=== PATIENT | female | born 1950 | race Caucasian/White ===

== ENCOUNTER → 2018-05-18 11:30 | Outpatient (CLI) | payer MEDICARE, SELFPAY ==
[2018-05-18 15:51] LABS: Absolute Lymphocyte Count 1.76 X10^3/ul (0.83-4.51); Absolute Neutrophil Count 2.5 X10^3/uL (2.0-7.7); Basophil# 0.07 X10^3/uL; Basophil% 1.4 % (0-1); Eosinophil# 0.17 X10^3/uL; Eosinophils% 3.4 % (0-5); Hematocrit 38.3 % (37-47); Hemoglobin 12.6 g/dl (12.0-15.0); Lymphocyte # 1.76 X10^3/ul (4.0); Lymphocyte % 35.1 % (19-41); Mean Corp Hgb Conc 32.9 g/gl (32-36); Mean Corpuscular Hgb 29.9 pg (27.0-32.0); Mean Corpuscular Volume 90.8 fL (81-99); Monocyte# 0.48 X10^3/uL; Monocyte% 9.6 % (0-10); Neutrophil # 2.54 X10^3/uL (2.7-7.7); Neutrophil % 50.5 % (47-70); Platelet Count 252 K/mm3 (150-450); RBC Distribution Width CV 13.6 % (11.6-14.6); RBC Distribution Width SD 44.4 fl (35.1-43.9); Red Blood Count 4.22 M/mm3 (4.2-5.4)
[2018-05-18 15:53] LABS: POSITIVE COUNT NO; POSITIVE DIFFERENTIAL NO; POSITIVE MORPHOLOGY NO
[2018-05-18 16:09] LABS: ALB/GLOB Ratio 1.2 RATIO (0.9-2.4); AST(SGOT) 19 U/L (15-37); Alanine Aminotransfer ALT/SGPT 26 U/L (13-56); Albumin, Serum 4.3 g/dL (3.2-5.0); Alkaline Phosphatase 62 U/L (45-117); Anion Gap 13 (5-15); BUN 16 mg/dL (7-18); Calcium,Total 9.5 mg/dL (8.5-10.1); Chloride 105 mmol/L (98-107); EST Glomerular Filtration Rate 59 mL/min (>60); Est Glom Filt Rate - Afr Amer 71 mL/min (>60); Globulin 3.7 g/dL (2.2-4.2); Glucose 85 mg/dL (74-106); Potassium 3.6 mmol/L (3.5-5.1); Sodium Level 142 mmol/L (136-145); Thyroid Stim Hormone (TSH) 1.19 uIU/mL (0.358-3.74)
[2018-05-18 20:46] LABS: Cholesterol 248 mg/dL (200); High Density Lipoprotein 63 mg/dL; Triglycerides 123 mg/dL; Very Low Density Lipoprotein 25 mg/dL (5-40)
== END ==
PROVIDERS: Family Provider Family Medicine; PCP Family Medicine; Visit Provider Family Medicine
DX: E03.9 Hypothyroidism, unspecified (principal); I10 Essential (primary) hypertension
CPT/HCPCS: 36415; 80053; 80061; 84443; 85025

== ENCOUNTER → 2018-05-20 10:36 | Outpatient (CLI) | payer MEDICARE, SELFPAY | PROVIDERS: Family Provider Family Medicine; PCP Family Medicine; Visit Provider Family Medicine | DX: R07.81 Pleurodynia (principal) | CPT/HCPCS: 71046; 71100 ==

== ENCOUNTER → 2018-06-07 08:22 | Outpatient (CLI) | payer MEDICARE, SELFPAY ==
--- NOTE | 2018-06-07 08:24 | BI_ITS ---
MAMMOGRAPHY - BILATERAL SCREENING REASON FOR EXAM: Female, 67 years old. Routine annual screening examination. PERTINENT HISTORY: Non-contributory. TECHNIQUE: Digital bilateral breast elvi (3D mammographic acquisition) in the CC and MLO projections. 2-D mediolateral oblique (MLO) and craniocaudad (CC) views of both breasts were obtained. CAD: Full Field Digital Mammography with Computer Added Detection was performed. COMPARISON: Comparison is made with prior study dated December 10, 2011. FINDINGS: Breast Composition: There are scattered areas of fibroglandular density. There are no dominant masses or suspicious calcifications. Stable small bilateral axillary lymph nodes. No other significant abnormalities are identified. There has been no significant change since the prior study. BI/SCREENING MAMM (CAD), BILAT IMPRESSION: Stable bilateral screening mammogram. Yearly follow-up mammogram recommended. (A) ASSESSMENT CATEGORY: BIRADS Category 2: Benign. A letter regarding these results will be sent to the patient by the facility within 30 days. Approximately 10% of breast cancers are not detected by mammography. A normal mammogram should not delay biopsy of a clinically suspicious abnormality. [id number] Electronically Signed: Alberto oSares MD at 13:17 EDT Tel [phone], Service support ,
== END ==
PROVIDERS: Family Provider Family Medicine; PCP Family Medicine; Visit Provider Family Medicine
DX: Z12.31 Encounter for screening mammogram for malignant neoplasm of breast (principal)
CPT/HCPCS: 77063; 77067

== ENCOUNTER → 2019-05-24 08:14 | Outpatient (CLI) | payer MEDICARE, SELFPAY ==
[2019-05-24 12:04] LABS: Absolute Lymphocyte Count 2.07 X10^3/uL (0.83-4.51); Eosinophil# 0.32 X10^3/uL; Eosinophils% 6.5 % (0-5); Hematocrit 38.8 % (37-47); Hemoglobin 12.6 g/dL (12.0-15.0); Lymphocyte # 2.07 X10^3/ul (4.0); Lymphocyte % 41.7 % (19-41); Mean Corp Hgb Conc 32.5 g/dL (32-36); Mean Corpuscular Hgb 30.6 pg (27.0-32.0); Mean Corpuscular Volume 94.2 fL (81-99); Mean Platelet Vol. 12.4 fl (6.2-12.0); Monocyte# 0.44 X10^3/uL; Monocyte% 8.9 % (0-10); NRBC Flagged by Analyzer 0 % (0-5); Neutrophil # 2.03 X10^3/uL (2.7-7.7); Neutrophil % 40.9 % (47-70); Platelet Count 248 K/mm3 (150-450); RBC Distribution Width CV 13.3 % (11.6-14.6); RBC Distribution Width SD 45.9 fl (35.1-43.9); Red Blood Count 4.12 M/mm3 (4.2-5.4)
[2019-05-24 12:30] LABS: AST(SGOT) 16 U/L (15-37); Alanine Aminotransfer ALT/SGPT 28 U/L (13-56); Albumin, Serum 3.8 g/dL (3.2-5.0); Alkaline Phosphatase 63 U/L (45-117); Anion Gap 8 (5-15); BUN 25 mg/dL (7-18); BUN/Creat Ratio 25.5 RATIO (10-20); Calcium,Total 9.5 mg/dL (8.5-10.1); Chloride 108 mmol/L (98-107); Cholesterol 209 mg/dL (200); Creatinine, Serum 0.98 mg/dL (0.55-1.02); EST Glomerular Filtration Rate 60 mL/min (>60); Est Glom Filt Rate - Afr Amer 73 mL/min (>60); Globulin 3.7 g/dL (2.2-4.2); Glucose 82 mg/dL (74-106); High Density Lipoprotein 58 mg/dL; Potassium 3.9 mmol/L (3.5-5.1); Protein, Total 7.5 g/dL (6.4-8.2); Sodium Level 142 mmol/L (136-145); Thyroid Stim Hormone (TSH) 1.91 uIU/mL (0.358-3.74); Triglycerides 110 mg/dL; Very Low Density Lipoprotein 22 mg/dL (5-40)
== END ==
PROVIDERS: Family Provider Family Medicine; PCP Family Medicine; Visit Provider Family Medicine
DX: I10 Essential (primary) hypertension (principal); E78.00 Pure hypercholesterolemia, unspecified; E03.9 Hypothyroidism, unspecified
CPT/HCPCS: 36415; 80053; 80061; 84443; 85025

== ENCOUNTER → 2019-10-27 16:09 | Outpatient (CLI) | payer MEDICARE, SELFPAY | PROVIDERS: PCP Family Medicine; Referring Provider Family Medicine; Visit Provider Family Medicine | DX: S69.92XA Unspecified injury of left wrist, hand and finger(s), initial encounter (principal); X58.XXXA Exposure to other specified factors, initial encounter; Y93.9 Activity, unspecified; Y92.9 Unspecified place or not applicable; Y99.9 Unspecified external cause status ==

== ENCOUNTER → 2019-10-28 08:53 | Outpatient (CLI) | payer MEDICARE, SELFPAY ==
--- NOTE | 2019-10-28 09:00 | RAD_ITS ---
STUDY: X-RAY - LEFT WRIST REASON FOR EXAM: Female, 69 years old. PAIN S/P FALL ON 10/17/19 TECHNIQUE: 3 view(s) of the wrist were obtained. COMPARISON: None. FINDINGS: Normal visualized distal radius and ulna. Normal radiocarpal articulation. Normal distal radioulnar articulation. Normal carpal bones. Normal carpal articulations. There are mild subchondral cystic changes of the base of the first metacarpal. Normal second through fifth carpometacarpal articulations. Normal visualized metacarpal bones. The soft tissue structures are unremarkable. RAD/Wrist min 3 Views IMPRESSION: No demonstrated acute osseous injury. Electronically Signed: Napoleon Manzo MD at 9:58 EST Tel , Service support ,
== END ==
PROVIDERS: PCP Family Medicine; Referring Provider Family Medicine; Visit Provider Family Medicine
DX: S69.92XA Unspecified injury of left wrist, hand and finger(s), initial encounter (principal); X58.XXXA Exposure to other specified factors, initial encounter; Y93.9 Activity, unspecified; Y92.9 Unspecified place or not applicable; Y99.9 Unspecified external cause status
CPT/HCPCS: 73110

== ENCOUNTER → 2020-06-15 09:50 | Outpatient (CLI) | payer MEDICARE, SELFPAY ==
[2020-06-15 12:20] LABS: Absolute Lymphocyte Count 1.72 X10^3/uL (0.83-4.51); Absolute Neutrophil Count 2.7 X10^3/uL (2.0-7.7); Basophil# 0.11 X10^3/uL; Basophil% 2.1 % (0-1); Eosinophils% 3.8 % (0-5); Hemoglobin 11.8 g/dL (12.0-15.0); Lymphocyte # 1.72 X10^3/ul (4.0); Lymphocyte % 33.1 % (19-41); Mean Corp Hgb Conc 32.8 g/dL (32-36); Mean Corpuscular Hgb 30.1 pg (27.0-32.0); Mean Corpuscular Volume 91.8 fL (81-99); Mean Platelet Vol. 11.6 fl (6.2-12.0); Monocyte# 0.44 X10^3/uL; Monocyte% 8.5 % (0-10); NRBC Flagged by Analyzer 0 % (0-5); Neutrophil # 2.72 X10^3/uL (2.7-7.7); Neutrophil % 52.3 % (47-70); Platelet Count 290 K/mm3 (150-450); RBC Distribution Width CV 13.2 % (11.6-14.6); Red Blood Count 3.92 M/mm3 (4.2-5.4); White Blood Count 5.2 K/mm3 (4.4-11.0)
[2020-06-15 12:23] LABS: Vitamin D,25 Hydroxy 69.1 ng/mL
[2020-06-15 12:32] LABS: ALB/GLOB Ratio 1.2 RATIO (0.9-2.4); AST(SGOT) 20 U/L (15-37); Alanine Aminotransfer ALT/SGPT 27 U/L (13-56); Albumin, Serum 4.3 g/dL (3.2-5.0); Alkaline Phosphatase 66 U/L (45-117); Anion Gap 8 (5-15); BUN 14 mg/dL (7-18); BUN/Creat Ratio 13.7 RATIO (10-20); Calcium,Total 9.7 mg/dL (8.5-10.1); Chloride 101 mmol/L (98-107); Cholesterol 230 mg/dL (200); Creatinine, Serum 1.02 mg/dL (0.55-1.02); EST Glomerular Filtration Rate 57 mL/min (>60); Est Glom Filt Rate - Afr Amer 69 mL/min (>60); Globulin 3.7 g/dL (2.2-4.2); Glucose 85 mg/dL (74-106); High Density Lipoprotein 63 mg/dL; Potassium 3.5 mmol/L (3.5-5.1); Sodium Level 138 mmol/L (136-145); Thyroid Stim Hormone (TSH) 1.27 uIU/mL (0.358-3.74); Triglycerides 146 mg/dL; Very Low Density Lipoprotein 29 mg/dL (5-40)
== END ==
PROVIDERS: PCP Family Medicine; Visit Provider Family Medicine
DX: E03.9 Hypothyroidism, unspecified (principal); I10 Essential (primary) hypertension; M85.80 Other specified disorders of bone density and structure, unspecified site; E78.00 Pure hypercholesterolemia, unspecified; E55.9 Vitamin D deficiency, unspecified
CPT/HCPCS: 36415; 80053; 80061; 82306; 84443; 85025

== ENCOUNTER → 2021-03-29 13:22 | Outpatient (CLI) | payer MEDICARE, OTHER, SELFPAY ==
--- NOTE | 2021-03-29 13:22 | MRI_ITS ---
STUDY: MRI THORACIC SPINE WITHOUT CONTRAST REASON FOR EXAM: Female, 70 years old. Mid- upper back pain since 2003, fall TECHNIQUE: Standardized fat and water weighted pulse sequences were obtained in the sagittal and axial planes. COMPARISON: Thoracic spine radiographs 02/18/2021. FINDINGS: Normal kyphosis of the thoracic spine. There is no substantial scoliosis. T1-2, T2-3, T3-4, T4-5, T5-6, T6-7, T7-8, T8-9, T9-10, T10-11, T11-12: Normal endplates. Normal disc hydration, heights and morphology of the corresponding intervertebral discs. Normal central canal and intervertebral neural foramina at the corresponding levels. Small midline syrinx of the spinal cord along the T8 vertebral body level. Normal conus medullaris that terminates at the mid T12 vertebral body level. The soft tissue structures are unremarkable. MRI/Spine Thoracic (Routine) IMPRESSION: 1. Small midline syrinx of the spinal cord along the T8 vertebral body level. Contrast MRI of the thoracic spine will help confirm benign nonneoplastic syrinx. 2. No MRI evidence of recent or remote compression fractures of the thoracic spine. 3. No MRI evidence of thoracic extruded disc fragment or spinal stenosis. Electronically Signed: Will Rudd MD at 16:14 EDT , Service support ,
== END ==
PROVIDERS: PCP Family Medicine; Referring Provider Orthopaedic Surgery; Visit Provider Orthopaedic Surgery
DX: M54.14 Radiculopathy, thoracic region (principal); M54.5 Low back pain
CPT/HCPCS: 72146

== ENCOUNTER 2021-10-15 14:23 | Outpatient (CLI) | payer MEDICARE, OTHER, SELFPAY | END 2021-10-15 23:59 | disposition home or self-care (01) | LOC: LABSPEC 12-24 14:23 | PROVIDERS: PCP Family Medicine; Visit Provider Family Medicine | DX: U07.1 COVID-19 (principal) | CPT/HCPCS: 87635; U0003; U0005 ==

== ENCOUNTER → 2022-06-24 | Outpatient (CLI) | payer MEDICARE, OTHER, SELFPAY ==
[2022-06-24 10:12] LABS: Absolute Lymphocyte Count 2.26 X10^3/uL (0.83-4.51); Absolute Neutrophil Count 2.6 X10^3/uL (2.0-7.7); Basophil# 0.12 X10^3/uL; Basophil% 2.1 % (0-1); Eosinophils% 5.2 % (0-5); Hematocrit 37.4 % (37-47); Hemoglobin 12.1 g/dL (12.0-15.0); Lymphocyte # 2.26 X10^3/ul (0.83-4.51); Lymphocyte % 39.2 % (19-41); Mean Corp Hgb Conc 32.4 g/dL (32-36); Mean Corpuscular Hgb 30.2 pg (27.0-32.0); Mean Corpuscular Volume 93.3 fL (81-99); Mean Platelet Vol. 11.4 fl (6.2-12.0); Monocyte# 0.45 X10^3/uL; Monocyte% 7.8 % (0-10); NRBC Flagged by Analyzer 0 % (0-5); Neutrophil # 2.64 X10^3/uL (2.7-7.7); Neutrophil % 45.7 % (47-70); Platelet Count 295 K/mm3 (150-450); RBC Distribution Width CV 13.3 % (11.6-14.6); RBC Distribution Width SD 45.5 fl (35.1-43.9); Red Blood Count 4.01 M/mm3 (4.2-5.4); White Blood Count 5.8 K/mm3 (4.4-11.0)
[2022-06-24 10:28] LABS: Vitamin D,25 Hydroxy 57.3 ng/mL
[2022-06-24 10:34] LABS: AST(SGOT) 18 U/L (15-37); Alanine Aminotransfer ALT/SGPT 27 U/L (13-56); Albumin, Serum 3.9 g/dL (3.2-5.0); Alkaline Phosphatase 62 U/L (45-117); Anion Gap 9 (5-15); BUN 20 mg/dL (7-18); BUN/Creat Ratio 19.2 RATIO (10-20); Calcium,Total 9.7 mg/dL (8.5-10.1); Chloride 105 mmol/L (98-107); Cholesterol 241 mg/dL (200); Creatinine, Serum 1.04 mg/dL (0.55-1.02); EST Glomerular Filtration Rate 56 mL/min (>60); Est Glom Filt Rate - Afr Amer 67 mL/min (>60); Glucose 90 mg/dL (74-106); High Density Lipoprotein 62 mg/dL; Potassium 3.6 mmol/L (3.5-5.1); Protein, Total 7.9 g/dL (6.4-8.2); Sodium Level 141 mmol/L (136-145); Triglycerides 138 mg/dL; Very Low Density Lipoprotein 28 mg/dL (5-40)
== END | disposition home or self-care (01) ==
LOC: MTLAB 07:05
PROVIDERS: PCP Family Medicine; Referring Provider Family Medicine; Visit Provider Family Medicine
DX: I10 Essential (primary) hypertension (principal); E03.9 Hypothyroidism, unspecified; M85.80 Other specified disorders of bone density and structure, unspecified site; E78.00 Pure hypercholesterolemia, unspecified; E55.9 Vitamin D deficiency, unspecified
CPT/HCPCS: 36415; 80053; 80061; 82306; 84443; 85025

== ENCOUNTER → 2022-11-04 | Outpatient (CLI) | payer MEDICARE, OTHER, SELFPAY ==
[2022-11-04 13:32] LABS: Anion Gap 9 (5-15); BUN 26 mg/dL (7-18); BUN/Creat Ratio 24.8 RATIO (10-20); Calcium,Total 10.3 mg/dL (8.5-10.1); Chloride 104 mmol/L (98-107); Creatinine, Serum 1.05 mg/dL (0.55-1.02); EST Glomerular Filtration Rate 55 mL/min (>60); Est Glom Filt Rate - Afr Amer 66 mL/min (>60); Glucose 95 mg/dL (74-106); Magnesium 2.3 mg/dL (1.6-2.6); Potassium 3.4 mmol/L (3.5-5.1); Sodium Level 140 mmol/L (136-145); Thyroid Stim Hormone (TSH) 1.21 uIU/mL (0.358-3.74)
== END | disposition home or self-care (01) ==
LOC: BFHLAB 11:14
PROVIDERS: PCP Family Medicine; Visit Provider Family Medicine
DX: I10 Essential (primary) hypertension (principal); E78.5 Hyperlipidemia, unspecified; E03.9 Hypothyroidism, unspecified
CPT/HCPCS: 36415; 80048; 83735; 84443

== ENCOUNTER → 2025-02-23 | Outpatient (CLI) | payer MEDICARE, OTHER, SELFPAY ==
--- NOTE | 2025-02-23 12:28 | EKG12_ITS ---
Test Reason : PREOP Blood Pressure : */* mmHG Vent. Rate : 61 BPM Atrial Rate : 61 BPM P-R Int : 150 ms QRS Dur : 92 ms QT Int : 408 ms P-R-T Axes : 60 62 -5 degrees QTcB Int : 410 ms Normal sinus rhythm ST & T wave abnormality, consider inferior ischemia ST & T wave abnormality, consider anterolateral ischemia Abnormal ECG Confirmed by Robert Hagen ([id number]), electronic news gathering editor DOROTA CLARK ([id number]) on 02/27/2025 11:31:10 AM Referred By: Adam Mendoza Confirmed By: Robert Hagen
--- NOTE | 2025-02-23 12:42 | CT_ITS ---
PROCEDURE: EXTREMITY LOWER WITHOUT CONTRA 02/23/2025 REASON FOR EXAM: PAIN IN RIGHT KNEE [facility] protocol for right knee replacement. TECHNIQUE: Axial CT images of the right hip joint, right knee joint and right ankle joint obtained with intravenous contrast. Coronal and Sagittal reconstruction series were provided. CONTRAST: None One or more dose reduction techniques were used (e.g., Automated exposure control, adjustment of the mA and/or kV according to patient size, use of iterative reconstruction technique). RADIATION DOSE SUMMARY: CTDlvol: 19 mGy DLP: 1304.19 mGycm COMPARISON: None FINDINGS: Bones: No evidence of fracture. Joints: Imaging of the right hip joint was performed. The joint space is relatively well-maintained. Imaging of the right knee joint was performed. Marked degree of joint space narrowing involving the medial compartment of the knee joint as well as moderate degree of joint space narrowing of the patellofemoral joint with subchondral sclerosis. Imaging of the ankle joint was performed. There is good alignment. No significant abnormality is seen. Soft Tissues: Small knee joint effusion. CT/Extremity Lower without Contra IMPRESSION: Marked degree of joint space narrowing and osteoarthritis of the medial compart ment of the knee joint as well as the patellofemoral compartment. Small knee joint effusion. Reading Location: [facility]
[2025-02-23 14:26] LABS: Absolute Lymphocyte Count 2.18 X10^3/uL (0.83-4.51); Basophil# 0.12 X10^3/uL; Basophil% 1.7 % (0-1); Eosinophils% 2.8 % (0-5); Hematocrit 35.2 % (37-47); Lymphocyte # 2.18 X10^3/ul (0.83-4.51); Lymphocyte % 30.9 % (19-41); Mean Corp Hgb Conc 34.1 g/dL (32-36); Mean Corpuscular Hgb 30.8 pg (27.0-32.0); Mean Corpuscular Volume 90.5 fL (81-99); Mean Platelet Vol. 11.1 fl (6.2-12.0); Monocyte# 0.54 X10^3/uL; Monocyte% 7.6 % (0-10); NRBC Flagged by Analyzer 0 % (0-5); Neutrophil % 56.7 % (47-70); Platelet Count 346 K/mm3 (150-450); RBC Distribution Width CV 13.3 % (11.6-14.6); RBC Distribution Width SD 44.1 fl (35.1-43.9); Red Blood Count 3.89 M/mm3 (4.2-5.4); White Blood Count 7.1 K/mm3 (4.4-11.0)
[2025-02-23 14:41] LABS: Albumin, Serum 4.9 g/dL (3.4-4.8); Anion Gap 14 (5-15); BUN 37 mg/dL (4-19); BUN/Creat Ratio 29.2 RATIO (10-20); Calcium,Total 10.3 mg/dL (7.6-11.0); Carbon Dioxide 24.3 mmol/L (21.0-32.0); Chloride 100 mmol/L (98-108); Creatinine, Serum 1.26 mg/dL (0.70-1.20); EST Glomerular Filtration Rate 45 (>60); Glucose 100 mg/dL (70-99); Potassium 3.8 mmol/L (3.3-5.1); Sodium Level 138 mmol/L (133-145)
== END | disposition home or self-care (01) ==
LOC: CT 12:22
PROVIDERS: PCP Nurse Practitioner Family; Referring Provider Specialist; Visit Provider Specialist
DX: Z01.818 Encounter for other preprocedural examination (principal); M17.11 Unilateral primary osteoarthritis, right knee; M21.161 Varus deformity, not elsewhere classified, right knee; G89.29 Other chronic pain
CPT/HCPCS: 36415; 73700; 80048; 82040; 85025; 87081; 93005

== ENCOUNTER 2025-03-10 14:15 | Emergency (ER) | payer MEDICARE, OTHER, SELFPAY ==
[2025-03-10 14:16] VITALS: BP 160/73; PULSE 80; RESP 16; TEMP 36.8; O2SAT 100; BMI 30.2
--- NOTE | 2025-03-10 14:40 | EX.ED.DYSGE1 ---
HPI <KWESI Simon - Last Filed: 03/10/25 19:27> History of Present Illness Chief Complaint: Abn Labs Narrative Narrative: Patient presenting today due to an out patient troponin lab that was slightly elevated. She reports that she recently had a preop EKG at the end of January that showed possible ischemic changes, her PCP then ordered an outpatient troponin on Thursday which came back at 18. She had this repeated today and it was 21, prompting her to be sent in for evaluation. She denies any chest pain, shortness of breath, cardiac history, abdominal pain, nausea, and vomiting. She reports occasional chest pressure that she has had intermittently for months. She attributes this to her anxiety. She currently does not have any chest pain or pressure. She has a PMH of HTN, hypothyroidism, and anxiety. PFSH <KWESI Simon - Last Filed: 03/10/25 19:27> PFSH Medical History no medical history Home Medications ?Medication ?Instructions ?Recorded ?Last Taken ?Type diazepam 5 mg tablet (Valium) 5 mg PO QHS PRN anxiety #1 TAB 03/20/21 Unknown Rx Allergy/AdvReac Type Severity Reaction Status Date / Time sulfamethoxazole (From AdvReac Mild Upset Verified 03/10/25 14:19 Bactrim) Stomach trimethoprim (From Bactrim) AdvReac Mild Upset Verified 03/10/25 14:19 Stomach amoxicillin (From Augmentin) AdvReac Diarrhea Verified 03/10/25 14:19 clavulanic acid (From AdvReac Diarrhea Verified 03/10/25 14:19 Augmentin) Family History no significant family his Surgical History no surgical history Social History Smoking Status: Never smoker ROS <KWESI Simon - Last Filed: 03/10/25 19:27> ROS ED Constitutional Constitutional ED: Denies chills or fever(s) Cardiovascular Cardiovascular: Denies chest pain or palpitations Respiratory/Chest Respiratory/Chest: Denies dyspnea Gastrointestinal Gastrointestinal: Denies abdominal pain, nausea or vomiting Neurologic Neurologic: Denies weakness EXAM <KWESI Simon Last Filed: 03/10/25 19:27> Physical Exam Const Vital Signs: 03/10/25 14:16 03/10/25 14:48 03/10/25 15:16 Temperature 98.3 F Temperature Source Oral Pulse Rate 80 61 Respiratory Rate 16 Respiratory Effort Normal Non-Labored Blood Pressure 160/73 H 139/66 H Blood Pressure Mean 102 90 Pulse Ox 100 100 Oxygen Delivery Method Room Air Room Air 03/10/25 16:00 03/10/25 17:00 03/10/25 18:23 Temperature 98.3 F Temperature Source Pulse Rate 61 60 73 Respiratory Rate 16 18 Respiratory Effort Blood Pressure 130/63 H 140/66 H 132/78 H Blood Pressure Mean 85 90 96 Pulse Ox 99 99 100 Oxygen Delivery Method Room Air Room Air Positive well nourished, well developed and no apparent distress General Appearance ED: well developed HEENT Reports normocephalic and head/scalp atraumatic Mouth ED: Yes moist mucous membranes normal Eyes PERRL and EOMs intact bilaterally Neck full ROM and supple Chest Wall inspection of chest normal Resp normal respiratory effort and clear to auscultation bilaterally Cardio regular rate and regular rhythm GI soft to palpation, non-tender, non-distended and no masses Back/Spine normal ROM and normal to inspection Extremity normal to inspection and full ROM Neuro oriented x3, CN's II-XII intact bilaterally, moves all extremities, no focal motor deficits and no sensory deficits noted Sensorium / Orientation: awake and alert Psych mental status grossly normal and thought process normal Skin no rashes or lesions noted and no wounds <Dr. Luis M Geller DO - Last Filed: 03/10/25 23:09> Physical Exam Const Vital Signs: 03/10/25 14:16 03/10/25 14:48 03/10/25 15:16 Temperature 98.3 F Temperature Source Oral Pulse Rate 80 61 Respiratory Rate 16 Respiratory Effort Normal Non-Labored Blood Pressure 160/73 H 139/66 H Blood Pressure Mean 102 90 Pulse Ox 100 100 Oxygen Delivery Method Room Air Room Air 03/10/25 16:00 03/10/25 17:00 03/10/25 18:23 Temperature 98.3 F Temperature Source Pulse Rate 61 60 73 Respiratory Rate 16 18 Respiratory Effort Blood Pressure 130/63 H 140/66 H 132/78 H Blood Pressure Mean 85 90 96 Pulse Ox 99 99 100 Oxygen Delivery Method Room Air Room Air MDM <Gertrude Carver PA - Last Filed: 03/10/25 19:27> MDM MDM Narrative Medical decision making narrative: Patient presenting today due to abnormal troponins that were drawn as an outpatient by her PCP. She had an EKG done preoperatively that showed some ST wave changes and her PCP had her obtain an outpatient troponin that was 18 on Thursday, it was repeated today and was 21, prompting her to be sent in for evaluation. She reports that she has chronic intermittent chest pressure with inspiration that she attributes to her anxiety. She does not currently have any chest pain or pressure. EKG here shows mild ST depressions in leads V4 through V6. Cardiac workup obtained, her CBC is largely unremarkable, her BUN is 28, normal creatinine. Normal D-dimer. Troponin slightly elevated here, nonsignificant delta. Chest x-ray negative for cardiopulmonary abnormality. I did speak with Dr. He, he recommended that given she is currently asymptomatic that she have close outpatient follow-up including a stress test and echocardiogram. She does have this scheduled in March. I recommended that she follow-up with cardiology to try to have this obtained sooner. Strict return instructions were discussed with her. She is understanding of reasons to return. She will be discharged home in stable condition. Lab Data Attestation: I reviewed the patient's lab results. Labs: Laboratory Results - last 24 hr 03/10/25 03/10/25 14:40 16:40 WBC 8.1 RBC 3.68 L Hgb 11.3 L Hct 33.2 L MCV 90.2 MCH 30.7 MCHC 34.0 RDW Std Deviation 42.2 RDW Coeff of Piper 12.8 Plt Count 322 MPV 11.5 Immature Gran % (Auto) 0.200 Neut % (Auto) 52.0 Lymph % (Auto) 32.2 Miner % (Auto) 8.8 Eos % (Auto) 5.2 H Baso % (Auto) 1.6 H Absolute Neuts (auto) 4.2 Absolute Lymphs (auto) 2.61 Nucleated RBC % 0 PT 12.7 INR 0.9 D-Dimer Quant (PE/DVT) 0.48 Sodium 136 Potassium 3.7 Chloride 98 Carbon Dioxide 24.0 Anion Gap 14 BUN 28 H Creatinine 1.13 Estim Creat Clear Calc 47.02 L Est GFR (MDRD) Non-Af 51 L BUN/Creatinine Ratio 24.9 H Glucose 99 Calcium 10.2 Troponin T High Sens 20 H Troponin T Hi Sens 2 Hr 25 H Radiography X-Ray: Read by ED Physician Diagnostic Testing: Clinical Impression(s) from Imaging Studies Chest X-Ray 03/10/25 17:49 IMPRESSION: NEGATIVE CHEST Reading Location: [facility] EKG Initial EKG: Comments: 57 bpm, sinus bradycardia, no ST elevation, slight ST depressions in leads V4 through V6. EKG shows similar findings from 02/23/2025. Interpreted by attending ED physician. <Dr. Luis M Geller, DO - Last Filed: 03/10/25 23:09> [facility] Lab Data Labs: Laboratory Results - last 24 hr 03/10/25 03/10/25 14:40 16:40 WBC 8.1 RBC 3.68 L Hgb 11.3 L Hct 33.2 L MCV 90.2 MCH 30.7 MCHC 34.0 RDW Std Deviation 42.2 RDW Coeff of Piper 12.8 Plt Count 322 MPV 11.5 Immature Gran % (Auto) 0.200 Neut % (Auto) 52.0 Lymph % (Auto) 32.2 Miner % (Auto) 8.8 Eos % (Auto) 5.2 H Baso % (Auto) 1.6 H Absolute Neuts (auto) 4.2 Absolute Lymphs (auto) 2.61 Nucleated RBC % 0 PT 12.7 INR 0.9 D-Dimer Quant (PE/DVT) 0.48 Sodium 136 Potassium 3.7 Chloride 98 Carbon Dioxide 24.0 Anion Gap 14 BUN 28 H Creatinine 1.13 Estim Creat Clear Calc 47.02 L Est GFR (MDRD) Non-Af 51 L BUN/Creatinine Ratio 24.9 H Glucose 99 Calcium 10.2 Troponin T High Sens 20 H Troponin T Hi Sens 2 Hr 25 H Radiography Diagnostic Testing: Clinical Impression(s) from Imaging Studies Chest X-Ray 03/10/25 17:49 IMPRESSION: NEGATIVE CHEST Reading Location: [facility] Treatment and Re-Evaluation :: Attending note: I have personally performed a face to face assessment of the patient and have reviewed the CAPRICE note. I personally made/approved the management plan and take responsibility for the patient management. I performed a substantive portion of the visit including all aspects of the following. My mccauley findings include: Sent in from primary care doctor as elevated troponin of 21. She had recent EKG for clearance of her knee surgery noted abnormalities ST depressions. Follow-up with her primary care team. Outpatient echo and stress test ordered for April 12. She has intermittent pressure in her chest for last 4 months her to take deep breath in however it would improve shortly afterwards. She has been less mobile with her knee pains. No recent travel or surgeries no history of PE or DVT. Exam no leg swelling no cramping heart lungs were normal. EKG ST depressions inferior lateral leads no elevations this was similar to her preop EKGs. She had a troponin 3 days ago 14 today 21. Repeated troponins 20, then 25, D-dimer obtained which was also negative. 1 view chest x-ray interpreted myself shows no acute process. Patient has EKG changes with vague symptoms. We discussed with on-call cardiology discussed patient's history. Discussed patient's choice for admission for further testing versus close outpatient follow-up with cardiology. Patient did not want to be hospitalized. She will follow-up with cardiology for potential earlier testing with strict return precautions. Discharge Plan Triage Chief Complaint: Abn Labs ED Midlevel Provider: Gertrude Carver ED Provider: Luis M Geller Dx/Rx/DC Orders Clinical Impression: Elevated troponin, Abnormal ECG Instructions: ED Chest Pain, Uncertain Cause Prescriptions: No Action diazepam [Valium] 5 mg tablet 5 mg PO QHS PRN (Reason: anxiety) Qty: 1 0RF Primary Care Provider: Maggy Tucker Referrals: Cole He MD [Med Staff - Active Staff] - 5-7 Days Maggy Tucker NP-C [Primary Care Provider] - Activity Restrictions/Additional Instructions: Please follow-up with cardiology, return for any concerning or worsening symptoms. Please return for any chest pain, shortness of breath, or any other concerning symptoms. Print Language: Amharic Disposition Disposition: Home, Self Care Discharge Date/Time: 03/10/25 18:24
[2025-03-10 15:16] VITALS: BP 139/66; PULSE 61; O2SAT 100
[2025-03-10 15:29] LABS: Troponin T High Sensitivity 20 ng/L (<=14)
[2025-03-10 16:00] VITALS: BP 130/63; PULSE 61; O2SAT 99
[2025-03-10 16:23] LABS: Absolute Lymphocyte Count 2.61 X10^3/uL (0.83-4.51); Absolute Neutrophil Count 4.2 X10^3/uL (2.0-7.7); Basophil# 0.13 X10^3/uL; Basophil% 1.6 % (0-1); Eosinophil# 0.42 X10^3/uL; Eosinophils% 5.2 % (0-5); Hematocrit 33.2 % (37-47); Hemoglobin 11.3 g/dL (12.0-15.0); Lymphocyte # 2.61 X10^3/ul (0.83-4.51); Lymphocyte % 32.2 % (19-41); Mean Corpuscular Hgb 30.7 pg (27.0-32.0); Mean Corpuscular Volume 90.2 fL (81-99); Mean Platelet Vol. 11.5 fl (6.2-12.0); Monocyte# 0.71 X10^3/uL; Monocyte% 8.8 % (0-10); NRBC Flagged by Analyzer 0 % (0-5); Neutrophil # 4.22 X10^3/uL (2.7-7.7); Platelet Count 322 K/mm3 (150-450); RBC Distribution Width CV 12.8 % (11.6-14.6); RBC Distribution Width SD 42.2 fl (35.1-43.9); Red Blood Count 3.68 M/mm3 (4.2-5.4); White Blood Count 8.1 K/mm3 (4.4-11.0)
[2025-03-10 16:28] LABS: Anion Gap 14 (5-15); BUN 28 mg/dL (4-19); BUN/Creat Ratio 24.9 RATIO (10-20); Calcium,Total 10.2 mg/dL (7.6-11.0); Chloride 98 mmol/L (98-108); Creatinine, Serum 1.13 mg/dL (0.70-1.20); EST Glomerular Filtration Rate 51 (>60); Estimated Creatinine Clearance 47.02 ml/min (50-250); Glucose 99 mg/dL (70-99); Potassium 3.7 mmol/L (3.3-5.1); Sodium Level 136 mmol/L (133-145)
[2025-03-10 17:00] VITALS: BP 140/66; PULSE 60; RESP 16; O2SAT 99
[2025-03-10 17:07] LABS: Troponin T High Sens 2 HR 25 ng/L (<=14)
[2025-03-10 17:11] LABS: D-Dimer Quantitative (DVT/PE) 0.48 FEU/ug/m (0.27-0.49)
[2025-03-10 17:41] LABS: International Normalized Ratio 0.9; Prothrombin Time (Protime)PT. 12.7 SECONDS (11.7-14.9)
--- NOTE | 2025-03-10 17:49 | RAD_ITS ---
PROCEDURE: CHEST PA AND LATERAL 03/10/2025 REASON FOR EXAM: CHEST PAIN TECHNIQUE: CHEST PA AND LATERAL COMPARISON: Chest radiograph 03/09/2023. FINDINGS: Hardware: None. Heart: The heart size is normal. Mediastinum: The mediastinal contour is stable. Lungs: No focal consolidation, pleural effusion or pneumothorax. Bones: Degenerative changes are identified within the thoracic spine. RAD/Chest PA and Lateral IMPRESSION: NEGATIVE CHEST Reading Location: [id number]
[2025-03-10 18:23] VITALS: BP 132/78; PULSE 73; RESP 18; TEMP 36.8; O2SAT 100
== END 2025-03-10 18:24 | disposition home or self-care (01) ==
PROVIDERS: Physician Assistant; Emergency Provider Emergency Medicine; PCP Nurse Practitioner Family; Visit Provider Emergency Medicine
DX: R79.89 Other specified abnormal findings of blood chemistry (principal); F41.9 Anxiety disorder, unspecified; R94.31 Abnormal electrocardiogram [ECG] [EKG]; I10 Essential (primary) hypertension; E03.9 Hypothyroidism, unspecified; R07.9 Chest pain, unspecified
CPT/HCPCS: 71046; 80048; 84484; 85025; 85379; 85610; 93005; 99283; A4216

== ENCOUNTER → 2025-03-10 | Outpatient (CLI) | payer MEDICARE, OTHER, SELFPAY ==
[2025-03-10 12:31] LABS: Troponin T High Sensitivity 21 ng/L (<=14)
== END | disposition home or self-care (01) ==
LOC: LABSPEC 12:04
PROVIDERS: PCP Nurse Practitioner Family; Referring Provider Internal Medicine; Visit Provider Internal Medicine
DX: R79.89 Other specified abnormal findings of blood chemistry (principal)
CPT/HCPCS: 84484

== ENCOUNTER → 2025-04-12 | Outpatient (CLI) | payer MEDICARE, OTHER, SELFPAY ==
--- NOTE | 2025-04-12 12:29 | STEWCON_ITS ---
Reason For Study Reason For Study: Abn. EKG, Pre-op Stress Results Protocol: Jesus Protocol WITH DEFINITY Maximum Predicted HR: 147 bpm Target HR: 125 bpm % Maximum Predicted HR: 95 % DurationHeart Rate Stage (mm:ss) (bpm) BP Comment Baseline 53 168/72 Stage 1- Jessu Protocol 3:00 139 178/74 Recovery 68 142/783cc Definity Stress Duration: 3:00 mm:ss Maximum Stress HR: 139 bpm Baseline Echocardiogram Findings Normal systolic function. Mild (1+) mitral valve insufficiency. Moderate (2+) tricuspid valve insufficiency. Right ventricular systolic pressure estimated to be 84 mmHg. Mild (1+) aortic valve insufficiency. Trisinus/trileaflet aortic valve. Stress Echo Wall motion Data Resting WM Intermediate WM Stress WM Resting Wall Motion Wall Motion Stress Estimated LVEF 55%. Posterior Posterior wall remained hypokinetic. hypokinesis. Inferior wall hypokinesis poststress suggestive of ischemia. Time Measurements MV dec time: 0.14 sec Doppler Measurements & Calculations MV E max comfort: 80.4 cm/sec MV dec slope: 574.5 cm/sec2 PA V2 max: 117.1 cm/sec MV A max comfort: 73.3 cm/sec PA V2 mean: 85.2 cm/sec MV E/A: 1.1 TR max comfort: 443.9 cm/sec TR max P.8 mmHg ECHO/Stress Test Echo W/Contrast Interpretation Summary Technically adequate stress test. 97% of maximum predicted heart rate achieved. No chest pain reported. Baseline ECG with inferolateral ST depressions. Exaggerated at peak exercise an d in recovery. Suggestive of ischemia however baseline abnormality reduced specificity. 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 Moderate (2+) tricuspid valve insufficiency. Severe pulmonary hypertension. Right ventricular systolic pressure estimated to be 84 mmHg. Mild (1+) aortic valve insufficiency. Mild mitral valve regurgitation. Ordering Physician: Maggy Tucker Referring Physician: Maggy Tucker Performed By: Rashard Bernabe RCS
--- OUTSIDE RECORDS SUMMARY | 2025-04-12 22:39 | XMS RPT_ITS | CCD ---
Author Organization [facility] Care Team Providers Care Court Liaison Name Role Phone Garrett HOSPITALITY COORDINATOR, Brandon Unavailable Garrett HOSPITALITY COORDINATOR, Brandon Unavailable [phone] Marissa Moreno Unavailable Unavailable KATHLEEN HOSPITALITY COORDINATOR, AMBER Unavailable Junior Marketing Associate, System Unavailable Unavailable Marine Johnson LPN Unavailable Unavailable Unavailable Unavailable Holger Infante Unavailable Brandon Randall CNP Attending Unavailable Garrett HOSPITALITY COORDINATOR, Brandon Consulting Unavailable [facility]HOSPITAL[facility] COORDINATOR, BRANDON Primary Care Physician Amanda BURTON, Vanita Unavailable Unavailable NARESH GRIMM, DR HOLGER Gonzalez Attending Unavailab le [facility]HOSPITALITY COORDINATOR, [facility] Primary Care Unavail able NARESH GRIMM, DR HOLGER Gonzalez Attending Unavailab le [facility]-HOSPITALITY COORDINATOR, [facility] Primary Care Unavail able NARESH GRIMM, DR HOLGER Gonzalez Attending Unavailab le [facility]-HOSPITALITY COORDINATOR, [facility] Primary Care Unavail able Dr. Holger Infante MD Attending Provider [phone] Dr. Holger Infante MD Referring Provider Garrett RENE-C, Brandon Primary Care Provider Dr. Robert Hgaen MD Attending Provider Dr. Ana Hernández MD Attending Provider Dr. Ana Hernández MD Referring Provider Dr. Luis M Geller DO Emergency Provider Dr. Luis M Geller DO Attending Provider [phone] Robert Hagen Attending Unavailable Holger Infante Referring Unavailable Brandon Randall Primary Care Unavailable Holger Infante Attending Unavailable Holger Infante Referring Unavailable Brandon Randall Primary Care Unavailable Ana Hernández Attending Unavailable Ana Hernández Referring Unavailable Brandon Randall Primary Care Unavailable Barndon Randall Primary Care Unavailable Luis M Geller Attending Unavailable Brandon Randall Attending Unavailable Brandon Randall Referring Unavailable Brandon Randall Primary Care Unavailable Ana Hernández Attending Unavailable Brandon Randall Primary Care Unavailable Allergies Allergy Classification Reported Allergen(s) Allergy Type Date of Onset Reaction(s) Facility (5 sources) Sulfamethoxazole Drug Allergy 04-08-20 21 Upset Stomach [facility] (5 sources) Trimethoprim Drug Allergy 04-08-20 21 Upset Stomach [facility] (14 sources) Poison [place] Allergy to substance (finding) [facility] Work Phone: (11 sources) Amoxicillin / Clavulanate Drug Allergy [facility] Work Phone: Comment on above: Diarrhea (11 sources) Sulfamethoxazole / Trimethoprim Drug Allergy [facility]; [facility] Work Phone: Comment on above: Diarrhea (3 sources) Amoxicillin / Clavulanate; Translations: [amoxicillin-clavul anate] Drug Allergy Diarrhea [facility] (3 sources) Sulfamethoxazole / Trimethoprim; Translations: [sulfamethoxazole-t rimethoprim] Drug Allergy [facility] (2 sources) Amoxicillin Drug Allergy 03-10-20 25 [facility] (2 sources) Clavulanate Drug Allergy 03-10-20 25 Diarrhea [facility] (1 source) Amoxicillin Drug Allergy 03-10-20 25 [facility] (1 source) Clavulanate Drug Allergy 03-10-20 25 [facility] (1 source) Sulfamethoxazole Drug Allergy 03-10-20 25 [facility] (1 source) Trimethoprim Drug Allergy 03-10-20 [facility] Medications Current Medications Medication Drug Class(es) Dates Sig (Normalized) Sig (Original) diazePAM 5 mg oral tablet (5 sources) Benzodiazepine Start: 03-20-2021 take 1 tablet by mouth at bedtime as needed for anxiety Diazepam (Valium) 5 mg tablet Active 5 mg PO AT BEDTIME as needed for anxiety March 20, 2021 12:00am Vitamin D3 (3 sources) Start: 03-02-2023 Vitamin D3 Dose : 100 mcg = 1 tab(s), Oral, Daily, # 90 tab(s), 0 Refill(s) Start Date: 03/02/23 Status: Ordered Completed/Discontinued Medications Medication Drug Class(es) Dates Sig (Normalized) Sig (Original) amoxicillin 875 mg / clavulanate 125 mg oral tablet (14 sources) Penicillin-class Antibacterial Start: 11-02-2006 End: 04-06-2009 take 1 tablet by mouth twice daily AUGMENTIN, 875-125MG (Oral Tablet) 1 Tablet BID for 10 days Quantity: 20 {Tablet} Refills: 0 Ordered: 02-Nov-2006 AMBER WANG CNP Start : 02-Nov-2006 End : 06-Apr-2009 Inactive hydroCHLOROthiazide 25 mg / lisinopril 20 mg oral tablet (15 sources) Thiazide Diuretic, Angiotensin Converting Enzyme Inhibitor Start: 06-10-2023 take 1 tablet by mouth once daily lisinopriL-hydr ochlorothiazide 20-25 mg oral tablet 1 (one) tablet daily for 0 days Quantity: 30 {Tablet} Refills: 1 Ordered: 10-Jun-2023 Brandon Randall CNP Start : 10-Jun-2023 Active Start: 04-08-2023 take 1 tablet by sonya th once daily lisinopriL-hydrochlorothiazide 20-25 mg oral tablet 1 (one) tablet daily for 0 days Quantity: 30 {Tablet} Refills: 1 Ordered: 08-Apr-2023 Brandon Randall CNP Start : 08-Apr-2023 Active Start: 01-12-2023 take 1 tablet by sonya th once daily lisinopriL-hydrochlorothiazide 20-25 mg oral tablet 1 (one) tablet daily for 0 days Quantity: 30 {Tablet} Refills: 1 Ordered: 12-Jan-2023 Brandon Randall CNP Start : 12-Jan-2023 Active Start: 12-23-2022 take 1 tablet by sonya th once daily lisinopriL-hydrochlorothiazide 20-25 mg oral tablet 1 (one) tablet daily for 0 days Quantity: 30 {Tablet} Refills: 1 Ordered: 23-Dec-2022 Brandon Randall CNP Start : 23-Dec-2022 Active Start: 12-12-2022 take 1 tablet by snoya th twice daily lisinopriL-hydrochlorothiazide 20-12.5 m g oral tablet 1 (one) tablet two times daily for 0 days Quantity: 180 {Tablet} Refills: 0 Ordered: 12-Dec-2022 Brandon Randall CNP Start : 12-Dec-2022 Active Start: 12-12-2022 take 1 tablet by sonya th twice daily lisinopriL-hydrochlorothiazide 20-25 mg oral tablet 1 (one) tablet two times daily for 0 days Quantity: 60 {Tablet} Refills: 1 Ordered: 12-Dec-2022 Brandon Randall CNP Start : 12-Dec-2022 Active Start: 07-09-2020 take 1 tablet by sonya th once daily hydrochlorothiazide-lisinopril 12.5 mg-2 0 mg oral tablet Dose = 1 tab(s), Oral, Daily, # 90 tab(s), 0 Refill(s) Start Date: 07/09/20 Status: Ordered levothyroxine sodium 0.05 mg oral tablet (20 sources) l-Thyroxine Start: 12-12-2022 End: 12-12-2022 take 1 tablet by mouth once daily Synthroid 50 mcg oral tablet 1 (one) tablet daily for 90 days Quantity: 90 {Tablet} Refills: 3 Ordered: 12-Dec-2022 Marine Johnson LPN Start : 12-Dec-2022 Active Start: 07-09-2020 Synthroid 50 m cg (0.05 mg) oral tablet Dose : 50 mcg = 1 tab(s), Oral, qDay, # 90 tab(s), 0 Refill(s) Start Date: 07/09/20 Status: Ordered olmesartan medoxomil 40 mg oral tablet (14 sources) Angiotensin 2 Receptor Malgorzata End: 12-12-2022 take 1 tablet by mouth once daily Benicar 40 mg oral tablet 1 qd for 0 days Refills: 0 Ordered: 12-Dec-2022 Marine Johnson LPN End : 12-Dec-2022 Inactive triamcinolone acetonide 0.055 mg/actuat metered dose nasal spray (14 sources) Corticosteroid Start: 11-02-2006 End: 12-12-2022 Nasacort AQ 55 mcg/ACT intranasal Inhaler 2 (two) Aerosol Soln Daily for 0 days Quantity: 1 {Aerosol_Soln} Refills: 0 Ordered: 12-Dec-2022 Marine Johnson LPN Start : 02-Nov-2006 End : 12-Dec-2022 Discontinued Problems Active Problems Problem Classification Problem Date Documented Date Episodic/Chronic Anxiety disorders (20 sources) Anxiety disorder; Translations: [Anxiety disorder, unspecified] 12-12-2022 Chronic Comment on above: stable Cardiac dysrhythmias (10 sources) Sinus bradycardia; Translations: [Sinus bradycardia] 03-09-2023 Episodic Comment on above: EKG 11/2022, hr 51. a symptomatic Cataract (20 sources) Bilateral cataracts; Translations: [Cataracts, bilateral] 12-12-2022 Chronic Disorders of lipid metabolism (20 sources) Hypercholesterolemia; Translations: [Hypercholesteremia] 12-12-2022 Chronic Comment on above: check levels stable, no medicatio ns. last checked 12/2022. Essential hypertension (20 sources) Essential hypertension; Translations: [Essential (primary) hypertension] 07-03-2015 Chronic Comment on above: ekgincrease medsbloo d workmay need secondary workupuncontrolled hypertension, has had elevated reading over 1 month. increased hctz/lisin opril, effective. significant improvementuncontrolled hypertension, has had elevated reading over 1 month.-EKG ok -EKG reviewed (November 2022), Sinus bradycardia HR 51, asymptomatic.-increased hctz/lisinopril 11/2022, effective/significant improvement stable, continue cur rent meds. No reported SE-EKG reviewed (November 2022), Sinus bradycardia HR 51, asymptomatic.-increased hctz/lisinopril 11/2022, effective/significant improvement Osteoarthritis (20 sources) Osteoarthritis; Translations: [Unspecified osteoarthritis, unspecified site] 12-12-2022 Chronic Comment on above: wants injections. de clines therapy Osteoporosis (5 sources) Osteoporosis; Translations: [Age-related osteoporosis without current pathological fracture] 10-18-2013 Chronic Other acquired deformities (20 sources) Scoliosis deformity of spine; Translations: [Scoliosis] 12-12-2022 Chronic Comment on above: stable stable, seen on MRI thoracic spine 03/2021 Other bone disease and musculoskeletal deformities (20 sources) Osteopenia; Translations: [Osteopenia] 12-12-2022 Episodic Other gastrointestinal disorders (20 sources) Irritable bowel syndrome; Translations: [IBS (irritable bowel syndrome)] Resolve d: 023 12-12-2022 Chronic Comment on above: resolved for the mos t part, took probiotic for a year and went away Other nervous system disorders (20 sources) Syringomyelia; 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 She will have general anesthesia (would avoid epidural). She is not having any symptoms of progression of the syrinx at this time. This should not impede her upcoming surgery.-continue with weight loss and core strengtheningfrom trauma 2003, seen on MRI thoracic spine 03/2021. Saw Dr. Sudeep Arellano who ordered the MRI, then sent to Dr. Aponte (neurosurgery) who recommended repeat MRI with contrast in one year, however severe claustrophobia so has not pursued this. Other non-traumatic joint disorders (20 sources) Pain in left knee; Translations: [Left knee pain] 12-12-2022 Episodic Comment on above: send to [facility] 11/[facility], Degenerative arthrosis. Other nutritional; endocrine; and metabolic disorders (20 sources) Body mass index 30+ - obesity; Translations: [BMI 33.0-33.9,adult] Resolve d: 023 12-12-2022 Chronic Other nutritional; endocrine; and metabolic disorders (12 sources) Obese class I; Translations: [Obesity (BMI 30.0-34.9)] 03-09-2023 Chronic Other nutritional; endocrine; and metabolic disorders (5 sources) Hypercalcemia; Translations: [Hypercalcemia] 07-15-2023 Chronic Other screening for suspected conditions (not mental disorders or infectious disease) (7 sources) Raised cardiac enzyme or marker; Translations: [Other specified abnormal findings of blood chemistry] Onset: 025 03-10-2025 Episodic Otitis media and related conditions (20 sources) Dysfunction of eustachian tube; Translations: [Eustachian tube dysfunction] Resolve d: 009 07-03-2015 Episodic Residual codes; unclassified (20 sources) Non-smoker; Translations: [Nonsmoker] 12-12-2022 Episodic Spondylosis; intervertebral disc disorders; other back problems (20 sources) Thoracic nerve root pain; Translations: [Radiculopathy, thoracic region] 12-12-2022 Episodic Comment on above: routine exerciseprn tylenol and NSAIDs if no contraindicationschronic pain, mild to moderate. Thyroid disorders (20 sources) Hypothyroidism; Translations: [Hypothyroidism, unspecified] 12-12-2022 Chronic Comment on above: stable 12/30/22, sheri nue synthroid 50mcg Unclassified (20 sources) Past or Other Problems Problem Classification Problem Date Documented Da te Episodic/Chronic Unclassified (14 sources) Abortions/Miscarriages; Translations: [Abortions/Miscarriages] 09-04-2006 Comment on above: Spontaneous , 1 Unclassified (14 sources) Deliveries (Parity); Translations: [Deliveries (Parity)] 09-04-2006 Comment on above: 3 Unclassified (14 sources) Pregnancies (); Translations: [Pregnancies ()] 09-04-2006 Comment on above: 4 Results Test Name Value Interpretation Reference Range Facility Absolute lymphocyte countOrd ered By: Gertrude Carver on 03-10-2025 Lymphocytes Auto (Unsp spec) [#/Vol] 2.61 10*3/uL 0.83-4.51 [facility] Absolute neutrophil countOrd ered By: Gertrude Carver on 03-10-2025 Neutrophils (Bld) [#/Vol] 4.2 10*3/uL 2.0-7.7 [facility] Anion gap in Serum or Plasma Ordered By: Gertrude Carver on 03-10-2025 Anion gap [Moles/Vol] 14 mmol/L 5-15 [facility] Automated lymphocyte count a s percentage of total leukocytesOrdered By: Gertrude Carver on 03-10-2025 Lymphocytes/100 WBC Auto (Unsp spec) 32.2 % -41 [facility] BUN/creatinine ratioOrdered By: Gertrude Carver on 03-10-2025 Urea nitrogen/Creatinine [Mass ratio] 24.9 mg/mg High 10-20 [facility] Basic Metabolic Profile (BMP )on 03-10-2025 BUN/CRE 24.9 RATIO High 10-20 [facility] Comment on above: Performed By: #### L 100.0100, M100.651, L501.1800, L500.2500 #### [facility] [address] [place], [address] Calcium [Mass/Vol] 10.2 mg/dL Normal 7.6-11.0 [facility] Comment on above: Performed By: #### L 100.0100, M100.651, L501.1800, L500.2500 #### [facility] [address] [place], [address] Chloride [Moles/Vol] 98 mmol/L Normal 98-108 [facility] Comment on above: Performed By: #### L 100.0100, M100.651, L501.1800, L500.2500 #### [facility] [address] [place], [address] CO2 [Moles/Vol] 24.0 mmol/L Normal 21.0-32.0 [facility] Comment on above: Performed By: #### L 100.0100, M100.651, L501.1800, L500.2500 #### [facility] [address] [place], [address] Creatinine [Mass/Vol] 1.13 mg/dL Normal 0.70-1.20 [facility] Comment on above: Performed By: #### L 100.0100, M100.651, L501.1800, L500.2500 #### [facility] [address] [place], [address] ECRCL 47.02 ml/min Low 50-250 [facility] Comment on above: Performed By: #### L 100.0100, M100.651, L501.1800, L500.2500 #### [facility] [address] [place], [address] GAP 14 Normal 5-15 [facility] Comment on above: Performed By: #### L 100.0100, M100.651, L501.1800, L500.2500 #### [facility] [address] [place], [address] GFR/1.73 sq M.predicted among non-blacks MDRD (S/P/Bld) [Vol rate/Area] 51 mL/min/{1.73_m2} Low >60 [facility] Comment on above: Result Comment: mL/m in/1.73m2 CKD-EPI Creatinine Equation (2020) Performed By: #### L 100.0100, M100.651, L501.1800, L500.2500 #### [facility] [address] [place], [address] Glucose [Mass/Vol] 99 mg/dL Normal 70-99 [facility] Comment on above: Performed By: #### L 100.0100, M100.651, L501.1800, L500.2500 #### [facility] [address] [place], [address] Potassium [Moles/Vol] 3.7 mmol/L Normal 3.3-5.1 [facility] Comment on above: Performed By: #### L 100.0100, M100.651, L501.1800, L500.2500 #### [facility] [address] [place], [address] Sodium [Moles/Vol] 136 mmol/L Normal 133-145 [facility] Comment on above: Performed By: #### L 100.0100, M100.651, L501.1800, L500.2500 #### [facility] [address] [place], [address] Urea nitrogen [Mass/Vol] 28 mg/dL High 4-19 [facility] Comment on above: Performed By: #### L 100.0100, M100.651, L501.1800, L500.2500 #### [facility] [address] [place], [address] Basophil percentageOrdered B y: Gertrude Carver on 03-10-2025 Basophils/100 WBC (Bld) 1.6 % High 0-1 [facility] CBC W/Diff, Automatedon 02-26 Absolute Lymph 2.61 X10 3/uL Normal 0.83-4.51 [facility] Comment on above: Performed By: #### L 100.0100, M100.651, L501.1800, L500.2500 #### [facility] [address] [place], [address] Absolute Neut 4.2 X10 3/uL Normal 2.0-7.7 [facility] Comment on above: Performed By: #### L 100.0100, M100.651, L501.1800, L500.2500 #### [facility] [address] [place], [address] Basophils/100 WBC (Bld) 1.6 % High 0-1 [facility] Comment on above: Performed By: #### L 100.0100, M100.651, L501.1800, L500.2500 #### [facility] [address] [place], [address] Eosinophils/100 WBC (Bld) 5.2 % High 0-5 [facility] Comment on above: Performed By: #### L 100.0100, M100.651, L501.1800, L500.2500 #### [facility] [address] [place], [address] Erythrocyte distribution width (RBC) [Ratio] 12.8 % Normal 11.6-14.6 [facility] Comment on above: Performed By: #### L 100.0100, M100.651, L501.1800, L500.2500 #### [facility] [address] [place], [address] Hematocrit (Bld) [Volume fraction] 33.2 % Low 37-47 [facility] Comment on above: Performed By: #### L 100.0100, M100.651, L501.1800, L500.2500 #### [facility] [address] [place], [address] Hemoglobin (Bld) [Mass/Vol] 11.3 g/dL Low 12.0-15.0 [facility] Comment on above: Performed By: #### L 100.0100, M100.651, L501.1800, L500.2500 #### [facility] [address] [facility] [place], [address] IG% 0.200 Normal 0.0-0.9 [facility] Comment on above: Result Comment: IG% - Immature Granulocytes (promyelocytes, myelocytes and metamyelocytes) > 1% indicates that a LEFT SHIFT is Present. Performed By: #### L 100.0100, M100.651, L501.1800, L500.2500 #### [facility] [address] [facility] [place], [address] Lymphocytes/100 WBC (Bld) 32.2 % Normal 19-41 [facility] Comment on above: Performed By: #### L 100.0100, M100.651, L501.1800, L500.2500 #### [facility] [address] [place], [address] MCH (RBC) [Entitic mass] 30.7 pg Normal 27.0-32.0 [facility] Comment on above: Performed By: #### L 100.0100, M100.651, L501.1800, L500.2500 #### [facility] [address] [place], [address] MCHC (RBC) [Mass/Vol] 34.0 g/dL Normal 32-36 [facility] Comment on above: Performed By: #### L 100.0100, M100.651, L501.1800, L500.2500 #### [facility] [address] [place], [address] MCV (RBC) [Entitic vol] 90.2 fL Normal 81-99 [facility] Comment on above: Performed By: #### L 100.0100, M100.651, L501.1800, L500.2500 #### [facility] [address] [place], [address] Monocytes/100 WBC (Bld) 8.8 % Normal 0-10 [facility] Comment on above: Performed By: #### L 100.0100, M100.651, L501.1800, L500.2500 #### [facility] [address] [place], [address] Neutrophils/100 WBC (Bld) 52.0 % Normal 47-70 [facility] Comment on above: Performed By: #### L 100.0100, M100.651, L501.1800, L500.2500 #### [facility] [address] [place], [address] Nucleated RBC (Bld) [#/Vol] 0 10*3/uL Normal 0-5 [facility] Comment on above: Performed By: #### L 100.0100, M100.651, L501.1800, L500.2500 #### [facility] [address] [place], [address] Platelet mean volume (Bld) [Entitic vol] 11.5 fL Normal 6.2-12.0 [facility] Comment on above: Performed By: #### L 100.0100, M100.651, L501.1800, L500.2500 #### [facility] [address] [place], [address] Platelets (Bld) [#/Vol] 322 10*3/uL Normal 150-450 [facility] Comment on above: Performed By: #### L 100.0100, M100.651, L501.1800, L500.2500 #### [facility] [address] [place], [address] RBC (Bld) [#/Vol] 3.68 10*6/uL Low 4.2-5.4 [facility] Comment on above: Performed By: #### L 100.0100, M100.651, L501.1800, L500.2500 #### [facility] [address] [place], [address] RDW SD 42.2 fl Normal 35.1-43.9 [facility] Comment on above: Performed By: #### L 100.0100, M100.651, L501.1800, L500.2500 #### [facility] [address] [place], [address] WBC (Bld) [#/Vol] 8.1 10*3/uL Normal 4.4-11.0 [facility] Comment on above: Performed By: #### L 100.0100, M100.651, L501.1800, L500.2500 #### [facility] [address] [place], [address] Carbon dioxide, total [Moles /volume] in Central venous bloodOrdered By: Gertrude Carver on 03-10-2025 CO2 [Moles/Vol] 24.0 mmol/L 21.0-32.0 [facility] Chest PA and Lateralon 03-10 Chest PA and Lateral [facility] Services [address] [place] [address] Chest PA and Lateral MR#: [id number] Acct: [id number] Name: VAISHALI KEE ALISSON Rep #: [id number] : 1950 F 74 From: Jeniffer Olsen nd, MD PCP: MIRIAN Lundberg Status: REG ER Study: Chest PA and Lateral Date of Exam: 03/10/25 Exam# [id number] Ordering Dr: Gertrude Carver PROCEDURE: CHEST PA AND LATERAL 03/10/2025 REASON FOR EXAM: CHEST PAIN TECHNIQUE: CHEST PA AND LATERAL COMPARISON: Chest radiograph 03/09/2023. FINDINGS: Hardware: None. Heart: The heart size is normal. Mediastinum: The mediastinal contour is stable. Lungs: No focal consolidation, pleural effusion or pneumothorax. Bones: Degenerative changes are identified within the thoracic spine. RAD/Chest PA and Lateral IMPRESSION: NEGATIVE CHEST Reading Location: [id number] CC: MIRIAN Randall; KWESI Simon Inventory Management Specialist: Signed Normal [facility] Chloride assayOrdered By: Johanne Carver on 03-10-2025 Chloride [Moles/Vol] 98 mmol/L 98-108 [facility] D-Dimer Quantitative (DVT/PE )on 03-10-2025 D-DIMER QUANT 0.48 FEU/ug/m Normal 0.27-0.49 [facility] Comment on above: Result Comment: NORM AL D-Dimer level (<0.50) indicates no DVT or PE. Performed By: #### L 300.3900, L300.8000 #### [facility] [address] [facility] [place], [address] Emergency Department Summary on 03-10-2025 Emergency Department Summary [facility] Medical Records Department [address] [place] [address] Emergency Department Summary 03/10/25 MR#: [id number] Acct: [id number] Name: VAISHALI KEE Rep #: [id number] : [id number] From: Gertrude OROSCO PCP: MIRIAN Lundberg Status:DEP ER Location: ED HPI History of Present Illness Chief Complaint: Abn Labs Narrative Narrative: Patient presenting today due to an out patient troponin lab that was slightly elevated. She reports that she recently had a preop EKG at the end of January that showed possible ischemic changes, her PCP then ordered an outpatient troponin on Thursday which came back at 18. She had this repeated today and it was 21, prompting her to be sent in for evaluation. She denies any chest pain, shortness of breath, cardiac history, abdominal pain, nausea, and vomiting. She reports occasional chest pressure that she has had intermittently for months. She attributes this to her anxiety. She currently does not have any chest pain or pressure. She has a PMH of HTN, hypothyroidism, and anxiety. PFSH PFSH Medical History no medical history Home Medications ???Medication ???Instructions ???Recorded ???Last Taken ???Type diazepam 5 mg tablet (Valium) 5 mg PO QHS PRN anxiety #1 TAB Unknown Rx Allergy/AdvReac Type Severity Reaction Status Date / Time sulfamethoxazole (From AdvReac Mild Upset Verified 03/10/25 14:19 Bactrim) Stomach trimethoprim (From Bactrim) AdvReac Mild Upset Verified 03/10/25 14:19 Stomach amoxicillin (From Augmentin) AdvReac Diarrhea Verified 03/10/25 14:19 clavulanic acid (From AdvReac Diarrhea Verified 03/10/25 14:19 Augmentin) Family History no significant family his Surgical History no surgical history Social History Smoking Status: Never smoker ROS ROS ED Constitutional Constitutional ED: Denies chills or fever(s) Cardiovascular Cardiovascular: Denies chest pain or palpitations Respiratory/Chest Respiratory/Chest: Denies dyspnea Gastrointestinal Gastrointestinal: Denies abdominal pain, nausea or vomiting Neurologic Neurologic: Denies weakness EXAM Physical Exam Const Vital Signs: 03/10/25 14:16 03/10/25 14:48 03/10/25 15:16 Temperature 98.3 F Temperature Source Oral Pulse Rate 80 61 Respiratory Rate 16 Respiratory Effort Normal Non-Labored Blood Pressure 160/73 H 139/66 H Blood Pressure Mean 102 90 Pulse Ox 100 100 Oxygen Delivery Method Room Air Room Air 03/10/25 16:00 03/10/25 17:00 03/10/25 18:23 Temperature 98.3 F Temperature Source Pulse Rate 61 60 73 Respiratory Rate 16 18 Respiratory Effort Blood Pressure 130/63 H 140/66 H 132/78 H Blood Pressure Mean 85 90 96 Pulse Ox 99 99 100 Oxygen Delivery Method Room Air Room Air Positive well nourished, well developed and no apparent distress General Appearance ED: well developed HEENT Reports normocephalic and head/scalp atraumatic Mouth ED: Yes moist mucous membranes normal Eyes PERRL and EOMs intact bilaterally Neck full ROM and supple Chest Wall inspection of chest normal Resp normal respiratory effort and clear to auscultation bilaterally Cardio regular rate and regular rhythm GI soft to palpation, non-tender, non-distended and no masses Back/Spine normal ROM and normal to inspection Extremity normal to inspection and full ROM Neuro oriented x3, CN's II-XII intact bilaterally, moves all extremities, no focal motor deficits and no sensory deficits noted Sensorium / Orientation: awake and alert Psych mental status grossly normal and thought process normal Skin no rashes or lesions noted and no wounds Physical Exam Const Vital Signs: 03/10/25 14:16 03/10/25 14:48 03/10/25 15:16 Temperature 98.3 F Temperature Source Oral Pulse Rate 80 61 Respiratory Rate 16 Respiratory Effort Normal Non-Labored Blood Pressure 160/73 H 139/66 H Blood Pressure Mean 102 90 Pulse Ox 100 100 Oxygen Delivery Method Room Air Room Air 03/10/25 16:00 03/10/25 17:00 03/10/25 18:23 Temperature 98.3 F Temperature Source Pulse Rate 61 60 73 Respiratory Rate 16 18 Respiratory Effort Blood Pressure 130/63 H 140/66 H 132/78 H Blood Pressure Mean 85 90 96 Pulse Ox 99 99 100 Oxygen Delivery Method Room Air Room Air MDM MDM MDM Narrative Medical decision making narrative: Patient presenting today due to abnormal troponins that were drawn as an outpatient by her PCP. She had an EKG done preoperatively that showed some ST wave changes and her PCP had her obtain an outpatient troponin that was 18 on Thursday, it was repeated toda (more content not included)... Normal [facility] Eosinophil percentageOrdered By: Gertrude Carver on 03-10-2025 Eosinophils/100 WBC (Bld) 5.2 % High 0-5 [facility] Erythrocyte distribution wid th ratioOrdered By: Gertrude Carver on 03-10-2025 Erythrocyte distribution width (RBC) [Ratio] 12.8 % 11.6-14.6 [facility] Erythrocyte distribution wid th standard deviationOrdered By: Gertrude Carver on 03-10-2025 Erythrocyte distribution width (RBC) [Ratio] 42.2 fl 35.1-43.9 [facility] Glomerular filtration rate ( GFR) estimation/1.73 sq m using serum, plasma, or whole bOrdered By: Gertrude Carver on 03-10-2025 GFR/1.73 sq M.predicted among non-blacks MDRD (S/P/Bld) [Vol rate/Area] 51 mL/min/{1.73_m2} Low >60 [facility] Comment on above: mL/min/1.73m2 CKD-EP I Creatinine Equation (2020) Hematocrit Auto (Bld) [Volum e fraction]Ordered By: Gertrude Carver on 03-10-2025 Hematocrit (Bld) [Volume fraction] 33.2 % Low 37-47 [facility] Hemoglobin measurementOrdere d By: Gertrude Carver on 03-10-2025 Hemoglobin (Bld) [Mass/Vol] 11.3 g/dL Low 12.0-15.0 [facility] Immature granulocytes/100 WB C Auto (Bld)Ordered By: Gertrude Carver on 03-10-2025 Immature granulocytes/100 WBC (Bld) 0.200 % 0.0-0.9 [facility] Comment on above: IG% - Immature Granu locytes (promyelocytes, myelocytes and metamyelocytes) > 1% indicates that a LEFT SHIFT is Present. International normalized rat io (INR) calculationOrdered By: Gertrude Carver on 03-10-2025 INR Coag (Bld) [Relative time] 0.9 {INR} [facility] L499.0042on 03-10-2025 Trop T High Sen 25 ng/L High <=14 [facility] Comment on above: Performed By: #### L 100.0100, M100.651, L501.1800, L500.2500 #### [facility] [address] [place], [address] L501.4021on 03-10-2025 Trop T High Sen 20 ng/L High <=14 [facility] Comment on above: Performed By: #### L 100.0100, M100.651, L501.1800, L500.2500 #### [facility] [address] [place], [address] Trop T High Sen 21 ng/L High <=14 [facility] Comment on above: Performed By: #### L 100.0100, M100.651, L501.1800, L500.2500 #### [facility] [address] [place], [address] MCV (mean corpuscular volume ) determinationOrdered By: Gertrude Carver on 03-10-2025 MCV (RBC) [Entitic vol] 90.2 fL 81-99 [facility] Mean corpuscular hemoglobin (MCH) determinationOrdered By: Gertrude Carver on 03-10-2025 MCH (RBC) [Entitic mass] 30.7 pg 27.0-32.0 [facility] Mean corpuscular hemoglobin concentration (MCHC) determinationOrdered By: Gertrude Carver on 03-10-2025 MCHC (RBC) [Mass/Vol] 34.0 g/dL 32-36 [facility] Mean platelet volume determi nationOrdered By: Gertrude Carver on 03-10-2025 Platelet mean volume (Bld) [Entitic vol] 11.5 fL 6.2-12.0 [facility] Monocyte percentageOrdered B y: Gertrude Carver on 03-10-2025 Monocytes/100 WBC (Bld) 8.8 % 0-10 [facility] Neutrophil percentageOrdered By: Gertrude Carver on 03-10-2025 Neutrophils/100 WBC (Bld) 52.0 % 47-70 [facility] Nucleated red blood cell per centageOrdered By: Gertrude Carver on 03-10-2025 Nucleated RBC/100 WBC (Bld) [Ratio] 0 % 0-5 [facility] Platelet countOrdered By: Johanne Carver on 03-10-2025 Platelets (Bld) [#/Vol] 322 10*3/uL 150-450 [facility] Potassium measurement (mass/ volume)Ordered By: Gertrude Carver on 03-10-2025 Potassium (Unsp spec) [Mass/Vol] 3.7 mmol/L 3.3-5.1 [facility] Prothrombin Time w/INRon INR Coag (PPP) [Relative time] 0.9 {INR} Normal [facility] Comment on above: Performed By: #### L 300.3900, L300.8000 #### [facility] [address] [place], [address] PT Coag (PPP) [Time] 12.7 s Normal 11.7-14.9 [facility] Comment on above: Performed By: #### L 300.3900, L300.8000 #### [facility] [address] [place], [address] Prothrombin timeOrdered By: Gertrude Carver on 03-10-2025 PT Coag (PPP) [Time] 12.7 s 11.7-14.9 [facility] RBC Auto (Bld) [#/Vol]Ordere d By: Gertrude Carver on 03-10-2025 RBC (Bld) [#/Vol] 3.68 10*6/uL Low 4.2-5.4 [facility] Serum creatinine measurement (mass/volume)Ordered By: Gertrude Carver on 03-10-2025 Creatinine [Mass/Vol] 1.13 mg/dL 0.70-1.20 [facility] Serum glucose measurement (m ass/volume)Ordered By: Gertrude Carver on 03-10-2025 Glucose [Mass/Vol] 99 mg/dL 70-99 [facility] Serum or plasma calcium elie urement (mass/volume)Ordered By: Gertrude Carver on 03-10-2025 Calcium [Mass/Vol] 10.2 mg/dL 7.6-11.0 [facility] Serum or plasma urea nitroge n measurement (mass/volume)Ordered By: Gertrude Carver on 03-10-2025 Urea nitrogen [Mass/Vol] 28 mg/dL High 4-19 [facility] Sodium levelOrdered By: Delbert Carver on 03-10-2025 Sodium [Moles/Vol] 136 mmol/L 133-145 [facility] Troponin T.cardiac [Mass/vol ume] in Serum or Plasma by High sensitivity methodOrdered By: Gertrude Carver on 03-10-2025 Troponin T.cardiac High sensitivity method [Mass/Vol] 25 ng/L High <14 [facility] Troponin T.cardiac High sensitivity method [Mass/Vol] 20 ng/L High <14 [facility] Troponin T.cardiac [Mass/vol ume] in Serum or Plasma by High sensitivity methodOrdered By: Ana Hernández on 03-10-2025 Troponin T.cardiac High sensitivity method [Mass/Vol] 21 ng/L High <14 [facility] White blood cell (WBC) count Ordered By: Gertrude Carver on 03-10-2025 WBC (Bld) [#/Vol] 8.1 10*3/uL 4.4-11.0 [facility] Electrocardiogram reportOrde red By: Robert Hagen on 02-27-2025 EKG study [facility] Services [address] [place] [address] 12 Lead EKG 02/23/25 1232 MR#: [id number] Acct: [id number] Name: VAISHALI KEE Rep #:[id number] : 1950 74 From: Robert farley MD Attending Dr: Dr. Holger Infante MD Status: REG CLI Ordering Dr: Holger Infante MD Date: 02/23/25 Location: CT Sex: F C Admitted: Test Reason : PREOP Blood Pressure : */* mmHG Vent. Rate : 61 BPM Atrial Rate : 61 BPM P-R Int : 150 ms QRS Dur : 92 ms QT Int : 408 ms P-R-T Axes : 60 62 -5 degrees QTcB Int : 410 ms Normal sinus rhythm ST & T wave abnormality, consider inferior ischemia ST & T wave abnormality, consider anterolateral ischemia Abnormal ECG Confirmed by Robert Hagen ([id number]), assignment editor DOROTA CLARK ([id number]) on 02/27/2025 11:31:10 AM Referred By: Holger Infante Confirmed By: Robert Hagen 06/02/25 1131 Date _ Robert Hagen MD CC: MIRIAN Randall; Dr. Holger Infante MD ~ Signed [facility] Other MRSA/SAID NASAL SCREENon MRSA+SAID SCRN Negative Normal [facility] Comment on above: Performed By: #### L 100.0100, M100.651, L501.1800, L500.2500 #### [facility] [address] [facility] [place], [address] 12 Lead EKGon 02-23-2025 12 Lead EKG [facility] Cardi[facility] Services [address] [place] [address] 12 Lead EKG 02/23/25 1232 MR#: [id number] Acct: [id number] Name: VAISHALI KEE Rep #: [id number] : 1950 74 From: Robert Hagen MD Attending Dr: Dr. Holger Infante MD Status: REG CLI Ordering Dr: Holger Infante MD Date: 02/23/25 Location: NM Sex: F C Admitted: Test Reason : PREOP Blood Pressure : */* mmHG Vent. Rate : 61 BPM Atrial Rate : 61 BPM P-R Int : 150 ms QRS Dur : 92 ms QT Int : 408 ms P-R-T Axes : 60 62 -5 degrees QTcB Int : 410 ms Normal sinus rhythm ST T wave abnormality, consider inferior ischemia ST T wave abnormality, consider anterolateral ischemia Abnormal ECG Confirmed by Robert Hagen ([id number]), assignment editor DOROTA CLARK ([id number]) on 02/27/2025 11:31:10 AM Referred By: Holger Infante Confirmed By: Robert Hagen 02/27/251130 Date Robert Hagen MD CC: MIRIAN Randall; Dr. Holger Infante MD Signed Normal [facility] Absolute lymphocyte countOrd ered By: Holger Infante on 02-23-2025 Lymphocytes Auto (Unsp spec) [#/Vol] 2.18 10*3/uL 0.83-4.51 [facility] Absolute neutrophil countOrd ered By: Holger Infante on 02-23-2025 Neutrophils (Bld) [#/Vol] 4.0 10*3/uL 2.0-7.7 [facility] Albumin, Serumon 02-23-2025 Albumin [Mass/Vol] 4.9 g/dL High 3.4-4.8 [facility] Comment on above: Performed By: #### L 100.0100, M100.651, L501.1800, L500.2500 #### [facility] [address] [place], [address] Anion gap in Serum or Plasma Ordered By: Holger Infante on 02-23-2025 Anion gap [Moles/Vol] 14 mmol/L 5-15 [facility] Automated lymphocyte count a s percentage of total leukocytesOrdered By: Holger Infante on 02-23-2025 Lymphocytes/100 WBC Auto (Unsp spec) 30.9 % - [facility] BUN/creatinine ratioOrdered By: Holger Infante on 02-23-2025 Urea nitrogen/Creatinine [Mass ratio] 29.2 mg/mg High 10- [facility] Basic Metabolic Profile (BMP )on 02-23-2025 BUN/CRE 29.2 RATIO High 10- [facility] Comment on above: Performed By: #### L 100.0100, M100.651, L501.1800, L500.2500 #### [facility] [address] [place], [address] Calcium [Mass/Vol] 10.3 mg/dL Normal 7.6-11.0 [facility] Comment on above: Performed By: #### L 100.0100, M100.651, L501.1800, L500.2500 #### [facility] [address] [place], [address] Chloride [Moles/Vol] 100 mmol/L Normal 98-108 [facility] Comment on above: Performed By: #### L 100.0100, M100.651, L501.1800, L500.2500 #### [facility] [address] [place], [address] CO2 [Moles/Vol] 24.3 mmol/L Normal 21.0-32.0 [facility] Comment on above: Performed By: #### L 100.0100, M100.651, L501.1800, L500.2500 #### [facility] [address] [place], [address] Creatinine [Mass/Vol] 1.26 mg/dL High 0.70-1.20 [facility] Comment on above: Performed By: #### L 100.0100, M100.651, L501.1800, L500.2500 #### [facility] [address] [place], [address] GAP 14 Normal 5-15 [facility] Comment on above: Performed By: #### L 100.0100, M100.651, L501.1800, L500.2500 #### [facility] [address] [place], [address] GFR/1.73 sq M.predicted among non-blacks MDRD (S/P/Bld) [Vol rate/Area] 45 mL/min/{1.73_m2} Low >60 [facility] Comment on above: Result Comment: mL/m in/1.73m2 CKD-EPI Creatinine Equation (2020) Performed By: #### L 100.0100, M100.651, L501.1800, L500.2500 #### [facility] [address] [place], [address] Glucose [Mass/Vol] 100 mg/dL High 70-99 [facility] Comment on above: Performed By: #### L 100.0100, M100.651, L501.1800, L500.2500 #### [facility] [address] [place], [address] Potassium [Moles/Vol] 3.8 mmol/L Normal 3.3-5.1 [facility] Comment on above: Performed By: #### L 100.0100, M100.651, L501.1800, L500.2500 #### [facility] [address] [place], [address] Sodium [Moles/Vol] 138 mmol/L Normal 133-145 [facility] Comment on above: Performed By: #### L 100.0100, M100.651, L501.1800, L500.2500 #### [facility] [address] [place], [address] Urea nitrogen [Mass/Vol] 37 mg/dL High 4-19 [facility] Comment on above: Performed By: #### L 100.0100, M100.651, L501.1800, L500.2500 #### [facility] [address] [place], [address] Basophil percentageOrdered B y: Holger Infante on 02-23-2025 Basophils/100 WBC (Bld) 1.7 % High 0-1 [facility] CBC W/Diff, Automatedon 01-27 Absolute Lymph 2.18 X10 3/uL Normal 0.83-4.51 [facility] Comment on above: Performed By: #### L 100.0100, M100.651, L501.1800, L500.2500 #### [facility] [address] [place], [address] Absolute Neut 4.0 X10 3/uL Normal 2.0-7.7 [facility] Comment on above: Performed By: #### L 100.0100, M100.651, L501.1800, L500.2500 #### [facility] [address] [place], [address] Basophils/100 WBC (Bld) 1.7 % High 0-1 [facility] Comment on above: Performed By: #### L 100.0100, M100.651, L501.1800, L500.2500 #### [facility] [address] [place], [address] Eosinophils/100 WBC (Bld) 2.8 % Normal 0-5 [facility] Comment on above: Performed By: #### L 100.0100, M100.651, L501.1800, L500.2500 #### [facility] [address] [place], [address] Erythrocyte distribution width (RBC) [Ratio] 13.3 % Normal 11.6-14.6 [facility] Comment on above: Performed By: #### L 100.0100, M100.651, L501.1800, L500.2500 #### [facility] [address] [place], [address] Hematocrit (Bld) [Volume fraction] 35.2 % Low 37-47 [facility] Comment on above: Performed By: #### L 100.0100, M100.651, L501.1800, L500.2500 #### [facility] [address] [place], [address] Hemoglobin (Bld) [Mass/Vol] 12.0 g/dL Normal 12.0-15.0 [facility] Comment on above: Performed By: #### L 100.0100, M100.651, L501.1800, L500.2500 #### [facility] [address] [place], [address] IG% 0.300 Normal 0.0-0.9 [facility] Comment on above: Result Comment: IG% - Immature Granulocytes (promyelocytes, myelocytes and metamyelocytes) > 1% indicates that a LEFT SHIFT is Present. Performed By: #### L 100.0100, M100.651, L501.1800, L500.2500 #### [facility] [address] [place], [address] Lymphocytes/100 WBC (Bld) 30.9 % Normal 19-41 [facility] Comment on above: Performed By: #### L 100.0100, M100.651, L501.1800, L500.2500 #### [facility] [address] [place], [address] MCH (RBC) [Entitic mass] 30.8 pg Normal 27.0-32.0 [facility] Comment on above: Performed By: #### L 100.0100, M100.651, L501.1800, L500.2500 #### [facility] [address] [place], [address] MCHC (RBC) [Mass/Vol] 34.1 g/dL Normal 32-36 [facility] Comment on above: Performed By: #### L 100.0100, M100.651, L501.1800, L500.2500 #### [facility] [address] [place], [address] MCV (RBC) [Entitic vol] 90.5 fL Normal 81-99 [facility] Comment on above: Performed By: #### L 100.0100, M100.651, L501.1800, L500.2500 #### [facility] [address] [place], [address] Monocytes/100 WBC (Bld) 7.6 % Normal 0-10 [facility] Comment on above: Performed By: #### L 100.0100, M100.651, L501.1800, L500.2500 #### [facility] [address] [place], [address] Neutrophils/100 WBC (Bld) 56.7 % Normal 47-70 [facility] Comment on above: Performed By: #### L 100.0100, M100.651, L501.1800, L500.2500 #### [facility] [address] [place], [address] Nucleated RBC (Bld) [#/Vol] 0 10*3/uL Normal 0-5 [facility] Comment on above: Performed By: #### L 100.0100, M100.651, L501.1800, L500.2500 #### [facility] [address] [place], [address] Platelet mean volume (Bld) [Entitic vol] 11.1 fL Normal 6.2-12.0 [facility] Comment on above: Performed By: #### L 100.0100, M100.651, L501.1800, L500.2500 #### [facility] [address] [place], [address] Platelets (Bld) [#/Vol] 346 10*3/uL Normal 150-450 [facility] Comment on above: Performed By: #### L 100.0100, M100.651, L501.1800, L500.2500 #### [facility] [address] [place], [address] RBC (Bld) [#/Vol] 3.89 10*6/uL Low 4.2-5.4 [facility] Comment on above: Performed By: #### L 100.0100, M100.651, L501.1800, L500.2500 #### [facility] [address] [place], [address] RDW SD 44.1 fl High 35.1-43.9 [facility] Comment on above: Performed By: #### L 100.0100, M100.651, L501.1800, L500.2500 #### [facility] [address] [place], [address] WBC (Bld) [#/Vol] 7.1 10*3/uL Normal 4.4-11.0 [facility] Comment on above: Performed By: #### L 100.0100, M100.651, L501.1800, L500.2500 #### [facility] [address] [place], [address] Carbon dioxide, total [Moles /volume] in Central venous bloodOrdered By: Holger Infante on 02-23-2025 CO2 [Moles/Vol] 24.3 mmol/L 21.0-32.0 [facility] Chloride assayOrdered By: St bernard Infante on 02-23-2025 Chloride [Moles/Vol] 100 mmol/L 98-108 [facility] Eosinophil percentageOrdered By: Holger Infante on 02-23-2025 Eosinophils/100 WBC (Bld) 2.8 % 0-5 [facility] Erythrocyte distribution wid th ratioOrdered By: Holger Infante on 02-23-2025 Erythrocyte distribution width (RBC) [Ratio] 13.3 % 11.6-14.6 [facility] Erythrocyte distribution wid th standard deviationOrdered By: Holger Infante on 02-23-2025 Erythrocyte distribution width (RBC) [Ratio] 44.1 fl High 35.1-43.9 [facility] Extremity Lower without Cont raon 02-23-2025 Extremity Lower without Contra [facility] Imaging Services [address] [facility] [address] [place], [place] [address] Extremity Lower without Contra MR#: [id number] Acct: [id number] Name: VAISHALI KEE ALISSON Rep #: [id number] : 1950 F 74 From: Alberto womack MD PCP: Brandon Randall NP-C Status: REG CLI Study: Extremity Lower without Contra Date of Exam: 0 02/23/25 Exam# [id number] Ordering Dr: Holger Infante MD PROCEDURE: EXTREMITY LOWER WITHOUT CONTRA 02/23/2025 REASON FOR EXAM: PAIN IN RIGHT KNEE Hans protocol for right knee replacement. TECHNIQUE: Axial CT images of the right hip joint, right knee joint and right ankle joint obtained with intravenous contrast. Coronal and Sagittal reconstruction series were provided. CONTRAST: None One or more dose reduction techniques were used (e.g., Automated exposure control, adjustment of the mA and/or kV according to patient size, use of iterative reconstruction technique). RADIATION DOSE SUMMARY: CTDlvol: 19 mGy DLP: 1304.19 mGycm COMPARISON: None FINDINGS: Bones: No evidence of fracture. Joints: Imaging of the right hip joint was performed. The joint space is relatively well- maintained. Imaging of the right knee joint was performed. Marked degree of joint space narrowing involving the medial compartment of the knee joint as well as moderate degree of joint space narrowing of the patellofemoral joint with subchondral sclerosis. Imaging of the ankle joint was performed. There is good alignment. No significant abnormality is seen. Soft Tissues: Small knee joint effusion. CT/Extremity Lower without Contra IMPRESSION: Marked degree of joint space narrowing and osteoarthritis of the medial compartment of the knee joint as well as the patellofemoral compartment. Small knee joint effusion. Reading Location: [place] [address] CC: MIRIAN Randall; Dr. Holger Infante MD Inventory Management Specialist: Signed Normal [facility] Glomerular filtration rate ( GFR) estimation/1.73 sq m using serum, plasma, or whole bOrdered By: Holger Infante on 02-23-2025 GFR/1.73 sq M.predicted among non-blacks MDRD (S/P/Bld) [Vol rate/Area] 45 mL/min/{1.73_m2} Low >60 [facility] Comment on above: mL/min/1.73m2 CKD-EP I Creatinine Equation (2020) Hematocrit Auto (Bld) [Volum e fraction]Ordered By: Holger Infante on 02-23-2025 Hematocrit (Bld) [Volume fraction] 35.2 % Low 37-47 [facility] Hemoglobin measurementOrdere d By: Holger Infante on 02-23-2025 Hemoglobin (Bld) [Mass/Vol] 12.0 g/dL 12.0-15.0 [facility] Immature granulocytes/100 WB C Auto (Bld)Ordered By: Holger Infante on 02-23-2025 Immature granulocytes/100 WBC (Bld) 0.300 % 0.0-0.9 [facility] Comment on above: IG% - Immature Granu locytes (promyelocytes, myelocytes and metamyelocytes) > 1% indicates that a LEFT SHIFT is Present. MCV (mean corpuscular volume ) determinationOrdered By: Holger Infante on 02-23-2025 MCV (RBC) [Entitic vol] 90.5 fL 81-99 [facility] MRSA screenOrdered By: Florencio Infante on 02-23-2025 MRSA DNA TOMI+probe Ql (Unsp spec) [facility] Mean corpuscular hemoglobin (MCH) determinationOrdered By: Holger Infante on 02-23-2025 MCH (RBC) [Entitic mass] 30.8 pg 27.0-32.0 [facility] Mean corpuscular hemoglobin concentration (MCHC) determinationOrdered By: Holger Infante on 02-23-2025 MCHC (RBC) [Mass/Vol] 34.1 g/dL 32-36 [facility] Mean platelet volume determi nationOrdered By: Holger Infante on 02-23-2025 Platelet mean volume (Bld) [Entitic vol] 11.1 fL 6.2-12.0 [facility] Monocyte percentageOrdered B y: Holger Infante on 02-23-2025 Monocytes/100 WBC (Bld) 7.6 % 0-10 [facility] Neutrophil percentageOrdered By: Holger Infante on 02-23-2025 Neutrophils/100 WBC (Bld) 56.7 % 47-70 [facility] Nucleated red blood cell per centageOrdered By: Holger Infante on 02-23-2025 Nucleated RBC/100 WBC (Bld) [Ratio] 0 % 0-5 [facility] Platelet countOrdered By: [facility] Infante on 02-23-2025 Platelets (Bld) [#/Vol] 346 10*3/uL 150-450 [facility] Potassium measurement (mass/ volume)Ordered By: Holger Infante on 02-23-2025 Potassium (Unsp spec) [Mass/Vol] 3.8 mmol/L 3.3-5.1 [facility] RBC Auto (Bld) [#/Vol]Ordere d By: Holger Infante on 02-23-2025 RBC (Bld) [#/Vol] 3.89 10*6/uL Low 4.2-5.4 [facility] Serum creatinine measurement (mass/volume)Ordered By: Holger Infante on 02-23-2025 Creatinine [Mass/Vol] 1.26 mg/dL High 0.70-1.20 [facility] Serum glucose measurement (m ass/volume)Ordered By: Holger Infante on 02-23-2025 Glucose [Mass/Vol] 100 mg/dL High 70-99 [facility] Serum or plasma albumin elie urement (mass/volume)Ordered By: Holger Infante on 02-23-2025 Albumin [Mass/Vol] 4.9 g/dL High 3.4-4.8 [facility] Serum or plasma calcium elie urement (mass/volume)Ordered By: Holger Infante on 02-23-2025 Calcium [Mass/Vol] 10.3 mg/dL 7.6-11.0 [facility] Serum or plasma urea nitroge n measurement (mass/volume)Ordered By: Holger Infante on 02-23-2025 Urea nitrogen [Mass/Vol] 37 mg/dL High 4-19 [facility] Sodium levelOrdered By: Melchor Infante on 02-23-2025 Sodium [Moles/Vol] 138 mmol/L 133-145 [facility] White blood cell (WBC) count Ordered By: Holger Infante on 02-23-2025 WBC (Bld) [#/Vol] 7.1 10*3/uL 4.4-11.0 [facility] CALCIUM, IONIZED ([id number])Orde red By: Fire Investigation Manager on 07-15-2023 Calcium.ionized ISE [Mass/Vol] 5.2 mg/dL Normal 4.5-5.6 [facility]; [facility] Work Phone: Comment on above: PATIENT WAS FASTINGP ERFORMED BY: [facility]6[address] [facility] [id number] CBC, PLATELETS & AUT DIFF (2 1325)Ordered By: Fire Investigation Manager on 07-15-2023 Basophils (Bld) [#/Vol] 0.1 10*3/uL Normal 0.0-0.2 [facility]; [facility] Work Phone: Comment on above: PATIENT WAS FASTINGP ERFORMED BY: [facility] Lzqras[address] [facility] [id number] Basophils/100 WBC (Bld) 1 % Normal [facility]; [facility] Work Phone: Comment on above: PATIENT WAS FASTINGP ERFORMED BY: [facility] Njegyb0715 [address] [facility] [id number] Eosinophils (Bld) [#/Vol] 0.3 10*3/uL Normal 0.0-0.4 [facility]; [facility] Work Phone: Comment on above: PATIENT WAS FASTINGP ERFORMED BY: [facility] Pxdvlt5359 [address] [facility] [id number] Eosinophils/100 WBC (Bld) 4 % Normal [facility]; [facility] Work Phone: Comment on above: PATIENT WAS FASTINGP ERFORMED BY: [facility] Vnunmx2811 [facility] [id number] Erythrocyte distribution width (RBC) [Ratio] 12.7 % Normal 11.7-15.4 [facility]; [facility] Work Phone: Comment on above: PATIENT WAS FASTINGP ERFORMED BY: [facility] Cruwpg1729 [facility] [id number] Hematocrit (Bld) [Volume fraction] 38.4 % Normal 34.0-46.6 [facility]; [facility] Work Phone: Comment on above: PATIENT WAS FASTINGP ERFORMED BY: [facility] Zwpfpy4181 [facility] [id number] Hemoglobin (Bld) [Mass/Vol] 12.7 g/dL Normal 11.1-15.9 [facility]; [facility] Work Phone: Comment on above: PATIENT WAS FASTINGP ERFORMED BY: [facility] Yluvde5738 [address]Dublin [place] [id number] Immature granulocytes (Bld) [#/Vol] 0.0 10*3/uL Normal 0.0-0.1 [facility]; [facility] Work Phone: Comment on above: PATIENT WAS FASTINGP ERFORMED BY: [facility] Hhmfij7955 [address] Roadblin [place] [id number] Immature granulocytes/100 WBC (Bld) 0 % Normal [facility]; [facility] Work Phone: Comment on above: PATIENT WAS FASTINGP ERFORMED BY: [facility] Mwethu[address] [facility] [place] [id number] Lymphocytes (Bld) [#/Vol] 2.0 10*3/uL Normal 0.7-3.1 [facility]; [facility] Work Phone: Comment on above: PATIENT WAS FASTINGP ERFORMED BY: [facility] [facility]in [place] [id number] Lymphocytes/100 WBC (Bld) 31 % Normal [facility]; [facility] Work Phone: Comment on above: PATIENT WAS FASTINGP ERFORMED BY: [facility] Ddvubj6969 [address] [facility]in [place] [id number] MCH (RBC) [Entitic mass] 30.0 pg Normal 26.6-33.0 [facility]; [facility] Work Phone: Comment on above: PATIENT WAS FASTINGP ERFORMED BY: [facility]6[address]ublin [place] [id number] MCHC (RBC) [Mass/Vol] 33.1 g/dL Normal 31.5-35.7 [facility] prehensive Internal Medicine; [facility] Work Phone: Comment on above: PATIENT WAS FASTINGP ERFORMED BY: [facility] Swxmbp7[address] [facility] HospitalDublin [place] [id number] MCV (RBC) [Entitic vol] 91 fL Normal 79-97 [facility]; [facility] Work Phone: Comment on above: PATIENT WAS FASTINGP ERFORMED BY: CB [facility] Gjequz6250 [address]Dublin [place] [id number] Monocytes (Bld) [#/Vol] 0.5 10*3/uL Normal 0.1-0.9 [facility]; [facility] Work Phone: Comment on above: PATIENT WAS FASTINGP ERFORMED BY: CB [facility] Qactbx0010 [address]Dublin [place] [id number] Monocytes/100 WBC (Bld) 7 % Normal [facility]; [facility] Work Phone: Comment on above: PATIENT WAS FASTINGP ERFORMED BY: CB [facility] Ilehsw9312 [address]Dublin [place] [id number] Neutrophils (Bld) [#/Vol] 3.6 10*3/uL Normal 1.4-7.0 [facility]; [facility] Work Phone: Comment on above: PATIENT WAS FASTINGP ERFORMED BY: CB [facility] Dlfwja6993 [address]Dublin [place] [id number] Neutrophils/100 WBC (Bld) 57 % Normal [facility]; [facility] Work Phone: Comment on above: PATIENT WAS FASTINGP ERFORMED BY: CB [facility] Fjybuc2695 [address]Dublin [place] [id number] Platelets (Bld) [#/Vol] 328 10*3/uL Normal 150-450 [facility]; [facility] Work Phone: Comment on above: PATIENT WAS FASTINGP ERFORMED BY: CB [facility] Aktodj2561 [address]Dublin [place] [id number] RBC (Bld) [#/Vol] 4.23 10*6/uL Normal 3.77-5.28 [facility]; [facility] Work Phone: Comment on above: PATIENT WAS FASTINGP ERFORMED BY: CB [facility] Zapfso3811 [address]Dublin [place] [id number] WBC (Bld) [#/Vol] 6.5 10*3/uL Normal 3.4-10.8 [facility]; [facility] Work Phone: Comment on above: PATIENT WAS FASTINGP ERFORMED BY: KENNEDY [facility] Giwhru5191 [address]Dublin [place] [id number] LIPID PANEL ([id number])Ordered B y: Fire Investigation Manager on 07-15-2023 Cholesterol [Mass/Vol] 278 mg/dL Abnormal 100-199 [facility]; [facility] Work Phone: Comment on above: PATIENT WAS FASTINGP ERFORMED BY: KENNEDY [facility] Agqwne7225 [address] RoadDublin [place] [id number] Cholesterol in HDL [Mass/Vol] 63 mg/dL Normal [facility]; [facility] Work Phone: Comment on above: PATIENT WAS FASTINGP ERFORMED BY: KENNEDY [facility] Bsuknk7453 [address]Dublin [place] [id number] Triglyceride [Mass/Vol] 166 mg/dL Abnormal 0-149 [facility]; [facility] Work Phone: Comment on above: PATIENT WAS FASTINGP ERFORMED BY: KENNEDY [facility] Frpfrx0852 [address]Dublin [place] [id number] LIPID PANEL (60657) 30 mg/dL Normal 5-40 [facility]; [facility] Work Phone: Comment on above: PATIENT WAS FASTINGP ERFORMED BY: CB [facility] Ffvxfw6522 [address] RoadDublin [place] [id number] LIPID PANEL (93650) 185 mg/dL Abnormal 0-99 [facility]; [facility] Work Phone: Comment on above: PATIENT WAS FASTINGP ERFORMED BY: CB [facility] Zlkhuf3424 [address]Dublin [place] [id number] LIPID PANEL (16666) 2.9 {ratio} Normal 0.0-3.2 [facility]; [facility] Work Phone: Comment on above: LDL/HDL Ratio Men Wo men 1/2 Avg.Risk 1.0 1.5 Avg.Risk 3.6 3.2 2X Avg.Risk 6.2 5.0 3X Avg.Risk 8.0 6.1 PATIENT WAS FASTINGP ERFORMED BY: KENNEDY [facility] Zojrlq4907 [address]Dublin [place] [id number] METABOLIC PANEL, COMPREHENSI VE ([id number])Ordered By: Fire Investigation Manager on 07-15-2023 Albumin [Mass/Vol] 4.9 g/dL Abnormal 3.8-4.8 [facility]; [facility] Work Phone: Comment on above: PATIENT WAS FASTINGP ERFORMED BY: KENNEDY [facility] Kctrhu7548 [address]Dublin [place] [id number] Albumin/Globulin [Mass ratio] 1.7 {ratio} Normal 1.2-2.2 [facility]; [facility] Work Phone: Comment on above: PATIENT WAS FASTINGP ERFORMED BY: KENNEDY Labvijaya Jobubb2498 [address]Dublin [place] [id number] ALP [Catalytic activity/Vol] 93 U/L Normal 44-121 [facility]; [facility] Work Phone: Comment on above: PATIENT WAS FASTINGP ERFORMED BY: KENNEDY [facility] Hkalji2292 [address] RoadDublin [place] [id number] ALT [Catalytic activity/Vol] 17 U/L Normal 0-32 [facility]; [facility] Work Phone: Comment on above: PATIENT WAS FASTINGP ERFORMED BY: KENNEDY [facility] Dmcqyn8691 [address]Dublin [place] [id number] AST [Catalytic activity/Vol] 20 U/L Normal 0-40 [facility]; [facility] Work Phone: Comment on above: PATIENT WAS FASTINGP ERFORMED BY: KENNEDY [facility] Lctzgm6266 [address]Dublin [place] [id number] Bilirubin [Mass/Vol] 0.7 mg/dL Normal 0.0-1.2 [facility] Internal [facility]; [facility] Work Phone: Comment on above: PATIENT WAS FASTINGP ERFORMED BY: KENNEDY [facility] Zyrgnq3047 [address] RoadDublin [place] [id number] Calcium [Mass/Vol] 10.6 mg/dL Abnormal 8.7-10.3 [facility]; [facility] Work Phone: Comment on above: PATIENT WAS FASTINGP ERFORMED BY: KENNEDY [facility] Usurza1643 [address]Dublin [place] [id number] Chloride [Moles/Vol] 97 mmol/L Normal 96-106 [facility]eren[facility]; [facility] Work Phone: Comment on above: PATIENT WAS FASTINGP ERFORMED BY: KENNEDY [facility] Flxjru8465 [address] RoadDublin [place] [id number] CO2 [Moles/Vol] 25 mmol/L Normal 20-29 [facility]; [facility] Work Phone: Comment on above: PATIENT WAS FASTINGP ERFORMED BY: KENNEDY [facility] Puefni0639 [address] RoadCommunity Health [id number] Creatinine [Mass/Vol] 0.99 mg/dL Normal 0.57-1.00 [facility]eren[facility]; [facility] Work Phone: Comment on above: PATIENT WAS FASTINGP ERFORMED BY: KENNEDY [facility] Mfcivs0534 [address] [facility]in [place] [id number] GFR/1.73 sq M.predicted among non-blacks MDRD (S/P/Bld) [Vol rate/Area] 61 mL/min/{1.73_m2} Normal Comprehens e [facility]; [facility] Work Phone: Comment on above: PATIENT WAS FASTINGP ERFORMED BY: [facility] Vtuiah1565 [address]Dublin [place] [id number] Globulin (S) [Mass/Vol] 2.9 g/dL Normal 1.5-4.5 [facility]; [facility] Work Phone: Comment on above: PATIENT WAS FASTINGP ERFORMED BY: KENNEDY [facility] Petzas8298 [address]Dublin [place] [id number] Glucose [Mass/Vol] 92 mg/dL Normal 70-99 [facility]; [facility] Work Phone: Comment on above: PATIENT WAS FASTINGP ERFORMED BY: CB [facility] Jgbngf2109 [address]Dublin [place] [id number] Potassium [Moles/Vol] 3.7 mmol/L Normal 3.5-5.2 [facility] prehensive Internal Medicine; [facility] Work Phone: Comment on above: PATIENT WAS FASTINGP ERFORMED BY: CB [facility] Sltmme9734 [address]Dublin [place] [id number] Protein [Mass/Vol] 7.8 g/dL Normal 6.0-8.5 [facility]; [facility] Work Phone: Comment on above: PATIENT WAS FASTINGP ERFORMED BY: CB [facility] Ntbymt4556 [address]Dublin [place] [id number] Sodium [Moles/Vol] 137 mmol/L Normal 134-144 [facility]; [facility] Work Phone: Comment on above: PATIENT WAS FASTINGP ERFORMED BY: CB [facility] Gxulvr9914 [address]Dublin [place] [id number] Urea nitrogen [Mass/Vol] 21 mg/dL Normal 8-27 [facility]; [facility] Work Phone: Comment on above: PATIENT WAS FASTINGP ERFORMED BY: CB [facility] Wnrphb6804 [address]Dublin [place] [id number] Urea nitrogen/Creatinine [Mass ratio] 21 mg/mg Normal 12-28 [facility]; [facility] Work Phone: Comment on above: PATIENT WAS FASTINGP ERFORMED BY: CB [facility] Fxpvjn0812 [address]Dublin [place] [id number] TSH (THYROID STIMULATING HOR TONIA) ([id number])Ordered By: Fire Investigation Manager on 07-15-2023 TSH Qn 1.740 {uIU/mL} Normal 0.450-4.500 [facility] Internal [facility]; [facility] Work Phone: Comment on above: PATIENT WAS FASTINGP ERFORMED BY: CB [facility] Slmkrc5968 [address]Dublin [place] [id number] URINALYSIS ([id number])Ordered By : Fire Investigation Manager on 07-15-2023 Appearance (U) Clear Normal Comprehens fco Internal Medicine; [facility] Work Phone: Comment on above: PATIENT WAS FASTINGP ERFORMED BY: KENNEDY [facility] Pronfv0359 [address]Dublin [place] [id number] Bilirubin Ql (U) Negative Normal Comprehe nsive Internal Medicine; [facility] Work Phone: Comment on above: PATIENT WAS FASTINGP ERFORMED BY: KENNEDY [facility] Serrud5995 [address]Dublin [place] [id number] Color (U) Yellow Normal [facility]; [facility] Work Phone: Comment on above: PATIENT WAS FASTINGP ERFORMED BY: KENNEDY Labcoserina MendezVkalpm3567 [address] RoadDublin [place] [id number] Glucose Ql (U) Negative Normal Comprehens fco [facility]; [facility] Work Phone: Comment on above: PATIENT WAS FASTINGP ERFORMED BY: KENNEDY Labcoserina MendezLpqyuh0689 [address]Dublin [place] [id number] Hemoglobin Ql (U) Negative Normal Compreh ensive Internal Medicine; [facility] Work Phone: Comment on above: PATIENT WAS FASTINGP ERFORMED BY: KENNEDY [facility] Ewkwwl1680 [address]Dublin [place] [id number] Ketones Ql (U) Negative Normal Comprehens fco [facility]; [facility] Work Phone: Comment on above: PATIENT WAS FASTINGP ERFORMED BY: KENNEDY [facility] Btunxa4646 [address]Dublin [place] [id number] Leukocyte esterase Test strip Ql (U) Negative Normal [facility]; [facility] Work Phone: Comment on above: PATIENT WAS FASTINGP ERFORMED BY: KENNEDY [facility] Tuqqwe4204 [address]Dublin [place] [id number] Microscopic observation LM Nom (Urine sed) MICNIP Normal [facility]; [facility] Work Phone: Comment on above: Microscopic not matthew cated and not performed. PATIENT WAS FASTINGP ERFORMED BY: [facility]6370 [facility] [id number] Nitrite Ql (U) Negative Normal Comprehens fco [facility] Medicine; [facility] Work Phone: Comment on above: PATIENT WAS FASTINGP ERFORMED BY: [facility]6370 [facility] [id number] pH (U) 7.0 [pH] Normal 5.0-7.5 [facility]; [facility] Work Phone: Comment on above: PATIENT WAS FASTINGP ERFORMED BY: [facility]6[address] [facility] [id number] Protein Ql (U) Negative Normal Comprehens fco [facility] Medicine; [facility] Work Phone: Comment on above: PATIENT WAS FASTINGP ERFORMED BY: [facility]6370 [facility] [id number] Specific gravity (U) [Rel density] 1.013 1 Normal 1.005-1.030 [facility]; [facility] Work Phone: Comment on above: PATIENT WAS FASTINGP ERFORMED BY: [facility]6370 [facility] [id number] Urobilinogen (U) [Mass/Vol] 0.2 mg/dL Normal 0.2-1.0 [facility]; [facility] Work Phone: Comment on above: PATIENT WAS FASTINGP ERFORMED BY: [facility]6[address] [facility] [id number] Gel ABOon 03-24-2023 ABO/Rh Interp AB NEG Invalid Interpretation Code [facility] ([place]) Comment on above: Performed By: #### A ETTA, GFR, ABOG, BMP, ADIFF, ANSG, CBC, ALB #### [address] [address] Gel ABSon 03-24-2023 Antibody Screen Gel Negative Normal [facility] ([place]) Comment on above: Performed By: #### A ETTA, GFR, ABOG, BMP, ADIFF, ANSG, CBC, ALB #### [place] [id number] [place] [id number] LABORATORYOrdered By: Ca Stein on 03-24-2023 ABO/Rh Interp AB NEG Invalid Interpretation Code AO BB SS Antibody Screen Gel Negative ABSC (03/24/23 6:50 AM) Invalid Interpretation Code AO BB SS XR KNEE 1 OR 2 VIEWS LEFTon 03-24-2023 XR KNEE 1 OR 2 VIEWS LEFT ORIGINAL EXAMINATION: TWO XRAY VIEWS OF THE LEFT KNEE 03/24/2023 9:17 am COMPARISON: None. HISTORY: ORDERING SYSTEM PROVIDED HISTORY: Reason for Exam: Status Post Arthroplasty FINDINGS: Skin staci are present from the previous surgery. A small amount of soft tissue and joint air is noted from the surgery. The prosthetic components appear well seated, and there is no adjacent fracture identified. IMPRESSION: Expected postoperative findings. Interpreted by: Robert Benito MD Preliminary Report By: Robert Benito MD Electronically signed By Robert Benito MD Dictated Date: 03/24/2023 9:20:41 AM Prelim Date: 03/24/2023 9:21:09 AM Sign Date: 03/24/2023 9:21:09 AM Ordering Provider: HOLGER INFANTE Normal [facility] ([place]) Urinalysis, Complete W/ Micr oscopic Examination with reflex to urine culture, routine ([id number])Ordered By: Fire Investigation Manager on 03-09-2023 Appearance (U) Clear Normal Comprehens fco [facility] Medicine; [facility] Work Phone: Comment on above: [facility]FORMED BY: [facility] [id number] Bilirubin Ql (U) Negative Normal Comprehe nsive Internal Medicine; [facility] Work Phone: Comment on above: PERFORMED BY: Sat[place] [id number] Color (U) Yellow Normal [facility]; [facility] Work Phone: Comment on above: PERFORMED BY: [place] [id number] Glucose Ql (U) Negative Normal Comprehens fco [facility]; [facility] Work Phone: Comment on above: PERFORMED BY: WeGush6370 [employer] [place] [id number] Ketones Ql (U) Trace Abnormal Comprehens fco [facility]; [facility] Work Phone: Comment on above: PERFORMED BY: Sat[place] [id number] pH (U) 7.5 [pH] Normal 5.0-7.5 [facility]; [facility] Work Phone: Comment on above: PERFORMED BY: [place] [id number] Protein Ql (U) Negative Normal Comprehens fco [facility] Medicine; [facility] Work Phone: Comment on above: PERFORMED BY: [place] [id number] Specific gravity (U) [Rel density] 1.014 1 Normal 1.005-1.030 [facility]; [facility] Work Phone: Comment on above: PERFORMED BY: [place] [id number] Urinalysis, Complete W/ Microscopic Examination with reflex to urine culture, routine (21843) Negative Normal [facility]; [facility] Work Phone: Comment on above: PERFORMED BY: Status4[facility]ly [facility] [id number] Urinalysis, Complete W/ Microscopic Examination with reflex to urine culture, routine (26476) 0.2 mg/dL Normal 0.2-1.0 [facility]; [facility] Work Phone: Comment on above: PERFORMED BY: Status4[facility] [id number] Urinalysis, Complete W/ Microscopic Examination with reflex to urine culture, routine (74249) MICRON Normal [facility]; [facility] Work Phone: Comment on above: Microscopic follows if indicated. PERFORMED BY: Blosonin [place] [id number] Urinalysis, Complete W/ Microscopic Examination with reflex to urine culture, routine (02763) See below: Normal [facility]; [facility] Work Phone: Comment on above: Microscopic was matthew cated and was performed. PERFORMED BY: adRise Lab vijaya Mqipag4331 [facility] [id number] Urinalysis, Complete W/ Microscopic Examination with reflex to urine culture, routine (34113) NOFLEX Normal [facility]; [facility] Work Phone: Comment on above: This specimen will n ot reflex to a Urine Culture. PERFORMED BY: adRise Lab vijaya Bblzzt[address] [id number] .Auto Diffon 03-02-2023 Basophil, Absolute 0.1 10 3/mcL Normal 0.0-0.2 [facility] ([place]) Comment on above: Performed By: #### A ETTA, GFR, ABOG, BMP, ADIFF, ANSG, CBC, ALB #### [address] [address] Basophils/100 WBC (Bld) 2.0 % Normal 0.0-2.5 [facility] ([place]) Comment on above: Performed By: #### A ETTA, GFR, ABOG, BMP, ADIFF, ANSG, CBC, ALB #### [address] [address] Eosinophil, Absolute 0.3 10 3/mcL Normal 0.0-0.4 [facility] ([place]) Comment on above: Performed By: #### A ETTA, GFR, ABOG, BMP, ADIFF, ANSG, CBC, ALB #### [address] [address] Eosinophils/100 WBC (Bld) 3.8 % Normal 0.0-7.0 [facility] ([place]) Comment on above: Performed By: #### A ETTA, GFR, ABOG, BMP, ADIFF, ANSG, CBC, ALB #### [address] [address] Lymphocyte, Absolute 1.9 10 3/mcL Normal 0.8-3.9 [facility] ([place]) Comment on above: Performed By: #### A ETTA, GFR, ABOG, BMP, ADIFF, ANSG, CBC, ALB #### [address] [address] Lymphocytes/100 WBC (Bld) 27.5 % Normal 10.0-50.0 [facility] ([place]) Comment on above: Performed By: #### A ETTA, GFR, ABOG, BMP, ADIFF, ANSG, CBC, ALB #### [address] [address] Monocyte, Absolute 0.5 10 3/mcL Normal 0.2-1.0 [facility] ([place]) Comment on above: Performed By: #### A ETTA, GFR, ABOG, BMP, ADIFF, ANSG, CBC, ALB #### [address] [address] Monocytes/100 WBC (Bld) 6.9 % Normal 1.7-13.0 [facility] ([place]) Comment on above: Performed By: #### A ETTA, GFR, ABOG, BMP, ADIFF, ANSG, CBC, ALB #### [address] [address] Neutrophils/100 WBC (Bld) 59.8 % Normal 37.0-80.0 [facility] ([place]) Comment on above: Performed By: #### A ETTA, GFR, ABOG, BMP, ADIFF, ANSG, CBC, ALB #### [address] [address] .GFRon 03-02-2023 GFR 70 ml/min/1.73sqm Normal [facility] ([place]) Comment on above: Result Comment: GFR Population mean for , Non- Americans Ages 20-29 = 116 mL/min/1.73 sq.m. Ages 30-39 = 107 mL/min/1.73 sq.m. Ages 40-49 = 99 mL/min/1.73 sq.m. Ages 50-59 = 93 mL/min/1.73 sq.m. Ages 60-69 = 85 mL/min/1.73 sq.m. Ages 70+ = 75 mL/min/1.73 sq.m. Chronic Kidney Disease: Less than 60 mL/min/1.73 square meters End Stage Renal Disease: Less than 15 mL/min/1.73 square meters Performed By: #### A ETTA, GFR, ABOG, BMP, ADIFF, ANSG, CBC, ALB #### [address] [address] GFR Non- 58 ml/min/1.73sqm Normal [facility] ([place]) Comment on above: Result Comment: GFR Population mean for , Non- Americans Ages 20-29 = 116 mL/min/1.73 sq.m. Ages 30-39 = 107 mL/min/1.73 sq.m. Ages 40-49 = 99 mL/min/1.73 sq.m. Ages 50-59 = 93 mL/min/1.73 sq.m. Ages 60-69 = 85 mL/min/1.73 sq.m. Ages 70+ = 75 mL/min/1.73 sq.m. Chronic Kidney Disease: Less than 60 mL/min/1.73 square meters End Stage Renal Disease: Less than 15 mL/min/1.73 square meters Performed By: #### A ETTA, GFR, ABOG, BMP, ADIFF, ANSG, CBC, ALB #### [address] [address] .NEUABSon 03-02-2023 Neutrophil, Absolute 4.2 10 3/mcL Normal 2.9-6.2 [facility] ([place]) Comment on above: Performed By: #### A ETTA, GFR, ABOG, BMP, ADIFF, ANSG, CBC, ALB #### [address] [address] ALBon 03-02-2023 Albumin Level 4.9 G/dL High 3.4-4.8 [facility] ([place]) Comment on above: Performed By: #### A ETTA, GFR, ABOG, BMP, ADIFF, ANSG, CBC, ALB #### [address] [address] BMPon 03-02-2023 BUN/Creatinine Ratio 28 ratio High 7-27 [facility] ([place]) Comment on above: Performed By: #### A ETTA, GFR, ABOG, BMP, ADIFF, ANSG, CBC, ALB #### [address] [address] Calcium [Mass/Vol] 10.4 mg/dL High 8.4-10.2 [facility] ([place]) Comment on above: Performed By: #### A ETTA, GFR, ABOG, BMP, ADIFF, ANSG, CBC, ALB #### [address] [address] Chloride [Moles/Vol] 97 mmol/L Low 98-107 [facility] ([place]) Comment on above: Performed By: #### A ETTA, GFR, ABOG, BMP, ADIFF, ANSG, CBC, ALB #### [address] [address] CO2 [Moles/Vol] 28 mmol/L Normal 23-31 [facility] ([place]) Comment on above: Performed By: #### A ETTA, GFR, ABOG, BMP, ADIFF, ANSG, CBC, ALB #### [address] [address] Creatinine [Mass/Vol] 0.95 mg/dL Normal 0.55-1.02 [facility] ([place]) Comment on above: Performed By: #### A ETTA, GFR, ABOG, BMP, ADIFF, ANSG, CBC, ALB #### [address] [address] Electrolyte Balance 11.0 mEq/L Normal 4.0-15.0 [facility] ([place]) Comment on above: Performed By: #### A ETTA, GFR, ABOG, BMP, ADIFF, ANSG, CBC, ALB #### [address] [address] Glucose [Mass/Vol] 97 mg/dL Normal 83-110 [facility] ([place]) Comment on above: Performed By: #### A ETTA, GFR, ABOG, BMP, ADIFF, ANSG, CBC, ALB #### [address] [address] Potassium [Moles/Vol] 3.5 mmol/L Normal 3.5-5.1 [facility]) Comment on above: Performed By: #### A ETTA, GFR, ABOG, BMP, ADIFF, ANSG, CBC, ALB #### [address] [address] Sodium [Moles/Vol] 136 mmol/L Normal 136-145 [facility]) Comment on above: Performed By: #### A ETTA, GFR, ABOG, BMP, ADIFF, ANSG, CBC, ALB #### [address] [address] Urea nitrogen [Mass/Vol] 27 mg/dL High 7-18 [facility]) Comment on above: Performed By: #### A ETTA, GFR, ABOG, BMP, ADIFF, ANSG, CBC, ALB #### [address] [address] CBCon 03-02-2023 Erythrocyte distribution width (RBC) [Ratio] 12.8 % Normal 11.5-14.5 [facility]) Comment on above: Order Comment: Pre-A dmission Testing Performed By: #### A ETTA, GFR, ABOG, BMP, ADIFF, ANSG, CBC, ALB #### [address] [address] Hematocrit (Bld) [Volume fraction] 38.3 % Normal 37.0-47.0 [facility]) Comment on above: Order Comment: Pre-A dmission Testing Performed By: #### A ETTA, GFR, ABOG, BMP, ADIFF, ANSG, CBC, ALB #### [address] [address] Hgb 12.9 G/dL Normal 12.0-16.0 [facility]) Comment on above: Order Comment: Pre-A dmission Testing Performed By: #### A ETTA, GFR, ABOG, BMP, ADIFF, ANSG, CBC, ALB #### [address] [address] MCH (RBC) [Entitic mass] 30.4 pg Normal 27.0-31.2 [facility] ([place]) Comment on above: Order Comment: Pre-A dmission Testing Performed By: #### A ETTA, GFR, ABOG, BMP, ADIFF, ANSG, CBC, ALB #### [address] [address] MCHC 33.7 G/dL Normal 33.0-37.0 [facility] ([place]) Comment on above: Order Comment: Pre-A dmission Testing Performed By: #### A ETTA, GFR, ABOG, BMP, ADIFF, ANSG, CBC, ALB #### [address] [address] MCV (RBC) [Entitic vol] 90.3 fL Normal 80.0-94.0 [facility] ([place]) Comment on above: Order Comment: Pre-A dmission Testing Performed By: #### A ETTA, GFR, ABOG, BMP, ADIFF, ANSG, CBC, ALB #### [address] [address] Platelet 323 10 3/mcL Normal 130-400 [facility] ([place]) Comment on above: Order Comment: Pre-A dmission Testing Performed By: #### A ETTA, GFR, ABOG, BMP, ADIFF, ANSG, CBC, ALB #### [address] [address] Platelet mean volume (Bld) [Entitic vol] 9.6 fL Normal 7.4-10.4 [facility] ([place]) Comment on above: Order Comment: Pre-A dmission Testing Performed By: #### A ETTA, GFR, ABOG, BMP, ADIFF, ANSG, CBC, ALB #### [address] [address] RBC 4.24 10 6/mcL Normal 4.20-5.40 [facility] ([place]) Comment on above: Order Comment: Pre-A dmission Testing Performed By: #### A ETTA, GFR, ABOG, BMP, ADIFF, ANSG, CBC, ALB #### [address] [place], [place] [address] WBC 7.0 10 3/mcL Normal 4.6-10.8 [facility] ([place]) Comment on above: Order Comment: Pre-A dmission Testing Performed By: #### A ETTA, GFR, ABOG, BMP, ADIFF, ANSG, CBC, ALB #### [address] [place], [place] [address] CT KNEE W/O CONTRAST LEFTon 03-02-2023 CT KNEE W/O CONTRAST LEFT ORIGINAL EXAMINATION: CT OF THE LEFT KNEE WITHOUT CONTRAST 03/02/2023 3:38 pm TECHNIQUE: CT of the left knee was performed without the administration of intravenous contrast. Multiplanar reformatted images are provided for review. Automated exposure control, iterative reconstruction, and/or weight based adjustment of the mA/kV was utilized to reduce the radiation dose to as low as reasonably achievable. COMPARISON: None. HISTORY ORDERING SYSTEM PROVIDED HISTORY: Reason for Exam: Varus deformity, not elsewhere classified, left knee. FINDINGS: No acute fracture or dislocation. Osseous demineralization. No visible aggressive osseous lesions. Scattered small bone islands suspected. Bone island suspected of the proximal tibial diaphysis and metaphysis also. There is severe medial femorotibial compartment joint space narrowing with subchondral sclerosis, tiny subchondral cysts, and marginal osteophyte formation. Medial meniscal body extrusion. There is moderate lateral femorotibial compartment joint space narrowing with marginal osteophyte formation. There is mild to moderate patellofemoral compartment joint space narrowing with subchondral sclerosis, subchondral cysts, and small marginal osteophytes. There is a trace volume knee joint effusion. Small volume Rfey's cyst.. Tendons and ligaments are suboptimally evaluated on this examination. Scattered foci of muscle atrophy. Advanced gluteus medius and minimus atrophy. Provided images of the hip and hemipelvis exhibit no acute osseous abnormalities or aggressive osseous lesions. Suspected bone island of the lesser trochanter. Moderate pubic symphysis arthrosis. Colonic diverticulosis without evidence of acute diverticulitis. Phleboliths. The included intrapelvic contents exhibit no acute abnormalities. Provided images of the ankle exhibit no acute osseous abnormalities or aggressive osseous lesions. Incidental note of os naviculare. Dorsal osteophytosis of the talonavicular joint. Subchondral cysts of the talus and fibula. IMPRESSION: 1. No acute osseous abnormalities or aggressive osseous lesions. 2. 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 Trace volume effusion. Small volume Frey's cyst. RECOMMENDATIONS: Unavailable Interpreted by: Camilo Siddiqui DO Preliminary Report By: Camilo Siddiqui DO Electronically signed By Camilo Siddiqui DO Dictated Date: 03/02/2023 4:10:40 PM Prelim Date: 03/02/2023 4:15:17 PM Sign Date: 03/02/2023 4:15:17 PM Ordering Provider: HOLGER Roblero [facility]) Gel ABOon 03-02-2023 ABO/Rh Interp AB NEG Invalid Interpretation Code [facility]) Comment on above: Order Comment: SURG JUAN ANTONIO 03/24 -AC Performed By: #### A ETTA, GFR, ABOG, BMP, ADIFF, ANSG, CBC, ALB #### [address] [address] Gel ABSon 03-02-2023 Antibody Screen [facility]) Comment on above: Order Comment: SURG JUAN ANTONIO 03/24 -AC Performed By: #### A ETTA, GFR, ABOG, BMP, ADIFF, ANSG, CBC, ALB #### [address] [address] LABORATORYOrdered By: Frida Robbins on 03-02-2023 ABO/Rh Interp AB NEG Invalid Interpretation Code AO BB SS Antibody Screen Gel Negative ABSC (03/02/23 2:10 PM) Invalid Interpretation Code AO BB SS LABORATORYOrdered By: SYSTEM SYSTEM on 03-02-2023 Albumin BCP dye [Mass/Vol] 4.9 G/dL Invalid Interpretation Code 3.4 - 4.8 G/dL AO ADM SS Calcium [Mass/Vol] 10.4 mg/dL Invalid Interpretation Code 8.4 - 10.2 mg/dL AO ADM SS Chloride [Moles/Vol] 97 mmol/L Invalid Interpretation Code 98 - 107 mmol/L AO ADM SS CO2 [Moles/Vol] 28 mmol/L Invalid Interpretation Code 23 - 31 mmol/L AO ADM SS Creatinine [Mass/Vol] 0.95 mg/dL Invalid Interpretation Code 0.55 - 1.02 mg/dL AO ADM SS Electrolyte Balance 11.0 mEq/L Invalid Interpretation Code 4.0 - 15.0 mEq/L AO ADM SS GFR/1.73 sq M.predicted among blacks MDRD (S/P/Bld) [Vol rate/Area] 70 ml/min/1.73sqm Invalid Interpretation Code AO Chemistry S GFR/1.73 sq M.predicted among non-blacks MDRD (S/P/Bld) [Vol rate/Area] 58 ml/min/1.73sqm Invalid Interpretation Code AO Chemistry S Glucose [Mass/Vol] 97 mg/dL Invalid Interpretation Code 83 - 110 mg/dL AO ADM SS Potassium [Moles/Vol] 3.5 mmol/L Invalid Interpretation Code 3.5 - 5.1 mmol/L AO ADM SS Sodium [Moles/Vol] 136 mmol/L Invalid Interpretation Code 136 - 145 mmol/L AO ADM SS Urea nitrogen [Mass/Vol] 27 mg/dL Invalid Interpretation Code 7 - 18 mg/dL AO ADM SS Urea nitrogen/Creatinine [Mass ratio] 28 ratio Invalid Interpretation Code 7 - 27 ratio AO ADM SS LABORATORYOrdered By: Lucinda Rios on 03-02-2023 Basophil, Absolute 0.1 103/mcL Invalid Interpretation Code 0.0 - 0.2 10^3/mcL AO Workflow SS Basophils/100 WBC (Bld) 2.0 % Invalid Interpretation Code 0.0 - 2.5 % AO Workflow SS Eosinophil, Absolute 0.3 103/mcL Invalid Interpretation Code 0.0 - 0.4 10^3/mcL AO Workflow SS Eosinophils/100 WBC (Bld) 3.8 % Invalid Interpretation Code 0.0 - 7.0 % AO Workflow SS Erythrocyte distribution width (RBC) [Ratio] 12.8 % Invalid Interpretation Code 11.5 - 14.5 % AO Workflow SS Hematocrit (Bld) [Volume fraction] 38.3 % Invalid Interpretation Code 37.0 - 47.0 % AO Workflow SS Hemoglobin (Bld) [Mass/Vol] 12.9 G/dL Invalid Interpretation Code 12.0 - 16.0 G/dL AO Workflow SS Lymphocyte, Absolute 1.9 103/mcL Invalid Interpretation Code 0.8 - 3.9 10^3/mcL AO Workflow SS Lymphocytes/100 WBC (Bld) 27.5 % Invalid Interpretation Code 10.0 - 50.0 % AO Workflow SS MCH (RBC) [Entitic mass] 30.4 pg Invalid Interpretation Code 27.0 - 31.2 pg AO Workflow SS MCHC 33.7 G/dL Invalid Interpretation Code 33.0 - 37.0 G/dL AO Workflow SS MCV (RBC) [Entitic vol] 90.3 fL Invalid Interpretation Code 80.0 - 94.0 fL AO Workflow SS Monocyte, Absolute 0.5 103/mcL Invalid Interpretation Code 0.2 - 1.0 10^3/mcL AO Workflow SS Monocytes/100 WBC (Bld) 6.9 % Invalid Interpretation Code 1.7 - 13.0 % AO Workflow SS Neutrophil, Absolute 4.2 103/mcL Invalid Interpretation Code 2.9 - 6.2 10^3/mcL AO Workflow SS Neutrophils/100 WBC (Bld) 59.8 % Invalid Interpretation Code 37.0 - 80.0 % AO Workflow SS Platelet mean volume (Bld) [Entitic vol] 9.6 fL Invalid Interpretation Code 7.4 - 10.4 fL AO Workflow SS Platelets (Bld) [#/Vol] 323 103/mcL Invalid Interpretation Code 130 - 400 10^3/mcL AO Workflow SS RBC (Bld) [#/Vol] 4.24 106/mcL Invalid Interpretation Code 4.20 - 5.40 10^6/mcL AO Workflow SS WBC (Bld) [#/Vol] 7.0 103/mcL Invalid Interpretation Code 4.6 - 10.8 10^3/mcL AO Workflow SS LABORATORYOrdered By: Nat Toledo on 03-02-2023 MRSA DNA TOMI+probe Ql (Unsp spec) Not Detected 1 (03/02/23 2:10 PM) Invalid Interpretation Code Not Detected [employer]Sero Comment on above: Result Comment: Note s MRSA PCR Int MRSA DNA not detecte d by Real-Time Polymerase Chain Reaction (PCR). A negative result may be due to intermittent colonization. Colonization may vary depending on patient treatment, patient status, or exposure to high-risk environments.As with all PCR based in vitro diagnostic tests, extremely low levels of target below the limit of detection of the assay may be detected, but results may not be reproducible. Invalid Interpretation Code AH Auto Viro/Sero SS MRSAPCRon 03-02-2023 MRSA (PCR) Not detected Normal Not Detected [facility] ([place]) Comment on above: Result Comment: Note s Performed By: #### M RSAPCR #### [facility] [address] [place] [address] MRSA PCR Int Normal [facility] ([place]) Comment on above: Result Comment: MRSA DNA not detected by Real-Time Polymerase Chain Reaction (PCR). A negative result may be due to intermittent colonization. Colonization may vary depending on patient treatment, patient status, or exposure to high-risk environments. As with all PCR based in vitro diagnostic tests, extremely low levels of target below the limit of detection of the assay may be detected, but results may not be reproducible. See Below Performed By: #### M RSAPCR #### [facility] [address] [place] [address] CBC, PLATELETS & AUT DIFF (3 1245)Ordered By: Fire Investigation Manager on 12-30-2022 Basophils (Bld) [#/Vol] 0.1 10*3/uL Normal 0.0-0.2 [facility]; [facility] Work Phone: Comment on above: PATIENT WAS FASTINGP ERFORMED BY: [id number] [facility] [id number] Basophils/100 WBC (Bld) 2 % Normal [facility]; [facility] Work Phone: Comment on above: PATIENT WAS FASTINGP ERFORMED BY: adRise LabMiproto [id number] [facility] [id number] Eosinophils (Bld) [#/Vol] 0.3 10*3/uL Normal 0.0-0.4 [facility]; [facility] Work Phone: Comment on above: PATIENT WAS FASTINGP ERFORMED BY: [employer] [id number] [facility] [id number] Eosinophils/100 WBC (Bld) 5 % Normal [facility]; [facility] Work Phone: Comment on above: PATIENT WAS FASTINGP ERFORMED BY: KENNEDY [facility] [id number] [address]Dublin [place] [id number] Erythrocyte distribution width (RBC) [Ratio] 12.4 % Normal 11.7-15.4 [facility]; [facility] Work Phone: Comment on above: PATIENT WAS FASTINGP ERFORMED BY: CB [facility] [id number] [address]Dublin [place] [id number] Hematocrit (Bld) [Volume fraction] 37.0 % Normal 34.0-46.6 [facility]; [facility] Work Phone: Comment on above: PATIENT WAS FASTINGP ERFORMED BY: CB [facility] [id number] [address]Dublin [place] [id number] Hemoglobin (Bld) [Mass/Vol] 12.6 g/dL Normal 11.1-15.9 [facility]; [facility] Work Phone: Comment on above: PATIENT WAS FASTINGP ERFORMED BY: CB [facility] [id number] [address] [place] [id number] Immature granulocytes (Bld) [#/Vol] 0.0 10*3/uL Normal 0.0-0.1 [facility]; [facility] Work Phone: Comment on above: PATIENT WAS FASTINGP ERFORMED BY: KENNEDY [facility] [id number] [address]Dublin [place] [id number] Immature granulocytes/100 WBC (Bld) 0 % Normal [facility]; [facility] Work Phone: Comment on above: PATIENT WAS FASTINGP ERFORMED BY: CB [facility] [id number] [address]Dublin [place] [id number] Lymphocytes (Bld) [#/Vol] 2.2 10*3/uL Normal 0.7-3.1 [facility]; [facility] Work Phone: Comment on above: PATIENT WAS FASTINGP ERFORMED BY: CB [facility] [id number] [address]Dublin [place] [id number] Lymphocytes/100 WBC (Bld) 35 % Normal [facility]; [facility] Work Phone: Comment on above: PATIENT WAS FASTINGP ERFORMED BY: KENNEDY [facility] [id number] [address]Dublin [place] [id number] MCH (RBC) [Entitic mass] 30.3 pg Normal 26.6-33.0 [facility]; [facility] Work Phone: Comment on above: PATIENT WAS FASTINGP ERFORMED BY: CB [facility] Vssatt8200 [address] [place] [id number] MCHC (RBC) [Mass/Vol] 34.1 g/dL Normal 31.5-35.7 [facility] prehensive Internal Medicine; [facility] Work Phone: Comment on above: PATIENT WAS FASTINGP ERFORMED BY: CB [facility] [id number] [address]Dublin [place] [id number] MCV (RBC) [Entitic vol] 89 fL Normal 79-97 [facility]; [facility] Work Phone: Comment on above: PATIENT WAS FASTINGP ERFORMED BY: CB [facility] [id number] [address]Dublin [place] [id number] Monocytes (Bld) [#/Vol] 0.5 10*3/uL Normal 0.1-0.9 [facility]; [facility] Work Phone: Comment on above: PATIENT WAS FASTINGP ERFORMED BY: [facility] [id number] [address]Dublin [place] [id number] Monocytes/100 WBC (Bld) 8 % Normal [facility]; [facility] Work Phone: Comment on above: PATIENT WAS FASTINGP ERFORMED BY: CB [facility] Vnurir8173 [address] [place] [id number] Neutrophils (Bld) [#/Vol] 3.1 10*3/uL Normal 1.4-7.0 [facility]; [facility] Work Phone: Comment on above: PATIENT WAS FASTINGP ERFORMED BY: CB [facility] Grssed4963 [address]Dublin [place] [id number] Neutrophils/100 WBC (Bld) 50 % Normal [facility]; [facility] Work Phone: Comment on above: PATIENT WAS FASTINGP ERFORMED BY: KENNEDY Labcoserina ShaverBbgrdh6092 [address] [place] [id number] Platelets (Bld) [#/Vol] 284 10*3/uL Normal 150-450 [facility]; [facility] Work Phone: Comment on above: PATIENT WAS FASTINGP ERFORMED BY: CB [facility] Ylrbxe1883 [address]Dublin [place] [id number] RBC (Bld) [#/Vol] 4.16 10*6/uL Normal 3.77-5.28 [facility]; [facility] Work Phone: Comment on above: PATIENT WAS FASTINGP ERFORMED BY: KENNEDY Labcoserina Gyorcm9570 [address] [place] [id number] WBC (Bld) [#/Vol] 6.3 10*3/uL Normal 3.4-10.8 [facility]; [facility] Work Phone: Comment on above: PATIENT WAS FASTINGP ERFORMED BY: KENNEDY [facility] [id number] [address]Dublin [place] [id number] LIPID PANEL ([id number])Ordered B y: Fire Investigation Manager on 12-30-2022 Cholesterol [Mass/Vol] 243 mg/dL Abnormal 100-199 [facility]; [facility] Work Phone: Comment on above: PATIENT WAS FASTINGP ERFORMED BY: KENNEDY [facility] Ctpsmd5356 [address]Dublin [place] [id number] Cholesterol in HDL [Mass/Vol] 60 mg/dL Normal [facility]; [facility] Work Phone: Comment on above: PATIENT WAS FASTINGP ERFORMED BY: KENNEDY [facility] [id number] [address]Dublin [place] [id number] Triglyceride [Mass/Vol] 143 mg/dL Normal 0-149 [facility]; [facility] Work Phone: Comment on above: PATIENT WAS FASTINGP ERFORMED BY: KENNEDY [facility] Ozdiua6150 [address] [place] [id number] LIPID PANEL ([id number]) 26 mg/dL Normal 5-40 [facility]; [facility] Work Phone: Comment on above: PATIENT WAS FASTINGP ERFORMED BY: KENNEDY Labvijaya Wlstcj4566 [facility] [id number] LIPID PANEL (82122) 157 mg/dL Abnormal 0-99 [facility]; [facility] Work Phone: Comment on above: PATIENT WAS FASTINGP ERFORMED BY: KENNEDY Labvijaya MendezYotrtz7448 [facility] [id number] LIPID PANEL (17926) 2.6 {ratio} Normal 0.0-3.2 [facility]; [facility] Work Phone: Comment on above: LDL/HDL Ratio Men Wo men 1/2 Avg.Risk 1.0 1.5 Avg.Risk 3.6 3.2 2X Avg.Risk 6.2 5.0 3X Avg.Risk 8.0 6.1 PATIENT WAS FASTINGP ERFORMED BY: KENNEDY Labcoserina [id number] [facility] [id number] METABOLIC PANEL, COMPREHENSI VE ([id number])Ordered By: Fire Investigation Manager on 12-30-2022 Albumin [Mass/Vol] 4.8 g/dL Abnormal 3.7-4.7 [facility]; [facility] Work Phone: Comment on above: PATIENT WAS FASTINGP ERFORMED BY: KENNEDY Labcoserina Rzerri0781 [facility] [id number] Albumin/Globulin [Mass ratio] 2.0 {ratio} Normal 1.2-2.2 [facility]; [facility] Work Phone: Comment on above: PATIENT WAS FASTINGP ERFORMED BY: KENNEDY [facility] [id number] [facility] [id number] ALP [Catalytic activity/Vol] 64 U/L Normal 44-121 [facility]; [facility] Work Phone: Comment on above: PATIENT WAS FASTINGP ERFORMED BY: KENNEDY [facility] Axnhut0256 [address]Dublin [place] [id number] ALT [Catalytic activity/Vol] 22 U/L Normal 0-32 [facility]; [facility] Work Phone: Comment on above: PATIENT WAS FASTINGP ERFORMED BY: Labbrenna Tbossn8969 [address]Dublin [place] [id number] AST [Catalytic activity/Vol] 22 U/L Normal 0-40 [facility]; [facility] Work Phone: Comment on above: PATIENT WAS FASTINGP ERFORMED BY: [facility] [id number] [address]Dublin [place] [id number] Bilirubin [Mass/Vol] 0.7 mg/dL Normal 0.0-1.2 [facility] rehensive [facility]; [facility] Work Phone: Comment on above: PATIENT WAS FASTINGP ERFORMED BY: KENNEDY [facility] Somklg0784 [address]Dublin [place] [id number] Calcium [Mass/Vol] 10.5 mg/dL Abnormal 8.7-10.3 [facility]; [facility] Work Phone: Comment on above: PATIENT WAS FASTINGP ERFORMED BY: KENNEDY Labco [id number] [address]blin [place] [id number] Chloride [Moles/Vol] 98 mmol/L Normal 96-106 [facility] rehens[facility]; [facility] Work Phone: Comment on above: PATIENT WAS FASTINGP ERFORMED BY: [facility] [id number] [address]blin [place] [id number] CO2 [Moles/Vol] 26 mmol/L Normal 20-29 [facility]; [facility] Work Phone: Comment on above: PATIENT WAS FASTINGP ERFORMED BY: [facility] [id number] [address]Dublin [place] [id number] Creatinine [Mass/Vol] 0.96 mg/dL Normal 0.57-1.00 [facility]eren[facility]; [facility] Work Phone: Comment on above: PATIENT WAS FASTINGP ERFORMED BY: KENNEDY [facility] [id number] [address] [facility] [place] [id number] GFR/1.73 sq M.predicted among non-blacks MDRD (S/P/Bld) [Vol rate/Area] 63 mL/min/{1.73_m2} Normal Comprehensiv e Internal Medicine; [facility] Work Phone: Comment on above: PATIENT WAS FASTINGP ERFORMED BY: [facility] [id number] [place] [id number] Globulin (S) [Mass/Vol] 2.4 g/dL Normal 1.5-4.5 [facility]; [facility] Work Phone: Comment on above: PATIENT WAS FASTINGP ERFORMED BY: [facility] [id number] [address] [facility] [place] [id number] Glucose [Mass/Vol] 93 mg/dL Normal 70-99 [facility]; [facility] Work Phone: Comment on above: PATIENT WAS FASTINGP ERFORMED BY: LabNort[facility] [id number] [address] [facility] [place] [id number] Potassium [Moles/Vol] 4.1 mmol/L Normal 3.5-5.2 [facility] prehensive Internal Medicine; [facility] Work Phone: Comment on above: PATIENT WAS FASTINGP ERFORMED BY: [facility] [id number] [address] [facility] [place] [id number] Protein [Mass/Vol] 7.2 g/dL Normal 6.0-8.5 [facility] Internal Medicine; [facility] Work Phone: Comment on above: PATIENT WAS FASTINGP ERFORMED BY: [facility] [id number] [address] [facility] [place] [id number] Sodium [Moles/Vol] 137 mmol/L Normal 134-144 [facility] Internal Medicine; [facility] Work Phone: Comment on above: PATIENT WAS FASTINGP ERFORMED BY: [facility] [id number] [address] [place] [id number] Urea nitrogen [Mass/Vol] 17 mg/dL Normal 8-27 [facility]; [facility] Work Phone: Comment on above: PATIENT WAS FASTINGP ERFORMED BY: Simmery [id number] [facility] [id number] Urea nitrogen/Creatinine [Mass ratio] 18 mg/mg Normal 12- [facility]; [facility] Work Phone: Comment on above: PATIENT WAS FASTINGP ERFORMED BY: LabMiproto [id number] [facility] [id number] TSH (THYROID STIMULATING HOR TONIA) ([id number])Ordered By: Fire Investigation Manager on 12-30-2022 TSH Qn 1.700 {uIU/mL} Normal 0.450-4.500 [facility] Internal Medicine; [facility] Work Phone: Comment on above: PATIENT WAS FASTINGP ERFORMED BY: Simmery [id number] [facility] [id number] Absolute lymphocyte counton 06-24-2022 Lymphocytes Auto (Unsp spec) [#/Vol] 2.26 10*3/uL 0.83-4.51 [facility] Work Phone: Basophil percentageon 2021 Basophils/100 WBC (Bld) 2.1 % 0-1 [facility] Work Phone: Bilirubin [Mass/Vol] 0.70 mg/dL 0.20-1.00 [facility] Work Phone: Comment on above: For patients on eltr ombopag therapy, use of Dimension [place] TBIL is not recommended. Chloride [Moles/Vol] 105 mmol/L 98-107 [facility] Work Phone: Cholesterol [Mass/Vol] 241 mg/dL <200 [facility] Work Phone: Comment on above: <200 mg/dL Desirable 200-240 mg/dL Borderline >240 mg/dL High Risk Eosinophils/100 WBC (Bld) 5.2 % 0-5 [facility] Work Phone: Glucose [Mass/Vol] 90 mg/dL 74-106 [facility] Work Phone: Neutrophils (Bld) [#/Vol] 2.6 10*3/uL 2.0-7.7 [facility] Work Phone: Neutrophils/100 WBC (Bld) 45.7 % 47-70 [facility] Work Phone: Potassium [Moles/Vol] 3.6 mmol/L 3.5-5.1 [facility] Work Phone: Protein [Mass/Vol] 7.9 g/dL 6.4-8.2 [facility] Work Phone: Sodium [Moles/Vol] 141 mmol/L 136-145 [facility] Work Phone: Triglyceride [Mass/Vol] 138 mg/dL <199 [facility] Work Phone: Comment on above: The drugs N-Acetylcy steine and Metamizole may falsely depress this assay.Serum Triglycerides Reference Interval Normal <150 mg/dL Borderline high 150 - 199 mg/dL High 200 - 499 mg/dL Very High > or = 500 mg/dL WBC (Bld) [#/Vol] 5.8 10*3/uL 4.4-11.0 [facility] Work Phone: Blood erythrocytes count (nu mber/volume)on 06-24-2022 RBC (Bld) [#/Vol] 4.01 10*6/uL 4.2-5.4 [facility] Work Phone: Blood hemoglobin measurement (mass/volume)on 06-24-2022 Hemoglobin (Bld) [Mass/Vol] 12.1 g/dL 12.0-15.0 [facility] Work Phone: Blood lymphocytes/100 leukoc yteson 06-24-2022 Lymphocytes/100 WBC (Bld) 39.2 % 19-41 [facility] Work Phone: Blood monocytes/100 leukocyt eson 06-24-2022 Monocytes/100 WBC (Bld) 7.8 % 0-10 [facility] Work Phone: Blood platelet mean volumeon 06-24-2022 Platelet mean volume (Bld) [Entitic vol] 11.4 fL 6.2-12.0 [facility] Work Phone: Determination of erythrocyte mean corpuscular volume (MCV)on 06-24-2022 MCV (RBC) [Entitic vol] 93.3 fL 81-99 [facility] Work Phone: Hematocrit Auto (Bld) [Volum e fraction]on 06-24-2022 Hematocrit (Bld) [Volume fraction] 37.4 % 37-47 [facility] Work Phone: Laboratory - Chemistry and C hemistry - challengeon 06-24-2022 ALP [Catalytic activity/Vol] 62 U/L 45-117 [facility] Work Phone: ALT [Catalytic activity/Vol] 27 U/L 13-56 [facility] Work Phone: CO2 [Moles/Vol] 27.0 mmol/L 21.0-32.0 [facility] Work Phone: Globulin (S) [Mass/Vol] 4.0 g/dL 2.2-4.2 [facility] Work Phone: Urea nitrogen/Creatinine [Mass ratio] 19.2 mg/mg 10-20 [facility] Work Phone: Laboratory - Hematology and Cell countson 06-24-2022 Erythrocyte distribution width (RBC) [Entitic vol] 45.5 fL 35.1-43.9 [facility] Work Phone: Erythrocyte distribution width (RBC) [Ratio] 13.3 % 11.6-14.6 [facility] Work Phone: Immature granulocytes/100 WBC (Bld) 0.000 % 0.0-0.9 [facility] Work Phone: Comment on above: IG% - Immature Granu locytes (promyelocytes, myelocytes and metamyelocytes) > 1% indicates that a LEFT SHIFT is Present. MCH (RBC) [Entitic mass] 30.2 pg 27.0-32.0 [facility] Work Phone: Nucleated RBC/100 WBC (Bld) [Ratio] 0 % 0-5 [facility] Work Phone: MCHC Auto (RBC) [Mass/Vol]on 06-24-2022 MCHC (RBC) [Mass/Vol] 32.4 g/dL 32-36 [facility] Work Phone: No Panel Informationon 06-24 Estimated GFR (MDRD) Amer 67 mL/min >60 [facility] Work Phone: Comment on above: GFR Calc Estimated GFR (MDRD) Non-Af Amer 56 mL/min >60 [facility] Work Phone: Comment on above: Non- GFR Calc Thyroid Stimulating Hormone (TSH) 2.10 uIU/mL 0.358-3.74 [facility] Work Phone: Vitamin D 25-Hydroxy 57.3 ng/mL [facility] Work Phone: Comment on above: Vitamin D 25(OH) Sta tus Range Deficiency <20 ng/mL (50nmol/L) Insufficiency 20 - 30 ng/mL (50 - 75 nmol/L) Sufficiency 30 - 100 ng/mL (75 - 250 nmol/L) Toxicity >100 ng/mL (>250 nmol/L) Platelets bldon 06-24-2022 Platelets (Bld) [#/Vol] 295 10*3/uL 150-450 [facility] Work Phone: Serum or plasma albumin elie urement (mass/volume)on 06-24-2022 Albumin [Mass/Vol] 3.9 g/dL 3.2-5.0 [facility] Work Phone: Serum or plasma albumin/glob ulin mass ratioon 06-24-2022 Albumin/Globulin [Mass ratio] 1.0 {ratio} 0.9-2.4 [facility] Work Phone: Serum or plasma calcium elie urement (mass/volume)on 06-24-2022 Calcium [Mass/Vol] 9.7 mg/dL 8.5-10.1 [facility] Work Phone: Serum or plasma cholesterol in HDL measurement (mass/volume)on 06-24-2022 Cholesterol in HDL [Mass/Vol] 62 mg/dL >40 [facility] Work Phone: Comment on above: The drugs N-Acetylcy steine and Metamizole may falsely depress this assay. Reference Range HDL <40 mg/dL Low HDL Cholesterol HDL >or= 60 mg/dL High HDL Cholesterol Serum or plasma cholesterol in VLDL measurement (mass/volume)on 06-24-2022 Cholesterol in VLDL [Mass/Vol] 28 mg/dL 5-40 [facility] Work Phone: Serum or plasma creatinine m easurement (mass/volume)on 06-24-2022 Creatinine [Mass/Vol] 1.04 mg/dL 0.55-1.02 [facility] Work Phone: Comment on above: The validity of the calculated GFR & GFRAA in patients over 70 years has not been determined. Clinical correlation is essential. Serum or plasma low density lipoprotein (LDL) cholesterol measurement (mass/volume)on 06-24-2022 Cholesterol in LDL [Mass/Vol] 151 mg/dL 0-130 [facility] Work Phone: Serum or plasma urea nitroge n measurement (mass/volume)on 06-24-2022 Urea nitrogen [Mass/Vol] 20 mg/dL 7-18 [facility] Work Phone: Thin prep Papanicolaou smear with manual screeningon 06-24-2022 Thin prep Papanicolaou smear with manual screening 18 U/L 15-37 [facility] Work Phone: Thin prep Papanicolaou smear with manual screening 9 5-15 [facility] Work Phone: Laboratory - Microbiology an d Antimicrobial susceptibilityon 10-15-2021 SARS-CoV-2 (COVID-19) RNA TOMI+probe Ql (Unsp spec) Detected Not Detect [facility] Work Phone: Comment on above: Normal Reference Ran ge: Not DetectedMethod:(RT-PCR) real-time reverse transcriptase PCRLuminex HEYDI Instrument*The Food and Drug Administration (FDA) has issued an Emergency Use Authorization (EAU) for the HEYDI SARS-CoV-2 Assay for the rapid detection of the virus that causes COVID-19. This test has been validated, but the FDAs independent review of this validation is pending.*Negative results do not preclude infection and should not be used as the sole basis for treatment or patient management. Optimum specimen types and timing for peak viral levels during infections caused by SARS-CoV-2 have not been determined. Collection of multiple specimens from the same patient may be necessary to detect the virus. The possibility of a false negative result should be considered if the patient has clinical presentation or has had recent exposure. CNOVon 05-07-2021 CNOV Office Visit (ELEN ) VAISHALI KEE ([id number]) 1950 F Date Time Provider Department 05/07/21 9:45 AM EUGENIE APONTE During your visit today, we recorded the following information about you: Temperature Pulse Respiration Blood pressure 97.9 degrees 58/minute 16/minute 171/79 Weight Height 86.2 kg 1.676 m Eugenie Aponte MD 05/07/2021 10:19 AM Addendum NEUROSURGERY CONSULT NOTE Eugenie Aponte MD Date of visit: May 07, 2021 Patient Name: Ms.Karen Elio Kee Date of : 1950 Current Age: [age] year old Sex: female MRN/E# [id number] Chief Complaint: No chief complaint on file. HISTORY OF PRESENT ILLNESS : The patient is a 70 year old, right handed female with a past medical history of hypothyroidism, hypercholesteremia, and hypertension who is referred by Dr. Arellano for neurosurgical evaluation. Ms. Kee presents to the office as a new patient with imaging for evaluation of syrinx. She describes a 17 year history of pain in the right side of her chest/ribs after a hard fall in 2003. She states she was inially told she likely had a rib fracture, however was not worked up for this. She continued to experience this pain for several years and has worsened in the last 1.5 years. She notes persistent pain in the right side of her chest without radiation into the extremities. Additionally, she describes gradual bilateral lower extremity generalized weakness and intermittent numbness in the bottom of bilateral feet. She describes some gait instability but states she was diagnosed with scoliosis in the past and attributed her imbalance to her spine abnormality. She presents today for evaluation and plan of care. Symptoms: right chest pain, thoracic discomfort PREVIOUS CONSERVATIVE TREATMENTS: NSAID's Activity modification PREVIOUS SURGERY: None PAIN EVALUATION No data found in the last 1 encounters. PAST MEDICAL HISTORY Diagnosis Date - Diarrhea - Essential hypertension, benign - Hypercholesteremia - IBS (irritable bowel syndrome) - Internal hemorrhoids without mention of complication - Unspecified hypothyroidism PAST SURGICAL HISTORY Procedure Laterality Date - APPENDECTOMY 1971 - COLONOSCOP W/ OR W/O [facility] SPEC 11/15/07 - LIGATE FALLOPIAN TUBE 1979 Tubal ligation - PAST SURGICAL HISTORY OF THUMB SURGERY AFTER INJURY - REMOVAL OF TONSILS,<12 Y/O 1978 Tonsillectomy History reviewed. No pertinent family history. ALLERGIES Allergen Reactions - Augmentin [Amoxicil* Diarrhea - Bactrim [Sulfametho* Rash Facial rash ( bernardino oral dermatitis ) dx by Dr Pittman and confirmed in the Aug Current Outpatient Medications Medication Sig Dispense Refill - lisinopril-hydroCHLOR Othiazide (PRINZIDE, ZESTORETIC) 20-25 mg per tablet Take 1 tablet by mouth once daily. - cholecalciferol, vitamin D3, (VITAMIN D3 ORAL) Take by mouth. - ascorbic acid (MIKE-C ORAL) Take by mouth. - vitamin B complex (B COMPLEX 1 ORAL) Take by mouth. - SYNTHROID 50 mcg tablet Take 1 tablet by mouth once daily. As directed. 90 tablet 3 - calcium carbonate-vitamin D3 1,000 mg(2,500 mg)-800 unit Tab Take 2 tablets by mouth once daily. 0 - citalopram (CELEXA) 20 mg tablet Take 1 tablet by mouth once daily. (Patient not taking: Take 1 tablet by mouth once daily.) 90 tablet 3 - lisinopril (ZESTRIL, PRINIVIL) 20 mg tablet Take 1 tablet by mouth once daily. (Patient not taking: Take 1 tablet by mouth once daily.) 90 tablet 3 - ALPRAZolam (XANAX) 0.25 mg tablet Take 0.5-1 tablets by mouth at bedtime as needed for up to 90 days. 20 tablet 0 - albuterol sulfate (PROAIR RESPICLICK) 90 mcg/actuation aepb Inhale 2 Inhalation as instructed four times daily as needed. (Patient not taking: Reported on 05/07/2021 ) 1 Inhaler 0 - COMPOUNDED PRESCRIPTION Melatonin 1 pill at bedtime (Patient not taking: Reported on 05/07/2021 ) - Loperamide HCl (IMODIUM A-D) 2 mg Tab Take 1 tablet by mouth daily at bedtime. May take during day if needed (Patient not taking: Reported on 05/07/2021 ) No current facility-administered medications for this visit. REVIEW OF SYSTEMS Review of Systems Constitutional: Negative for chills, diaphoresis and fever. HENT: Negative for congestion, ear pain and sinus pressure. Eyes: Negative for discharge and redness. Respiratory: Negative for cough, shortness of breath and wheezing. Cardiovascular: Negative for chest pain, palpitations and leg swelling. Gastrointestinal: Negative for constipation, diarrhea and nausea. Endocrine: Negative for cold intolerance and heat intolerance. Genitourinary: Negative for difficulty urinating, frequency and urgency. Musculoskeletal: Positive for back pain. Negative for gait problem and neck pain. Skin: Negative for rash and wound. Allergic/Immunologic: Positive for environmental allergies and (more content not included)... Normal [facility] MR-Spine Thoracic (Routine) IMPORTon 03-29-2021 MR-Spine Thoracic (Routine) IMPORT Images were obtained outside of [facility] [id number] N Normal [facility] OT-Spine Thoracic (Routine) IMPORTon 03-29-2021 OT-Spine Thoracic (Routine) IMPORT Images were obtained outside of [facility] [id number] N Normal [facility] Vital Signs Date Time Vital Sign Value Performing Clinician Facility 03-10-2025 18:23-0400 Body temperature 98.3 [degF] Dr. Holger Infante MD Work Phone: [facility] 03-10-2025 18:23-0400 Diastolic blood pressure 78 mm[Hg] Dr. Holger Infante MD Work Phone: [facility] 03-10-2025 18:23-0400 Heart rate 73 /min Dr. Holger Infante MD Work Phone: [facility] 03-10-2025 18:23-0400 Respiratory rate 18 /min Dr. Holger Infante MD Work Phone: [facility] 03-10-2025 18:23-0400 SaO2% (BldA) [Mass fraction] 100 % Dr. Holger Infante MD Work Phone: [facility] 03-10-2025 18:23-0400 Systolic blood pressure 132 mm[Hg] Dr. Holger Infante MD Work Phone: [facility] 03-10-2025 14:16-0400 Body height 165.[address] Holger Infante MD Work Phone: [facility] 03-10-2025 14:16-0400 Body mass index (BMI) [Ratio] 30.2 kg/m2 Dr. Holger Infante MD Work Phone: [facility] 03-10-2025 14:16-0400 Body weight 82.[address] Holger Infante MD Work Phone: [facility] 07-15-2023 10:33-0400 Body height 162.56 cm Marine Johnson LPN [facility]; [facility] Work Phone: 07-15-2023 10:33-0400 Body mass index (BMI) [Ratio] 30.55 kg/m2 Marine Johnson LPN [facility]; [facility] Work Phone: 07-15-2023 10:33-0400 Body surface area Derived from formula 1.86 m2 Marine Johnson LPN [facility]; [facility] Work Phone: 07-15-2023 10:33-0400 Body temperature 97.3 [degF] Marine Slarb BOOK PUBLISHER [facility]; [facility] Work Phone: Comment on above: Method: Temporal 07-15-2023 10:33-0400 Body weight 80.74 kg Marine Angierb BOOK PUBLISHER [facility]; [facility] Work Phone: 07-15-2023 10:33-0400 Diastolic blood pressure 72 mm[Hg] Marine Slarb BOOK PUBLISHER [facility]; [facility] Work Phone: Comment on above: Patient Position: Sitting; Cuff Location : Left Arm; Cuff Size: Standard 07-15-2023 10:33-0400 Heart rate 51 /min Marine Slarb BOOK PUBLISHER [facility]; [facility] Work Phone: Comment on above: Pattern: Regular 07-15-2023 10:33-0400 Respiratory rate 16 /min Marine Slarb BOOK PUBLISHER [facility]; [facility] Work Phone: Comment on above: Pattern: Unlabored 07-15-2023 10:33-0400 SaO2% (BldA) [Mass fraction] 99 % Marine Slarb BOOK PUBLISHER [facility]; [facility] Work Phone: Comment on above: Room air 07-15-2023 10:33-0400 Systolic blood pressure 124 mm[Hg] Marine Slarb BOOK PUBLISHER [facility]; [facility] Work Phone: Comment on above: Patient Position: Sitting; Cuff Location : Left Arm; Cuff Size: Standard 03-24-2023 11:56-0400 Diastolic Blood Pressure Non-Invasive [address] HOLGER INFANTE MD [facility] 03-24-2023 11:56-0400 Heart rate 50 /min DR HOLGER INFANTE MD [facility] 03-24-2023 11:56-0400 Respiratory rate 18 /min DR HOLGER INFANTE MD [facility] 03-24-2023 11:56-0400 Systolic Blood Pressure Non-Invasive [address] HOLGER INFANTE MD [facility] 03-24-2023 09:46-0400 Diastolic Blood Pressure Non-Invasive [address] HOLGER INFANTE MD [facility] 03-24-2023 09:46-0400 Heart rate 48 /min DR HOLGER INFANTE MD [facility] 03-24-2023 09:46-0400 Respiratory rate 17 /min DR HOLGER INFANTE MD [facility] 03-24-2023 09:46-0400 Systolic Blood Pressure Non-Invasive [address] HOLGER INFANTE MD [facility] 03-24-2023 09:35-0400 Heart rate 49 /min DR HOLGER INFANTE MD [facility] 03-24-2023 09:35-0400 Respiratory rate 17 /min DR HOLGER INFANTE MD [facility] 03-24-2023 09:30-0400 Diastolic Blood Pressure Non-Invasive [address] HOLGER INFANTE MD [facility] 03-24-2023 09:30-0400 Systolic Blood Pressure Non-Invasive [address] HOLGER INFANTE MD [facility] 03-24-2023 08:40-0400 Body temperature 96.98 [degF] DR HOLGER INFANTE MD [facility] 03-24-2023 08:35-0400 Respiratory Rate - Anes 24 br/min DR HOLGER INFANTE MD [facility] 03-24-2023 08:30-0400 Respiratory Rate - Anes 24 br/min DR HOLGER INFANTE MD [facility] 03-24-2023 08:25-0400 Body temperature 96.01 [degF] DR HOLGER INFANTE MD [facility] 03-24-2023 08:25-0400 Respiratory Rate - Anes 28 br/min DR HOLGER INFANTE MD [facility] 03-24-2023 08:20-0400 Body temperature 96.04 [degF] DR HOLGER INFANTE MD [facility] 03-24-2023 08:15-0400 Body temperature 96.08 [degF] DR HOLGER INFANTE MD [facility] 03-24-2023 06:08-0400 Body height 165.[address] HOLGER INFANTE MD [facility] 03-24-2023 06:08-0400 Body weight [address] HOLGER INFANTE MD [facility] 03-24-2023 06:08-0400 Heart rate 56 /min DR HOLGER INFANTE MD [facility] 03-09-2023 10:31-0400 Body height 162.56 cm Vanita Patel CMA [facility]; [facility] Work Phone: 03-09-2023 10:31-0400 Body mass index (BMI) [Ratio] 31.97 kg/m2 Vanita Patel CMA [facility]; [facility] Work Phone: 03-09-2023 10:31-0400 Body surface area Derived from formula 1.9 m2 Vanita Patel CMA [facility]; [facility] Work Phone: 03-09-2023 10:31-0400 Body temperature 98.2 [degF] Vanita Patel [facility]; [facility] Work Phone: Comment on above: Method: Thermal Scan 03-09-2023 10:31-0400 Body weight 84.48 kg Vanita Patel [facility] Work Phone: 03-09-2023 10:31-0400 Diastolic blood pressure 72 mm[Hg] Vanita Patel [facility] Work Phone: Comment on above: Patient Position: Sitting; Cuff Location : Left Arm; Cuff Size: Standard 03-09-2023 10:31-0400 Heart rate 56 /min Vanita Patel [facility] Work Phone: Comment on above: Pattern: Regular 03-09-2023 10:31-0400 Respiratory rate 16 /min Vanita Patel [facility] Work Phone: Comment on above: Pattern: Unlabored 03-09-2023 10:31-0400 SaO2% (BldA) [Mass fraction] 98 % Vanita Patel [facility]; [facility] Work Phone: Comment on above: Room air 03-09-2023 10:31-0400 Systolic blood pressure 116 mm[Hg] Vanita Patel [facility] Work Phone: Comment on above: Patient Position: Sitting; Cuff Location : Left Arm; Cuff Size: Standard 03-02-2023 13:35-[address] HOLGER INFANTE MD [facility] 03-02-2023 13:35-[address] HOLGER INFANTE MD [facility] 03-02-2023 13:35-0400 Body height 165.[address] HOLGER INFANTE MD [facility] 03-02-2023 13:35-04[address] Body weight [address] HOLGER INFANTE MD [facility] 03-02-2023 13:35-0400 Body weight 30.82 kg/m2 DR HOLGER INFANTE MD [facility] 03-02-2023 13:35-0400 Diastolic Blood Pressure Non-Invasive [address] HOLGER INFANTE MD [facility] 03-02-2023 13:35-0400 Heart rate 68 /min DR HOLGER INFANTE MD [facility] 03-02-2023 13:35-0400 Respiratory rate 18 /min DR HOLGER INFANTE MD [facility] 03-02-2023 13:35-0400 Systolic Blood Pressure Non-Invasive [address] HOLGER INFANTE MD [facility] 01-12-2023 10:31-0400 Body height 162.56 cm Marine Johnson LPN [facility]; [facility] Work Phone: 01-12-2023 10:31-0400 Body mass index (BMI) [Ratio] 32.83 kg/m2 Marine Alex HUFFMAN [facility] Work Phone: 01-12-2023 10:31-0400 Body surface area Derived from formula 1.92 m2 Marine Alex HUFFMAN [facility] Work Phone: 01-12-2023 10:31-0400 Body temperature 96.4 [degF] Marine Angierb BOOK PUBLISHER [facility] Work Phone: Comment on above: Method: Temporal 01-12-2023 10:31-0400 Body weight 86.75 kg Marine Alex HUFFMAN [facility] Work Phone: 01-12-2023 10:31-0400 Diastolic blood pressure 90 mm[Hg] Marine Slarb BOOK PUBLISHER [facility] Work Phone: Comment on above: Patient Position: Sitting; Cuff Location : Left Arm; Cuff Size: Standard 01-12-2023 10:31-0400 Heart rate 57 /min Marine Slarb BOOK PUBLISHER [facility] Work Phone: Comment on above: Pattern: Regular 01-12-2023 10:31-0400 Respiratory rate 15 /min Marine Slarb BOOK PUBLISHER [facility] Work Phone: Comment on above: Pattern: Unlabored 01-12-2023 10:31-0400 SaO2% (BldA) [Mass fraction] 98 % Marine Slarb BOOK PUBLISHER [facility] Work Phone: Comment on above: Room air 01-12-2023 10:31-0400 Systolic blood pressure 132 mm[Hg] Marine Slarb BOOK PUBLISHER [facility] Work Phone: Comment on above: Patient Position: Sitting; Cuff Location : Left Arm; Cuff Size: Standard 12-12-2022 11:08-0400 Body height 162.56 cm Marine Slarb BOOK PUBLISHER [facility] Work Phone: 12-12-2022 11:08-0400 Body mass index (BMI) [Ratio] 33.13 kg/m2 Marine Slarb BOOK PUBLISHER [facility] Work Phone: 12-12-2022 11:08-0400 Body surface area Derived from formula 1.93 m2 Marine Slarb BOOK PUBLISHER [facility] Work Phone: 12-12-2022 11:08-0400 Body temperature 98 [degF] Marine Slarb BOOK PUBLISHER [facility] Work Phone: Comment on above: Method: Temporal 12-12-2022 11:08-0400 Body weight 87.54 kg Marine Slarb BOOK PUBLISHER [facility] Work Phone: 12-12-2022 11:08-0400 Diastolic blood pressure 90 mm[Hg] Marine Slarb BOOK PUBLISHER [facility] Work Phone: Comment on above: Patient Position: Sitting; Cuff Location : Left Arm; Cuff Size: Standard 12-12-2022 11:08-0400 Heart rate 52 /min Marine Slarb BOOK PUBLISHER [facility] Work Phone: Comment on above: Pattern: Regular 12-12-2022 11:08-0400 Respiratory rate 15 /min Marine Slarb BOOK PUBLISHER [facility] Work Phone: Comment on above: Pattern: Unlabored 12-12-2022 11:08-0400 SaO2% (BldA) [Mass fraction] 99 % Marine Slarb BOOK PUBLISHER [facility] Work Phone: Comment on above: Room air 12-12-2022 11:08-0400 Systolic blood pressure 170 mm[Hg] Marine Slarb BOOK PUBLISHER [facility]; [facility] Work Phone: Comment on above: Patient Position: Sitting; Cuff Location : Left Arm; Cuff Size: Standard 11-02-2006 13:01-0500 Body height 167.64 cm Brandon Randall CNP Work Phone: [facility] Work Phone: 11-02-2006 13:01-0500 Body mass index (BMI) [Ratio] 30.84 kg/m2 Brandon Randall CNP Work Phone: [facility] Work Phone: 11-02-2006 13:01-0500 Body surface area Derived from formula 1.96 m2 Brandon Randall CNP Work Phone: [facility] Work Phone: 11-02-2006 13:01-0500 Body temperature 98.2 [degF] Brandon Randall CNP Work Phone: [facility] Work Phone: Comment on above: Method: Oral 11-02-2006 13:01-0500 Body weight 86.67 kg Brandon Randall CNP Work Phone: [facility] Work Phone: 11-02-2006 13:01-0500 Diastolic blood pressure 78 mm[Hg] Brandon Randall CNP Work Phone: [facility]; [facility] Work Phone: Comment on above: Patient Position: Sitting; Cuff Location : Left Arm; Cuff Size: Standard 11-02-2006 13:01-0500 Head Occipital-frontal circumference 0 cm Brandon Randall CNP Work Phone: [facility] Work Phone: 11-02-2006 13:01-0500 Heart rate 54 /min Brandon Randall CNP Work Phone: [facility] Work Phone: Comment on above: Pattern: Regular 11-02-2006 13:01-0500 Respiratory rate 15 /min Brandon Randall CNP Work Phone: [facility] Work Phone: Comment on above: Pattern: Unlabored 11-02-2006 13:01-0500 Systolic blood pressure 124 mm[Hg] Brandon Randall CNP Work Phone: [facility]; [facility] Work Phone: Comment on above: Patient Position: Sitting; Cuff Location : Left Arm; Cuff Size: Standard Encounters Encounter Date Encounter Type Care Provider Facility Start: 04-12-2025 ambulatory Brandon Randall Facility :[facility] Start: 03-10-2025 End: 03-10-2025 Emergency department patient visit Dr. Holger Infante MD Work Phone: -Emergency Department Work Phone: Start: 03-10-2025 End: 03-10-[address] Holger Infante MD Work Phone: [facility] Work Phone: Start: 03-10-2025 End: 03-10-[address] Ana Hernández MD -Laboratory Specimen Work Phone: Start: 03-10-2025 End: 03-10-2025 ambulatory Ana Hernández Facility:[facility] Start: 02-28-2025 Encounter for other preprocedural examination Holger Infante [facility] Start: 02-23-2025 End: 02-23-2025 Non-patient / Non-visit Dr. Robert Hagen MD -[facility] Work Phone: Start: 02-23-2025 End: 02-23-[address] Holger Infante MD Work Phone: [facility] Work Phone: Start: 02-23-2025 End: 02-23-[address] Holger Infante MD -Cat Scan [facility] Work Phone: Start: 02-23-2025 End: 02-23-2025 ambulatory Holger Infante Facility:[facility] Start: 07-22-2023 End: 07-22-2023 Historical Summary Brandon Randall CNP Work Phone: [facility] Start: 07-15-2023 End: 07-15-2023 Office outpatient visit 15 minutes Brandon Randall CNP Work Phone: [facility] Start: 07-15-2023 Review Brandon Randall CNP Work Phone: [facility] Start: 03-24-2023 End: 03-24-[address] HOLGER INFANTE MD Facility:[facility] Start: 03-24-2023 End: 03-24-[address] HOLGER INFANTE MD [facility] Start: 03-09-2023 End: 03-10-2023 Office consultation new/estab patient 40 min Brandon Randall CNP Work Phone: [facility] Start: 03-09-2023 End: 03-10-2023 Preprocedural examination done Vanitajaime Patel JOSEPHINE [facility] Work Phone: Start: 03-02-2023 End: 03-03-[address] HOLGER INFANTE MD Facility:[facility] Start: 03-02-2023 End: 03-03-[address] HOLGER INFANTE MD Facility:[facility] Start: 03-02-2023 End: 03-02-[address] HOLGER INFANTE MD [facility] Start: 03-02-2023 End: 03-02-[address] HOLGER INFANTE MD [facility] Start: 02-06-2023 ambulatory Brandon Randall CNP [facility] Start: 01-12-2023 End: 01-12-2023 Office outpatient visit 15 minutes Brandon Randall CNP Work Phone: [facility] Start: 12-12-2022 End: 12-19-2022 Office outpatient new 45 minutes Brandon Randall CNP Work Phone: [facility] Start: 12-12-2022 Review Brandon Randall CNP Work Phone: [facility] Start: 06-24-2022 End: 06-24-2022 ambulatory [facility] Work Phone: Start: 06-24-2022 End: 06-24-2022 Patient encounter procedure [facility] [place] Start: 10-15-2021 End: 10-15-2021 Patient encounter procedure [facility], [facility] Start: 11-02-2006 End: 11-02-2006 Office outpatient visit 15 minutes Brandon Randall CNP Work Phone: [facility] Start: 09-04-2006 End: 09-04-2006 Phone Encounter Brandon Randall CNP Work Phone: [facility] Preprocedural examination done Marine Johnson NATHANAEL [facility] Work Phone: Procedures Date Procedure Procedure Detail Performing Clinician Start: 03-10-2025 X-ray of chest, PA a nd lateral views Dr. Holger Infante MD Work Phone: Start: 03-10-2025 D-dimer assay, quantitative Dr. Holger Infante MD Work Phone: Comment on above: NORMAL D-Dimer level (<0.50) indicates no DVT or PE. Start: 03-10-[address] Holger Infante MD Work Phone: Start: 02-23-2025 Methicillin resistan t Staphylococcus aureus screening test Dr. Holger Infante MD Work Phone: Start: 02-23-2025 MRI of lower extremity Dr. Holger Infante MD Work Phone: Start: 03-09-2023 End: 03-10-2023 Chest PA and Lateral Procedure Note: See Note; NOTES: [facility] Radiology [address] [place] [address] Chest PA and Lateral MR#: [id number] Acct: [id number] Name: VAISHALI KEE Rep #: [id number] : 1950 F 72 From: Idris Oreilly MD PCP: Dr. Stephanie Norton MD Status: DEP AMB Study: Chest PA and Lateral Date of Exam: 03/09/23 Exam# [id number] Ordering Dr: Brandon Randall GENERAL MANAGER LAND DEPARTMENT-C EXAM: XR CHEST, 2 VIEWS CLINICAL INDICATION: PREOP TECHNIQUE: Frontal and lateral views of the chest. COMPARISON: 05/20/2018 FINDINGS: LUNGS AND PLEURAL SPACES: Unremarkable. No consolidation or edema. No pneumothorax. No effusion. HEART: Unremarkable. Cardiac silhouette not enlarged. MEDIASTINUM: Central airways and mediastinal contour are unremarkable. BONES/JOINTS: Degenerative changes of the spine. SOFT TISSUES: Unremarkable. RAD/Chest PA and Lateral IMPRESSION: No acute findings in the chest. Electronically Signed: Idris Oreilly MD at 1:01 EDT , CC: MIRIAN Randall; Dr. Stephanie Norton MD Inventory Management Specialist: Signed Brandon Randall CNP Work Phone: Start: 12-12-2022 End: 12-12-2022 Knee 4 or More Views Procedure Note: See Note; NOTES: [facility] Radiology [address] [place] [address] Knee 4 or More Views MR#: [id number] Acct: [id number] Name: VAISHALI KEE Rep #: [id number] : 1950 F 72 From: Mauricio Cabrales MD PCP: Dr. Stephanie Norton MD Status: DEP AMB Study: Knee 4 or More Views Date of Exam: 12/12/22 Exam# [id number] Ordering Dr: Brandon Randall STUDY: X-RAY - LEFT KNEE REASON FOR EXAM: Female, 72 years old. PAIN TECHNIQUE: 4 view(s) of the knee. COMPARISON: None. FINDINGS: Normal visualized distal femur. Normal visualized proximal tibia and fibula. Normal proximal tibiofibular articulation. There is mild degenerative arthrosis of the medial femorotibial compartment. Normal lateral femorotibial compartment. There is moderate degenerative arthrosis of the patellofemoral articulation. The soft tissue structures are unremarkable. RAD/Knee 4 or More Views IMPRESSION: Degenerative arthrosis. Electronically Signed: Delgado Cabrales MD at 12:52 EDT , CC: MIRIAN Randall; Dr. Stephanie Norton MD Inventory Management Specialist: Signed Brandon Randall CNP Work Phone: Colonoscopy [employer] N Comment on above: 2019 [facility] Colonoscopy [facility] N Comment on above: 2019 [facility] Colonoscopy Vanita Manchak [employer] Comment on above: 2019 [facility] Colonoscopy [facility] Sl[facility] N Comment on above: 2019 [facility] Excision of cyst of ovary DR HOLGER INFANTE MD Foot repair DR HOLGER Rosas MD Comment on above: RIGHT H/O: surgery Tonsillectomy AMBER KATHLEEN HOSPITALITY COORDINATOR Work Phone: H/O: surgery Tonsillectomy Marine Slarb L PN H/O: surgery Tonsillectomy Marine Slarb L PN H/O: surgery Tonsillectomy Vanita Magdaleno k [employer] H/O: surgery Tonsillectomy Marine Slarb L PN Hand repair DR HOLGER Rosas MD Comment on above: RIGHT History of appendectomy Appendectomy SUSA NNE KATHLEEN HOSPITALITY COORDINATOR Work Phone: History of appendectomy Appendectomy Rosemary la Slarb BOOK PUBLISHER History of appendectomy Appendectomy Rosemary la Slarb BOOK PUBLISHER History of appendectomy Appendectomy Kimberly sea Manchak [employer] History of appendectomy Appendectomy Rosemary la Slarb BOOK PUBLISHER Ligation of fallopia n tube DR HOLGER INFANTE MD Ovarian Cyst removed Marine Slarb BOOK PUBLISHER Ovarian Cyst removed Marine Slarb BOOK PUBLISHER Ovarian Cyst removed Vanita Manchak [employer] Ovarian Cyst removed Marine Slarb BOOK PUBLISHER Replacement of total knee joint Marine Slarb BOOK PUBLISHER Comment on above: 03/20 Dr. Infante Tonsillectomy Marine Slarb L PN Tonsillectomy Marine Slarb L PN Tonsillectomy DR HOLGER CALLAHAN MD Tonsillectomy Vanita Magdaleno k [employer] Tonsillectomy Marine Slarb L PN Plan of Treatment Date Care Activity Detail Author Start: 03-10-2025 [facility] Start: 03-10-2025 [facility] Start: 07-22-2023 Assay of nephelometry each analyte jere Serum Free Light Chains (53644) [facility] Work Phone: Start: 07-22-2023 Protein total xcpt refractometry urine UPEP (64737) [facility]; [facility] Work Phone: Start: 07-22-2023 Protein electrophoretic fractj&quantj serum SPEP (03264) [facility]; [facility] Work Phone: Start: 07-22-2023 Calcium ionized CALCIUM, IONIZED (21435) [facility]; [facility] Work Phone: Start: 07-22-2023 Chemiluminescent assay Parathyroid Hormone-related Peptide (PTH-rP) (23900) [facility]; [facility] Work Phone: Start: 07-22-2023 1 25 dihydroxy includes fractions if performed VITAMIN D, 1, 25-DIHYDROXY (39864) [facility]; [facility] Work Phone: Start: 07-22-2023 Comprehensive metabolic panel METABOLIC PANEL, COMPREHENSIVE (63960) [facility]; [facility] Work Phone: Start: 07-15-2023 Procedure Education Eprescribed prescriptions (G8553) [facility]; [facility] Work Phone: Start: 07-15-2023 Provider Instructions for Treatment Follow up in 6 months [facility]; [facility] Work Phone: Start: 07-15-2023 Calcium ionized CALCIUM, IONIZED (56484) [facility]; [facility] Work Phone: Start: 07-15-2023 Lipid panel LIPID PANEL (60868) [facility]; [facility] Work Phone: Start: 07-15-2023 Assay of thyroid stimulating hormone tsh TSH (THYROID STIMULATING HORMONE) (16696) [facility]; [facility] Work Phone: Start: 07-15-2023 Blood count complete auto&auto difrntl wbc CBC, PLATELETS & AUT DIFF (42406) [facility]; [facility] Work Phone: Start: 07-15-2023 Comprehensive metabolic panel METABOLIC PANEL, COMPREHENSIVE (56969) [facility]; [facility] Work Phone: Start: 07-15-2023 Urinalysis qual/semiquant except immunoassays URINALYSIS (36193) [facility]; [facility] Work Phone: Start: 03-09-2023 Procedure Education Eprescribed prescriptions (G8553) [facility]; [facility] Work Phone: Start: 03-09-2023 Provider Instructions for Treatment [facility]; [facility] Work Phone: Start: 01-12-2023 Procedure Education Eprescribed prescriptions (G8553) [facility]; [facility] Work Phone: Start: 01-12-2023 Provider Instructions for Treatment [facility]; [facility] Work Phone: Start: 12-19-2022 Provider Instructions for Treatment [facility]; [facility] Work Phone: Start: 12-12-2022 Assay of thyroid stimulating hormone tsh TSH (THYROID STIMULATING HORMONE) (55602) [facility]; [facility] Work Phone: Start: 12-12-2022 Blood count complete auto&auto difrntl wbc CBC, PLATELETS & AUT DIFF (74306) [facility]; [facility] Work Phone: Start: 12-12-2022 Lipid panel LIPID PANEL (97560) [facility]; [facility] Work Phone: Start: 12-12-2022 Patient Education Hypertension [facility]; [facility] Work Phone: Start: 12-12-2022 Procedure Education Eprescribed prescriptions (G8553) [facility]; [facility] Work Phone: Start: 12-12-2022 Provider Instructions for Treatment Follow up in 1 month for hypertension [facility]; [facility] Work Phone: Start: 12-12-2022 Comprehensive metabolic panel METABOLIC PANEL, COMPREHENSIVE (37146) [facility]; [facility] Work Phone: Start: 11-02-2006 Provider Instructions for Treatment Antibiotic Usage Education - Female [facility]; [facility] Work Phone: Patient Education ED Chest Pain, Uncertain Cause [facility] Work Phone: Patient referral [facility] Work Phone: [facility] Work Phone: [facility] Work Phone: [facility] Work Phone: Immunizations Immunization Date Immunization Notes Care Provider Fa melchor 05-18-2018 pneumococcal polysaccharide vaccine, 23 valent Brandon Randall CNP Work Phone: [facility]; [facility] Work Phone: 06-28-2014 tetanus toxoid, redu jaydon diphtheria toxoid, and acellular pertussis vaccine, adsorbed Brandon Randall HOSPITALITY COORDINATOR Work Phone: [facility]; [facility] Work Phone: Payers Date Payer Category Payer Self-pay [id number] 2024 Unknown [id number] 2022 Medicare [id number] 2022 Private Health Insurance [id number] 2004 Unknown [id number] 1950 Unknown [id number] 2.16.84 [id number] 1950 Unknown [id number] 2.16.8 [id number] 1950 Unknown [id number] 2.16.8 [id number] 1950 Unknown [id number] 2.16.8 [id number] Unknown [id number] Unknown [id number] Unknown [id number] 2.16.8 [id number] Unknown [id number] 2.16.8 [id number] Unknown [id number] 2.16.8 [id number] Unknown [id number] 2.16.8 [id number] Unknown [id number] 2.16.8 [id number] Unknown [id number] 2.16.8 [id number] Social History Date Type Detail Facility Start: 04-08-2021 Tobacco smoking status MNIS Unknown if ever smoked [facility] Work Phone: Start: 1950 Sex Assigned At Female A [facility] Caffeine Use Caffeine Use [facility] Work Phone: Comment on above: 3 cups per day 2 cups per day Tobacco Use: Tobacco Use: [facility] Work Phone: Start: 07-09-2020 End: 03-10-2025 Tobacco smoking status Never smoked tobacco (finding) [facility] Functional Status Date Assessment Result Facility 03-24-2023 Functional Status Ambulating in room, [facility] 03-24-2023 Functional Status Supervised [facility] 03-24-2023 Functional Status ice on [facility] 03-24-2023 Functional Status Maintained [facility] Mental Status Date Assessment Result Facility 03-10-2025 Cognitive function Level Of Cons ciousness Awake;Alert;Appropriate;Follow s Commands [facility] Work Phone: 03-24-2023 Mental Status Orientation Oriented x 4 [facility] 03-24-2023 Mental Status [facility] 03-24-2023 Mental Status [facility] Clinical Notes 05-07-2021 to 03-10-2025 Note Date & Type Note Facility 03-10-2025 Radiology Diagnostic study note [facility] Imaging Services [address] [place], [place] [id number] Chest PA and Lateral MR#: [id number] Acct: [id number] Name: VAISHALI KEE Rep #: [id number] : 1950 F 74 From: Karma Bardales MD PCP: SOHAIL LundbergC Status: REG E R Study:Chest PA and Lateral Date of Exam: 03/10/25 Exam# [id number] Ordering Dr: Gertrude Martin PROCEDURE: CHEST PA AND LATERAL 03/10/2025 REASON FOR EXAM: CHEST PAIN TECHNIQUE: CHEST PA AND LATERAL COMPARISON: Chest radiograph 03/09/2023. FINDINGS: Hardware: None. Heart: The heart size is normal. Mediastinum: The mediastinal contour is stable. Lungs: No focal consolidation, pleural effusion or pneumothorax. Bones: Degenerative changes are identified within the thoracic spine. RAD/Chest PA and Lateral IMPRESSION: NEGATIVE CHEST Reading Location: [id number] CC: GENERAL MANAGER LAND DEPARTMENT-C Brandon Randall; KWESI Simon ~ Inventory Management Specialist: Signed [facility] 02-24-2025 Radiology Diagnostic study note [facility] Imaging [facility] [address] [place], [place] [id number] Extremity Lower without Contra MR#: [id number] Acct: [id number] Name: VAISHALI KEE Rep #: [id number] : 1950 F 74 From: Cade Soares MD PCP: SOHAIL LundbergC Status: REG C LI Study:Extremity Lower without Contra Date of Exam: 02/23/25 Exam# [id number] Ordering Dr: Ramy Infante MD PROCEDURE: EXTREMITY LOWER WITHOUT CONTRA 02/23/2025 REASON FOR EXAM: PAIN IN RIGHT KNEE [facility] protocol for right knee replacement. TECHNIQUE: Axial CT images of the right hip joint, right knee joint and right ankle joint obtained with intravenous contrast. Coronal and Sagittal reconstruction series were provided. CONTRAST: None One or more dose reduction techniques were used (e.g., Automated exposure control, adjustment of the mA and/or kV according to patient size, use of iterative reconstruction technique). RADIATION DOSE SUMMARY: CTDlvol: 19 mGy DLP: 1304.19 mGycm COMPARISON: None FINDINGS: Bones: No evidence of fracture. Joints: Imaging of the right hip joint was performed. The joint space is relatively well-maintained. Imaging of the right knee joint was performed. Marked degree of joint space narrowing involving the medial compartment of the knee joint as well as moderate degree of joint space narrowing of the patellofemoral joint with subchondral sclerosis. Imaging of the ankle joint was performed. There is good alignment. No significant abnormality is seen. Soft Tissues: Small knee joint effusion. CT/Extremity Lower without Contra IMPRESSION: Marked degree of joint space narrowing and osteoarthritis of the medial compartment of the knee joint as well as the patellofemoral compartment. Small knee joint effusion. Reading Location: [place] [address] CC: MIRIAN Randall; Dr. Holger Infante MD ~ Inventory Management Specialist: Signed [facility]20[facility] Patient Education 03/24/2023 09:29:36 Total Knee Replacement, Care After, [id number] Total Knee Replacement, Care After This sheet gives you information about how to care for yourself after your procedure. Your doctor may also give you more specific instructions. If you have problems or questions, contact your doctor. What can I expect after the procedure? After the procedure, it is common to have: Pain. Swelling. A small amount of blood coming from your cut from surgery (incision). Clear fluid coming from your cut from surgery. Limited movement of your knee. Follow these instructions at home: Medicines Take cpee-zrq-cgnotsw and prescription medicines only as told by your doctor. If you were prescribed a blood thinner (anticoagulant), take it as told by your doctor. Ask your doctor if the medicine prescribed to you: ?Requires you to avoid driving or using heavy machinery. ?Can cause trouble pooping (constipation). You may need to take steps to prevent or treat trouble pooping: ?Drink enough fluid to keep your pee (urine) pale yellow. ?Take cyiu-vvz-nwjcfbn or prescription medicines. ?Eat foods that are high in fiber. These include beans, whole grains, and fresh fruits and vegetables. ?Limit foods that are high in fat and sugar. These include fried or sweet foods. Bathing Do not take baths, swim, or use a hot tub until your doctor approves. Ask your doctor if you may take showers. You may only be allowed to take sponge baths. Keep your bandage (dressing) dry until your doctor says it can be taken off. Incision care and drain care Follow instructions from your doctor about how to take care of your cut from surgery. Make sure you: ?Wash your hands with soap and water before and after you change your bandage. If you cannot use soap and water, use hand rn charge. ?Change your bandage as told by your doctor. ?Leave stitches (sutures), skin glue, or skin tape (adhesive) strips in place. They may need to stay in place for 2 weeks or longer. If tape strips get loose and curl up, you may trim the loose edges. Do not remove tape strips completely unless your doctor says it is okay. Check your cut from surgery and your drain site every day for signs of infection. Check for: ?More redness, swelling, or pain. ?More fluid or blood. ?Warmth. ?Pus or a bad smell. If you have a drain, follow instructions from your doctor about caring for it. Managing pain, stiffness, and swelling If told, put ice on your knee. ?Put ice in a plastic bag or use the icing device (cold flow pad or cryocuff) that you were given. Follow your doctor's directions about how to use the icing device. ?Place a towel between your skin and the bag or between your skin and the icing device. ?Leave the ice on for 20 minutes, 2 3 times per day. If told, put heat on your knee before you exercise. Use the heat source that your doctor recommends, such as a moist heat pack or a heating pad. ?Place a towel between your skin and the heat source. ?Leave the heat on for 20 30 minutes. ?Remove the heat if your skin turns bright red. This is very important if you are unable to feel pain, heat, or cold. You may have a greater risk of getting burned. Move your toes often. Raise (elevate) your knee above the level of your heart while you are sitting or lying down. ?Use several pillows to keep your leg straight. ?Do not put a pillow just under the knee. If the knee is bent for a long time, this may make the knee stiff. Wear elastic knee support as told by your doctor. Activity Rest as told by your doctor. Do not sit for a long time without moving. Get up to take short walks every 1 2 hours. This is important. Ask for help if you feel weak or unsteady. Ask your doctor what activities are safe for you. Avoid activities that put stress on your knees. These include running, jumping rope, and jumping jacks. Do not play contact sports until your doctor says it is okay. Do exercises as told by your physical therapist. If you have been sent home with a knee joint motion machine (continuous passive motion machine), use it as told by your doctor. Safety Do not use your leg to support your body weight until your doctor says that you can. Use crutches or a walker as told by your doctor. Do not drive until your doctor says it is okay. Ask your doctor when it is safe to drive. General instructions Do not use any products that contain nicotine or tobacco, such as cigarettes, e-cigarettes, and chewing tobacco. These can delay healing. If you need help quitting, ask your doctor. Wear special socks (compression stockings) as told by your doctor. Tell your doctor if you plan to have dental work. Also: ?Tell your dentist about your joint replacement. ?Ask your doctor if there are instructions you need to follow before dental care and routine cleanings. Keep all follow-up visits as told by your doctor. This is important. Contact a doctor if: You have more redness, swelling, or pain around your cut from surgery or your drain. You have more fluid or blood coming from your cut from surgery or your drain. You have pus or a bad smell coming from your cut from surgery or your drain. Your cut from surgery or your drain area feels warm to the touch. You have a fever. Your cut breaks open. You have knee pain that does not go away. The movement of your knee is getting worse. Your new joint feels loose. Get help right away if you have: Pain in your calf or thigh. Swelling in your calf or thigh. Shortness of breath. Trouble breathing. Chest pain. Summary After the procedure, it is common to have pain and swelling, blood or fluid coming from your cut from surgery, and trouble moving your knee. Follow instructions from your doctor about how to take care of your cut from surgery. Use crutches or a walker as told by your doctor. If you were prescribed a blood thinner, take it as told by your doctor. Keep all follow-up visits as told by your doctor. This is important. This information is not intended to replace advice given to you by your health care provider. Make sure you discuss any questions you have with your health care provider. Document Released: 12/06/2012 Document Revised: 01/23/2020 Document Reviewed: 04/28/2019 [employer] Patient Education 2020 [employer] 03/24/2023 09:28:35 Nausea and Vomiting, Adult, Tunj-uv-Rokq Nausea and Vomiting, Adult Nausea is feeling sick to your stomach or feeling that you are about to throw up (vomit). Vomiting is when food in your stomach is thrown up and out of the mouth. Throwing up can make you feel weak. It can also make you lose too much water in your body (get dehydrated). If you lose too much water in your body, you may: Feel tired. Feel thirsty. Have a dry mouth. Have cracked lips. Go pee (urinate) less often. Older adults and people with other diseases or a weak body defense system (immune system) are at higher risk for losing too much water in the body. If you feel sick to your stomach and you throw up, it is important to follow instructions from your doctor about how to take care of yourself. Follow these instructions at home: Watch your symptoms for any changes. Tell your doctor about them. Follow these instructions to care for yourself at home. Eating and drinking Take an ORS (oral rehydration solution). This is a drink that is sold at pharmacies and stores. Drink clear fluids in small amounts as you are able, such as: ?Water. ?Ice chips. ?Fruit juice that has water added (diluted fruit juice). ?Low-calorie sports drinks. Eat bland, njnm-ed-rtrhqb foods in small amounts as you are able, such as: ?Bananas. ?Applesauce. ?Rice. ?Low-fat (lean) meats. ?[place]. ?Crackers. Avoid drinking fluids that have a lot of sugar or caffeine in them. This includes energy drinks, sports drinks, and soda. Avoid alcohol. Avoid spicy or fatty foods. General instructions Take mykr-blp-ngnwyxg and prescription medicines only as told by your doctor. Drink enough fluid to keep your pee (urine) pale yellow. Wash your hands often with soap and water. If you cannot use soap and water, use hand rn charge. Make sure that all people in your home wash their hands well and often. Rest at home while you get better. Watch your condition for any changes. Take slow and deep breaths when you feel sick to your stomach. Keep all follow-up visits as told by your doctor. This is important. Contact a doctor if: Your symptoms get worse. You have new symptoms. You have a fever. You cannot drink fluids without throwing up. You feel sick to your stomach for more than 2 days. You feel light-headed or dizzy. You have a headache. You have muscle cramps. You have a rash. You have pain while peeing. Get help right away if: You have pain in your chest, neck, arm, or jaw. You feel very weak or you pass out (faint). You throw up again and again. You have throw up that is bright red or looks like black coffee grounds. You have bloody or black poop (stools) or poop that looks like tar. You have a very bad headache, a stiff neck, or both. You have very bad pain, cramping, or bloating in your belly (abdomen). You have trouble breathing. You are breathing very quickly. Your heart is beating very quickly. Your skin feels cold and clammy. You feel confused. You have signs of losing too much water in your body, such as: ?Dark pee, very little pee, or no pee. ?Cracked lips. ?Dry mouth. ?Sunken eyes. ?Sleepiness. ?Weakness. These symptoms may be an emergency. Do not wait to see if the symptoms will go away. Get medical help right away. Call your local emergency services (911 in the [place] Do not drive yourself to the hospital. Summary Nausea is feeling sick to your stomach or feeling that you are about to throw up (vomit). Vomiting is when food in your stomach is thrown up and out of the mouth. Follow instructions from your doctor about eating and drinking to keep from losing too much water in your body. Take xdna-agp-anhpulk and prescription medicines only as told by your doctor. Contact your doctor if your symptoms get worse or you have new symptoms. Keep all follow-up visits as told by your doctor. This is important. This information is not intended to replace advice given to you by your health care provider. Make sure you discuss any questions you have with your health care provider. Document Released: 03/02/2009 Document Revised: 01/06/2020 Document Reviewed: 02/22/2019 [employer] Patient Education 2020 [employer]. 03/24/2023 09:28:33 General Anesthesia, Adult, Care After General Anesthesia, Adult, Care After This sheet gives you information about how to care for yourself after your procedure. Your health care provider may also give you more specific instructions. If you have problems or questions, contact your health care provider. What can I expect after the procedure? After the procedure, the following side effects are common: Pain or discomfort at the IV site. Nausea. Vomiting. Sore throat. Trouble concentrating. Feeling cold or chills. Weak or tired. Sleepiness and fatigue. Soreness and body aches. These side effects can affect parts of the body that were not involved in surgery. Follow these instructions at home: For at least 24 hours after the procedure: Have a responsible adult stay with you. It is important to have someone help care for you until you are awake and alert. Rest as needed. Do not: ?Participate in activities in which you could fall or become injured. ?Drive. ?Use heavy machinery. ?Drink alcohol. ?Take sleeping pills or medicines that cause drowsiness. ?Make important decisions or sign legal documents. ?Take care of children on your own. Eating and drinking Follow any instructions from your health care provider about eating or drinking restrictions. When you feel hungry, start by eating small amounts of foods that are soft and easy to digest (bland), such as toast. Gradually return to your regular diet. Drink enough fluid to keep your urine pale yellow. If you vomit, rehydrate by drinking water, juice, or clear broth. General instructions If you have sleep apnea, surgery and certain medicines can increase your risk for breathing problems. Follow instructions from your health care provider about wearing your sleep device: ?Anytime you are sleeping, including during daytime naps. ?While taking prescription pain medicines, sleeping medicines, or medicines that make you drowsy. Return to your normal activities as told by your health care provider. Ask your health care provider what activities are safe for you. Take dxda-fmq-qrwbywi and prescription medicines only as told by your health care provider. If you smoke, do not smoke without supervision. Keep all follow-up visits as told by your health care provider. This is important. Contact a health care provider if: You have nausea or vomiting that does not get better with medicine. You cannot eat or drink without vomiting. You have pain that does not get better with medicine. You are unable to pass urine. You develop a skin rash. You have a fever. You have redness around your IV site that gets worse. Get help right away if: You have difficulty breathing. You have chest pain. You have blood in your urine or stool, or you vomit blood. Summary After the procedure, it is common to have a sore throat or nausea. It is also common to feel tired. Have a responsible adult stay with you for the first 24 hours after general anesthesia. It is important to have someone help care for you until you are awake and alert. When you feel hungry, start by eating small amounts of foods that are soft and easy to digest (bland), such as toast. Gradually return to your regular diet. Drink enough fluid to keep your urine pale yellow. Return to your normal activities as told by your health care provider. Ask your health care provider what activities are safe for you. This information is not intended to replace advice given to you by your health care provider. Make sure you discuss any questions you have with your health care provider. Document Released: 12/21/2001 Document Revised: 09/17/2018 Document Reviewed: 04/30/2018 [employer] Patient Education 2020 [employer]. Follow Up Care 02/09/2023 12:39:42 With:HOLGER INFANTE Address: [address] [facility] [facility] [address] [place] [address]- [phone] Business (1) When: Unknown [facility] 03-24-2023 Note Discharge Instructions Thank you for allowing [facility] to assist you with your healthcare needs. The following is important discharge information regarding your hospital visit. Your Care Team BRANDON RANDALL APRN-ANDRES infante Your Diagnosis LEFT KNEE ARTHROPLASTY What to do next Follow Up Appointments Follow Up with HOLGER INFANTE When Where: [facility] [address] [place] [address]- [phone] Business (1) Allergies Augmentin (Diarrhea) Bactrim Medications Please ask your primary doctor or pharmacist before taking any other medication not listed, including over the counter drugs, herbal medications, vitamins and or supplements as they may interact with your home medications. What How Much When Instructions Last Dose Unchanged cholecalciferol (Vitamin D3) 100 Microgram by mouth Every day Unchanged hydrochlorothiazide-lisinopril (hydrochlorothiazide-lisinopril 12.5 mg-20 mg oral tablet) 1 tab(s) by mouth Every day Unchanged levothyroxine (Synthroid 50 mcg (0.05 mg) oral tablet) 1 tab(s) by mouth Once a day Please take this list to your next doctor s visit. Bring all medications you take, including over the counter medications, herbals and other supplements with you to your doctor s visit. Patients and families are reminded to discard old lists and to update any records with all medication providers or retail pharmacies. Education Materials Total Knee Replacement, Care After This sheet gives you information about how to care for yourself after your procedure. Your doctor may also give you more specific instructions. If you have problems or questions, contact your doctor. What can I expect after the procedure? After the procedure, it is common to have: Pain. Swelling. A small amount of blood coming from your cut from surgery (incision). Clear fluid coming from your cut from surgery. Limited movement of your knee. Follow these instructions at home: Medicines Take pxlw-ccr-efnzqea and prescription medicines only as told by your doctor. If you were prescribed a blood thinner (anticoagulant), take it as told by your doctor. Ask your doctor if the medicine prescribed to you: ? Requires you to avoid driving or using heavy machinery. ? Can cause trouble pooping (constipation). You may need to take steps to prevent or treat trouble pooping: ? Drink enough fluid to keep your pee (urine) pale yellow. ? Take eaoe-wpz-oiqprie or prescription medicines. ? Eat foods that are high in fiber. These include beans, whole grains, and fresh fruits and vegetables. ? Limit foods that are high in fat and sugar. These include fried or sweet foods. Bathing Do not take baths, swim, or use a hot tub until your doctor approves. Ask your doctor if you may take showers. You may only be allowed to take sponge baths. Keep your bandage (dressing) dry until your doctor says it can be taken off. Incision care and drain care Follow instructions from your doctor about how to take care of your cut from surgery. Make sure you: ? Wash your hands with soap and water before and after you change your bandage. If you cannot use soap and water, use hand rn charge. ? Change your bandage as told by your doctor. ? Leave stitches (sutures), skin glue, or skin tape (adhesive) strips in place. They may need to stay in place for 2 weeks or longer. If tape strips get loose and curl up, you may trim the loose edges. Do not remove tape strips completely unless your doctor says it is okay. Check your cut from surgery and your drain site every day for signs of infection. Check for: ? More redness, swelling, or pain. ? More fluid or blood. ? Warmth. ? Pus or a bad smell. If you have a drain, follow instructions from your doctor about caring for it. Managing pain, stiffness, and swelling If told, put ice on your knee. ? Put ice in a plastic bag or use the icing device (cold flow pad or cryocuff) that you were given. Follow your doctor's directions about how to use the icing device. ? Place a towel between your skin and the bag or between your skin and the icing device. ? Leave the ice on for 20 minutes, 2 3 times per day. If told, put heat on your knee before you exercise. Use the heat source that your doctor recommends, such as a moist heat pack or a heating pad. ? Place a towel between your skin and the heat source. ? Leave the heat on for 20 30 minutes. ? Remove the heat if your skin turns bright red. This is very important if you are unable to feel pain, heat, or cold. You may have a greater risk of getting burned. Move your toes often. Raise (elevate) your knee above the level of your heart while you are sitting or lying down. ? Use several pillows to keep your leg straight. ? Do not put a pillow just under the knee. If the knee is bent for a long time, this may make the knee stiff. Wear elastic knee support as told by your doctor. Activity Rest as told by your doctor. Do not sit for a long time without moving. Get up to take short walks every 1 2 hours. This is important. Ask for help if you feel weak or unsteady. Ask your doctor what activities are safe for you. Avoid activities that put stress on your knees. These include running, jumping rope, and jumping jacks. Do not play contact sports until your doctor says it is okay. Do exercises as told by your physical therapist. If you have been sent home with a knee joint motion machine (continuous passive motion machine), use it as told by your doctor. Safety Do not use your leg to support your body weight until your doctor says that you can. Use crutches or a walker as told by your doctor. Do not drive until your doctor says it is okay. Ask your doctor when it is safe to drive. General instructions Do not use any products that contain nicotine or tobacco, such as cigarettes, e-cigarettes, and chewing tobacco. These can delay healing. If you need help quitting, ask your doctor. Wear special socks (compression stockings) as told by your doctor. Tell your doctor if you plan to have dental work. Also: ? Tell your dentist about your joint replacement. ? Ask your doctor if there are instructions you need to follow before dental care and routine cleanings. Keep all follow-up visits as told by your doctor. This is important. Contact a doctor if: You have more redness, swelling, or pain around your cut from surgery or your drain. You have more fluid or blood coming from your cut from surgery or your drain. You have pus or a bad smell coming from your cut from surgery or your drain. Your cut from surgery or your drain area feels warm to the touch. You have a fever. Your cut breaks open. You have knee pain that does not go away. The movement of your knee is getting worse. Your new joint feels loose. Get help right away if you have: Pain in your calf or thigh. Swelling in your calf or thigh. Shortness of breath. Trouble breathing. Chest pain. Summary After the procedure, it is common to have pain and swelling, blood or fluid coming from your cut from surgery, and trouble moving your knee. Follow instructions from your doctor about how to take care of your cut from surgery. Use crutches or a walker as told by your doctor. If you were prescribed a blood thinner, take it as told by your doctor. Keep all follow-up visits as told by your doctor. This is important. This information is not intended to replace advice given to you by your health care provider. Make sure you discuss any questions you have with your health care provider. Document Released: 12/06/2012 Document Revised: 01/23/2020 Document Reviewed: 04/28/2019 [employer] Patient Education 2020 [employer]. Nausea and Vomiting, Adult Nausea is feeling sick to your stomach or feeling that you are about to throw up (vomit). Vomiting is when food in your stomach is thrown up and out of the mouth. Throwing up can make you feel weak. It can also make you lose too much water in your body (get dehydrated). If you lose too much water in your body, you may: Feel tired. Feel thirsty. Have a dry mouth. Have cracked lips. Go pee (urinate) less often. Older adults and people with other diseases or a weak body defense system (immune system) are at higher risk for losing too much water in the body. If you feel sick to your stomach and you throw up, it is important to follow instructions from your doctor about how to take care of yourself. Follow these instructions at home: Watch your symptoms for any changes. Tell your doctor about them. Follow these instructions to care for yourself at home. Eating and drinking Take an ORS (oral rehydration solution). This is a drink that is sold at pharmacies and stores. Drink clear fluids in small amounts as you are able, such as: ? Water. ? Ice chips. ? Fruit juice that has water added (diluted fruit juice). ? Low-calorie sports drinks. Eat bland, mnsx-ty-bwmgmg foods in small amounts as you are able, such as: ? Bananas. ? Applesauce. ? Rice. ? Low-fat (lean) meats. ? [place]. ? Crackers. Avoid drinking fluids that have a lot of sugar or caffeine in them. This includes energy drinks, sports drinks, and soda. Avoid alcohol. Avoid spicy or fatty foods. General instructions Take arot-rgk-cmygdhv and prescription medicines only as told by your doctor. Drink enough fluid to keep your pee (urine) pale yellow. Wash your hands often with soap and water. If you cannot use soap and water, use hand rn charge. Make sure that all people in your home wash their hands well and often. Rest at home while you get better. Watch your condition for any changes. Take slow and deep breaths when you feel sick to your stomach. Keep all follow-up visits as told by your doctor. This is important. Contact a doctor if: Your symptoms get worse. You have new symptoms. You have a fever. You cannot drink fluids without throwing up. You feel sick to your stomach for more than 2 days. You feel light-headed or dizzy. You have a headache. You have muscle cramps. You have a rash. You have pain while peeing. Get help right away if: You have pain in your chest, neck, arm, or jaw. You feel very weak or you pass out (faint). You throw up again and again. You have throw up that is bright red or looks like black coffee grounds. You have bloody or black poop (stools) or poop that looks like tar. You have a very bad headache, a stiff neck, or both. You have very bad pain, cramping, or bloating in your belly (abdomen). You have trouble breathing. You are breathing very quickly. Your heart is beating very quickly. Your skin feels cold and clammy. You feel confused. You have signs of losing too much water in your body, such as: ? Dark pee, very little pee, or no pee. ? Cracked lips. ? Dry mouth. ? Sunken eyes. ? Sleepiness. ? Weakness. These symptoms may be an emergency. Do not wait to see if the symptoms will go away. Get medical help right away. Call your local emergency services (911 in the [place] Do not drive yourself to the hospital. Summary Nausea is feeling sick to your stomach or feeling that you are about to throw up (vomit). Vomiting is when food in your stomach is thrown up and out of the mouth. Follow instructions from your doctor about eating and drinking to keep from losing too much water in your body. Take txup-uam-gisyejh and prescription medicines only as told by your doctor. Contact your doctor if your symptoms get worse or you have new symptoms. Keep all follow-up visits as told by your doctor. This is important. This information is not intended to replace advice given to you by your health care provider. Make sure you discuss any questions you have with your health care provider. Document Released: 03/02/2009 Document Revised: 01/06/2020 Document Reviewed: 02/22/2019 [employer] Patient Education 2020 [employer]. General Anesthesia, Adult, Care After This sheet gives you information about how to care for yourself after your procedure. Your health care provider may also give you more specific instructions. If you have problems or questions, contact your health care provider. What can I expect after the procedure? After the procedure, the following side effects are common: Pain or discomfort at the IV site. Nausea. Vomiting. Sore throat. Trouble concentrating. Feeling cold or chills. Weak or tired. Sleepiness and fatigue. Soreness and body aches. These side effects can affect parts of the body that were not involved in surgery. Follow these instructions at home: For at least 24 hours after the procedure: Have a responsible adult stay with you. It is important to have someone help care for you until you are awake and alert. Rest as needed. Do not: ? Participate in activities in which you could fall or become injured. ? Drive. ? Use heavy machinery. ? Drink alcohol. ? Take sleeping pills or medicines that cause drowsiness. ? Make important decisions or sign legal documents. ? Take care of children on your own. Eating and drinking Follow any instructions from your health care provider about eating or drinking restrictions. When you feel hungry, start by eating small amounts of foods that are soft and easy to digest (bland), such as toast. Gradually return to your regular diet. Drink enough fluid to keep your urine pale yellow. If you vomit, rehydrate by drinking water, juice, or clear broth. General instructions If you have sleep apnea, surgery and certain medicines can increase your risk for breathing problems. Follow instructions from your health care provider about wearing your sleep device: ? Anytime you are sleeping, including during daytime naps. ? While taking prescription pain medicines, sleeping medicines, or medicines that make you drowsy. Return to your normal activities as told by your health care provider. Ask your health care provider what activities are safe for you. Take ofbp-nst-ffeipqo and prescription medicines only as told by your health care provider. If you smoke, do not smoke without supervision. Keep all follow-up visits as told by your health care provider. This is important. Contact a health care provider if: You have nausea or vomiting that does not get better with medicine. You cannot eat or drink without vomiting. You have pain that does not get better with medicine. You are unable to pass urine. You develop a skin rash. You have a fever. You have redness around your IV site that gets worse. Get help right away if: You have difficulty breathing. You have chest pain. You have blood in your urine or stool, or you vomit blood. Summary After the procedure, it is common to have a sore throat or nausea. It is also common to feel tired. Have a responsible adult stay with you for the first 24 hours after general anesthesia. It is important to have someone help care for you until you are awake and alert. When you feel hungry, start by eating small amounts of foods that are soft and easy to digest (bland), such as toast. Gradually return to your regular diet. Drink enough fluid to keep your urine pale yellow. Return to your normal activities as told by your health care provider. Ask your health care provider what activities are safe for you. This information is not intended to replace advice given to you by your health care provider. Make sure you discuss any questions you have with your health care provider. Document Released: 12/21/2001 Document Revised: 09/17/2018 Document Reviewed: 04/30/2018 Elsevier Patient Education 2020 [employer] Additional Information VACCINATE! IT SAVES LIVES! Members of the community who have not yet received the COVID-19 vaccine and would like to receive it can visit one of [facility] vaccine clinics. There are many vaccine clinic locations within the [facility]. For locations and available times, please visit https://gettheshot.coronavirus.[place].gov/. It is important to note that some COVID mobile vaccine clinics are held outdoors and may be canceled in rainy or stormy conditions. To learn more about pediatric vaccinations (ages 5-11), we invite you to visit the [employer] webpage. [email or web address]://www.[employer].[email or web address]/pa [email or web address]-Eduua-Fpbimnbscnh-[email or web address] ohiy-Dnopa-Phxcdvpta.html To learn more about the COVID-19 vaccine, we invite you to visit the CDC website for a list of frequently asked questions.https://www.cdc.gov/cor onavirus/2019-ncov/vaccines/faq.h tml [employer] Patient Portal Access Instructions: Stay connected with your healthcare team and access your personal medical information anytime with the [employer] Patient Portal. Please follow the directions below to create your [employer] account: 1.Access the email account you provided upon registration to the hospital/physician office.2.Look for an invitation email from [facility].3.Open the email and access the invitation link: Accept Invitation to [employer].4.Fill in the required hamilton to create your account. To access your account, visit [email or web address]. Click the blue button labeled Access Patient Portal and then log in with the username and password that you created in the steps above. You will be able to view your test results, lab results, a summary of your visits, upcoming appointments and more. There is also a convenient messaging option where you can send secure messages to your provider. In addition, you will have the ability to download any documents or summaries to your computer and/or send the information securely to a physician. Remember that your healthcare information is confidential, so carefully consider who you will allow to register on the [employer] Patient Portal for access to your information. You can also access the [facility] Patient Portal on the [facility] bisi. Simply click on Patient Portal and then log into your account. If you would like to receive a full copy of your medical records, please contact the [facility] Medical Records Department by calling [phone], Thursday through Thursday between 8 a.m. and 4:30 p.m. HOW TO SAFELY DISPOSE OF PRESCRIPTION MEDICATIONS Please use one of the following methods to safely dispose of your unused medications. 1.Use a drug disposal kit: the drug disposal pouch allows you to safely discard your old and unused drugs. Ask your nurse to give you one when you are discharged.2.Visit a local take-back location: Many local pharmacies and police departments have programs that collect old and unwanted prescription drugs. Call your local pharmacy or go to http://[place]/5C5Px5w to find one close to you.3.Make use of household items: Use cat litter or old coffee grounds to dispose medications if other options are not available. Mix your drugs with these household products, seal them in an airtight container and throw it into the garbage. Call [facility]: [phone] to be sure your drugs can be disposed of in this way. Some medicines may require a different approach.4.Never flush your medications down the toilet. IF YOU HAVE BEEN PRESCRIBED AN OPIOID FOR PAIN If you have been prescribed an opioid (such as hydrocodone, oxycodone or morphine), it is critical to understand the possible side effects and risks of opioid pain medications. Even when taken as directed, opioids can have several side effects including: Tolerance, meaning you might need to take more of a medication for the same pain relief. Nausea, vomiting and/or constipation. Sleepiness, dizziness, dry mouth, confusion, depression or itching. Physical dependence, meaning you have withdrawal symptoms when a medication is stopped, can develop within a few days. KNOW YOUR RESPONSIBILITIES It is important to know exactly how much and how often to take the opioid pain medications you are prescribed. Never take opioids in higher amounts or more often than prescribed. Do not combine opioids with alcohol or other drugs that cause drowsiness, such as benzodiazepines, also known as benzos, including diazepam and alprazolam, muscle relaxants or sleep aids. Never sell or share prescription opioids. This is illegal. Store opioids in a secure place and out of reach of others (including children, family, friends and visitors). The last page of this document has been signed and retained as a CHART COPY. Signatures Patient Education Materials Total Knee Replacement, Care After, Dtrs-vd-Awek Nausea and Vomiting, Adult, Fanf-ol-Qorm General Anesthesia, Adult, Care After Medication Leaflets My discharge plan and instructions have been reviewed and explained to me and I,VAISHALI KEE understand my current condition and have read and understand these discharge instructions. I have received a written copy of the plan/instructions. If I have questions, I am aware that I should contact my doctor. Patient/Bereavement Counselor Signature: Date/Time: Relationship to Patient: ____ Witness Name/Signature: Date/Time: [facility] 03-24-2023 Note ORIGINAL EXAMINATION: TWO XRAY VIEWS OF THE LEFT KNEE 03/24/2023 9:17 am COMPARISON: None. HISTORY: ORDERING SYSTEM PROVIDED HISTORY: Reason for Exam: Status Post Arthroplasty FINDINGS: Skin staci are present from the previous surgery. A small amount of soft tissue and joint air is noted from the surgery. The prosthetic components appear well seated, and there is no adjacent fracture identified. IMPRESSION: Expected postoperative findings. Interpreted by: Robert Benito MD Preliminary Report By: Robert Benito MD Electronically signed By Robert Benito MD Dictated Date: 03/24/2023 9:20:41 AM Prelim Date: 03/24/2023 9:21:09 AM Sign Date: 03/24/2023 9:21:09 AM Ordering Provider: HOLGER INFANTE [facility] 03-24-2023 Note ORIGINAL EXAMINATION: TWO XRAY VIEWS OF THE LEFT KNEE 03/24/2023 9:17 am COMPARISON: None. HISTORY: ORDERING SYSTEM PROVIDED HISTORY: Reason for Exam: Status Post Arthroplasty FINDINGS: Skin staci are present from the previous surgery. A small amount of soft tissue and joint air is noted from the surgery. The prosthetic components appear well seated, and there is no adjacent fracture identified. IMPRESSION: Expected postoperative findings. Interpreted by: Robert Benito MD Preliminary Report By: Robert Benito MD Electronically signed By Robert Benito MD Dictated Date: 03/24/2023 9:20:41 AM Prelim Date: 03/24/2023 9:21:09 AM Sign Date: 03/24/2023 9:21:09 AM Ordering Provider: [facility] 03-24-2023 Anesthesiology Consult note Patient: VAISHALI KEE Age: 72 years Sex: Female : 1950 Associated Diagnoses: None Author: BELL MARION APRN-PRISONER CLASSIFICATION INTERVIEWER Preoperative Information Time of last food or liquid consumption: 03/23/2023 23:59:00 Anesthesia history Patient's history: negative. Family's history: negative. Review of Systems Ear/Nose/Mouth/Throat: Negative except as documented in history of present illness. Respiratory: Negative except as documented in history of present illness. Cardiovascular: Negative except as documented in history of present illness. Gastrointestinal: Negative except as documented in history of present illness. Genitourinary: Negative except as documented in history of present illness. Endocrine: Negative except as documented in history of present illness. Musculoskeletal: Negative except as documented in history of present illness. Integumentary: Negative except as documented in history of present illness. Neurologic: Negative except as documented in history of present illness. Health Status Allergies: Nonallergic Reactions (Selected) Severity Not Documented Augmentin- Diarrhea. Bactrim- No reactions were documented., Allergies (2) ActiveReaction AugmentinDiarrhea BactrimNone Documented Current medications: (Selected) Inpatient Medications Ordered Betadine 10% topical solution: 17.5 mL, mL/hr, Topical (INT), PREOP pharm Bolus LR 1000 mL: 1,000 mL, IV Bolus, PREOP pharm LR 1,000 mL: 125 mL/hr, Intravenous, Stop: 03/24/23 23:59:00 EDT Naropin 25 mg + Toradol 15 mg + EPINEPHrine 1 mg/mL injectable solution 0.3 mg + morphine 2.5 mg...: 25 mg, 5 mL, mL/hr, Other, PREOP pharm Naropin 25 mg + Toradol 15 mg + EPINEPHrine 1 mg/mL injectable solution 0.3 mg + morphine 2.5 mg...: 25 mg, 5 mL, mL/hr, Other, PREOP pharm tranexamic acid 1 g / 100 mL 0.7% NaCl PMX: 1 gram(s), 100 mL, 300 mL/hr, IV Piggyback, AsDirected tranexamic acid 1 g / 100 mL 0.7% NaCl PMX: 1 gram(s), 100 mL, 300 mL/hr, IV Piggyback, AsDirected Documented Medications Documented Synthroid 50 mcg (0.05 mg) oral tablet: 50 mcg, 1 tab(s), Oral, qDay, 90 tab(s), 0 Refill(s) Vitamin D3: 100 mcg, 1 tab(s), Oral, Daily, 90 tab(s), 0 Refill(s) hydrochlorothiazide-lisinopril 12.5 mg-20 mg oral tablet: 1 tab(s), Oral, Daily, 90 tab(s), 0 Refill(s), Medications (7) Active Scheduled: (6) Lactated Ringers Injection 1000 mL * Bolus * 1,000 mL, IV Bolus, PREOP pharm povidone iodine topical 17.5 mL, Topical (INT), PREOP pharm ropivacaine 25 mg + ketorolac 15 mg + epinephrine 0.3 mg + morphine 2.5 mg 25 mg 5 mL, Other, PREOP pharm ropivacaine 25 mg + ketorolac 15 mg + epinephrine 0.3 mg + morphine 2.5 mg 25 mg 5 mL, Other, PREOP pharm tranexamic acid PMX 1 gram(s) 100 mL, IV Piggyback, AsDirected tranexamic acid PMX 1 gram(s) 100 mL, IV Piggyback, AsDirected Continuous: (1) Lactated Ringers 1,000 mL 1,000 mL, Intravenous, 125 mL/hr PRN: (0) Problem list: No problem items selected or recorded., Active Problems (5) Anemia Hypertension Hypothyroidism Osteoarthritis Syringomyelia Histories Past Medical History: No active or resolved past medical history items have been selected or recorded. Family History: Cancer Mother Heart disease Father Heart attack Father Grandparent Mitral valve disorder Brother Procedure history: Tonsillectomy ([id number]). Hand repair ([id number]). Comments: 07/09/2020 7:47 Byron Green RN RIGHT Foot repair ([id number]). Comments: 07/09/2020 7:47 Byron Green RN RIGHT Tubal ligation ([id number]). Ovarian cystectomy ([id number]). Social History Social & Psychosocial Habits Alcohol 07/09/2020 Use: Never Substance Abuse 07/09/2020 Use: Never Tobacco 07/09/2020 Tobacco Use: Never (less than 100 in l Home/Environment 03/02/2023 Domestic Concerns None Living situation: Home/Independent Spouse Name ENOCH Marital Status of Patient if Patient Independent Adult: Nutrition/Health 07/09/2020 Type of diet: Regular Appetite Good Eating Difficulties None . Physical Examination Vital Signs 03/24/2023 7:30 EDT Temperature (Route Not Specified) 36.01 DegC DegC Heart Rate Monitored 55 bpm bpm Respiratory Rate - Anes 11 br/min br/min 03/24/2023 7:25 EDT Temperature (Route Not Specified) 36.3 DegC DegC Heart Rate Monitored 47 bpm bpm Respiratory Rate - Anes 11 br/min br/min Systolic Blood Pressure Non-Invasive 78 mmHg mmHg Diastolic Blood Pressure Non-Invasive 41 mmHg mmHg 03/24/2023 7:20 EDT Heart Rate Monitored 47 bpm bpm Respiratory Rate - Anes 12 br/min br/min Systolic Blood Pressure Non-Invasive 74 mmHg mmHg Diastolic Blood Pressure Non-Invasive 42 mmHg mmHg 03/24/2023 7:15 EDT Heart Rate Monitored 54 bpm bpm Respiratory Rate - Anes 8 br/min br/min Systolic Blood Pressure Non-Invasive 102 mmHg mmHg Diastolic Blood Pressure Non-Invasive 65 mmHg mmHg 03/24/2023 7:10 EDT Heart Rate Monitored 64 bpm bpm Respiratory Rate - Anes 0 br/min br/min Systolic Blood Pressure Non-Invasive 152 mmHg mmHg Diastolic Blood Pressure Non-Invasive 76 mmHg mmHg 03/24/2023 6:08 EDT Apical Heart Rate 56 bpm LOW Respiratory Rate 14 br/min Systolic Blood Pressure Non-Invasive 140 mmHg Diastolic Blood Pressure Non-Invasive 73 mmHg Vital Signs(last 24 hrs) Last Charted Heart Rate [id number] bpm (MAR 24 07:30) Resp Rate 14 br/min (MAR 24 06:08) SBP78 mmHg (MAR 24 07:25) DBP41 mmHg (MAR 24 07:25) Measurements from flowsheet : Measurements 03/24/2023 6:08 EDT Height 165.1 cm Admission Weight 84 kg Friend Body Weight 57.00 kg 03/24/2023 6:06 EDT Body Mass Index In Error kg/m2 (In Error) Pain assessment: Pain Assessment 03/24/2023 6:39 EDT Primary Pain Intensity 0 03/24/2023 6:08 EDT Primary Pain Intensity 0 Pain Scale Type 0-10 Pain scale . General: Alert and oriented. Airway: Normal neck range of motion. Mallampati classification: II (soft palate, fauces, uvula visible). Head: Normocephalic. Dentition Evaluation: Intact, Own teeth. Neck: Full range of motion. Respiratory: Lungs are clear to auscultation. Cardiovascular: Normal rate. Heart Sounds: Normal. Gastrointestinal: Soft. Musculoskeletal Normal range of motion. Integumentary: Intact, Warm, Dry. Neurologic: Alert, Oriented. Review / Management Results review: No qualifying data available , Lab results 03/24/2023 7:39 EDT SN - PA - Route of Administration Local SN - PA - Route of Administration Local 03/24/2023 7:36 EDT SN - Irl - Irrigant Normal Saline SN - Irl - Irrigant Sterile Water SN - Irl - Irrigant Normal Saline SN - IrI - Volume In 450 mL SN - IrI - Volume In 500 mL SN - Irl - Additive IRRIGATION CHG 0.05% IRRISEPT 12/CA [id number] SN - Irl - Additive BETADINE SN - IrI - Volume Out 450 mL SN - IrI - Volume Out 500 mL 03/24/2023 7:35 EDT SN - SP - Prep Agents Chloraprep SN - SP - HR - Method N/A 03/24/2023 7:35 EDT SN - PP - Body Position Supine Standard Intra-op 03/24/2023 7:34 EDT SN - PTCare - Anti-thromboembolism Lovely Sequential Compression Device (SCD) 03/24/2023 7:34 EDT SN - GCD - Post-operative Diagnosis UNILATERAL PRIMARY OSTEOARTHRITIS, LEFT KNEE. VARUS DEFORMITY, LEFT KNEE. 03/24/2023 7:34 EDT SN - Cul - Culture Type No Specimen per Surgeon 03/24/2023 7:33 EDT SN - Proc - Anesthesia Type General, Local, Regional SN - Proc - Actual Procedure ROBOTIC ASSISTED LEFT TOTAL KNEE ARTHROPLASTY 03/24/2023 7:30 EDT Temperature (Route Not Specified) 36.01 DegC DegC Heart Rate Monitored 55 bpm bpm Respiratory Rate - Anes 11 br/min br/min Oxygen Saturation 100 % % Set Rate Anes 11 br/min br/min 03/24/2023 7:29 EDT dexAMETHasone 10 mg mg 03/24/2023 7:28 EDT SN - CTm - Surgery Start 03/24/2023 7:28 03/24/2023 7:28 EDT SN - CTm - Surgery Start Surgery Start 03/24/2023 7:26 EDT SN - Preop - CTm Pt in SDS Room 03/24/2023 5:55 SN - Preop - CTm Pt Ready for OR/Proced 03/24/2023 7:03 03/24/2023 7:25 EDT Temperature (Route Not Specified) 36.3 DegC DegC Heart Rate Monitored 47 bpm bpm Respiratory Rate - Anes 11 br/min br/min Systolic Blood Pressure Non-Invasive 78 mmHg mmHg Diastolic Blood Pressure Non-Invasive 41 mmHg mmHg Oxygen Saturation 100 % % Set Rate Anes 11 br/min br/min 03/24/2023 7:20 EDT Heart Rate Monitored 47 bpm bpm Respiratory Rate - Anes 12 br/min br/min Systolic Blood Pressure Non-Invasive 74 mmHg mmHg Diastolic Blood Pressure Non-Invasive 42 mmHg mmHg Oxygen Saturation 100 % % ondansetron 4 mg mg Set Rate Anes 11 br/min br/min 03/24/2023 7:15 EDT Heart Rate Monitored 54 bpm bpm Respiratory Rate - Anes 8 br/min br/min Systolic Blood Pressure Non-Invasive 102 mmHg mmHg Diastolic Blood Pressure Non-Invasive 65 mmHg mmHg Oxygen Saturation 100 % % Set Rate Anes 8 br/min br/min 03/24/2023 7:14 EDT fentaNYL 100 mcg mcg lidocaine 5 mg mg propofol 150 mg mg rocuronium 50 mg mg 03/24/2023 7:10 EDT Heart Rate Monitored 64 bpm bpm Respiratory Rate - Anes 0 br/min br/min Systolic Blood Pressure Non-Invasive 152 mmHg mmHg Diastolic Blood Pressure Non-Invasive 76 mmHg mmHg Oxygen Saturation 96 % % 03/24/2023 7:07 EDT cefazolin 2 gram(s) gram(s) Sodium Chloride 0.9% 100 mL mL 03/24/2023 6:55 EDT midazolam 2 mg mg 03/24/2023 6:54 EDT Time Out Procedure Verified Time Out Procedure Site Verified Yes Time Out Procedure Site Marked Yes Time Out Correct Patient Position Yes Hand Right 03/24/2023 20 gauge Peripheral IV Activity: Insert new site Peripheral IV Dressing Condition: Clean, Dry, Intact Peripheral IV Dressing Activity: Applied, Transparent dressing Peripheral IV Line Status/Patency: Flushes easily, Continuous infusion Peripheral IV Line Care: Secured with tape Peripheral IV Site Condition: No complications Peripheral IV Equipment: Extension set, PRN Adaptor Peripheral IV Number of Attempts: 1 Provider #1 Bedside Time Out BELL MARION APRN-PRISONER CLASSIFICATION INTERVIEWER Provider #2 Bedside Time Out Anastasia Mg SN - CTm - Anesthesia Start Time Anesthesia Start Allergy Band on and Verified Yes Patient ID Band on and Verified Yes 03/24/2023 6:53 EDT citric acid-sodium citrate Not Done: Other (Not Done) 03/24/2023 6:51 EDT famotidine 20 mg mg 03/24/2023 6:48 EDT SN - GCD - Case Level Level 5 03/24/2023 6:46 EDT SN - Assess - LOC Alert, Awake SN - Assess - Orientation Oriented X 3 SN - Assess - Post-op Skin Integrity Intact/Dry 03/24/2023 6:45 EDT SN - CAt - Case Attendee SN - CAt - Case Attendee SN - CAt - Case Attendee SN - CAt - Case Attendee SN - CAt - Case Attendee SN - CAt - Case Attendee SN - CAt - Case Attendee SN - CAt - Case Attendee SN - CAt - Case Attendee SN - CAt - Case Attendee SN - CAt - Case Attendee SN - CAt - Case Attendee SN - CAt - Case Attendee SN - CAt - Case Attendee SN - CAt - Role Performed Primary Surgeon SN - CAt - Role Performed PRISONER CLASSIFICATION INTERVIEWER SN - CAt - Role Performed Registered Radiologic Technologist 1 SN - CAt - Role Performed Scrub 1 SN - CAt - Role Performed Print Developer 1 SN - CAt - Role Performed Physician Materials And Processes Manager SN - CAt - Role Performed Rope Silica Machine Operator 03/24/2023 6:39 EDT Primary Pain Intensity 0 celecoxib 400 mg mg oxyCODONE 10 mg mg 03/24/2023 6:08 EDT Height 165.1 cm Admission Weight 84 kg Friend Body Weight 57.00 kg Apical Heart Rate 56 bpm LOW Respiratory Rate 14 br/min Systolic Blood Pressure Non-Invasive 140 mmHg Diastolic Blood Pressure Non-Invasive 73 mmHg Primary Pain Intensity 0 Pain Scale Type 0-10 Pain scale Heart Rhythm Regular Respirations Unlabored Respiratory Pattern Regular Cough None Oxygen Therapy Room air Oxygen Saturation 98 % Abdomen Description Non-distended, Soft Abdomen Palpation Non-Tender Bowel Sounds All Quadrants Present Urinary Elimination Voiding, no difficulties Skin Temperature Warm Skin Description [place], Normal for ethnicity, Dry Skin Integrity Intact Skin Moisture General Dry IV Present Present Neurological Symptoms Patient denies Extremity Movement Equal Characteristics of Speech Clear Level of Consciousness Alert Strength All Extremities Strong Tone All Extremities Normal Left Upper Extremity Sensation Intact Right Upper Extremity Sensation Intact Left Lower Extremity Sensation Numbness Right Lower Extremity Sensation Numbness Affect/Behavior Appropriate, Calm, Cooperative Orientation Oriented x 4 Allergies Yes Consent Form Signed Yes Patient Dressed In Hospital gown, No undergarments Pre-op Preparation Glasses not removed, Undergarments removed CHG Preoperative Wash/Wipe Night before procedure, Day of procedure Preop Nasal Swab Povidone-Iodine History & Physical Update On Chart Yes History & Physical On Chart Yes Obstructive Sleep Apnea Assess Completed Yes Orientation Assessment Oriented x 4 Belongings At Bedside Glasses, Pants, Shirt, Shoes, Socks, Walker Activity Status ADL Awake, Resting SCD On/Re-applied right knee high Antiembolism Stocking On/Re-applied right thigh high NPO Status Maintained Standard Safety ID band on, Allergy Band on, Call device within reach, Bed in low position, Wheels locked, personal items within reach, Non-Slip footwear Allergy Band on and Verified Yes Patient ID Band on and Verified Yes Implants Verified Yes Pacemaker/AICD Verified Yes Site Verified by Patient/Family Yes Anesthesia Consent Signed Yes Blood Consent Signed Yes Last Fluid Intake 03/24/2023 4:00 Last Food Intake 03/23/2023 17:30 Last Void 03/24/2023 4:00 03/24/2023 6:06 EDT Privacy Restrictions Requested None Body Mass Index In Error kg/m2 (In Error) Sensory Deficits None Advance Directive Location Unable to obtain copy (Modified) Safety Brochure Information Reviewed Yes [facility] Video Viewed No Teaching Evaluation No further teaching needed Eat Poorly Due to Decreased Appetite No Total MST Score 0 Admission Note-Nursing Same Day Patient History (Modified) . ECG interpretation Documentation reviewed Assessment and Plan [place] [employer] (ASA) physical status classification: Class III. Anesthetic Preoperative Plan Premedication: intravenous. Anesthetic technique: General, Regional. Induction: intravenously. Maintenance airway: Oral endotracheal tube. Regional: Adductor Canal Block. Postoperative pain management: Per surgeon. Risks discussed: nausea, vomiting, headache, sore throat, dental injury, hypotension, allergic reaction, serious complications. Informed consent: signed by patient. Notes: HTN; syringomyelia; anemia; hypothyroid. Digitally Signed by BELL MARION on 03/24/2023 07:42 AM Digitally Signed by BELL MARION on 03/24/2023 07:42 AM [facility] 03-02-2023 Note ORIGINAL EXAMINATION: CT OF THE LEFT KNEE WITHOUT CONTRAST 03/02/2023 3:38 pm TECHNIQUE: CT of the left knee was performed without the administration of intravenous contrast. Multiplanar reformatted images are provided for review. Automated exposure control, iterative reconstruction, and/or weight based adjustment of the mA/kV was utilized to reduce the radiation dose to as low as reasonably achievable. COMPARISON: None. HISTORY ORDERING SYSTEM PROVIDED HISTORY: Reason for Exam: Varus deformity, not elsewhere classified, left knee. FINDINGS: No acute fracture or dislocation. Osseous demineralization. No visible aggressive osseous lesions. Scattered small bone islands suspected. Bone island suspected of the proximal tibial diaphysis and metaphysis also. There is severe medial femorotibial compartment joint space narrowing with subchondral sclerosis, tiny subchondral cysts, and marginal osteophyte formation. Medial meniscal body extrusion. There is moderate lateral femorotibial compartment joint space narrowing with marginal osteophyte formation. There is mild to moderate patellofemoral compartment joint space narrowing with subchondral sclerosis, subchondral cysts, and small marginal osteophytes. There is a trace volume knee joint effusion. Small volume Frey's cyst.. Tendons and ligaments are suboptimally evaluated on this examination. Scattered foci of muscle atrophy. Advanced gluteus medius and minimus atrophy. Provided images of the hip and hemipelvis exhibit no acute osseous abnormalities or aggressive osseous lesions. Suspected bone island of the lesser trochanter. Moderate pubic symphysis arthrosis. Colonic diverticulosis without evidence of acute diverticulitis. Phleboliths. The included intrapelvic contents exhibit no acute abnormalities. Provided images of the ankle exhibit no acute osseous abnormalities or aggressive osseous lesions. Incidental note of os naviculare. Dorsal osteophytosis of the talonavicular joint. Subchondral cysts of the talus and fibula. IMPRESSION: 1. No acute osseous abnormalities or aggressive osseous lesions. 2. 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 Trace volume effusion. Small volume Frey's cyst. RECOMMENDATIONS: Unavailable Interpreted by: Camilo Siddiqui DO Preliminary Report By: Camilo Siddiqui DO Electronically signed By Camilo Siddiqui DO Dictated Date: 03/02/2023 4:10:40 PM Prelim Date: 03/02/2023 4:15:17 PM Sign Date: 03/02/2023 4:15:17 PM Ordering Provider: HOLGER NARESH [facility] 03-02-2023 Note ORIGINAL EXAMINATION: CT OF THE LEFT KNEE WITHOUT CONTRAST 03/02/2023 3:38 pm TECHNIQUE: CT of the left knee was performed without the administration of intravenous contrast. Multiplanar reformatted images are provided for review. Automated exposure control, iterative reconstruction, and/or weight based adjustment of the mA/kV was utilized to reduce the radiation dose to as low as reasonably achievable. COMPARISON: None. HISTORY ORDERING SYSTEM PROVIDED HISTORY: Reason for Exam: Varus deformity, not elsewhere classified, left knee. FINDINGS: No acute fracture or dislocation. Osseous demineralization. No visible aggressive osseous lesions. Scattered small bone islands suspected. Bone island suspected of the proximal tibial diaphysis and metaphysis also. There is severe medial femorotibial compartment joint space narrowing with subchondral sclerosis, tiny subchondral cysts, and marginal osteophyte formation. Medial meniscal body extrusion. There is moderate lateral femorotibial compartment joint space narrowing with marginal osteophyte formation. There is mild to moderate patellofemoral compartment joint space narrowing with subchondral sclerosis, subchondral cysts, and small marginal osteophytes. There is a trace volume knee joint effusion. Small volume Frey's cyst.. Tendons and ligaments are suboptimally evaluated on this examination. Scattered foci of muscle atrophy. Advanced gluteus medius and minimus atrophy. Provided images of the hip and hemipelvis exhibit no acute osseous abnormalities or aggressive osseous lesions. Suspected bone island of the lesser trochanter. Moderate pubic symphysis arthrosis. Colonic diverticulosis without evidence of acute diverticulitis. Phleboliths. The included intrapelvic contents exhibit no acute abnormalities. Provided images of the ankle exhibit no acute osseous abnormalities or aggressive osseous lesions. Incidental note of os naviculare. Dorsal osteophytosis of the talonavicular joint. Subchondral cysts of the talus and fibula. IMPRESSION: 1. No acute osseous abnormalities or aggressive osseous lesions. 2. 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 Trace volume effusion. Small volume Frey's cyst. RECOMMENDATIONS: Unavailable Interpreted by: Camilo Siddiqui DO Preliminary Report By: Camilo Siddiqui DO Electronically signed By Camilo Siddiqui DO Dictated Date: 03/02/2023 4:10:40 PM Prelim Date: 03/02/2023 4:15:17 PM Sign Date: 03/02/2023 4:15:17 PM Ordering Provider: [facility] 05-07-2021 Note HNO ID: [id number] Author: Eugenie Aponte MD Service: ? Author Type: Physician Type: Progress Notes Filed: 05/17/2021 11:58 AM Note Text: NEUROSURGERY CONSULT NOTE Eugenie Aponte MD Date of visit: May 07, 2021 Patient Name: Ms.Karen Elio Kee Date of : 1950 Current Age: [age] year old Sex: female MRN/E# [id number] Chief Complaint: No chief complaint on file. HISTORY OF PRESENT ILLNESS : The patient is a 70 year old, right handed female with a past medical history of hypothyroidism, hypercholesteremia, and hypertension who is referred by Dr. Arellano for neurosurgical evaluation. Ms. Kee presents to the office as a new patient with imaging for evaluation of syrinx. She describes a 17 year history of pain in the right side of her chest/ribs after a hard fall in 2003. She states she was inially told she likely had a rib fracture, however was not worked up for this. She continued to experience this pain for several years and has worsened in the last 1.5 years. She notes persistent pain in the right side of her chest without radiation into the extremities. Additionally, she describes gradual bilateral lower extremity generalized weakness and intermittent numbness in the bottom of bilateral feet. She describes some gait instability but states she was diagnosed with scoliosis in the past and attributed her imbalance to her spine abnormality. She presents today for evaluation and plan of care. Symptoms: right chest pain, thoracic discomfort PREVIOUS CONSERVATIVE TREATMENTS: NSAID's Activity modification PREVIOUS SURGERY: None PAIN EVALUATION No data found in the last 1 encounters. PAST MEDICAL HISTORY Diagnosis Date - Diarrhea - Essential hypertension, benign - Hypercholesteremia - IBS (irritable bowel syndrome) - Internal hemorrhoids without mention of complication - Unspecified hypothyroidism PAST SURGICAL HISTORY Procedure Laterality Date - APPENDECTOMY 1971 - COLONOSCOP W/ OR W/O [facility] SPEC 11/15/07 - LIGATE FALLOPIAN TUBE 1979 Tubal ligation - PAST SURGICAL HISTORY OF THUMB SURGERY AFTER INJURY - REMOVAL OF TONSILS,<12 Y/O 1978 Tonsillectomy History reviewed. No pertinent family history. ALLERGIES Allergen Reactions - Augmentin [Amoxicil* Diarrhea - Bactrim [Sulfametho* Rash Facial rash ( bernardino oral dermatitis ) dx by Dr Pittman and confirmed in the Aug Current Outpatient Medications Medication Sig Dispense Refill - lisinopril-hydroCHLOROthiazide (PRINZIDE, ZESTORETIC) 20-25 mg per tablet Take 1 tablet by mouth once daily. - cholecalciferol, vitamin D3, (VITAMIN D3 ORAL) Take by mouth. - ascorbic acid (MIKE-C ORAL) Take by mouth. - vitamin B complex (B COMPLEX 1 ORAL) Take by mouth. - SYNTHROID 50 mcg tablet Take 1 tablet by mouth once daily. As directed. 90 tablet 3 - calcium carbonate-vitamin D3 1,000 mg(2,500 mg)-800 unit Tab Take 2 tablets by mouth once daily. 0 - citalopram (CELEXA) 20 mg tablet Take 1 tablet by mouth once daily. (Patient not taking: Take 1 tablet by mouth once daily.) 90 tablet 3 - lisinopril (ZESTRIL, PRINIVIL) 20 mg tablet Take 1 tablet by mouth once daily. (Patient not taking: Take 1 tablet by mouth once daily.) 90 tablet 3 - ALPRAZolam (XANAX) 0.25 mg tablet Take 0.5-1 tablets by mouth at bedtime as needed for up to 90 days. 20 tablet 0 - albuterol sulfate (PROAIR RESPICLICK) 90 mcg/actuation aepb Inhale 2 Inhalation as instructed four times daily as needed. (Patient not taking: Reported on 05/07/2021 ) 1 Inhaler 0 - COMPOUNDED PRESCRIPTION Melatonin 1 pill at bedtime (Patient not taking: Reported on 05/07/2021 ) - Loperamide HCl (IMODIUM A-D) 2 mg Tab Take 1 tablet by mouth daily at bedtime. May take during day if needed (Patient not taking: Reported on 05/07/2021 ) No current facility-administered medications for this visit. REVIEW OF SYSTEMS Review of Systems Constitutional: Negative for chills, diaphoresis and fever. HENT: Negative for congestion, ear pain and sinus pressure. Eyes: Negative for discharge and redness. Respiratory: Negative for cough, shortness of breath and wheezing. Cardiovascular: Negative for chest pain, palpitations and leg swelling. Gastrointestinal: Negative for constipation, diarrhea and nausea. Endocrine: Negative for cold intolerance and heat intolerance. Genitourinary: Negative for difficulty urinating, frequency and urgency. Musculoskeletal: Positive for back pain. Negative for gait problem and neck pain. Skin: Negative for rash and wound. Allergic/Immunologic: Positive for environmental allergies and food allergies. Sensitive to gluten, seasonal allergies Neurological: Positive for weakness and numbness. Negative for dizziness. Hematological: Bruises/bleeds easily. Psychiatric/Behavioral: Negative for agitation. The patient is nervous/anxious. OBJECTIVE: BP 171/79 Pulse 58 Temp 97.9 Resp 16 (more content not included)... [facility] Evaluation + Plan note Future Appointments [facility] Evaluation note No assessment inform ation available [facility] Work Phone: Hospital course Narrative No data available for this section [facility] Hospital Discharge instructions No data available for this section [facility] Hospital Discharge instructions Additional Instructions Please follow-up with cardiology, return for any concerning or worsening symptoms. Please return for any chest pain, shortness of breath, or any other concerning symptoms. [facility] Work Phone: Instructions Name Patient Instructions Indication:Nonsmoker Start: Instruction Type:Provider Instructions for Treatment How to Access Health Information Online using Patient Portal and [employer]rd [employer] Apps Indication:Nonsmoker Start: Instruction Type:Patient Education [facility] Work Phone: instructions* Name Dates Details Patient Instructions Indication:Nonsmoker Start:12-Dec-2022 Instruction Type:Provider Instructions for Treatment How to Access Health Informa tion Online using Patient Portal and [employer]rd [employer] Apps Indication:Nonsmoker Start:12-Dec-2022 Instruction Type:Patient Education [facility]; [facility] Work Phone: instructions* Name Dates Details Patient Instructions Indication:Hypertension Start:12-Jan-2023 Instruction Type:Provider Instructions for Treatment How to Access Health Informa tion Online using Patient Portal and [employer]rd [employer] Apps Indication:Hypertension Start:12-Jan-2023 Instruction Type:Patient Education Patient Instructions Indication:Nonsmoker Start:12-Dec-2022 Instruction Type:Provider Instructions for Treatment How to Access Health Informa tion Online using Patient Portal and [employer]rd [employer] Apps Indication:Nonsmoker Start:12-Dec-2022 Instruction Type:Patient Education [facility]; [facility] Work Phone: instructions* Name Dates Details Patient Instructions Indication:Preop examination (Renamed from Encounter for pre-operative examination) Start:09-Mar-2023 Instruction Type:Provider Instructions for Treatment How to Access Health Informa tion Online using Patient Portal and [employer] Apps Indication:Preop examination (Renamed from Encounter for pre-operative examination) Start:09-Mar-2023 Instruction Type:Patient Education Patient Instructions Indication:Hypertension Start:12-Jan-2023 Instruction Type:Provider Instructions for Treatment How to Access Health Informa tion Online using Patient Portal and [employer] Apps Indication:Hypertension Start:12-Jan-2023 Instruction Type:Patient Education Patient Instructions Indication:Nonsmoker Start:12-Dec-2022 Instruction Type:Provider Instructions for Treatment How to Access Health Informa tion Online using Patient Portal and [employer]rd [employer] Apps Indication:Nonsmoker Start:12-Dec-2022 Instruction Type:Patient Education [facility]; [facility] Work Phone: Instructions* Name Dates Details Patient Instructions Indication:Preop examination (Renamed from Encounter for pre-operative examination) Start:09-Mar-2023 Instruction Type:Provider Instructions for Treatment How to Access Health Informa tion Online using Patient Portal and [employer]rd [employer] Apps Indication:Preop examination (Renamed from Encounter for pre-operative examination) Start:09-Mar-2023 Instruction Type:Patient Education Patient Instructions Indication:Hypertension Start:12-Jan-2023 Instruction Type:Provider Instructions for Treatment How to Access Health Informa tion Online using Patient Portal and [employer]rd [employer] Apps Indication:Hypertension Start:12-Jan-2023 Instruction Type:Patient Education Patient Instructions Indication:Nonsmoker Start:12-Dec-2022 Instruction Type:Provider Instructions for Treatment How to Access Health Informa tion Online using Patient Portal and [employer]rd [employer] Apps Indication:Nonsmoker Start:12-Dec-2022 Instruction Type:Patient Education [facility]; [facility] Work Phone: instructions* Name Dates Details Patient Instructions Indication:Nonsmoker Start:15-Jul-2023 Instruction Type:Provider Instructions for Treatment How to Access Health Informa tion Online using Patient Portal and [employer]rd [employer] Apps Indication:Nonsmoker Start:15-Jul-2023 Instruction Type:Patient Education Patient Instructions Indication:Preop examination (Renamed from Encounter for pre-operative examination) Start:09-Mar-2023 Instruction Type:Provider Instructions for Treatment How to Access Health Informa tion Online using Patient Portal and [employer]rd [employer] Apps Indication:Preop examination (Renamed from Encounter for pre-operative examination) Start:09-Mar-2023 Instruction Type:Patient Education Patient Instructions Indication:Hypertension Start:12-Jan-2023 Instruction Type:Provider Instructions for Treatment How to Access Health Informa tion Online using Patient Portal and [employer]rd [employer] Apps Indication:Hypertension Start:12-Jan-2023 Instruction Type:Patient Education Patient Instructions Indication:Nonsmoker Start:12-Dec-2022 Instruction Type:Provider Instructions for Treatment How to Access Health Informa tion Online using Patient Portal and [employer]rd [employer] Apps Indication:Nonsmoker Start:12-Dec-2022 Instruction Type:Patient Education [facility]; [facility] Work Phone: Instructions* Name Dates Details Patient Instructions Indication:Nonsmoker Start:15-Jul-2023 Instruction Type:Provider Instructions for Treatment How to Access Health Informa tion Online using Patient Portal and [employer] Apps Indication:Nonsmoker Start:15-Jul-2023 Instruction Type:Patient Education Patient Instructions Indication:Preop examination (Renamed from Encounter for pre-operative examination) Start:09-Mar-2023 Instruction Type:Provider Instructions for Treatment How to Access Health Informa tion Online using Patient Portal and [employer] Apps Indication:Preop examination (Renamed from Encounter for pre-operative examination) Start:09-Mar-2023 Instruction Type:Patient Education Patient Instructions Indication:Hypertension Start:12-Jan-2023 Instruction Type:Provider Instructions for Treatment How to Access Health Informa tion Online using Patient Portal and [employer] Apps Indication:Hypertension Start:12-Jan-2023 Instruction Type:Patient Education Patient Instructions Indication:Nonsmoker Start:12-Dec-2022 Instruction Type:Provider Instructions for Treatment How to Access Health Informa tion Online using Patient Portal and [employer] Apps Indication:Nonsmoker Start:12-Dec-2022 Instruction Type:Patient Education [facility]; [facility] Work Phone: progress note No data available for this section [facility] Reason for referral (narrative)No reason for referral information availableS[facility] Work Phone: Summary Purpose Family History No Family History Records FoundUnknown Family Member Name Dates Details Father Comments:PA Status:Active Mother Comments:Arthritis, Ovarian cancer Status:Active Paternal Grandmother Comments:Thyroid issues Status:Active Unknown Family Member Name Dates Details Father Comments:PA Status:Active Mother Comments:Arthritis, Ovarian cancer, ETOH Status:Active Paternal Grandmother Comments:Thyroid issues Status:Active Unknown Family Member Name Dates Details Father Comments:PA Status:Active Mother Comments:Arthritis, Ovarian cancer, ETOH Status:Active Paternal Grandmother Comments:Thyroid issues Status:Active Unknown Family Member Name Dates Details CHF (congestive heart failur e)(I50.9, 428.0) Comments:Brother. Status:Active Father Comments:PA Status:Active Mother Comments:Arthritis, Ovarian cancer, ETOH Status:Active Paternal Grandmother Comments:Thyroid issues Status:Active Unknown Family Member Name Dates Details CHF (congestive heart failur e)(I50.9, 428.0) Comments:Brother. Status:Active Father Comments:PA Status:Active Mother Comments:Arthritis, Ovarian cancer, ETOH Status:Active Paternal Grandmother Comments:Thyroid issues Status:Active Unknown Family Member Name Dates Details Father Comments:PA at 71 Status:Active Heart Valve Insufficiency Comments:Brother. Status:Active Mother Comments:Arthritis, Ovarian cancer, ETOH Status:Active Paternal Grandmother Comments:Thyroid issues Status:Active Unknown Family Member Name Dates Details Father Comments:PA at 71 Status:Active Heart Valve Insufficiency Comments:Brother. Status:Active Mother Comments:Arthritis, Ovarian cancer, ETOH Status:Active Paternal Grandmother Comments:Thyroid issues Status:Active Unknown Family Member Name Dates Details Father Comments:PA at 71 Status:Active Heart Valve Insufficiency Comments:Brother. Status:Active Mother Comments:Arthritis, Ovarian cancer, ETOH Status:Active Paternal Grandmother Comments:Thyroid issues Status:Active Unknown Family Member Name Dates Details Father Comments:PA at 71 Status:Active Heart Valve Insufficiency Comments:Brother. Status:Active Mother Comments:Arthritis, Ovarian cancer, ETOH Status:Active Paternal Grandmother Comments:Thyroid issues Status:Active Advance Directives No Advanced Directives Records Found Advance Directive Response Recorded Date/ Time Do you have a Healthcare Power of Center Human Resources Manager? Yes March 10, 2025 2:37pm Name of Medical Power of Center Human Resources Manager Сергей March 10, 2025 2:37pm Chief Complaint and Reason for Visit Chief Complaint Admit Date PREOP February 23, 2025 12:18 pm Chief Complaint Admit Date PREOP February 23, 2025 12:18 pm PREOP February 23, 2025 12:32 pm abnormal labs March 10, 2025 2:15 pm Additional Source Comments INFORMATION SOURCE (unrecogn ized section and content) DATE CREATED AUTHOR 05/19/2021 [facility] DATE CREATED AUTHOR AUTHOR'S ORGANIZ ATION 10/20/2021 [facility] DATE CREATED AUTHOR AUTHOR'S ORGANIZ ATION 02/07/2023 [facility] DATE CREATED AUTHOR AUTHOR'S ORGANIZ ATION 03/26/2023 [facility] DATE CREATED AUTHOR AUTHOR'S ORGANIZ ATION 04/10/2025 [facility] Goals (unrecognized section and content) Goals may be documented in a n alternate sectionGoals may be documented in an alternate section No data available for this section No data available for this section No data available for this sectionGoals may be documented in an alternate sectionGoals may be documented in an alternate sectionGoals may be documented in an alternate section Patient Care team informatio n (unrecognized section and content) Team Status: Active Member Role Status Dates Brandon Randall NP-C Primary Care Provider Active Team Status: Inactive Member Role Status Dates Dr. Hogler Infante MD Attending Provider Active Start: February 23, 2025 End: February 23, 2025 Dr. Holger Infante MD Referring Provider Active Start: February 23, 2025 End: February 23, 2025 Brandon Randall NP-C Primary Care Provider Active Start: February 23, 2025 End: February 23, 2025 Team Status: Active Member Role Status Dates Brandon Randall NP-C Primary Care Provider Active Start: February 23, 2025 End: February 23, 2025 Dr. Robert aHgen MD Attending Provider Active Start: February 23, 2025 End: February 23, 2025 Dr. Holger Infante MD Referring Provider Active Start: February 23, 2025 End: February 23, 2025 Team Status: Active Member Role Status Dates Brandon Randall NP-C Primary Care Provider Active Start: March 10, 2025 Dr. Ana Hernández MD Attending Provider Active Start: March 10, 2025 Dr. Ana Hernández MD Referring Provider Active Start: March 10, 2025 Team Status: Inactive Member Role Status Dates Brandon Randall NP-C Primary Care Provider Active Start: March 10, 2025 End: March 10, 2025 Dr. Luis M Geller DO Emergency Provider Active Start : March 10, 2025 End: March 10, 2025 Team Status: Inactive Member Role Status Dates Brandon Randall NP-C Primary Care Provider Active Start: March 10, 2025 End: March 10, 2025 Dr. Ana Hernández MD Attending Provider Active Start: March 10, 2025 End: March 10, 2025 Dr. Ana Hernández MD Referring Provider Active Start: March 10, 2025 End: March 10, 2025 Team Status: Inactive Member Role Status Dates MIRIAN Lundberg Primary Care Provider Active Start: March 10, 2025 End: March 10, 2025 Dr. Luis M Geller DO Attending Provider Active Start : March 10, 2025 End: March 10, 2025 Dr. Luis M Geller DO Emergency Provider Active Start : March 10, 2025 End: March 10, 2025 FOR RECORDS PERTAINING TO PATIENTS WHO ARE OR HAVE BEEN ENROLLED IN A CHEMICAL DEPENDENCY/SUBSTANCEABUSE PROGRAM, SOME INFORMATION MAY BE OMITTED. This clinical summary was aggregated from multiple sources. Caution should be exercised in using it in the provision of clinical care. This summary normalizes information from multiple sources, and as a consequence, information in this document may materially change the coding, format and clinical context of patient data. In addition, data may be omitted in some cases. CLINICAL DECISIONS SHOULD BE BASED ON THE PRIMARY CLINICAL RECORDS. [facility] [place], [facility]. provides no warranty or guarantee of the accuracy or completeness of information in this document.
--- OUTSIDE RECORDS SUMMARY | 2025-04-12 22:39 | XMS RPT_ITS | CCD ---
Author Organization [facility] CliniSyaz Care Team Providers Care Rural Electrification Engineer Name Role Phone Garrett ELECTRONIC IMAGER, Brandon Unavailable Garrett ELECTRONIC IMAGER, Brandon Unavailable Marissa Moreno Unavailable Unavailable KATHLEEN ELECTRONIC IMAGER, AMBER Unavailable Field Investigator, System Unavailable Unavailable Marine Johnson LPN Unavailable Unavailable Unavailable Unavailable Holger Infante Unavailable Brandon Randall CNP Attending Unavailable Garrett ELECTRONIC IMAGER, Brandon Consulting Unavailable GARRETT BISQUE FINISHER-ELECTRONIC IMAGER, BRANDON Primary Care Physician Amanda BURTON, Vanita Unavailable Unavailable NARESH GRIMM, DR HOLGER Gonzalez Attending Unavailab le GARRETT BISQUE FINISHER-ELECTRONIC IMAGER, [facility] Primary Care Unavail able NARESH GRIMM, DR HOLGER Gonzalez Attending Unavailab le GARRETT BISQUE FINISHER-ELECTRONIC IMAGER, [facility] Primary Care Unavail able NARESH GRIMM, DR HOLGER Gonzalez Attending Unavailab le GARRETT BISQUE FINISHER-ELECTRONIC IMAGER, [facility] Primary Care Unavail able Dr. Holger Infante MD Attending Provider [phone] Dr. Holger Infante MD Referring Provider Garrett RENE-C, Brandon Primary Care Provider Dr. Robert Hagen MD Attending Provider Dr. Ana Hernández MD Attending Provider Dr. Ana Hernández MD Referring Provider Dr. Luis M Geller DO Emergency Provider Dr. Luis M Geller DO Attending Provider Robert Hagen Attending Unavailable Holger Infante Referring Unavailable Brandon Randall Primary Care Unavailable Holger Infante Attending Unavailable Holger Infante Referring Unavailable Brandon Randall Primary Care Unavailable Ana Hernández Attending Unavailable Ana Hernández Referring Unavailable Brandon Randall Primary Care Unavailable Brandon Randall Primary Care Unavailable Luis M Geller Attending Unavailable Brandon Randall Attending Unavailable Brandon Randall Referring Unavailable Brandon Randall Primary Care Unavailable Ana Hernández Attending Unavailable Brandon Randall Primary Care Unavailable Allergies Allergy Classification Reported Allergen(s) Allergy Type Date of Onset Reaction(s) Facility (5 sources) Sulfamethoxazole Drug Allergy 04-08-20 21 Upset Stomach [facility] (5 sources) Trimethoprim Drug Allergy 04-08-20 21 Upset Stomach [facility] (14 sources) Poison Patria Allergy to [...] Clavulanate; Translations: [amoxicillin-clavul anate] Drug Allergy Diarrhea [facility] (3 sources) Sulfamethoxazole / Trimethoprim; Translations: [sulfamethoxazole-t rimethoprim] Drug Allergy [facility] (2 sources) Amoxicillin Drug Allergy 03-10-20 25 [facility] (2 sources) Clavulanate Drug Allergy 03-10-20 25 Diarrhea [facility] (1 source) Amoxicillin Drug Allergy 03-10-20 25 [facility] (1 source) Clavulanate Drug Allergy 03-10-20 25 [facility] (1 source) Sulfamethoxazole Drug Allergy 03-10-20 25 [facility] (1 source) Trimethoprim Drug Allergy 03-10-20 [facility] Medications Current Medications Medication Drug [...] Quantity: 30 {Tablet} Refills: 1 Ordered: 08-Apr-2023 Brandno Randall CNP Start : 08-Apr-2023 Active Start: [...] tablet by sonya th twice daily lisinopriL-hydrochlorothiazide 20-12.5 m g [...] Auto (Unsp spec) [#/Vol] 2.61 10*3/uL 0.83-4.51 [facility] Absolute neutrophil countOrd ered By: Gertrude Carver on 03-10-2025 Neutrophils (Bld) [#/Vol] 4.2 10*3/uL 2.0-7.7 [facility] Anion gap in Serum or Plasma Ordered By: Gertrude Carver on 03-10-2025 Anion gap [Moles/Vol] 14 mmol/L 5-15 [facility] Automated lymphocyte count a s percentage of total leukocytesOrdered By: Gertrude Carver on 03-10-2025 Lymphocytes/100 WBC Auto (Unsp spec) 32.2 % -41 [facility] BUN/creatinine ratioOrdered By: Gertrude Carver on 03-10-2025 Urea nitrogen/Creatinine [Mass ratio] 24.9 mg/mg High 10-20 [facility] Basic Metabolic Profile (BMP )on 03-10-2025 BUN/CRE 24.9 RATIO High 10-20 [facility] Comment on above: Performed By: #### L 100.0100, M100.651, L501.1800, L500.2500 #### [facility] [address] [place], [address] Calcium [Mass/Vol] 10.2 mg/dL Normal 7.6-11.0 [facility] Comment on above: Performed By: #### L 100.0100, M100.651, L501.1800, L500.2500 #### [facility] [address] [place], [address] Chloride [Moles/Vol] 98 mmol/L Normal 98-108 [facility] Comment on above: Performed By: #### L 100.0100, M100.651, L501.1800, L500.2500 #### [facility] [address] [place], [address] CO2 [Moles/Vol] 24.0 mmol/L Normal 21.0-32.0 [facility] Comment on above: Performed By: #### L 100.0100, M100.651, L501.1800, L500.2500 #### [facility] [address] [place], [address] Creatinine [Mass/Vol] 1.13 mg/dL Normal 0.70-1.20 [facility] Comment on above: Performed By: #### L 100.0100, M100.651, L501.1800, L500.2500 #### [facility] [address] [place], [address] ECRCL 47.02 ml/min Low 50-250 [facility] Comment on above: Performed By: #### L 100.0100, M100.651, L501.1800, L500.2500 #### [facility] [address] [place], [address] GAP 14 Normal 5-15 [facility] Comment on above: Performed By: #### L 100.0100, M100.651, L501.1800, L500.2500 #### [facility] [address] [place], [address] GFR/1.73 sq M.predicted among non-blacks MDRD (S/P/Bld) [Vol rate/Area] 51 mL/min/{1.73_m2} Low >60 [facility] Comment on above: Result Comment: mL/m in/1.73m2 CKD-EPI Creatinine Equation (2020) Performed By: #### L 100.0100, M100.651, L501.1800, L500.2500 #### [facility] [address] [place], [address] Glucose [Mass/Vol] 99 mg/dL Normal 70-99 [facility] Comment on above: Performed By: #### L 100.0100, M100.651, L501.1800, L500.2500 #### [facility] [address] [place], [address] Potassium [Moles/Vol] 3.7 mmol/L Normal 3.3-5.1 [facility] Comment on above: Performed By: #### L 100.0100, M100.651, L501.1800, L500.2500 #### [facility] [address] [place], [address] Sodium [Moles/Vol] 136 mmol/L Normal 133-145 [facility] Comment on above: Performed By: #### L 100.0100, M100.651, L501.1800, L500.2500 #### [facility] [address] [place], [address] Urea nitrogen [Mass/Vol] 28 mg/dL High 4-19 [facility] Comment on above: Performed By: #### L 100.0100, M100.651, L501.1800, L500.2500 #### [facility] [address] [place], [address] Basophil percentageOrdered B y: Gertrude Carver on 03-10-2025 Basophils/100 WBC (Bld) 1.6 % High 0-1 [facility] CBC W/Diff, Automatedon 02-26 Absolute Lymph 2.61 X10 3/uL Normal 0.83-4.51 [facility] Comment on above: Performed By: #### L 100.0100, M100.651, L501.1800, L500.2500 #### [facility] [address] [place], [address] Absolute Neut 4.2 X10 3/uL Normal 2.0-7.7 [facility] Comment on above: Performed By: #### L 100.0100, M100.651, L501.1800, L500.2500 #### [facility] [address] [place], [address] Basophils/100 WBC (Bld) 1.6 % High 0-1 [facility] Comment on above: Performed By: #### L 100.0100, M100.651, L501.1800, L500.2500 #### [facility] [address] [place], [address] Eosinophils/100 WBC (Bld) 5.2 % High 0-5 [facility] Comment on above: Performed By: #### L 100.0100, M100.651, L501.1800, L500.2500 #### [facility] [address] [place], [address] Erythrocyte distribution width (RBC) [Ratio] 12.8 % Normal 11.6-14.6 [facility] Comment on above: Performed By: #### L 100.0100, M100.651, L501.1800, L500.2500 #### [facility] [address] [place], [address] Hematocrit (Bld) [Volume fraction] 33.2 % Low 37-47 [facility] Comment on above: Performed By: #### L 100.0100, M100.651, L501.1800, L500.2500 #### [facility] [address] [place], [address] Hemoglobin (Bld) [Mass/Vol] 11.3 g/dL Low 12.0-15.0 [facility] Comment on above: Performed By: #### L 100.0100, M100.651, L501.1800, L500.2500 #### [facility] [address] [facility] [place], [address] IG% 0.200 Normal 0.0-0.9 [facility] Comment on above: Result Comment: IG% - Immature Granulocytes (promyelocytes, myelocytes and metamyelocytes) > 1% indicates that a LEFT SHIFT is Present. Performed By: #### L 100.0100, M100.651, L501.1800, L500.2500 #### [facility] [address] [facility] [place], [address] Lymphocytes/100 WBC (Bld) 32.2 % Normal 19-41 [facility] Comment on above: Performed By: #### L 100.0100, M100.651, L501.1800, L500.2500 #### [facility] [address] [place], [address] MCH (RBC) [Entitic mass] 30.7 pg Normal 27.0-32.0 [facility] Comment on above: Performed By: #### L 100.0100, M100.651, L501.1800, L500.2500 #### [facility] [address] [place], [address] MCHC (RBC) [Mass/Vol] 34.0 g/dL Normal 32-36 [facility] Comment on above: Performed By: #### L 100.0100, M100.651, L501.1800, L500.2500 #### [facility] [address] [place], [address] MCV (RBC) [Entitic vol] 90.2 fL Normal 81-99 [facility] Comment on above: Performed By: #### L 100.0100, M100.651, L501.1800, L500.2500 #### [facility] [address] [place], [address] Monocytes/100 WBC (Bld) 8.8 % Normal 0-10 [facility] Comment on above: Performed By: #### L 100.0100, M100.651, L501.1800, L500.2500 #### [facility] [address] [place], [address] Neutrophils/100 WBC (Bld) 52.0 % Normal 47-70 [facility] Comment on above: Performed By: #### L 100.0100, M100.651, L501.1800, L500.2500 #### [facility] [address] [place], [address] Nucleated RBC (Bld) [#/Vol] 0 10*3/uL Normal 0-5 [facility] Comment on above: Performed By: #### L 100.0100, M100.651, L501.1800, L500.2500 #### [facility] [address] [place], [address] Platelet mean volume (Bld) [Entitic vol] 11.5 fL Normal 6.2-12.0 [facility] Comment on above: Performed By: #### L 100.0100, M100.651, L501.1800, L500.2500 #### [facility] [address] [place], [address] Platelets (Bld) [#/Vol] 322 10*3/uL Normal 150-450 [facility] Comment on above: Performed By: #### L 100.0100, M100.651, L501.1800, L500.2500 #### [facility] [address] [place], [address] RBC (Bld) [#/Vol] 3.68 10*6/uL Low 4.2-5.4 [facility] Comment on above: Performed By: #### L 100.0100, M100.651, L501.1800, L500.2500 #### [facility] [address] [place], [address] RDW SD 42.2 fl Normal 35.1-43.9 [facility] Comment on above: Performed By: #### L 100.0100, M100.651, L501.1800, L500.2500 #### [facility] [address] [place], [address] WBC (Bld) [#/Vol] 8.1 10*3/uL Normal 4.4-11.0 [facility] Comment on above: Performed By: #### L 100.0100, M100.651, L501.1800, L500.2500 #### [facility] [address] [place], [address] Carbon dioxide, total [Moles /volume] in Central venous bloodOrdered By: Gertrude Carver on 03-10-2025 CO2 [Moles/Vol] 24.0 mmol/L 21.0-32.0 [facility] Chest PA and Lateralon 03-10 Chest PA and Lateral [facility] [address] [place] [address] Chest PA and Lateral MR#: [id number] Acct: [id number] Name: VAISHALI KEE ALISSON Rep #: [id number] : 1950 F 74 From: Jeniffer Olsen nd, MD PCP: MIRIAN Lundberg Status: REG ER Study: Chest PA and Lateral Date of Exam: 03/10/25 Exam# [id number] Ordering Dr: Gertrude Carver PROCEDURE: CHEST PA [...] and Lateral IMPRESSION: NEGATIVE CHEST Reading Location: [id number] CC: MIRIAN Randall; KWESI Simon [place]: Signed Normal [facility] Chloride assayOrdered By: Johanne Carver on 03-10-2025 Chloride [Moles/Vol] 98 mmol/L 98-108 [facility] D-Dimer Quantitative (DVT/PE )on 03-10-2025 D-DIMER QUANT 0.48 FEU/ug/m Normal 0.27-0.49 [facility] Comment on above: Result Comment: NORM AL D-Dimer level (<0.50) indicates no DVT or PE. Performed By: #### L 300.3900, L300.8000 #### [facility] [address] [facility] [place], [address] Emergency Department Summary on 03-10-2025 Emergency Department Summary [facility] Medical Records Department [address] [place] [address] Emergency Department Summary 03/10/25 MR#: [id number] Acct: [id number] Name: VAISHALI KEE Rep #: [id number] : 1950 74 From: Gertrude OROSCO PCP: [...] repeated toda (more content not included)... Normal [facility] Eosinophil percentageOrdered By: Gertrude Carver on 03-10-2025 Eosinophils/100 WBC (Bld) 5.2 % High 0-5 [facility] Erythrocyte distribution wid th ratioOrdered By: Gertrude Carver on 03-10-2025 Erythrocyte distribution width (RBC) [Ratio] 12.8 % 11.6-14.6 [facility] Erythrocyte distribution wid th standard deviationOrdered By: Gertrude Carver on 03-10-2025 Erythrocyte distribution width (RBC) [Ratio] 42.2 fl 35.1-43.9 [facility] Glomerular filtration rate ( GFR) estimation/1.73 sq m using serum, plasma, or whole bOrdered By: Gertrude Carver on 03-10-2025 GFR/1.73 sq M.predicted among non-blacks MDRD (S/P/Bld) [Vol rate/Area] 51 mL/min/{1.73_m2} Low >60 [facility] Comment on above: mL/min/1.73m2 CKD-EP I Creatinine Equation (2020) Hematocrit Auto (Bld) [Volum e fraction]Ordered By: Gertrude Carver on 03-10-2025 Hematocrit (Bld) [Volume fraction] 33.2 % Low 37-47 [facility] Hemoglobin measurementOrdere d By: Gertrude Carver on 03-10-2025 Hemoglobin (Bld) [Mass/Vol] 11.3 g/dL Low 12.0-15.0 [facility] Immature granulocytes/100 WB C Auto (Bld)Ordered By: Gertrude Carver on 03-10-2025 Immature granulocytes/100 WBC (Bld) 0.200 % 0.0-0.9 [facility] Comment on above: IG% - Immature Granu locytes (promyelocytes, myelocytes and metamyelocytes) > 1% indicates that a LEFT SHIFT is Present. International normalized rat io (INR) calculationOrdered By: Gertrude Carver on 03-10-2025 INR Coag (Bld) [Relative time] 0.9 {INR} [facility] L499.0042on 03-10-2025 Trop T High Sen 25 ng/L High <=14 [facility] Comment on above: Performed By: #### L 100.0100, M100.651, L501.1800, L500.2500 #### [facility] [address] [place], [address] L501.4021on 03-10-2025 Trop T High Sen 20 ng/L High <=14 [facility] Comment on above: Performed By: #### L 100.0100, M100.651, L501.1800, L500.2500 #### [facility] [address] [place], [address] Trop T High Sen 21 ng/L High <=14 [facility] Comment on above: Performed By: #### L 100.0100, M100.651, L501.1800, L500.2500 #### [facility] [address] [place], [address] MCV (mean corpuscular volume ) determinationOrdered By: Gertrude Carver on 03-10-2025 MCV (RBC) [Entitic vol] 90.2 fL 81-99 [facility] Mean corpuscular hemoglobin (MCH) determinationOrdered By: Gertrude Carver on 03-10-2025 MCH (RBC) [Entitic mass] 30.7 pg 27.0-32.0 [facility] Mean corpuscular hemoglobin concentration (MCHC) determinationOrdered By: Gertrude Carver on 03-10-2025 MCHC (RBC) [Mass/Vol] 34.0 g/dL 32-36 [facility] Mean platelet volume determi nationOrdered By: Gertrude Carver on 03-10-2025 Platelet mean volume (Bld) [Entitic vol] 11.5 fL 6.2-12.0 [facility] Monocyte percentageOrdered B y: Gertrude Carver on 03-10-2025 Monocytes/100 WBC (Bld) 8.8 % 0-10 [facility] Neutrophil percentageOrdered By: Gertrude Carver on 03-10-2025 Neutrophils/100 WBC (Bld) 52.0 % 47-70 [facility] Nucleated red blood cell per centageOrdered By: Gertrude Carver on 03-10-2025 Nucleated RBC/100 WBC (Bld) [Ratio] 0 % 0-5 [facility] Platelet countOrdered By: Johanne Carver on 03-10-2025 Platelets (Bld) [#/Vol] 322 10*3/uL 150-450 [facility] Potassium measurement (mass/ volume)Ordered By: Gertrude Carver on 03-10-2025 Potassium (Unsp spec) [Mass/Vol] 3.7 mmol/L 3.3-5.1 [facility] Prothrombin Time w/INRon INR Coag (PPP) [Relative time] 0.9 {INR} Normal [facility] Comment on above: Performed By: #### L 300.3900, L300.8000 #### [facility] [address] [place], [address] PT Coag (PPP) [Time] 12.7 s Normal 11.7-14.9 [facility] Comment on above: Performed By: #### L 300.3900, L300.8000 #### [facility] [address] [place], [address] Prothrombin timeOrdered By: Gertrude Carver on 03-10-2025 PT Coag (PPP) [Time] 12.7 s 11.7-14.9 [facility] RBC Auto (Bld) [#/Vol]Ordere d By: Gertrude Carver on 03-10-2025 RBC (Bld) [#/Vol] 3.68 10*6/uL Low 4.2-5.4 [facility] Serum creatinine measurement (mass/volume)Ordered By: Gertrude Carver on 03-10-2025 Creatinine [Mass/Vol] 1.13 mg/dL 0.70-1.20 [facility] Serum glucose measurement (m ass/volume)Ordered By: Gertrude Carver on 03-10-2025 Glucose [Mass/Vol] 99 mg/dL 70-99 [facility] Serum or plasma calcium elie urement (mass/volume)Ordered By: Gerturde Carver on 03-10-2025 Calcium [Mass/Vol] 10.2 mg/dL 7.6-11.0 [facility] Serum or plasma urea nitroge n measurement (mass/volume)Ordered By: Gertrude Carver on 03-10-2025 Urea nitrogen [Mass/Vol] 28 mg/dL High 4-19 [facility] Sodium levelOrdered By: Delbert Carver on 03-10-2025 Sodium [Moles/Vol] 136 mmol/L 133-145 [facility] Troponin T.cardiac [Mass/vol ume] in Serum or Plasma by High sensitivity methodOrdered By: Gertrude Carver on 03-10-2025 Troponin T.cardiac High sensitivity method [Mass/Vol] 25 ng/L High <14 [facility] Troponin T.cardiac High sensitivity method [Mass/Vol] 20 ng/L High <14 [facility] Troponin T.cardiac [Mass/vol ume] in Serum or Plasma by High sensitivity methodOrdered By: Ana Hernández on 03-10-2025 Troponin T.cardiac High sensitivity method [Mass/Vol] 21 ng/L High <14 [facility] White blood cell (WBC) count Ordered By: Gertrude Carver on 03-10-2025 WBC (Bld) [#/Vol] 8.1 10*3/uL 4.4-11.0 [facility] Electrocardiogram reportOrde red By: Robert Hagen on 02-27-2025 EKG study [facility] [address] [place] [address] 12 Lead EKG 02/23/25 1232 MR#: [id number] Acct: [id number] Name: VAISHALI KEE Rep #:[id number] : 1950 74 From: Robert farley MD [...] Abnormal ECG Confirmed by Robert Hagen ([id number]), editor index DOROTA CLARK ([id number]) on 02/27/2025 11:31:10 AM Referred By: Holger Infante Confirmed By: Robert Hagen 06/02/25 1131 Date _ Robert Hagen MD CC: MIRIAN Randall; Dr. Holger Infante MD ~ Signed [facility] Other MRSA/SAID NASAL SCREENon MRSA+SAID SCRN Negative Normal [facility] Comment on above: Performed By: #### L 100.0100, M100.651, L501.1800, L500.2500 #### [facility] [address] [facility] [place], [address] 12 Lead EKGon 02-23-2025 12 Lead EKG [facility] [address] [place] [address] 12 Lead EKG 02/23/25 1232 MR#: [id number] Acct: [id number] Name: VAISHALI KEE Rep #: [id number] : 1950 74 From: Robert Hagen MD Attending Dr: Dr. Holger Infante MD Status: REG CLI Ordering Dr: Holger Infante MD Date: 02/23/25 Location: [place] Sex: F C Admitted: Test Reason : [...] Abnormal ECG Confirmed by Robert Hagen ([id number]), editor index DOROTA CLARK ([id number]) on 02/27/2025 11:31:10 AM Referred By: Holger Infante Confirmed By: Robert Hagen 02/27/251130 Date Robert Hagen MD CC: MIRIAN Randall; Dr. Holger Infante MD Signed Normal [facility] Absolute lymphocyte countOrd ered By: Holger Infante on 02-23-2025 Lymphocytes Auto (Unsp spec) [#/Vol] 2.18 10*3/uL 0.83-4.51 [facility] Absolute neutrophil countOrd ered By: Holger Infante on 02-23-2025 Neutrophils (Bld) [#/Vol] 4.0 10*3/uL 2.0-7.7 [facility] Albumin, Serumon 02-23-2025 Albumin [Mass/Vol] 4.9 g/dL High 3.4-4.8 [facility] Comment on above: Performed By: #### L 100.0100, M100.651, L501.1800, L500.2500 #### [facility] [address] [place], [address] Anion gap in Serum or Plasma Ordered By: Holger Infante on 02-23-2025 Anion gap [Moles/Vol] 14 mmol/L 5-15 [facility] Automated lymphocyte count a s percentage of total leukocytesOrdered By: Holger Infante on 02-23-2025 Lymphocytes/100 WBC Auto (Unsp spec) 30.9 % - [facility] BUN/creatinine ratioOrdered By: Holger Infante on 02-23-2025 Urea nitrogen/Creatinine [Mass ratio] 29.2 mg/mg High 10- [facility] Basic Metabolic Profile (BMP )on 02-23-2025 BUN/CRE 29.2 RATIO High 10- [facility] Comment on above: Performed By: #### L 100.0100, M100.651, L501.1800, L500.2500 #### [facility] [address] [place], [address] Calcium [Mass/Vol] 10.3 mg/dL Normal 7.6-11.0 [facility] Comment on above: Performed By: #### L 100.0100, M100.651, L501.1800, L500.2500 #### [facility] [address] [place], [address] Chloride [Moles/Vol] 100 mmol/L Normal 98-108 [facility] Comment on above: Performed By: #### L 100.0100, M100.651, L501.1800, L500.2500 #### [facility] [address] [place], [address] CO2 [Moles/Vol] 24.3 mmol/L Normal 21.0-32.0 [facility] Comment on above: Performed By: #### L 100.0100, M100.651, L501.1800, L500.2500 #### [facility] [address], [address] Creatinine [Mass/Vol] 1.26 mg/dL High 0.70-1.20 [facility] Comment on above: Performed By: #### L 100.0100, M100.651, L501.1800, L500.2500 #### [facility] [address] [place], [address] GAP 14 Normal 5-15 [facility] Comment on above: Performed By: #### L 100.0100, M100.651, L501.1800, L500.2500 #### [facility] [address] [place], [address] GFR/1.73 sq M.predicted among non-blacks MDRD (S/P/Bld) [Vol rate/Area] 45 mL/min/{1.73_m2} Low >60 [facility] Comment on above: Result Comment: mL/m in/1.73m2 CKD-EPI Creatinine Equation (2020) Performed By: #### L 100.0100, M100.651, L501.1800, L500.2500 #### [facility] [address] [place], [address] Glucose [Mass/Vol] 100 mg/dL High 70-99 [facility] Comment on above: Performed By: #### L 100.0100, M100.651, L501.1800, L500.2500 #### [facility] [address] [place], [address] Potassium [Moles/Vol] 3.8 mmol/L Normal 3.3-5.1 [facility] Comment on above: Performed By: #### L 100.0100, M100.651, L501.1800, L500.2500 #### [facility] [address] [place], [address] Sodium [Moles/Vol] 138 mmol/L Normal 133-145 [facility] Comment on above: Performed By: #### L 100.0100, M100.651, L501.1800, L500.2500 #### [facility] [address] [place], [address] Urea nitrogen [Mass/Vol] 37 mg/dL High 4-19 [facility] Comment on above: Performed By: #### L 100.0100, M100.651, L501.1800, L500.2500 #### [facility] [address] [place], [address] Basophil percentageOrdered B y: Holger Infante on 02-23-2025 Basophils/100 WBC (Bld) 1.7 % High 0-1 [facility] CBC W/Diff, Automatedon 01-27 Absolute Lymph 2.18 X10 3/uL Normal 0.83-4.51 [facility] Comment on above: Performed By: #### L 100.0100, M100.651, L501.1800, L500.2500 #### [facility] [address] [place], [address] Absolute Neut 4.0 X10 3/uL Normal 2.0-7.7 [facility] Comment on above: Performed By: #### L 100.0100, M100.651, L501.1800, L500.2500 #### [facility] [address] [place], [address] Basophils/100 WBC (Bld) 1.7 % High 0-1 [facility] Comment on above: Performed By: #### L 100.0100, M100.651, L501.1800, L500.2500 #### [facility] [address] [place], [address] Eosinophils/100 WBC (Bld) 2.8 % Normal 0-5 [facility] Comment on above: Performed By: #### L 100.0100, M100.651, L501.1800, L500.2500 #### [facility] [address] [place], [address] Erythrocyte distribution width (RBC) [Ratio] 13.3 % Normal 11.6-14.6 [facility] Comment on above: Performed By: #### L 100.0100, M100.651, L501.1800, L500.2500 #### [facility] [address] [place], [address] Hematocrit (Bld) [Volume fraction] 35.2 % Low 37-47 [facility] Comment on above: Performed By: #### L 100.0100, M100.651, L501.1800, L500.2500 #### [facility] [address] [place], [address] Hemoglobin (Bld) [Mass/Vol] 12.0 g/dL Normal 12.0-15.0 [facility] Comment on above: Performed By: #### L 100.0100, M100.651, L501.1800, L500.2500 #### [facility] [address] [place], [address] IG% 0.300 Normal 0.0-0.9 [facility] Comment on above: Result Comment: IG% - Immature Granulocytes (promyelocytes, myelocytes and metamyelocytes) > 1% indicates that a LEFT SHIFT is Present. Performed By: #### L 100.0100, M100.651, L501.1800, L500.2500 #### [facility] [address] [place], [address] Lymphocytes/100 WBC (Bld) 30.9 % Normal 19-41 [facility] Comment on above: Performed By: #### L 100.0100, M100.651, L501.1800, L500.2500 #### [facility] [address] [place], [address] MCH (RBC) [Entitic mass] 30.8 pg Normal 27.0-32.0 [facility] Comment on above: Performed By: #### L 100.0100, M100.651, L501.1800, L500.2500 #### [facility] [address] [place], [address] MCHC (RBC) [Mass/Vol] 34.1 g/dL Normal 32-36 [facility] Comment on above: Performed By: #### L 100.0100, M100.651, L501.1800, L500.2500 #### [facility] [address] [place], [address] MCV (RBC) [Entitic vol] 90.5 fL Normal 81-99 [facility] Comment on above: Performed By: #### L 100.0100, M100.651, L501.1800, L500.2500 #### [facility] [address] [place], [address] Monocytes/100 WBC (Bld) 7.6 % Normal 0-10 [facility] Comment on above: Performed By: #### L 100.0100, M100.651, L501.1800, L500.2500 #### [facility] [address] [place], [address] Neutrophils/100 WBC (Bld) 56.7 % Normal 47-70 [facility] Comment on above: Performed By: #### L 100.0100, M100.651, L501.1800, L500.2500 #### [facility] [address] [place], [address] Nucleated RBC (Bld) [#/Vol] 0 10*3/uL Normal 0-5 [facility] Comment on above: Performed By: #### L 100.0100, M100.651, L501.1800, L500.2500 #### [facility] [address] [place], [address] Platelet mean volume (Bld) [Entitic vol] 11.1 fL Normal 6.2-12.0 [facility] Comment on above: Performed By: #### L 100.0100, M100.651, L501.1800, L500.2500 #### [facility] [address] [place], [address] Platelets (Bld) [#/Vol] 346 10*3/uL Normal 150-450 [facility] Comment on above: Performed By: #### L 100.0100, M100.651, L501.1800, L500.2500 #### [facility] [address] [place], [address] RBC (Bld) [#/Vol] 3.89 10*6/uL Low 4.2-5.4 [facility] Comment on above: Performed By: #### L 100.0100, M100.651, L501.1800, L500.2500 #### [facility] [address] [place], [address] RDW SD 44.1 fl High 35.1-43.9 [facility] Comment on above: Performed By: #### L 100.0100, M100.651, L501.1800, L500.2500 #### [facility] [address] [place], [address] WBC (Bld) [#/Vol] 7.1 10*3/uL Normal 4.4-11.0 [facility] Comment on above: Performed By: #### L 100.0100, M100.651, L501.1800, L500.2500 #### [facility] [address] [place], [address] Carbon dioxide, total [Moles /volume] in Central venous bloodOrdered By: Holger Infante on 02-23-2025 CO2 [Moles/Vol] 24.3 mmol/L 21.0-32.0 [facility] Chloride assayOrdered By: St bernard Infante on 02-23-2025 Chloride [Moles/Vol] 100 mmol/L 98-108 [facility] Eosinophil percentageOrdered By: Holger Infante on 02-23-2025 Eosinophils/100 WBC (Bld) 2.8 % 0-5 [facility] Erythrocyte distribution wid th ratioOrdered By: Holger Infante on 02-23-2025 Erythrocyte distribution width (RBC) [Ratio] 13.3 % 11.6-14.6 [facility] Erythrocyte distribution wid th standard deviationOrdered By: Holger Infante on 02-23-2025 Erythrocyte distribution width (RBC) [Ratio] 44.1 fl High 35.1-43.9 [facility] Extremity Lower without Cont raon 02-23-2025 Extremity Lower without Contra [facility] [address] [facility] [place], [place] [address] Extremity Lower without Contra MR#: [id number] Acct: [id number] Name: VAISHALI KEE ALISSON Rep #: [id number] : 1950 F 74 From: Alberto womack MD PCP: Brandon Randall NP-C Status: REG CLI Study: Extremity Lower without Contra Date of Exam: 0 02/23/25 Exam# [id number] Ordering Dr: Holger Infante MD PROCEDURE: EXTREMITY [...] compartment. Small knee joint effusion. Reading Location: [place] [address] CC: MIRIAN Randall; Dr. Holger Infante MD [place]: Signed Normal [facility] Glomerular filtration rate ( GFR) estimation/1.73 sq m using serum, plasma, or whole bOrdered By: Holger Infante on 02-23-2025 GFR/1.73 sq M.predicted among non-blacks MDRD (S/P/Bld) [Vol rate/Area] 45 mL/min/{1.73_m2} Low >60 [facility] Comment on above: mL/min/1.73m2 CKD-EP I Creatinine Equation (2020) Hematocrit Auto (Bld) [Volum e fraction]Ordered By: Holger Infante on 02-23-2025 Hematocrit (Bld) [Volume fraction] 35.2 % Low 37-47 [facility] Hemoglobin measurementOrdere d By: Holger Infante on 02-23-2025 Hemoglobin (Bld) [Mass/Vol] 12.0 g/dL 12.0-15.0 [facility] Immature granulocytes/100 WB C Auto (Bld)Ordered By: Holger Infante on 02-23-2025 Immature granulocytes/100 WBC (Bld) 0.300 % 0.0-0.9 [facility] Comment on above: IG% - Immature Granu locytes (promyelocytes, myelocytes and metamyelocytes) > 1% indicates that a LEFT SHIFT is Present. MCV (mean corpuscular volume ) determinationOrdered By: Holger Infante on 02-23-2025 MCV (RBC) [Entitic vol] 90.5 fL 81-99 [facility] MRSA screenOrdered By: Florencio Infante on 02-23-2025 MRSA DNA TOMI+probe Ql (Unsp spec) [facility] Mean corpuscular hemoglobin (MCH) determinationOrdered By: Holger Infante on 02-23-2025 MCH (RBC) [Entitic mass] 30.8 pg 27.0-32.0 [facility] Mean corpuscular hemoglobin concentration (MCHC) determinationOrdered By: Holger Infante on 02-23-2025 MCHC (RBC) [Mass/Vol] 34.1 g/dL 32-36 [facility] Mean platelet volume determi nationOrdered By: Holger Infante on 02-23-2025 Platelet mean volume (Bld) [Entitic vol] 11.1 fL 6.2-12.0 [facility] Monocyte percentageOrdered B y: Holger Infante on 02-23-2025 Monocytes/100 WBC (Bld) 7.6 % 0-10 [facility] Neutrophil percentageOrdered By: Holger Infante on 02-23-2025 Neutrophils/100 WBC (Bld) 56.7 % 47-70 [facility] Nucleated red blood cell per centageOrdered By: Holger Infante on 02-23-2025 Nucleated RBC/100 WBC (Bld) [Ratio] 0 % 0-5 [facility] Platelet countOrdered By: St bernard Infante on 02-23-2025 Platelets (Bld) [#/Vol] 346 10*3/uL 150-450 [facility] Potassium measurement (mass/ volume)Ordered By: Holger Infante on 02-23-2025 Potassium (Unsp spec) [Mass/Vol] 3.8 mmol/L 3.3-5.1 [facility] RBC Auto (Bld) [#/Vol]Ordere d By: Holger Infante on 02-23-2025 RBC (Bld) [#/Vol] 3.89 10*6/uL Low 4.2-5.4 [facility] Serum creatinine measurement (mass/volume)Ordered By: Holger Infante on 02-23-2025 Creatinine [Mass/Vol] 1.26 mg/dL High 0.70-1.20 [facility] Serum glucose measurement (m ass/volume)Ordered By: Holger Infante on 02-23-2025 Glucose [Mass/Vol] 100 mg/dL High 70-99 [facility] Serum or plasma albumin elie urement (mass/volume)Ordered By: Holger Infante on 02-23-2025 Albumin [Mass/Vol] 4.9 g/dL High 3.4-4.8 [facility] Serum or plasma calcium elie urement (mass/volume)Ordered By: Holger Infante on 02-23-2025 Calcium [Mass/Vol] 10.3 mg/dL 7.6-11.0 [facility] Serum or plasma urea nitroge n measurement (mass/volume)Ordered By: Holger Infante on 02-23-2025 Urea nitrogen [Mass/Vol] 37 mg/dL High 4-19 [facility] Sodium levelOrdered By: Melchor Infante on 02-23-2025 Sodium [Moles/Vol] 138 mmol/L 133-145 [facility] White blood cell (WBC) count Ordered By: Holger Infante on 02-23-2025 WBC (Bld) [#/Vol] 7.1 10*3/uL 4.4-11.0 [facility] CALCIUM, IONIZED (02548)Orde red By: Director Human Services on 07-15-2023 Calcium.ionized ISE [Mass/Vol] 5.2 mg/dL Normal 4.5-5.6 [facility]; [facility] Work Phone: Comment on above: PATIENT WAS FASTINGP ERFORMED BY: [facility] [id number] CBC, PLATELETS & AUT DIFF (1 1854)Ordered By: Director Human Services on 07-15-2023 Basophils (Bld) [#/Vol] 0.1 10*3/uL Normal 0.0-0.2 [facility]; [facility] Work Phone: Comment on above: PATIENT WAS FASTINGP ERFORMED BY: [facility] [id number] [facility] [id number] Basophils/100 WBC (Bld) 1 % Normal [facility]; [facility] Work Phone: Comment on above: PATIENT WAS FASTINGP ERFORMED BY: [facility] [id number] [facility] [id number] Eosinophils (Bld) [#/Vol] 0.3 10*3/uL Normal 0.0-0.4 [facility]; [facility] Work Phone: Comment on above: PATIENT WAS FASTINGP ERFORMED BY: [facility] [id number] [facility] [id number] Eosinophils/100 WBC (Bld) 4 % Normal [facility]; [facility] Work Phone: Comment on above: PATIENT WAS FASTINGP ERFORMED BY: [facility] [id number] [facility] [id number] Erythrocyte distribution width (RBC) [Ratio] 12.7 % Normal 11.7-15.4 [facility]; [facility] Work Phone: Comment on above: PATIENT WAS FASTINGP ERFORMED BY: [facility] [id number] [facility] [id number] Hematocrit (Bld) [Volume fraction] 38.4 % Normal 34.0-46.6 [facility]; [facility] Work Phone: Comment on above: PATIENT WAS FASTINGP ERFORMED BY: [facility] [id number] [facility] [id number] Hemoglobin (Bld) [Mass/Vol] 12.7 g/dL Normal 11.1-15.9 [facility]; [facility] Work Phone: Comment on above: PATIENT WAS FASTINGP ERFORMED BY: [facility] [id number] [address] RoadDublin [place] [id number] Immature granulocytes (Bld) [#/Vol] 0.0 10*3/uL Normal 0.0-0.1 [facility]; [facility] Work Phone: Comment on above: PATIENT WAS FASTINGP ERFORMED BY: [facility] [id number] [address] [place] [id number] Immature granulocytes/100 WBC (Bld) 0 % Normal [facility]; [facility] Work Phone: Comment on above: PATIENT WAS FASTINGP ERFORMED BY: [facility] [id number] [facility] [place] [id number] Lymphocytes (Bld) [#/Vol] 2.0 10*3/uL Normal 0.7-3.1 [facility]; [facility] Work Phone: Comment on above: PATIENT WAS FASTINGP ERFORMED BY: [facility] [facility] [place] [id number] Lymphocytes/100 WBC (Bld) 31 % Normal [facility]; [facility] Work Phone: Comment on above: PATIENT WAS FASTINGP ERFORMED BY: [facility] [id number] [facility] [place] [id number] MCH (RBC) [Entitic mass] 30.0 pg Normal 26.6-33.0 [facility]; [facility] Work Phone: Comment on above: PATIENT WAS FASTINGP ERFORMED BY: [facility]6[address]Dublin [place] [id number] MCHC (RBC) [Mass/Vol] 33.1 g/dL Normal 31.5-35.7 [facility] prehensive Internal Medicine; [facility] Work Phone: Comment on above: PATIENT WAS FASTINGP ERFORMED BY: [facility] [id number] [facility] [place] [id number] MCV (RBC) [Entitic vol] 91 fL Normal 79-97 [facility]; [facility] Work Phone: Comment on above: PATIENT WAS FASTINGP ERFORMED BY: CB [facility] [id number] [address] RoadDublin [place] [id number] Monocytes (Bld) [#/Vol] 0.5 10*3/uL Normal 0.1-0.9 [facility]; [facility] Work Phone: Comment on above: PATIENT WAS FASTINGP ERFORMED BY: CB [facility] Kgsylq3042 [address]Dublin [place] [id number] Monocytes/100 WBC (Bld) 7 % Normal [facility]; [facility] Work Phone: Comment on above: PATIENT WAS FASTINGP ERFORMED BY: CB [facility] [id number] [address]Dublin [place] [id number] Neutrophils (Bld) [#/Vol] 3.6 10*3/uL Normal 1.4-7.0 [facility]; [facility] Work Phone: Comment on above: PATIENT WAS FASTINGP ERFORMED BY: CB [facility] [id number] [address]Dublin [place] [id number] Neutrophils/100 WBC (Bld) 57 % Normal [facility]; [facility] Work Phone: Comment on above: PATIENT WAS FASTINGP ERFORMED BY: CB [facility] [id number] [address]Dublin [place] [id number] Platelets (Bld) [#/Vol] 328 10*3/uL Normal 150-450 [facility]; [facility] Work Phone: Comment on above: PATIENT WAS FASTINGP ERFORMED BY: CB [facility] [id number] [address]Dublin [place] [id number] RBC (Bld) [#/Vol] 4.23 10*6/uL Normal 3.77-5.28 [facility]; [facility] Work Phone: Comment on above: PATIENT WAS FASTINGP ERFORMED BY: CB [facility] Vngjsu5440 [address]Dublin [place] [id number] WBC (Bld) [#/Vol] 6.5 10*3/uL Normal 3.4-10.8 [facility]; [facility] Work Phone: Comment on above: PATIENT WAS FASTINGP ERFORMED BY: KENNEDY [facility] Tyoemd7323 [address]Dublin [place] [id number] LIPID PANEL ([id number])Ordered B y: Director Human Services on 07-15-2023 Cholesterol [Mass/Vol] 278 mg/dL Abnormal 100-199 [facility]; [facility] Work Phone: Comment on above: PATIENT WAS FASTINGP ERFORMED BY: KENNEDY [facility] [id number] [address]Dublin [place] [id number] Cholesterol in HDL [Mass/Vol] 63 mg/dL Normal [facility]; [facility] Work Phone: Comment on above: PATIENT WAS FASTINGP ERFORMED BY: KENNEDY [facility] Htjsyr5062 [address]Dublin [place] [id number] Triglyceride [Mass/Vol] 166 mg/dL Abnormal 0-149 [facility]; [facility] Work Phone: Comment on above: PATIENT WAS FASTINGP ERFORMED BY: KENNEDY [facility] [id number] [address]Dublin [place] [id number] LIPID PANEL (27178) 30 mg/dL Normal 5-40 [facility]; [facility] Work Phone: Comment on above: PATIENT WAS FASTINGP ERFORMED BY: CB [facility] Fhoqku7092 [address]Dublin [place] [id number] LIPID PANEL (76847) 185 mg/dL Abnormal 0-99 [facility]; [facility] Work Phone: Comment on above: PATIENT WAS FASTINGP ERFORMED BY: CB [facility] Zqepdu6975 [address]Dublin [place] [id number] LIPID PANEL (13387) 2.9 {ratio} Normal 0.0-3.2 [facility]; [facility] Work Phone: Comment on above: LDL/HDL Ratio Men Wo men 1/2 Avg.Risk 1.0 1.5 Avg.Risk 3.6 3.2 2X Avg.Risk 6.2 5.0 3X Avg.Risk 8.0 6.1 PATIENT WAS FASTINGP ERFORMED BY: KENNEDY [facility] Ykyjsa2542 [address]Dublin [place] [id number] METABOLIC PANEL, COMPREHENSI VE ([id number])Ordered By: Director Human Services on 07-15-2023 Albumin [Mass/Vol] 4.9 g/dL Abnormal 3.8-4.8 [facility]; [facility] Work Phone: Comment on above: PATIENT WAS FASTINGP ERFORMED BY: KENNEDY [facility] Rvaluw2374 [address]Dublin [place] [id number] Albumin/Globulin [Mass ratio] 1.7 {ratio} Normal 1.2-2.2 [facility]; [facility] Work Phone: Comment on above: PATIENT WAS FASTINGP ERFORMED BY: KENNEDY [facility] Wjvkhh2400 [address]Dublin [place] [id number] ALP [Catalytic activity/Vol] 93 U/L Normal 44-121 [facility]; [facility] Work Phone: Comment on above: PATIENT WAS FASTINGP ERFORMED BY: KENNEDY [facility] [id number] [address]Dublin [place] [id number] ALT [Catalytic activity/Vol] 17 U/L Normal 0-32 [facility]; [facility] Work Phone: Comment on above: PATIENT WAS FASTINGP ERFORMED BY: KENNEDY [facility] [id number] [address]Dublin [place] [id number] AST [Catalytic activity/Vol] 20 U/L Normal 0-40 [facility]; [facility] Work Phone: Comment on above: PATIENT WAS FASTINGP ERFORMED BY: KENNEDY [facility] Azxsxg5993 [address]Dublin [place] [id number] Bilirubin [Mass/Vol] 0.7 mg/dL Normal 0.0-1.2 [facility]; [facility] Work Phone: Comment on above: PATIENT WAS FASTINGP ERFORMED BY: KENNEDY [facility] [id number] [address]Dublin [place] [id number] Calcium [Mass/Vol] 10.6 mg/dL Abnormal 8.7-10.3 [facility]; [facility] Work Phone: Comment on above: PATIENT WAS FASTINGP ERFORMED BY: KENNEDY [facility] Lcxbke5051 [address]Dublin [place] [id number] Chloride [Moles/Vol] 97 mmol/L Normal 96-106 [facility]; [facility] Work Phone: Comment on above: PATIENT WAS FASTINGP ERFORMED BY: KENNEDY [facility] Tpwziz1883 [address]Dublin [place] [id number] CO2 [Moles/Vol] 25 mmol/L Normal 20-29 [facility]; [facility] Work Phone: Comment on above: PATIENT WAS FASTINGP ERFORMED BY: KENNEDY [facility] [id number] [address] RoadFormerly [facility] [id number] Creatinine [Mass/Vol] 0.99 mg/dL Normal 0.57-1.00 [facility]; [facility] Work Phone: Comment on above: PATIENT WAS FASTINGP ERFORMED BY: KENNEDY [facility] [id number] [address] [facility]in [place] [id number] GFR/1.73 sq M.predicted among non-blacks MDRD (S/P/Bld) [Vol rate/Area] 61 mL/min/{1.73_m2} Normal [facility]; [facility] Work Phone: Comment on above: PATIENT WAS FASTINGP ERFORMED BY: [facility] [id number] [address]Dublin [place] [id number] Globulin (S) [Mass/Vol] 2.9 g/dL Normal 1.5-4.5 [facility]; [facility] Work Phone: Comment on above: PATIENT WAS FASTINGP ERFORMED BY: KENNEDY [facility] Walcwf2167 [address]Dublin [place] [id number] Glucose [Mass/Vol] 92 mg/dL Normal 70-99 [facility]; [facility] Work Phone: Comment on above: PATIENT WAS FASTINGP ERFORMED BY: CB [facility] Jyevqc2890 [address]Dublin [place] [id number] Potassium [Moles/Vol] 3.7 mmol/L Normal 3.5-5.2 [facility] prehensive Internal Medicine; [facility] Work Phone: Comment on above: PATIENT WAS FASTINGP ERFORMED BY: CB [facility] Elsskk3756 [address]Dublin [place] [id number] Protein [Mass/Vol] 7.8 g/dL Normal 6.0-8.5 [facility]; [facility] Work Phone: Comment on above: PATIENT WAS FASTINGP ERFORMED BY: CB [facility] Scthho7817 [address] RoadDublin [place] [id number] Sodium [Moles/Vol] 137 mmol/L Normal 134-144 [facility]; [facility] Work Phone: Comment on above: PATIENT WAS FASTINGP ERFORMED BY: CB [facility] Lrszrm0015 [address]Dublin [place] [id number] Urea nitrogen [Mass/Vol] 21 mg/dL Normal 8-27 [facility]; [facility] Work Phone: Comment on above: PATIENT WAS FASTINGP ERFORMED BY: CB [facility] Dsycky9211 [address]Dublin [place] [id number] Urea nitrogen/Creatinine [Mass ratio] 21 mg/mg Normal 12-28 [facility]; [facility] Work Phone: Comment on above: PATIENT WAS FASTINGP ERFORMED BY: CB [facility] Szzwfd5545 [address]Dublin [place] [id number] TSH (THYROID STIMULATING HOR TONIA) ([id number])Ordered By: Director Human Services on 07-15-2023 TSH Qn 1.740 {uIU/mL} Normal 0.450-4.500 [facility] Internal Medicine; [facility] Work Phone: Comment on above: PATIENT WAS FASTINGP ERFORMED BY: CB [facility] Dixdme43[address]Dublin [place] [id number] URINALYSIS ([id number])Ordered By : Director Human Services on 07-15-2023 Appearance (U) Clear Normal Comprehens fco Internal Medicine; [facility] Work Phone: Comment on above: PATIENT WAS FASTINGP ERFORMED BY: KENNEDY [facility] Awkhpk5726 [address] RoadDublin [place] [id number] Bilirubin Ql (U) Negative Normal Comprehe nsive Internal Medicine; [facility] Work Phone: Comment on above: PATIENT WAS FASTINGP ERFORMED BY: KENNEDY [facility] Hqvgij0875 [address] RoadDublin [place] [id number] Color (U) Yellow Normal [facility]; [facility] Work Phone: Comment on above: PATIENT WAS FASTINGP ERFORMED BY: KENNEDY Labcoserina MendezOonxvy8723 [address] RoadDublin [place] [id number] Glucose Ql (U) Negative Normal Comprehens fco Internal Medicine; [facility] Work Phone: Comment on above: PATIENT WAS FASTINGP ERFORMED BY: KENNEDY Labcoserina MendezAuuhzf1395 [address] RoadDublin [place] [id number] Hemoglobin Ql (U) Negative Normal Compreh ensive Internal Medicine; [facility] Work Phone: Comment on above: PATIENT WAS FASTINGP ERFORMED BY: KENNEDY [facility] Herpqy8846 [address]Dublin [place] [id number] Ketones Ql (U) Negative Normal Comprehens fco Internal Medicine; [facility] Work Phone: Comment on above: PATIENT WAS FASTINGP ERFORMED BY: KENNEDY [facility] Bvisfc1884 [address] RoadDublin [place] [id number] Leukocyte esterase Test strip Ql (U) Negative Normal [facility]; [facility] Work Phone: Comment on above: PATIENT WAS FASTINGP ERFORMED BY: KENNEDY [facility] Cimeqw2899 [address]Dublin [place] [id number] Microscopic observation LM Nom (Urine sed) MICNIP Normal [facility]; [facility] Work Phone: Comment on above: Microscopic not matthew cated and not performed. PATIENT WAS FASTINGP ERFORMED BY: [facility]6370 [facility] [id number] Nitrite Ql (U) Negative Normal Comprehens fco Internal Medicine; [facility] Work Phone: Comment on above: PATIENT WAS FASTINGP ERFORMED BY: [facility]6370 [facility] [id number] pH (U) 7.0 [pH] Normal 5.0-7.5 [facility]; [facility] Work Phone: Comment on above: PATIENT WAS FASTINGP ERFORMED BY: [facility]6370 [facility] [id number] Protein Ql (U) Negative Normal Comprehens fco Internal Medicine; [facility] Work Phone: Comment on above: PATIENT WAS FASTINGP ERFORMED BY: [facility]6370 [facility] [id number] Specific gravity (U) [Rel density] 1.013 1 Normal 1.005-1.030 [facility]; [facility] Work Phone: Comment on above: PATIENT WAS FASTINGP ERFORMED BY: [facility]6370 [facility] [id number] Urobilinogen (U) [Mass/Vol] 0.2 mg/dL Normal 0.2-1.0 [facility]; [facility] Work Phone: Comment on above: PATIENT WAS FASTINGP ERFORMED BY: [facility]6370 [facility] [id number] Gel ABOon 03-24-2023 ABO/Rh Interp AB NEG Invalid Interpretation Code [facility] ([place]) Comment on above: Performed By: #### A ETTA, GFR, ABOG, BMP, ADIFF, ANSG, CBC, ALB #### [address] [address] Gel ABSon 03-24-2023 Antibody Screen Gel Negative Normal [facility] ([place]) Comment on above: Performed By: #### A ETTA, GFR, ABOG, BMP, ADIFF, ANSG, CBC, ALB #### [place] [address] [place] [id number] LABORATORYOrdered By: Ca Stein on 03-24-2023 ABO/Rh [...] 9:21:09 AM Ordering Provider: HOLGER INFANTE Normal [facility] ([place]) Urinalysis, Complete W/ Micr oscopic Examination with reflex to urine culture, routine (07435)Ordered By: Director Human Services on 03-09-2023 Appearance (U) Clear Normal Comprehens fco Internal Medicine; [facility] Work Phone: Comment on above: PERFORMED BY: [facility] [id number] Bilirubin Ql (U) Negative Normal Comprehe nsive Internal Medicine; [facility] Work Phone: Comment on above: PERFORMED BY: [facility] [place] [id number] Color (U) Yellow Normal [facility]; [facility] Work Phone: Comment on above: PERFORMED BY: [facility] [place] [id number] Glucose Ql (U) Negative Normal Comprehens fco Internal Medicine; [facility] Work Phone: Comment on above: PERFORMED BY: [employer] [employer] [place] [id number] Ketones Ql (U) Trace Abnormal Comprehens fco Internal Medicine; [facility] Work Phone: Comment on above: PERFORMED BY: [facility] [place] [id number] pH (U) 7.5 [pH] Normal 5.0-7.5 [facility]; [facility] Work Phone: Comment on above: PERFORMED BY: [facility] [place] [id number] Protein Ql (U) Negative Normal Comprehens fco Internal Medicine; [facility] Work Phone: Comment on above: PERFORMED BY: [facility] [place] [id number] Specific gravity (U) [Rel density] 1.014 1 Normal 1.005-1.030 [facility]; [facility] Work Phone: Comment on above: PERFORMED BY: [facility] [place] [id number] Urinalysis, Complete W/ Microscopic Examination with reflex to urine culture, routine (38408) Negative Normal [facility]; [facility] Work Phone: Comment on above: PERFORMED BY: [facility] [id number] Urinalysis, Complete W/ Microscopic Examination with reflex to urine culture, routine (40829) 0.2 mg/dL Normal 0.2-1.0 [facility]; [facility] Work Phone: Comment on above: PERFORMED BY: [facility] [id number] Urinalysis, Complete W/ Microscopic Examination with reflex to urine culture, routine (72283) MICRON Normal [facility]; [facility] Work Phone: Comment on above: Microscopic follows if indicated. PERFORMED BY: [facility] Sciencesin [place] [id number] Urinalysis, Complete W/ Microscopic Examination with reflex to urine culture, routine (79814) See below: Normal [facility]; [facility] Work Phone: Comment on above: Microscopic was matthew cated and was performed. PERFORMED BY: [facility] Lab vijaya Uugddg8296 [facility] [id number] Urinalysis, Complete W/ Microscopic Examination with reflex to urine culture, routine (83340) NOFLEX Normal [facility]; [facility] Work Phone: Comment on above: This specimen will n ot reflex to a Urine Culture. PERFORMED BY: [facility] Lab vijaya Qqjyqi[address] [id number] .Auto Diffon 03-02-2023 Basophil, Absolute 0.1 10 3/mcL Normal 0.0-0.2 [facility] ([place]) Comment on above: Performed By: #### A ETTA, GFR, ABOG, BMP, ADIFF, ANSG, CBC, ALB #### [address] [address] Basophils/100 WBC (Bld) 2.0 % Normal 0.0-2.5 [facility] ([place]) Comment on above: Performed By: #### A ETTA, GFR, ABOG, BMP, ADIFF, ANSG, CBC, ALB #### [address] [address] Eosinophil, Absolute 0.3 10 3/mcL Normal 0.0-0.4 [facility] ([place]) Comment on above: Performed By: #### A ETTA, GFR, ABOG, BMP, ADIFF, ANSG, CBC, ALB #### [address] [address] Eosinophils/100 WBC (Bld) 3.8 % Normal 0.0-7.0 [facility] ([place]) Comment on above: Performed By: #### A ETTA, GFR, ABOG, BMP, ADIFF, ANSG, CBC, ALB #### [address] [address] Lymphocyte, Absolute 1.9 10 3/mcL Normal 0.8-3.9 [facility] ([place]) Comment on above: Performed By: #### A ETTA, GFR, ABOG, BMP, ADIFF, ANSG, CBC, ALB #### [address] [address] Lymphocytes/100 WBC (Bld) 27.5 % Normal 10.0-50.0 [facility] ([place]) Comment on above: Performed By: #### A ETTA, GFR, ABOG, BMP, ADIFF, ANSG, CBC, ALB #### [address] [address] Monocyte, Absolute 0.5 10 3/mcL Normal 0.2-1.0 [facility] ([place]) Comment on above: Performed By: #### A ETTA, GFR, ABOG, BMP, ADIFF, ANSG, CBC, ALB #### [address] [address] Monocytes/100 WBC (Bld) 6.9 % Normal 1.7-13.0 [facility] ([place]) Comment on above: Performed By: #### A ETTA, GFR, ABOG, BMP, ADIFF, ANSG, CBC, ALB #### [address] [address] Neutrophils/100 WBC (Bld) 59.8 % Normal 37.0-80.0 [facility] ([place]) Comment on above: Performed By: #### A ETTA, GFR, ABOG, BMP, ADIFF, ANSG, CBC, ALB #### [address] [address] .GFRon 03-02-2023 GFR 70 ml/min/1.73sqm Normal [facility] ([place]) Comment on above: Result Comment: GFR Population [...] ABOG, BMP, ADIFF, ANSG, CBC, ALB #### [address] [address] GFR Non- 58 ml/min/1.73sqm Normal [facility] ([place]) Comment on above: Result Comment: GFR Population [...] ABOG, BMP, ADIFF, ANSG, CBC, ALB #### [address] [address] .NEUABSon 03-02-2023 Neutrophil, Absolute 4.2 10 3/mcL Normal 2.9-6.2 [facility] ([place]) Comment on above: Performed By: #### A ETTA, GFR, ABOG, BMP, ADIFF, ANSG, CBC, ALB #### [address] [address] ALBon 03-02-2023 Albumin Level 4.9 G/dL High 3.4-4.8 [facility] ([place]) Comment on above: Performed By: #### A ETTA, GFR, ABOG, BMP, ADIFF, ANSG, CBC, ALB #### [address] [address] BMPon 03-02-2023 BUN/Creatinine Ratio 28 ratio High 7-27 [facility] ([place]) Comment on above: Performed By: #### A ETTA, GFR, ABOG, BMP, ADIFF, ANSG, CBC, ALB #### [address] [address] Calcium [Mass/Vol] 10.4 mg/dL High 8.4-10.2 [facility] ([place]) Comment on above: Performed By: #### A ETTA, GFR, ABOG, BMP, ADIFF, ANSG, CBC, ALB #### [address] [address] Chloride [Moles/Vol] 97 mmol/L Low 98-107 [facility] ([place]) Comment on above: Performed By: #### A ETTA, GFR, ABOG, BMP, ADIFF, ANSG, CBC, ALB #### [address] [address] CO2 [Moles/Vol] 28 mmol/L Normal 23-31 [facility] ([place]) Comment on above: Performed By: #### A ETTA, GFR, ABOG, BMP, ADIFF, ANSG, CBC, ALB #### [address] [address] Creatinine [Mass/Vol] 0.95 mg/dL Normal 0.55-1.02 [facility] ([place]) Comment on above: Performed By: #### A ETTA, GFR, ABOG, BMP, ADIFF, ANSG, CBC, ALB #### [address] [address] Electrolyte Balance 11.0 mEq/L Normal 4.0-15.0 [facility] ([place]) Comment on above: Performed By: #### A ETTA, GFR, ABOG, BMP, ADIFF, ANSG, CBC, ALB #### [address] [address] Glucose [Mass/Vol] 97 mg/dL Normal 83-110 [facility] ([place]) Comment on above: Performed By: #### A ETTA, GFR, ABOG, BMP, ADIFF, ANSG, CBC, ALB #### [address] [address] Potassium [Moles/Vol] 3.5 mmol/L Normal 3.5-5.1 [facility]) Comment on above: Performed By: #### A ETTA, GFR, ABOG, BMP, ADIFF, ANSG, CBC, ALB #### [address] [address] Sodium [Moles/Vol] 136 mmol/L Normal 136-145 [facility]) Comment on above: Performed By: #### A ETTA, GFR, ABOG, BMP, ADIFF, ANSG, CBC, ALB #### [address] [address] Urea nitrogen [Mass/Vol] 27 mg/dL High 7-18 [facility]) Comment on above: Performed By: #### A ETTA, GFR, ABOG, BMP, ADIFF, ANSG, CBC, ALB #### [address] [address] CBCon 03-02-2023 Erythrocyte distribution width (RBC) [Ratio] 12.8 % Normal 11.5-14.5 [facility]) Comment on above: Order Comment: Pre-A dmission Testing Performed By: #### A ETTA, GFR, ABOG, BMP, ADIFF, ANSG, CBC, ALB #### [address] [address] Hematocrit (Bld) [Volume fraction] 38.3 % Normal 37.0-47.0 [facility]) Comment on above: Order Comment: Pre-A dmission Testing Performed By: #### A ETTA, GFR, ABOG, BMP, ADIFF, ANSG, CBC, ALB #### [address] [address] Hgb 12.9 G/dL Normal 12.0-16.0 [facility]) Comment on above: Order Comment: Pre-A dmission Testing Performed By: #### A ETTA, GFR, ABOG, BMP, ADIFF, ANSG, CBC, ALB #### [address] [address] MCH (RBC) [Entitic mass] 30.4 pg Normal 27.0-31.2 [facility] ([place]) Comment on above: Order Comment: Pre-A dmission Testing Performed By: #### A ETTA, GFR, ABOG, BMP, ADIFF, ANSG, CBC, ALB #### [address] [address] MCHC 33.7 G/dL Normal 33.0-37.0 [facility] ([place]) Comment on above: Order Comment: Pre-A dmission Testing Performed By: #### A ETTA, GFR, ABOG, BMP, ADIFF, ANSG, CBC, ALB #### [address] [address] MCV (RBC) [Entitic vol] 90.3 fL Normal 80.0-94.0 [facility] ([place]) Comment on above: Order Comment: Pre-A dmission Testing Performed By: #### A ETTA, GFR, ABOG, BMP, ADIFF, ANSG, CBC, ALB #### [address] [address] Platelet 323 10 3/mcL Normal 130-400 [facility] ([place]) Comment on above: Order Comment: Pre-A dmission Testing Performed By: #### A ETTA, GFR, ABOG, BMP, ADIFF, ANSG, CBC, ALB #### [address] [address] Platelet mean volume (Bld) [Entitic vol] 9.6 fL Normal 7.4-10.4 [facility] ([place]) Comment on above: Order Comment: Pre-A dmission Testing Performed By: #### A ETTA, GFR, ABOG, BMP, ADIFF, ANSG, CBC, ALB #### [address] [address] RBC 4.24 10 6/mcL Normal 4.20-5.40 [facility] ([place]) Comment on above: Order Comment: Pre-A dmission Testing Performed By: #### A ETTA, GFR, ABOG, BMP, ADIFF, ANSG, CBC, ALB #### [place] [address] [place], [place] [address] WBC 7.0 10 3/mcL Normal 4.6-10.8 [facility] ([place]) Comment on above: Order Comment: Pre-A dmission Testing Performed By: #### A ETTA, GFR, ABOG, BMP, ADIFF, ANSG, CBC, ALB #### [place] [address] [place], [place] [address] CT KNEE W/O CONTRAST LEFTon 03-02-2023 CT [...] 03/02/2023 4:15:17 PM Ordering Provider: HOLGER Roblero [facility]) Gel ABOon 03-02-2023 ABO/Rh Interp AB NEG Invalid Interpretation Code [facility]) Comment on above: Order Comment: SURG JUAN ANTONIO 03/24 -AC Performed By: #### A ETTA, GFR, ABOG, BMP, ADIFF, ANSG, CBC, ALB #### [place] [address] Gel ABSon 03-02-2023 Antibody Screen Gel Negative Normal [facility]) Comment on above: Order Comment: SURG JUAN ANTONIO 03/24 -AC Performed By: #### A ETTA, GFR, ABOG, BMP, ADIFF, ANSG, CBC, ALB #### [place] [address] LABORATORYOrdered By: Frida Robbins on 03-02-2023 ABO/Rh [...] 10^3/mcL AO Workflow SS LABORATORYOrdered By: Nat Tloedo on 03-02-2023 MRSA DNA TOMI+probe Ql (Unsp [...] MRSA (PCR) Not detected Normal Not Detected [facility] ([place]) Comment on above: Result Comment: Note s Performed By: #### M RSAPCR #### [facility] [address] [place] [address] MRSA PCR Int Normal [facility] ([place]) Comment on above: Result Comment: MRSA DNA [...] Below Performed By: #### M RSAPCR #### [facility] [address] [place] [address] CBC, PLATELETS & AUT DIFF ([id number])Ordered By: Director Human Services on 12-30-2022 Basophils (Bld) [#/Vol] 0.1 10*3/uL Normal 0.0-0.2 [facility]; [facility] Work Phone: Comment on above: PATIENT WAS FASTINGP ERFORMED BY: [employer]6370 [facility] [id number] Basophils/100 WBC (Bld) 2 % Normal [facility]; [facility] Work Phone: Comment on above: PATIENT WAS FASTINGP ERFORMED BY: [employer] [facility] LabDalloulNW Eymhsh1552 [facility] [id number] Eosinophils (Bld) [#/Vol] 0.3 10*3/uL Normal 0.0-0.4 [facility]; [facility] Work Phone: Comment on above: PATIENT WAS FASTINGP ERFORMED BY: [employer] Gmeuvs1353 [facility] [id number] Eosinophils/100 WBC (Bld) 5 % Normal [facility]; [facility] Work Phone: Comment on above: PATIENT WAS FASTINGP ERFORMED BY: KENNEDY [facility] Nbnjpu3558 [address]Dublin [place] [id number] Erythrocyte distribution width (RBC) [Ratio] 12.4 % Normal 11.7-15.4 [facility]; [facility] Work Phone: Comment on above: PATIENT WAS FASTINGP ERFORMED BY: CB [facility] Iefjfu6273 [address]Dublin [place] [id number] Hematocrit (Bld) [Volume fraction] 37.0 % Normal 34.0-46.6 [facility]; [facility] Work Phone: Comment on above: PATIENT WAS FASTINGP ERFORMED BY: CB [facility] Uzvtgw7355 [address] RoadDublin [place] [id number] Hemoglobin (Bld) [Mass/Vol] 12.6 g/dL Normal 11.1-15.9 [facility]; [facility] Work Phone: Comment on above: PATIENT WAS FASTINGP ERFORMED BY: CB [facility] Qlzsau2605 [address] RoadDublin [place] [id number] Immature granulocytes (Bld) [#/Vol] 0.0 10*3/uL Normal 0.0-0.1 [facility]; [facility] Work Phone: Comment on above: PATIENT WAS FASTINGP ERFORMED BY: KENNEDY [facility] Euwfrd0229 [address] RoadDublin [place] [id number] Immature granulocytes/100 WBC (Bld) 0 % Normal [facility]; [facility] Work Phone: Comment on above: PATIENT WAS FASTINGP ERFORMED BY: CB [facility] Svqtgf1598 [address] RoadDublin [place] [id number] Lymphocytes (Bld) [#/Vol] 2.2 10*3/uL Normal 0.7-3.1 [facility]; [facility] Work Phone: Comment on above: PATIENT WAS FASTINGP ERFORMED BY: CB [facility] Taljhh0026 [address]Dublin [place] [id number] Lymphocytes/100 WBC (Bld) 35 % Normal [facility]; [facility] Work Phone: Comment on above: PATIENT WAS FASTINGP ERFORMED BY: KENNEDY [facility] Oyzsrb2221 [address] RoadDublin [place] [id number] MCH (RBC) [Entitic mass] 30.3 pg Normal 26.6-33.0 [facility]; [facility] Work Phone: Comment on above: PATIENT WAS FASTINGP ERFORMED BY: CB [facility] Ewumjr4063 [address]Dublin [place] [id number] MCHC (RBC) [Mass/Vol] 34.1 g/dL Normal 31.5-35.7 [facility] prehensive Internal Medicine; [facility] Work Phone: Comment on above: PATIENT WAS FASTINGP ERFORMED BY: CB [facility] Wicoex8441 [address]Dublin [place] [id number] MCV (RBC) [Entitic vol] 89 fL Normal 79-97 [facility]; [facility] Work Phone: Comment on above: PATIENT WAS FASTINGP ERFORMED BY: CB [facility] Cfisef8223 [address] RoadDublin [place] [id number] Monocytes (Bld) [#/Vol] 0.5 10*3/uL Normal 0.1-0.9 [facility]; [facility] Work Phone: Comment on above: PATIENT WAS FASTINGP ERFORMED BY: [facility] Taanmo9609 [address]Dublin [place] [id number] Monocytes/100 WBC (Bld) 8 % Normal [facility]; [facility] Work Phone: Comment on above: PATIENT WAS FASTINGP ERFORMED BY: CB [facility] Fjiszv1031 [address] RoadDublin [place] [id number] Neutrophils (Bld) [#/Vol] 3.1 10*3/uL Normal 1.4-7.0 [facility]; [facility] Work Phone: Comment on above: PATIENT WAS FASTINGP ERFORMED BY: CB [facility] Gtgbyt2157 [address] RoadDublin [place] [id number] Neutrophils/100 WBC (Bld) 50 % Normal [facility]; [facility] Work Phone: Comment on above: PATIENT WAS FASTINGP ERFORMED BY: KENNEDY Labcoserina ShaverXsaztg8589 [address] RoadDublin [place] [id number] Platelets (Bld) [#/Vol] 284 10*3/uL Normal 150-450 [facility]; [facility] Work Phone: Comment on above: PATIENT WAS FASTINGP ERFORMED BY: CB [facility] Rsvesv8525 [address]Dublin [place] [id number] RBC (Bld) [#/Vol] 4.16 10*6/uL Normal 3.77-5.28 [facility] Internal Medicine; [facility] Work Phone: Comment on above: PATIENT WAS FASTINGP ERFORMED BY: KENNEDY Labcoserina Drqnot5549 [address]Dublin [place] [id number] WBC (Bld) [#/Vol] 6.3 10*3/uL Normal 3.4-10.8 [facility] Internal Medicine; [facility] Work Phone: Comment on above: PATIENT WAS FASTINGP ERFORMED BY: KENNEDY [facility] Pbkrvl7893 [address]Dublin [place] [id number] LIPID PANEL ([id number])Ordered B y: Director Human Services on 12-30-2022 Cholesterol [Mass/Vol] 243 mg/dL Abnormal 100-199 [facility]onde[facility] healthensive Internal Medicine; [facility] Work Phone: Comment on above: PATIENT WAS FASTINGP ERFORMED BY: KENNEDY [facility] Hxlnqc2806 [address]Dublin [place] [id number] Cholesterol in HDL [Mass/Vol] 60 mg/dL Normal [facility]; [facility] Work Phone: Comment on above: PATIENT WAS FASTINGP ERFORMED BY: KENNEDY [facility] Iwtqgb3435 [address]Dublin [place] [id number] Triglyceride [Mass/Vol] 143 mg/dL Normal 0-149 [facility]; [facility] Work Phone: Comment on above: PATIENT WAS FASTINGP ERFORMED BY: KENNEDY [facility] Oznpsq7041 [address]Dublin [place] [id number] LIPID PANEL (33362) 26 mg/dL Normal 5-40 [facility] Work Phone: Comment on above: PATIENT WAS FASTINGP ERFORMED BY: KENNEDY Labvijaya Diiczw5480 [facility] [id number] LIPID PANEL (95813) 157 mg/dL Abnormal 0-99 [facility]; [facility] Work Phone: Comment on above: PATIENT WAS FASTINGP ERFORMED BY: KENNEDY Labvijaya MendezBfektw4767 [facility] [id number] LIPID PANEL (67183) 2.6 {ratio} Normal 0.0-3.2 [facility]; [facility] Work Phone: Comment on above: LDL/HDL Ratio Men Wo men 1/2 Avg.Risk 1.0 1.5 Avg.Risk 3.6 3.2 2X Avg.Risk 6.2 5.0 3X Avg.Risk 8.0 6.1 PATIENT WAS FASTINGP ERFORMED BY: KENNEDY Labcoserina Qvspjj3065 [facility] [id number] METABOLIC PANEL, COMPREHENSI VE (47589)Ordered By: Director Human Services on 12-30-2022 Albumin [Mass/Vol] 4.8 g/dL Abnormal 3.7-4.7 [facility] Internal Medicine; [facility] Work Phone: Comment on above: PATIENT WAS FASTINGP ERFORMED BY: KENNEDY Labcoserina Lkoodv5730 [facility] [id number] Albumin/Globulin [Mass ratio] 2.0 {ratio} Normal 1.2-2.2 [facility]; [facility] Work Phone: Comment on above: PATIENT WAS FASTINGP ERFORMED BY: KENNEDY [facility] Ekekdu9757 [facility] [id number] ALP [Catalytic activity/Vol] 64 U/L Normal 44-121 [facility]; [facility] Work Phone: Comment on above: PATIENT WAS FASTINGP ERFORMED BY: KENNEDY [facility] Yunowp5896 [address]Dublin [place] [id number] ALT [Catalytic activity/Vol] 22 U/L Normal 0-32 [facility]; [facility] Work Phone: Comment on above: PATIENT WAS FASTINGP ERFORMED BY: [facility] Fdcfot4643 [address]Dublin [place] [id number] AST [Catalytic activity/Vol] 22 U/L Normal 0-40 [facility]; [facility] Work Phone: Comment on above: PATIENT WAS FASTINGP ERFORMED BY: [facility] Lppvix8590 [address] [place] [id number] Bilirubin [Mass/Vol] 0.7 mg/dL Normal 0.0-1.2 Comp rehensive Internal Medicine; [facility] Work Phone: Comment on above: PATIENT WAS FASTINGP ERFORMED BY: KENNEDY [facility] [id number] [address] RoadDublin [place] [id number] Calcium [Mass/Vol] 10.5 mg/dL Abnormal 8.7-10.3 [facility] Internal Medicine; [facility] Work Phone: Comment on above: PATIENT WAS FASTINGP ERFORMED BY: KENNEDY [facility] [id number] [place] [id number] Chloride [Moles/Vol] 98 mmol/L Normal 96-106 Comp rehensive Internal Medicine; [facility] Work Phone: Comment on above: PATIENT WAS FASTINGP ERFORMED BY: [facility] [id number] [address] [place] [id number] CO2 [Moles/Vol] 26 mmol/L Normal 20-29 [facility] Internal Medicine; [facility] Work Phone: Comment on above: PATIENT WAS FASTINGP ERFORMED BY: [facility] [id number]Dublin [place] [id number] Creatinine [Mass/Vol] 0.96 mg/dL Normal 0.57-1.00 [facility]; [facility] Work Phone: Comment on above: PATIENT WAS FASTINGP ERFORMED BY: KENNEDY [facility] [id number] [facility] [place] [id number] GFR/1.73 sq M.predicted among non-blacks MDRD (S/P/Bld) [Vol rate/Area] 63 mL/min/{1.73_m2} Normal Comprehensiv e Internal Medicine; [facility] Work Phone: Comment on above: PATIENT WAS FASTINGP ERFORMED BY: [facility] [id number] [place] [id number] Globulin (S) [Mass/Vol] 2.4 g/dL Normal 1.5-4.5 [facility]; [facility] Work Phone: Comment on above: PATIENT WAS FASTINGP ERFORMED BY: [facility] [id number] [facility] [place] [id number] Glucose [Mass/Vol] 93 mg/dL Normal 70-99 [facility] Internal [facility]; [facility] Work Phone: Comment on above: PATIENT WAS FASTINGP ERFORMED BY: [facility]Ex[facility] [id number] [facility] [place] [id number] Potassium [Moles/Vol] 4.1 mmol/L Normal 3.5-5.2 [facility] prehensive Internal Medicine; [facility] Work Phone: Comment on above: PATIENT WAS FASTINGP ERFORMED BY: [facility] [id number] [facility] [place] [id number] Protein [Mass/Vol] 7.2 g/dL Normal 6.0-8.5 [facility] Internal Medicine; [facility] Work Phone: Comment on above: PATIENT WAS FASTINGP ERFORMED BY: [facility] [id number] [facility] [place] [id number] Sodium [Moles/Vol] 137 mmol/L Normal 134-144 [facility] Internal Medicine; [facility] Work Phone: Comment on above: PATIENT WAS FASTINGP ERFORMED BY: [facility] [id number] [address]Dublin [place] [id number] Urea nitrogen [Mass/Vol] 17 mg/dL Normal 8-27 [facility]; [facility] Work Phone: Comment on above: PATIENT WAS FASTINGP ERFORMED BY: [employer] [id number] [facility] [id number] Urea nitrogen/Creatinine [Mass ratio] 18 mg/mg Normal 12- [facility]; [facility] Work Phone: Comment on above: PATIENT WAS FASTINGP ERFORMED BY: LabDalloulNW [id number] [facility] [id number] TSH (THYROID STIMULATING HOR TONIA) ([id number])Ordered By: Director Human Services on 12-30-2022 TSH Qn 1.700 {uIU/mL} Normal 0.450-4.500 [facility] Internal Medicine; [facility] Work Phone: Comment on above: PATIENT WAS FASTINGP ERFORMED BY: [employer] [id number] [facility] [id number] Absolute lymphocyte counton 06-24-2022 Lymphocytes Auto (Unsp spec) [#/Vol] 2.26 10*3/uL 0.83-4.51 [facility] Work Phone: Basophil percentageon 2021 Basophils/100 WBC (Bld) 2.1 % 0-1 [facility] Work Phone: Bilirubin [Mass/Vol] 0.70 mg/dL 0.20-1.00 [facility] Work Phone: Comment on above: For patients on eltr ombopag therapy, use of Dimension [place] TBIL is not recommended. Chloride [Moles/Vol] 105 mmol/L 98-107 [facility] Work Phone: Cholesterol [Mass/Vol] 241 mg/dL <200 [facility] Work Phone: Comment on above: <200 mg/dL Desirable 200-240 mg/dL Borderline >240 mg/dL High Risk Eosinophils/100 WBC (Bld) 5.2 % 0-5 [facility] Work Phone: Glucose [Mass/Vol] 90 mg/dL 74-106 [facility] Work Phone: Neutrophils (Bld) [#/Vol] 2.6 10*3/uL 2.0-7.7 [facility] Work Phone: Neutrophils/100 WBC (Bld) 45.7 % 47-70 [facility] Work Phone: Potassium [Moles/Vol] 3.6 mmol/L 3.5-5.1 [facility] Work Phone: Protein [Mass/Vol] 7.9 g/dL 6.4-8.2 [facility] Work Phone: Sodium [Moles/Vol] 141 mmol/L 136-145 [facility] Work Phone: Triglyceride [Mass/Vol] 138 mg/dL <199 [facility] Work Phone: Comment on above: The drugs N-Acetylcy steine and Metamizole may falsely depress this assay.Serum Triglycerides Reference Interval Normal <150 mg/dL Borderline high 150 - 199 mg/dL High 200 - 499 mg/dL Very High > or = 500 mg/dL WBC (Bld) [#/Vol] 5.8 10*3/uL 4.4-11.0 [facility] Work Phone: Blood erythrocytes count (nu mber/volume)on 06-24-2022 RBC (Bld) [#/Vol] 4.01 10*6/uL 4.2-5.4 [facility] Work Phone: Blood hemoglobin measurement (mass/volume)on 06-24-2022 Hemoglobin (Bld) [Mass/Vol] 12.1 g/dL 12.0-15.0 [facility] Work Phone: Blood lymphocytes/100 leukoc yteson 06-24-2022 Lymphocytes/100 WBC (Bld) 39.2 % 19-41 [facility] Work Phone: Blood monocytes/100 leukocyt eson 06-24-2022 Monocytes/100 WBC (Bld) 7.8 % 0-10 [facility] Work Phone: Blood platelet mean volumeon 06-24-2022 Platelet mean volume (Bld) [Entitic vol] 11.4 fL 6.2-12.0 [facility] Work Phone: Determination of erythrocyte mean corpuscular volume (MCV)on 06-24-2022 MCV (RBC) [Entitic vol] 93.3 fL 81-99 [facility] Work Phone: Hematocrit Auto (Bld) [Volum e fraction]on 06-24-2022 Hematocrit (Bld) [Volume fraction] 37.4 % 37-47 [facility] Work Phone: Laboratory - Chemistry and C hemistry - challengeon 06-24-2022 ALP [Catalytic activity/Vol] 62 U/L 45-117 [facility] Work Phone: ALT [Catalytic activity/Vol] 27 U/L 13-56 [facility] Work Phone: CO2 [Moles/Vol] 27.0 mmol/L 21.0-32.0 [facility] Work Phone: Globulin (S) [Mass/Vol] 4.0 g/dL 2.2-4.2 [facility] Work Phone: Urea nitrogen/Creatinine [Mass ratio] 19.2 mg/mg 10-20 [facility] Work Phone: Laboratory - Hematology and Cell countson 06-24-2022 Erythrocyte distribution width (RBC) [Entitic vol] 45.5 fL 35.1-43.9 [facility] Work Phone: Erythrocyte distribution width (RBC) [Ratio] 13.3 % 11.6-14.6 [facility] Work Phone: Immature granulocytes/100 WBC (Bld) 0.000 % 0.0-0.9 [facility] Work Phone: Comment on above: IG% - Immature Granu locytes (promyelocytes, myelocytes and metamyelocytes) > 1% indicates that a LEFT SHIFT is Present. MCH (RBC) [Entitic mass] 30.2 pg 27.0-32.0 [facility] Work Phone: Nucleated RBC/100 WBC (Bld) [Ratio] 0 % 0-5 [facility] Work Phone: MCHC Auto (RBC) [Mass/Vol]on 06-24-2022 MCHC (RBC) [Mass/Vol] 32.4 g/dL 32-36 [facility] Work Phone: No Panel Informationon 06-24 Estimated GFR (MDRD) Amer 67 mL/min >60 [facility] Work Phone: Comment on above: GFR Calc Estimated GFR (MDRD) Non-Af Amer 56 mL/min >60 [facility] Work Phone: Comment on above: Non- GFR Calc Thyroid Stimulating Hormone (TSH) 2.10 uIU/mL 0.358-3.74 [facility] Work Phone: Vitamin D 25-Hydroxy 57.3 ng/mL [facility] Work Phone: Comment on above: Vitamin D 25(OH) Sta tus Range Deficiency <20 ng/mL (50nmol/L) Insufficiency 20 - 30 ng/mL (50 - 75 nmol/L) Sufficiency 30 - 100 ng/mL (75 - 250 nmol/L) Toxicity >100 ng/mL (>250 nmol/L) Platelets bldon 06-24-2022 Platelets (Bld) [#/Vol] 295 10*3/uL 150-450 [facility] Work Phone: Serum or plasma albumin elie urement (mass/volume)on 06-24-2022 Albumin [Mass/Vol] 3.9 g/dL 3.2-5.0 [facility] Work Phone: Serum or plasma albumin/glob ulin mass ratioon 06-24-2022 Albumin/Globulin [Mass ratio] 1.0 {ratio} 0.9-2.4 [facility] Work Phone: Serum or plasma calcium elie urement (mass/volume)on 06-24-2022 Calcium [Mass/Vol] 9.7 mg/dL 8.5-10.1 [facility] Work Phone: Serum or plasma cholesterol in HDL measurement (mass/volume)on 06-24-2022 Cholesterol in HDL [Mass/Vol] 62 mg/dL >40 [facility] Work Phone: Comment on above: The drugs N-Acetylcy steine and Metamizole may falsely depress this assay. Reference Range HDL <40 mg/dL Low HDL Cholesterol HDL >or= 60 mg/dL High HDL Cholesterol Serum or plasma cholesterol in VLDL measurement (mass/volume)on 06-24-2022 Cholesterol in VLDL [Mass/Vol] 28 mg/dL 5-40 [facility] Work Phone: Serum or plasma creatinine m easurement (mass/volume)on 06-24-2022 Creatinine [Mass/Vol] 1.04 mg/dL 0.55-1.02 [facility] Work Phone: Comment on above: The validity of the calculated GFR & GFRAA in patients over 70 years has not been determined. Clinical correlation is essential. Serum or plasma low density lipoprotein (LDL) cholesterol measurement (mass/volume)on 06-24-2022 Cholesterol in LDL [Mass/Vol] 151 mg/dL 0-130 [facility] Work Phone: Serum or plasma urea nitroge n measurement (mass/volume)on 06-24-2022 Urea nitrogen [Mass/Vol] 20 mg/dL 7-18 [facility] Work Phone: Thin prep Papanicolaou smear with manual screeningon 06-24-2022 Thin prep Papanicolaou smear with manual screening 18 U/L 15-37 [facility] Work Phone: Thin prep Papanicolaou smear with manual screening 9 5-15 [facility] Work Phone: Laboratory - Microbiology an d Antimicrobial susceptibilityon 10-15-2021 SARS-CoV-2 (COVID-19) RNA TOMI+probe Ql (Unsp spec) Detected Not Detect [facility] Work Phone: Comment on above: Normal [...] CNOV Office Visit (ELEN ) VAISHALI KEE ([id number]) 1950 F Date Time Provider Department 05/07/21 [...] Age: [age] year old Sex: female MRN/E# [id number] Chief Complaint: No chief complaint on file. [...] APPENDECTOMY 1971 - COLONOSCOP W/ OR W/O [facility] SPEC 11/15/07 - LIGATE FALLOPIAN TUBE [...] allergies and (more content not included)... Normal [facility] MR-Spine Thoracic (Routine) IMPORTon 03-29-2021 MR-Spine Thoracic (Routine) IMPORT Images were obtained outside of [facility] [id number] N Normal [facility] OT-Spine Thoracic (Routine) IMPORTon 03-29-2021 OT-Spine Thoracic (Routine) IMPORT Images were obtained outside of [facility] [id number] N Normal [facility] Vital Signs Date Time Vital Sign Value Performing Clinician Facility 03-10-2025 18:23-0400 Body temperature 98.3 [degF] Dr. Holger Infante MD Work Phone: [facility] 03-10-2025 18:23-0400 Diastolic blood pressure 78 mm[Hg] Dr. Holger Infante MD Work Phone: [facility] 03-10-2025 18:23-0400 Heart rate 73 /min Dr. Holger Infante MD Work Phone: [facility] 03-10-2025 18:23-0400 Respiratory rate 18 /min Dr. Holger Infante MD Work Phone: [facility] 03-10-2025 18:23-0400 SaO2% (BldA) [Mass fraction] 100 % Dr. Holger Infante MD Work Phone: [facility] 03-10-2025 18:23-0400 Systolic blood pressure 132 mm[Hg] Dr. Holger Infante MD Work Phone: [facility] 03-10-2025 14:16-0400 Body height 165.[address] Holger Infante MD Work Phone: [facility] 03-10-2025 14:16-0400 Body mass index (BMI) [Ratio] 30.2 kg/m2 Dr. Holger Infante MD Work Phone: [facility] 03-10-2025 14:16-0400 Body weight 82.[address] 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 [facility]; [facility] Work Phone: Comment on above: Patient Position: Sitting; Cuff Location : Left Arm; Cuff Size: Standard 07-15-2023 10:33-0400 Heart rate 51 /min Marine 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 [employer]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 BUFFING 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 [facility]; [facility] Work Phone: Comment on above: Pattern: Regular 07-15-2023 10:33-0400 Respiratory rate 16 /min Marine Slarb [employer]ILVERWARE BUFFING MACHINE OPERATOR [facility]; [facility] Work Phone: Comment on above: Pattern: Unlabored 07-15-2023 10:33-0400 SaO2% (BldA) [Mass fraction] 99 % Marine Slarb [employer]ILVERWARE BUFFING MACHINE OPERATOR [facility]; [facility] Work Phone: Comment on above: Room air 07-15-2023 10:33-0400 Systolic blood pressure 124 mm[Hg] Marine Slarb [employer]ILVERWARE BUFFING MACHINE OPERATOR [facility]; [facility] Work Phone: Comment on above: Patient Position: Sitting; Cuff Location : Left Arm; Cuff Size: Standard 03-24-2023 11:56-0400 Diastolic Blood Pressure Non-Invasive [address] HOLGER INFANTE MD [facility] 03-24-2023 11:56-0400 Heart rate 50 /min DR HOLGER INFANTE MD [facility] 03-24-2023 11:56-0400 Respiratory rate 18 /min DR HOLGER INFANTE MD [facility] 03-24-2023 11:56-0400 Systolic Blood Pressure Non-Invasive [address] HOLEGR INFANTE MD [facility] 03-24-2023 09:46-0400 Diastolic Blood Pressure Non-Invasive [address] HOLGER INFANTE MD [facility] 03-24-2023 09:46-0400 Heart rate 48 /min DR HOLGER INFANTE MD [facility] 03-24-2023 09:46-0400 Respiratory rate 17 /min DR HOLGER INFANTE MD [facility] 03-24-2023 09:46-0400 Systolic Blood Pressure Non-Invasive [address] HOLGER INFANTE MD [facility] 03-24-2023 09:35-0400 Heart rate 49 /min DR HOLGER INFANTE MD [facility] 03-24-2023 09:35-0400 Respiratory rate 17 /min DR HOLGER INFANTE MD [facility] 03-24-2023 09:30-0400 Diastolic Blood Pressure Non-Invasive [address] HOLGER INFANTE MD [facility] 03-24-2023 09:30-0400 Systolic Blood Pressure Non-Invasive [address] HOLGER INFANTE MD [facility] 03-24-2023 08:40-0400 Body temperature 96.98 [degF] DR HOLGER INFANTE MD [facility] 03-24-2023 08:35-0400 Respiratory Rate - Anes 24 br/min DR HOLGER INFANTE MD [facility] 03-24-2023 08:30-0400 Respiratory Rate - Anes 24 br/min DR HOLGER INFANTE MD [facility] 03-24-2023 08:25-0400 Body temperature 96.01 [degF] DR HOLGER INFANTE MD [facility] 03-24-2023 08:25-0400 Respiratory Rate - Anes 28 br/min DR HOLGER INFANTE MD [facility] 03-24-2023 08:20-0400 Body temperature 96.04 [degF] DR HOLGER INFANTE MD [facility] 03-24-2023 08:15-0400 Body temperature 96.08 [degF] DR HOLGER INFANTE MD [facility] 03-24-2023 06:08-0400 Body height 165.[address] HOLGER INFANTE MD [facility] 03-24-2023 06:08-0400 Body weight [address] HOLGER INFANTE MD [facility] 03-24-2023 06:08-0400 Heart rate 56 /min DR HOLGER INFANTE MD [facility] 03-09-2023 10:31-0400 Body height 162.56 cm Vanita [...] 10:31-0400 Body temperature 98.2 [degF] Vanita Patel [facility]; [facility] Work Phone: Comment on above: Method: Thermal Scan 03-09-2023 10:31-0400 Body weight 84.48 kg Vanita Patel [facility]; [facility] Work Phone: 03-09-2023 10:31-0400 Diastolic blood pressure 72 mm[Hg] Vanita Patel [facility]; [facility] Work Phone: Comment on above: Patient Position: Sitting; Cuff Location : Left Arm; Cuff Size: Standard 03-09-2023 10:31-0400 Heart rate 56 /min Vanita Patel [facility]; [facility] Work Phone: Comment on above: Pattern: Regular 03-09-2023 10:31-0400 Respiratory rate 16 /min Vanita Patel [facility]; [facility] Work Phone: Comment on above: Pattern: Unlabored 03-09-2023 10:31-0400 SaO2% (BldA) [Mass fraction] 98 % Vanita Patel [facility]; [facility] Work Phone: Comment on above: Room air 03-09-2023 10:31-0400 Systolic blood pressure 116 mm[Hg] Vanita Patel [facility]; [facility] Work Phone: Comment on above: Patient Position: Sitting; Cuff Location : Left Arm; Cuff Size: Standard 03-02-2023 13:35-[address] HOLGER INFANTE MD [facility] 03-02-2023 13:35-[address] HOLGER INFANTE MD [facility] 03-02-2023 13:35-0400 Body height 165.[address] HOLGER INFANTE MD [facility] 03-02-2023 13:35-0400 Body weight [address] HOLGER INFANTE MD [facility] 03-02-2023 13:35-0400 Body weight 30.82 kg/m2 DR HOLGER INFANTE MD [facility] 03-02-2023 13:35-0400 Diastolic Blood Pressure Non-Invasive [address] HOLGER INFANTE MD [facility] 03-02-2023 13:35-0400 Heart rate 68 /min DR HOLGER INFANTE MD [facility] 03-02-2023 13:35-0400 Respiratory rate 18 /min DR HOLGER INFANTE MD [facility] 03-02-2023 13:35-0400 Systolic Blood Pressure Non-Invasive [address] HOLGER INFANTE MD [facility] 01-12-2023 10:31-0400 Body height 162.56 cm Marine [...] 10:31-0400 Body temperature 96.4 [degF] Marine Angierb [employer]WARE BUFFING MACHINE OPERATOR [facility]; [facility] Work Phone: Comment on above: Method: Temporal 01-12-2023 10:31-0400 Body weight 86.75 kg Marine Alex HUFFMAN [facility]; [facility] Work Phone: 01-12-2023 10:31-0400 Diastolic blood pressure 90 mm[Hg] Marine Slarb SILVERWARE BUFFING MACHINE OPERATOR [facility]; [facility] Work Phone: Comment on above: Patient Position: Sitting; Cuff Location : Left Arm; Cuff Size: Standard 01-12-2023 10:31-0400 Heart rate 57 /min Marine Slarb [employer]ILVERWARE BUFFING MACHINE OPERATOR [facility]; [facility] Work Phone: Comment on above: Pattern: Regular 01-12-2023 10:31-0400 Respiratory rate 15 /min Marine Slarb SILVERWARE BUFFING MACHINE OPERATOR [facility]; [facility] Work Phone: Comment on above: Pattern: Unlabored 01-12-2023 10:31-0400 SaO2% (BldA) [Mass fraction] 98 % Marine Slarb [employer]ILVERWARE BUFFING MACHINE OPERATOR [facility]; [facility] Work Phone: Comment on above: Room air 01-12-2023 10:31-0400 Systolic blood pressure 132 mm[Hg] Marine Slarb [employer]IL[employer]WARE BUFFING MACHINE OPERATOR [facility]; [facility] Work Phone: Comment on above: Patient Position: Sitting; Cuff Location : Left Arm; Cuff Size: Standard 12-12-2022 11:08-0400 Body height 162.56 cm Marine Slarb [employer]ILVERWARE BUFFING MACHINE OPERATOR [facility]; [facility] Work Phone: 12-12-2022 11:08-0400 Body mass index (BMI) [Ratio] 33.13 kg/m2 Marine Slarb [employer] BUFFING MACHINE OPERATOR [facility]; [facility] Work Phone: 12-12-2022 11:08-0400 Body surface area Derived from formula 1.93 m2 Marine Slarb [employer]WARE BUFFING MACHINE OPERATOR [facility]; [facility] Work Phone: 12-12-2022 11:08-0400 Body temperature 98 [degF] Marine Slarb [employer]IL[employer]WARE BUFFING MACHINE OPERATOR [facility]; [facility] Work Phone: Comment on above: Method: Temporal 12-12-2022 11:08-0400 Body weight 87.54 kg Marine Slarb [employer]ILVERWARE BUFFING MACHINE OPERATOR [facility]; [facility] Work Phone: 12-12-2022 11:08-0400 Diastolic blood pressure 90 mm[Hg] Marine Slarb SILVERWARE BUFFING MACHINE OPERATOR [facility]; [facility] Work Phone: Comment on above: Patient Position: Sitting; Cuff Location : Left Arm; Cuff Size: Standard 12-12-2022 11:08-0400 Heart rate 52 /min Marine Slarb SILVERWARE BUFFING MACHINE OPERATOR [facility]; [facility] Work Phone: Comment on above: Pattern: Regular 12-12-2022 11:08-0400 Respiratory rate 15 /min Marine Slarb SILVERWARE BUFFING MACHINE OPERATOR [facility]; [facility] Work Phone: Comment on above: Pattern: Unlabored 12-12-2022 11:08-0400 SaO2% (BldA) [Mass fraction] 99 % Marine Slarb [employer]ILVERWARE BUFFING MACHINE OPERATOR [facility]; [facility] Work Phone: Comment on above: Room air 12-12-2022 11:08-0400 Systolic blood pressure 170 mm[Hg] Marine Slarb SILVERWARE BUFFING MACHINE OPERATOR [facility]; [facility] Work [...] Facility Start: 04-12-2025 ambulatory Brandon Randall Facility :[facility] Start: 03-10-2025 End: 03-10-2025 Emergency department patient visit Dr. Hloger Infante MD Work Phone: -Emergency Department Work Phone: Start: 03-10-2025 End: 03-10-[address] Holger Infante MD Work Phone: [facility] Work Phone: Start: 03-10-2025 End: 03-10-[address] Ana Hernández MD -Laboratory Specimen Work Phone: Start: 03-10-2025 End: 03-10-2025 ambulatory Ana Hernández Facility:[facility] Start: 02-28-2025 Encounter for other preprocedural examination Holger Infante [facility] Start: 02-23-2025 End: 02-23-2025 Non-patient / Non-visit Dr. Robert Hagen MD -[facility] Work Phone: Start: 02-23-2025 End: 02-23-[address] Holger Infante MD Work Phone: [facility] Work Phone: Start: 02-23-2025 End: 02-23-[address] Holger Infante MD -Cat Scan [facility] Work Phone: Start: 02-23-2025 End: 02-23-2025 ambulatory Holger Infante Facility:[facility] Start: 07-22-2023 End: 07-22-2023 Historical Summary [...] SAME DAY STAY DR HOLGER INFANTE MD [facility] Start: 03-09-2023 End: 03-10-2023 Office consultation new/estab [...] Patient encounter procedure DR HOLGER INFANTE MD [facility] Start: 03-02-2023 End: 03-02-[address] HOLGER INFANTE MD [facility] Start: 02-06-2023 ambulatory Brandon Randall CNP [facility] Start: 01-12-2023 End: 01-12-2023 Office outpatient visit 15 minutes Brandon Randall CNP Work Phone: [facility] Start: 12-12-2022 End: 12-19-2022 Office outpatient new 45 minutes Brandon Randall CNP Work Phone: [facility] Start: 12-12-2022 Review Brandon Randall CNP Work Phone: [facility] Start: 06-24-2022 End: 06-24-2022 ambulatory [facility] Work Phone: Start: 06-24-2022 End: 06-24-2022 Patient encounter procedure [facility], [place] Start: 10-15-2021 End: 10-15-2021 Patient encounter procedure [facility], Specimen Start: 11-02-2006 End: 11-02-2006 Office [...] and Lateral Procedure Note: See Note; NOTES: [facility] [address] [place] [address] Chest PA and Lateral MR#: [id number] Acct: [id number] Name: VAISHALI KEE Rep #: [id number] : 1950 F 72 From: Idris Oreilly MD PCP: Dr. Stephanie Norton MD Status: DEP AMB Study: Chest PA and Lateral Date of Exam: 03/09/23 Exam# [id number] Ordering Dr: Brandon Randall WELDER FITTER ARC-C EXAM: XR CHEST, 2 VIEWS CLINICAL INDICATION: [...] CC: MIRIAN Randall; Dr. Stephanie Norton MD [place]: Signed Brandon Randall CNP Work Phone: Start: 12-12-2022 End: 12-12-2022 Knee 4 or More Views Procedure Note: See Note; NOTES: [facility] [address] [place] [address] Knee 4 or More Views MR#: [id number] Acct: [id number] Name: VAISHALI KEE Rep #: [id number] : 1950 F 72 From: Mauricio Cabrales MD PCP: Dr. Stephanie Norton MD Status: DEP AMB Study: Knee 4 or More Views Date of Exam: 12/12/22 Exam# [id number] Ordering Dr: Brandon Randall STUDY: X-RAY - [...] CC: MIRIAN Randall; Dr. Stephanie Norton MD [place]: Signed Brandon Randall CNP Work Phone: Colonoscopy Amrine Slarb LP N Comment on above: 2019 [facility] Colonoscopy Marine Slarb [facility] N Comment on above: 2019 [facility] Colonoscopy Vanita Manchak CLINICAL THERAPIST Comment on above: 2019 [facility] Colonoscopy Marine Slarb [facility] N Comment on above: 2019 [facility] Excision of cyst of ovary DR HOLGER INFANTE MD Foot repair DR HOLGER Rosas MD Comment on above: RIGHT H/O: surgery Tonsillectomy AMBER KATHLEEN ELECTRONIC IMAGER Work Phone: H/O: surgery Tonsillectomy Marine Slarb L PN H/O: surgery Tonsillectomy Marine Slarb L PN H/O: surgery Tonsillectomy Vanita Magdaleno k CLINICAL THERAPIST H/O: surgery Tonsillectomy Marine Slarb L PN Hand repair DR HOLGER Rosas MD Comment on above: RIGHT History of appendectomy Appendectomy SUSA NNE KATHLEEN ELECTRONIC IMAGER Work Phone: History of appendectomy Appendectomy Rosemary la Slarb SILVERWARE BUFFING MACHINE OPERATOR History of appendectomy Appendectomy Rosemary la Slarb SILVERWARE BUFFING MACHINE OPERATOR History of appendectomy Appendectomy Kimberly sea Manchak CLINICAL THERAPIST History of appendectomy Appendectomy Rosemary la Slarb SILVERWARE BUFFING MACHINE OPERATOR Ligation of fallopia n tube DR HOLGER INFANTE MD Ovarian Cyst removed Marine Slarb SILVERWARE BUFFING MACHINE OPERATOR Ovarian Cyst removed Marine Slarb SILVERWARE BUFFING MACHINE OPERATOR Ovarian Cyst removed Vanita Manchak CLINICAL THERAPIST Ovarian Cyst removed Marine Slarb SILVERWARE BUFFING MACHINE OPERATOR Replacement of total knee joint Marine Slarb SILVERWARE BUFFING MACHINE OPERATOR Comment on above: 03/20 Dr. Infante Tonsillectomy Marine Slarb L PN Tonsillectomy Marine Slarb L PN Tonsillectomy DR HOLGER CALLAHAN MD Tonsillectomy Vanita Magdaleno k CLINICAL THERAPIST Tonsillectomy Marine Slarb L PN Plan of Treatment Date Care Activity Detail Author Start: 03-10-2025 [facility] Start: 03-10-2025 [facility] Start: 07-22-2023 Assay of nephelometry each analyte jere Serum Free Light Chains (06717) [facility] Work Phone: Start: 07-22-2023 Protein total xcpt refractometry urine UPEP (92902) [facility]; [facility] Work Phone: Start: 07-22-2023 Protein electrophoretic fractj&quantj serum SPEP (15348) [facility]; [facility] Work Phone: Start: 07-22-2023 Calcium ionized CALCIUM, IONIZED (15876) [facility]; [facility] Work Phone: Start: 07-22-2023 Chemiluminescent assay Parathyroid Hormone-related Peptide (PTH-rP) (55549) [facility]; [facility] Work Phone: Start: 07-22-2023 1 25 dihydroxy includes fractions if performed VITAMIN D, 1, 25-DIHYDROXY (79758) [facility]; [facility] Work Phone: Start: 07-22-2023 Comprehensive metabolic panel METABOLIC PANEL, COMPREHENSIVE (08314) [facility]; [facility] Work Phone: Start: 07-15-2023 Procedure Education Eprescribed prescriptions (G8553) [facility]; [facility] Work Phone: Start: 07-15-2023 Provider Instructions for Treatment Follow up in 6 months [facility]; [facility] Work Phone: Start: 07-15-2023 Calcium ionized CALCIUM, IONIZED (91346) [facility]; [facility] Work Phone: Start: 07-15-2023 Lipid panel LIPID PANEL (98635) [facility]; [facility] Work Phone: Start: 07-15-2023 Assay of thyroid stimulating hormone tsh TSH (THYROID STIMULATING HORMONE) (06244) [facility]; [facility] Work Phone: Start: 07-15-2023 Blood count complete auto&auto difrntl wbc CBC, PLATELETS & AUT DIFF (69567) [facility]; [facility] Work Phone: Start: 07-15-2023 Comprehensive metabolic panel METABOLIC PANEL, COMPREHENSIVE (78902) [facility]; [facility] Work Phone: Start: 07-15-2023 Urinalysis qual/semiquant except immunoassays URINALYSIS (75322) [facility]; [facility] Work [...] stimulating hormone tsh TSH (THYROID STIMULATING HORMONE) (04133) [facility]; [facility] Work Phone: Start: 12-12-2022 Blood count complete auto&auto difrntl wbc CBC, PLATELETS & AUT DIFF (68854) [facility]; [facility] Work Phone: Start: 12-12-2022 Lipid panel LIPID PANEL (66971) [facility]; [facility] Work Phone: Start: 12-12-2022 Patient Education Hypertension [facility]; [facility] Work Phone: Start: 12-12-2022 Procedure Education Eprescribed prescriptions (G8553) [facility]; [facility] Work Phone: Start: 12-12-2022 Provider Instructions for Treatment Follow up in 1 month for hypertension [facility]; [facility] Work Phone: Start: 12-12-2022 Comprehensive metabolic panel METABOLIC PANEL, COMPREHENSIVE (86312) [facility]; [facility] Work Phone: Start: 11-02-2006 Provider Instructions for Treatment Antibiotic Usage Education - Female [facility]; [facility] Work Phone: Patient Education ED Chest Pain, Uncertain Cause [facility] Work Phone: Patient referral [facility] Work Phone: [facility]; [facility] [...] and acellular pertussis vaccine, adsorbed Brandon Randall ELECTRONIC IMAGER Work Phone: [facility]; [facility] Work Phone: Payers Date Payer Category Payer Self-pay [id number] 2024 Unknown [id number] 2022 Medicare [id number] 2022 Private Health Insurance [id number] 2004 Unknown [id number] 1950 Unknown [id number] 2.16.84 [id number] 1950 Unknown [id number] 2.16.8 [id number] 1950 Unknown [id number] 2.16.8 [id number] 1950 Unknown [id number] 2.16.8 [id number] Unknown [id number] Unknown [id number] Unknown [id number] 2.16.8 [id number] Unknown [id number] 2.16.8 [id number] Unknown [id number] 2.16.8 [id number] Unknown [id number] 2.16.8 [id number] Unknown [id number] 2.16.8 [id number] Unknown [id number] 2.16.8 [id number] Social History Date Type Detail Facility Start: 04-08-2021 Tobacco smoking status WAIS Unknown if ever smoked [facility] Work Phone: Start: 1950 Sex Assigned At Female [facility] Caffeine Use Caffeine Use [facility] Work Phone: Comment on above: 3 cups per day 2 cups per day Tobacco Use: Tobacco Use: [facility]; [facility] Work Phone: Start: 07-09-2020 End: 03-10-2025 Tobacco smoking status Never smoked tobacco (finding) [facility] Functional Status Date Assessment Result Facility 03-24-2023 Functional Status Ambulating in room, Awake [facility] 03-24-2023 Functional Status Supervised [facility] 03-24-2023 Functional Status ice on [facility] 03-24-2023 Functional Status Maintained [facility] Mental Status Date Assessment Result Facility 03-10-2025 Cognitive function Level Of Cons ciousness Awake;Alert;Appropriate;Follow s Commands [facility] Work Phone: 03-24-2023 Mental Status Orientation Oriented x 4 [facility] 03-24-2023 Mental Status [facility] 03-24-2023 Mental Status [facility] Clinical Notes 05-07-2021 to 03-10-2025 Note Date & Type Note Facility 03-10-2025 Radiology Diagnostic study note [facility] Services [address] [place], [place] [id number] Chest PA and Lateral MR#: [id number] Acct: [id number] Name: VAISHALI KEE Rep #: [id number] : 1950 F 74 From: Karma Bardales MD PCP: SOHAIL LundbergC Status: REG E R Study:Chest PA and Lateral Date of Exam: 03/10/25 Exam# [id number] Ordering Dr: Gertrude Martin PROCEDURE: CHEST PA [...] and Lateral IMPRESSION: NEGATIVE CHEST Reading Location: [id number] CC: WELDER FITTER ARC-C Brandon Randall; KWESI Simon ~ [place]: Signed [facility] 02-24-2025 Radiology Diagnostic study note [facility] [address] [place], [place] [id number] Extremity Lower without Contra MR#: [id number] Acct: [id number] Name: VAISHALI KEE Rep #: [id number] : 1950 F 74 From: Cade Soares MD PCP: SOHAIL LundbergC Status: REG C LI Study:Extremity Lower without Contra Date of Exam: 02/23/25 Exam# [id number] Ordering Dr: Ramy Infante MD PROCEDURE: EXTREMITY LOWER WITHOUT CONTRA 02/23/2025 REASON FOR EXAM: PAIN IN RIGHT KNEE [facility] protocol for right knee replacement. TECHNIQUE: Axial [...] compartment. Small knee joint effusion. Reading Location: [place] [address] CC: MIRIAN Randall; Dr. Holger Infante MD ~ [place]: Signed [facility] 03-24-2023 Hospital Dischbanner e instructions Patient Education 03/24/2023 09:29:36 Total Knee Replacement, Care After, Cicf-eu-Tgmm Total Knee Replacement, Care After This sheet [...] Follow these instructions at home: Medicines Take rart-kus-swpgees and prescription medicines only as told by [...] keep your pee (urine) pale yellow. ?Take tmeh-pvc-fwfxquy or prescription medicines. ?Eat foods that are [...] cannot use soap and water, use hand resident programs assistant. ?Change your bandage as told by your [...] 12/06/2012 Document Revised: 01/23/2020 Document Reviewed: 04/28/2019 t-Art Patient Education 2020 [employer] 03/24/2023 09:28:35 Nausea and Vomiting, Adult, Abkx-pl-Nllz Nausea and Vomiting, Adult Nausea is feeling [...] fruit juice). ?Low-calorie sports drinks. Eat bland, ddaw-xy-dzkjmj foods in small amounts as you are able, such as: ?Bananas. ?Applesauce. ?Rice. ?Low-fat (lean) meats. ?[place]mont. ?Crackers. Avoid drinking fluids that have a lot of sugar or caffeine in them. This includes energy drinks, sports drinks, and soda. Avoid alcohol. Avoid spicy or fatty foods. General instructions Take fmkv-wkw-rympzpn and prescription medicines only as told by your doctor. Drink enough fluid to keep your pee (urine) pale yellow. Wash your hands often with soap and water. If you cannot use soap and water, use hand resident programs assistant. Make sure that all people in your [...] too much water in your body. Take pvdp-ijg-kanrbhs and prescription medicines only as told by [...] 03/02/2009 Document Revised: 01/06/2020 Document Reviewed: 02/22/2019 t-Art Patient Education 2020 [employer]. 03/24/2023 09:28:33 General Anesthesia, Adult, Care After [...] what activities are safe for you. Take jhho-bgm-qcsizao and prescription medicines only as told by [...] 12/21/2001 Document Revised: 09/17/2018 Document Reviewed: 04/30/2018 t-Art Patient Education 2020 [employer]. Follow Up Care 02/09/2023 12:39:42 With:HOLGER INFANTE [facility] [address] [facility] [address] [place] [phone] Business (1) When: Unknown [facility] 03-24-2023 Note Discharge Instructions Thank you for allowing [facility] to assist you with your healthcare needs. The following is important discharge information regarding your hospital visit. Your Care Team BRANDON RANDALL APRN-ANDRES infante Your Diagnosis LEFT KNEE ARTHROPLASTY What to do next Follow Up Appointments Follow Up with HOLGER INFANTE When [facility] [address] [place] [phone] Business (1) Allergies Augmentin (Diarrhea) Bactrim Medications [...] Follow these instructions at home: Medicines Take jbya-ygc-opziaoq and prescription medicines only as told by [...] your pee (urine) pale yellow. ? Take tdqc-rzb-cldthho or prescription medicines. ? Eat foods that [...] cannot use soap and water, use hand resident programs assistant. ? Change your bandage as told by [...] 12/06/2012 Document Revised: 01/23/2020 Document Reviewed: 04/28/2019 t-Art Patient Education 2020 [employer]. Nausea and Vomiting, Adult Nausea is feeling [...] juice). ? Low-calorie sports drinks. Eat bland, vhcg-ps-ipygqe foods in small amounts as you are able, such as: ? Bananas. ? Applesauce. ? Rice. ? Low-fat (lean) meats. ? [place]. ? Crackers. Avoid drinking fluids that have a lot of sugar or caffeine in them. This includes energy drinks, sports drinks, and soda. Avoid alcohol. Avoid spicy or fatty foods. General instructions Take cniw-bff-canxxin and prescription medicines only as told by your doctor. Drink enough fluid to keep your pee (urine) pale yellow. Wash your hands often with soap and water. If you cannot use soap and water, use hand resident programs assistant. Make sure that all people in your [...] too much water in your body. Take ipsg-kpl-jehtxyq and prescription medicines only as told by [...] 03/02/2009 Document Revised: 01/06/2020 Document Reviewed: 02/22/2019 t-Art Patient Education 2020 [employer]. General Anesthesia, Adult, Care After This sheet [...] what activities are safe for you. Take wvue-mpp-plcbncc and prescription medicines only as told by [...] Document Reviewed: 04/30/2018 Elsevier Patient Education 2020 t-[employer] Inc. Additional Information VACCINATE! IT SAVES LIVES! Members of the community who have not yet received the COVID-19 vaccine and would like to receive it can visit one of [facility] vaccine clinics. There are many vaccine clinic locations within the [facility]. For locations and available times, please visit https://gettheshot.coronavirus.[place].gov/. It is important to note that some COVID mobile vaccine clinics are held outdoors and may be canceled in rainy or stormy conditions. To learn more about pediatric vaccinations (ages 5-11), we invite you to visit the [employer] webpage. https://www.Write.mys.org/pa ges/9967-Vbzfo-Xfafmutfrvg-Freque ufja-Xnftx-Wvalqyzvi.html To learn more about the COVID-19 vaccine, we invite you to visit the CDC website for a list of frequently asked questions.https://www.cdc.gov/cor onavirus/2019-ncov/vaccines/faq.h tml [facility] Patient Portal Access Instructions: Stay connected with your healthcare team and access your personal medical information anytime with the [facility] Patient Portal. Please follow the directions below to create your [facility] account: 1.Access the email account you provided upon registration to the hospital/physician office.2.Look for an invitation email from [facility].3.Open the email and access the invitation link: Accept Invitation to [facility].4.Fill in the required hamilton to create your account. To access your account, visit [employer]. Click the blue button labeled Access Patient [...] you will allow to register on the [facility] Patient Portal for access to your information. You can also access the [facility] Patient Portal on the [facility] bisi. Simply click on Patient Portal and then log into your account. If you would like to receive a full copy of your medical records, please contact the [facility] Medical Records Department by calling [phone], Thursday through Thursday between 8 a.m. and [...] Call your local pharmacy or go to [email or web address] to find one close to you.3.Make use of household items: Use cat litter or old coffee grounds to dispose medications if other options are not available. Mix your drugs with these household products, seal them in an airtight container and throw it into the garbage. Call [facility]: [phone] to be sure your drugs can be [...] Education Materials Total Knee Replacement, Care After, Mayh-lp-Vuwq Nausea and Vomiting, Adult, Hxjs-ky-Jnkw General Anesthesia, Adult, Care After Medication Leaflets My discharge plan and instructions have been reviewed and explained to me and I,VAISHALI KEE understand my current condition and have read and understand these discharge instructions. I have received a written copy of the plan/instructions. If I have questions, I am aware that I should contact my doctor. Patient/Special Events Manager Signature: Date/Time: Relationship to Patient: ____ Witness Name/Signature: Date/Time: [facility] 03-24-2023 Note ORIGINAL EXAMINATION: TWO XRAY VIEWS [...] identified. IMPRESSION: Expected postoperative findings. Interpreted by: Robret Benito MD Preliminary Report By: Robert Benito MD Electronically signed By Robert Benito MD Dictated Date: 03/24/2023 9:20:41 AM Prelim Date: 03/24/2023 9:21:09 AM Sign Date: 03/24/2023 9:21:09 AM Ordering Provider: HOLGER INFANTE [facility] 03-24-2023 Note ORIGINAL EXAMINATION: TWO XRAY VIEWS [...] Sign Date: 03/24/2023 9:21:09 AM Ordering Provider: [facility] 03-24-2023 Anesthesiology Consult note Patient: VAISHALI KEE Age: 72 years Sex: Female : 1950 Associated Diagnoses: None Author: BELL MARION APRN-OPTICAL SYSTEMS ENGINEER Preoperative Information Time of last food or [...] 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 Hand repair ([id number]). Comments: 07/09/2020 7:47 Byron Green RN RIGHT Foot repair ([id number]). Comments: 07/09/2020 7:47 Byron Green RN RIGHT Tubal ligation ([id number]). Ovarian cystectomy ([id number]). Social History Social & Psychosocial Habits Alcohol [...] Signs(last 24 hrs) Last Charted Heart Rate Kekopkhsf48 bpm (MAR 24 07:30) Resp Rate 14 br/min (MAR 24 06:08) SBP78 mmHg (MAR 24 07:25) DBP41 mmHg (MAR 24 07:25) Measurements from flowsheet : Measurements 03/24/2023 6:08 EDT Height 165.1 cm Admission Weight 84 kg Sebastian Body Weight 57.00 kg 03/24/2023 6:06 EDT [...] Lab results 03/24/2023 7:39 EDT SN - SD - Route of Administration Local SN - SD - Route of Administration Local 03/24/2023 7:36 EDT SN - Irl - Irrigant Normal Saline SN - Irl - Irrigant Sterile Water SN - Irl - Irrigant Normal Saline SN - IrI - Volume In 450 mL SN - IrI - Volume In 500 mL SN - Irl - Additive IRRIGATION CHG 0.05% IRRISEPT 12/CA [id number] SN - Irl - Additive BETADINE SN [...] Provider #1 Bedside Time Out BELL MARION APRN-OPTICAL SYSTEMS ENGINEER Provider #2 Bedside Time Out Anastasia Mg [...] Surgeon SN - CAt - Role Performed OPTICAL SYSTEMS ENGINEER SN - CAt - Role Performed Computing Tutor 1 SN - CAt - Role Performed Scrub 1 SN - CAt - Role Performed Woodworking Machinist 1 SN - CAt - Role Performed Physician Horse Trekking Guide SN - CAt - Role Performed Chart Changer 03/24/2023 6:39 EDT Primary Pain Intensity 0 celecoxib 400 mg mg oxyCODONE 10 mg mg 03/24/2023 6:08 EDT Height 165.1 cm Admission Weight 84 kg Sebastian Body Weight 57.00 kg Apical Heart Rate [...] no difficulties Skin Temperature Warm Skin Description [place], Normal for ethnicity, Dry Skin Integrity Intact [...] copy (Modified) Safety Brochure Information Reviewed Yes [facility] Video Viewed No Teaching Evaluation No further teaching needed Eat Poorly Due to Decreased Appetite No Total MST Score 0 Admission Note-Nursing Same Day Patient History (Modified) . ECG interpretation Documentation reviewed Assessment and Plan Citizen Of [place] Society of Anesthesiologists (ASA) physical status classification: [...] by BELL MARION on 03/24/2023 07:42 AM [facility] 03-02-2023 Note ORIGINAL EXAMINATION: CT OF THE [...] 03/02/2023 4:15:17 PM Ordering Provider: HOLGER NARESH [facility] 03-02-2023 Note ORIGINAL EXAMINATION: CT OF THE [...] Sign Date: 03/02/2023 4:15:17 PM Ordering Provider: [facility] 05-07-2021 Note HNO ID: [id number] Author: Eugenie Aponte MD Service: ? Author Type: Physician Type: Progress Notes Filed: 05/17/2021 11:58 AM Note Text: NEUROSURGERY CONSULT NOTE Eugenie Aponte MD Date of visit: May 07, 2021 Patient Name: Ms.Karen Elio Kee Date of : 1950 Current Age: [age] year old Sex: female MRN/E# [id number] Chief Complaint: No chief complaint on file. [...] APPENDECTOMY 1971 - COLONOSCOP W/ OR W/[facility] SPEC 11/15/07 - LIGATE FALLOPIAN TUBE [...] 97.9 Resp 16 (more content not included)... [facility] Evaluation + Plan note Future Appointments [facility] Evaluation note No assessment inform ation available [facility] Work Phone: Hospital course Narrative No data available for this section [facility] Hospital Discharge instructions No data available for this section [facility] Hospital Discharge instructions Additional Instructions Please follow-up with cardiology, return for any concerning or worsening symptoms. Please return for any chest pain, shortness of breath, or any other concerning symptoms. [facility] Work Phone: Instructions Name Patient Instructions [...] Informa tion Online using Patient Portal and [employer] Apps Indication:Preop examination (Renamed from Encounter for pre-operative examination) Start:09-Mar-2023 Instruction Type:Patient Education Patient Instructions Indication:Hypertension Start:12-Jan-2023 Instruction Type:Provider Instructions for Treatment How to Access Health Informa tion Online using Patient Portal and [employer] Apps Indication:Hypertension Start:12-Jan-2023 Instruction Type:Patient [...] Informa tion Online using Patient Portal and [employer] Apps Indication:Nonsmoker Start:15-Jul-2023 Instruction Type:Patient Education Patient Instructions Indication:Preop examination (Renamed from Encounter for pre-operative examination) Start:09-Mar-2023 Instruction Type:Provider Instructions for Treatment How to Access Health Informa tion Online using Patient Portal and [employer] Apps Indication:Preop examination (Renamed from Encounter for pre-operative examination) Start:09-Mar-2023 Instruction Type:Patient Education Patient Instructions Indication:Hypertension Start:12-Jan-2023 Instruction Type:Provider Instructions for Treatment How to Access Health Informa tion Online using Patient Portal and [employer] Apps Indication:Hypertension Start:12-Jan-2023 Instruction Type:Patient Education Patient Instructions Indication:Nonsmoker Start:12-Dec-2022 Instruction Type:Provider Instructions for Treatment How to Access Health Informa tion Online using Patient Portal and [employer] Apps Indication:Nonsmoker Start:12-Dec-2022 Instruction Type:Patient Education [facility] Work Phone: progress note No data available for this section [facility] Reason for referral (narrative)No reason for referral [facility] Work Phone: Summary Purpose Family History No Family History Records FoundUnknown Family Member Name Dates Details Father Comments:SD Status:Active Mother Comments:Arthritis, Ovarian cancer Status:Active Paternal Grandmother Comments:Thyroid issues Status:Active Unknown Family Member Name Dates Details Father Comments:SD Status:Active Mother Comments:Arthritis, Ovarian cancer, ETOH Status:Active Paternal Grandmother Comments:Thyroid issues Status:Active Unknown Family Member Name Dates Details Father Comments:SD Status:Active Mother Comments:Arthritis, Ovarian cancer, ETOH Status:Active Paternal Grandmother Comments:Thyroid issues Status:Active Unknown Family Member Name Dates Details CHF (congestive heart failur e)(I50.9, 428.0) Comments:Brother. Status:Active Father Comments:SD Status:Active Mother Comments:Arthritis, Ovarian cancer, ETOH Status:Active Paternal Grandmother Comments:Thyroid issues Status:Active Unknown Family Member Name Dates Details CHF (congestive heart failur e)(I50.9, 428.0) Comments:Brother. Status:Active Father Comments:SD Status:Active Mother Comments:Arthritis, Ovarian cancer, ETOH Status:Active Paternal Grandmother Comments:Thyroid issues Status:Active Unknown Family Member Name Dates Details Father Comments:SD at 71 Status:Active Heart Valve Insufficiency Comments:Brother. Status:Active Mother Comments:Arthritis, Ovarian cancer, ETOH Status:Active Paternal Grandmother Comments:Thyroid issues Status:Active Unknown Family Member Name Dates Details Father Comments:SD at 71 Status:Active Heart Valve Insufficiency Comments:Brother. Status:Active Mother Comments:Arthritis, Ovarian cancer, ETOH Status:Active Paternal Grandmother Comments:Thyroid issues Status:Active Unknown Family Member Name Dates Details Father Comments:SD at 71 Status:Active Heart Valve Insufficiency Comments:Brother. Status:Active Mother Comments:Arthritis, Ovarian cancer, ETOH Status:Active Paternal Grandmother Comments:Thyroid issues Status:Active Unknown Family Member Name Dates Details Father Comments:SD at 71 Status:Active Heart Valve Insufficiency Comments:Brother. Status:Active Mother Comments:Arthritis, Ovarian cancer, ETOH Status:Active Paternal Grandmother Comments:Thyroid issues Status:Active Advance Directives No Advanced Directives Records Found Advance Directive Response Recorded Date/ Time Do you have a Healthcare Power of Button Maker? Yes March 10, 2025 2:37pm Name of Medical Power of Button Maker Сергей March 10, 2025 2:37pm Chief Complaint and Reason for Visit Chief Complaint Admit Date PREOP February 23, 2025 12:18 pm Chief Complaint Admit Date PREOP February 23, 2025 12:18 pm PREOP February 23, 2025 12:32 pm abnormal labs March 10, 2025 2:15 pm Additional Source Comments INFORMATION SOURCE (unrecogn ized section and content) DATE CREATED AUTHOR 05/19/2021 [facility] DATE CREATED AUTHOR AUTHOR'S ORGANIZ ATION 10/20/2021 [facility] DATE CREATED AUTHOR AUTHOR'S ORGANIZ ATION 02/07/2023 [facility] DATE CREATED AUTHOR AUTHOR'S ORGANIZ ATION 03/26/2023 [facility] ([place] DATE CREATED AUTHOR AUTHOR'S ORGANIZ ATION 04/10/2025 [facility] Goals (unrecognized section and [...] Status: Inactive Member Role Status Dates Dr. Holger Infante MD Attending Provider Active Start: February [...] 2025 End: February 23, 2025 Dr. Robert Hagen MD Attending Provider Active Start: February 23, [...] BE BASED ON THE PRIMARY CLINICAL RECORDS. [facility] [employer], [facility]. provides no warranty or guarantee of the accuracy or completeness of information in this document.
== END | disposition home or self-care (01) ==
PROVIDERS: PCP Nurse Practitioner Family; Referring Provider Nurse Practitioner Family; Visit Provider Nurse Practitioner Family
DX: R94.31 Abnormal electrocardiogram [ECG] [EKG] (principal); R00.2 Palpitations
CPT/HCPCS: 93017; 93225; 93226; 93350; Q9957; A4216; C8928

== ENCOUNTER → 2025-05-03 | Outpatient (CLI) | payer MEDICARE, OTHER, SELFPAY ==
--- NOTE | 2025-05-03 09:52 | RAD_ITS ---
PROCEDURE: CHEST PA AND LATERAL 05/03/2025 REASON FOR EXAM: PREOP CATH TECHNIQUE: CHEST PA AND LATERAL COMPARISON: PA and lateral chest of 03/10/2025. RAD/Chest PA and Lateral IMPRESSION: Stable degenerative changes of the spine and thoracolumbar dextroscoliosis note d. Lungs appear clear of acute disease. No pleural effusion or pneumothorax is no yesi. The cardiomediastinal silhouette is stable, without evidence of cardiomegaly. No evidence of acute cardiopulmonary disease. Reading Location: [place] [id number]
[2025-05-03 10:06] LABS: Hematocrit 34.8 % (37-47); Hemoglobin 11.8 g/dL (12.0-15.0); Immature Granulocytes Count 0.010 X10^3/uL (0.0-0.0); Mean Corp Hgb Conc 33.9 g/dL (32-36); Mean Corpuscular Volume 89.7 fL (81-99); Mean Platelet Vol. 10.4 fl (6.2-12.0); NRBC Flagged by Analyzer 0 % (0-5); Platelet Count 342 K/mm3 (150-450); RBC Distribution Width CV 13.0 % (11.6-14.6); RBC Distribution Width SD 42.4 fl (35.1-43.9); Red Blood Count 3.88 M/mm3 (4.2-5.4); White Blood Count 5.6 K/mm3 (4.4-11.0)
[2025-05-03 10:16] LABS: Prothrombin Time (Protime)PT. 13.4 SECONDS (11.7-14.9)
[2025-05-03 10:41] LABS: Anion Gap 15 (5-15); BUN 28 mg/dL (4-19); BUN/Creat Ratio 22.9 RATIO (10-20); Calcium,Total 10.6 mg/dL (7.6-11.0); Carbon Dioxide 24.9 mmol/L (21.0-32.0); Chloride 96 mmol/L (98-108); Glucose 100 mg/dL (70-99); Potassium 3.6 mmol/L (3.3-5.1)
== END | disposition home or self-care (01) ==
LOC: LAB 09:38
PROVIDERS: PCP Internal Medicine; Referring Provider Internal Medicine Cardiovascular Disease; Visit Provider Internal Medicine Cardiovascular Disease
DX: R07.89 Other chest pain (principal)
CPT/HCPCS: 36415; 71046; 80048; 85025; 85610

== ENCOUNTER 2025-05-16 07:47 | Outpatient (CLI) | payer MEDICARE, OTHER, SELFPAY ==
[2025-05-16 09:43] LABS: AST(SGOT) 27 U/L (<=31); Alanine Aminotransfer ALT/SGPT 24 U/L (<=34); Albumin, Serum 4.7 g/dL (3.4-4.8); Alkaline Phosphatase 83 U/L (35-104); Anion Gap 14 (5-15); BUN 26 mg/dL (4-19); BUN/Creat Ratio 24.3 RATIO (10-20); Calcium,Total 10.7 mg/dL (7.6-11.0); Carbon Dioxide 25.7 mmol/L (21.0-32.0); Chloride 92 mmol/L (98-108); Globulin 3.5 g/dL (2.2-4.2); Glucose 103 mg/dL (70-99); Potassium 3.8 mmol/L (3.3-5.1)
[2025-05-16 09:46] LABS: CRP < 3.00 mg/L (0.0-3.0)
[2025-05-18 15:08] LABS: Immunoglobulin A 184 mg/dL (64-422); Immunoglobulin G 1226 mg/dL (586-1602); Immunoglobulin M 123 mg/dL (26-217)
== END 2025-05-16 23:59 | disposition home or self-care (01) ==
LOC: LAB 07:49
PROVIDERS: PCP Internal Medicine; Referring Provider Internal Medicine; Visit Provider Internal Medicine
DX: E83.52 Hypercalcemia (principal)
CPT/HCPCS: 36415; 80053; 82784; 83883; 86140; 86334; 86335

== ENCOUNTER 2025-05-22 07:47 | Day surgery (SDC) | payer MEDICARE, OTHER, SELFPAY ==
[2025-05-19 08:37] VITALS: BMI 29.2
[2025-05-22 09:15] LABS: SITE Not entered; VBG BASE EXCESS 5 mmol/L (-1.0-3.5); VBG PO2 37 mmHg (25-40); VBG SO2 75 % (50-70); VBG TCO2 30 mmol/L (23-33)
[2025-05-22 09:15] LABS: SITE Not entered; VBG BASE EXCESS 7 mmol/L (-1.0-3.5); VBG PO2 39 mmHg (25-40); VBG SO2 76 % (50-70); VBG TCO2 32 mmol/L (23-33)
[2025-05-22 09:20] LABS: Base Excess 5 mmol/L (-2 to +2); PO2 62 mmHG (75-100); SITE Not entered; SO2 93 % (95-99)
--- NOTE | 2025-05-22 09:44 | CL.D_ITS ---
Patient Name: VAISHALI KEE Study Date: 05/22/2025 Performing: Rubio Catalan MD Ht: 65 inches 165.1 cm : 1950 Wt: 176 lbs 79.83 kg Age: 74 Gender: female BSA: 1.87 PROCEDURE(S) PERFORMED [id number])RHC/LHC/COR/LV CLINICAL PROFILE AND INDICATIONS Indications: Other Heart Failure: None Stress/Imaging Stress Echocardiogram: Yes Result: Positive Intermediate RiskStress Echocardiogram: Positive Intermediate Risk CAD Presentations: Other: SOB CONCLUSIONS Normal coronary arteries Normal LV size, wall motion,and systolic function RECOMMENDATIONS Will consider normal coronary arteries, normal left ventricular function, normal LVEDP, and upper normal pulmonary pressures. Medical therapy DESCRIPTION OF PROCEDURE The patient arrived to the procedure lab. The risks and benefits of the procedure as well as a full description of our services here and current unavailability of surgical backup were fully explained to the patient and/or their significant other prior to the catheterization. The Timeout was completed, verifying the correct patient and procedure. The patient's procedural site was prepped and draped in the usual fashion. Local anesthetic was given subcutaneously to right radial region with Lidocaine 2%. Using a modified Seldinger technique, arterial access was obtained via the right radial artery, a 6Fr sheath was inserted. Venous access was obtained via the right brachiocephalic vein, a 7Fr sheath was inserted. A 7Fr thermal dilution catheter was inserted and right heart pressures were recorded, it was then advanced to PA position for cardiac outputs. O2 saturations were then obtained. The Thermal dilution catheter was then removed. Left Coronary Artery selective angiography was performed in multiple views using a 6 Fr. 4.0 [place] catheter. Right Coronary Artery selective angiography was then performed in multiple views using a 5 Fr. 4.0 [place] catheter. Left Ventriculography was performed in [place] projection using a 5 Fr. [place] catheter. LV to AO pullback pressures were then recorded.The arterial sheath was pulled and a TR Band was applied for hemostasis w/ 9ml air. The venous sheath was then pulled and manual compression applied until hemostasis achieved CORONARY ANGIOGRAPHY DOMINANCE: Co- Dominant LEFT HEART ASSESSMENT Left Ventricular Ejection Fraction: by LV Gram 65 % Normal LV wall motion Normal Left Ventricular systolic function RIGHT HEART ASSESSMENT Thermal CO: 5.56 Thermal CI: 2.97 Vel CO: 8.17 Vel CI: 4.36 PW: 14/15 8 PA: 31/8 16 RV: 33/-2 8 RA: 05/03 3 PVR: 115 SVR: 1209 Right Heart pressures - normal LEFT MAIN: Angiographically normal LEFT ANTERIOR DESCENDING ARTERY: Angiographically normal CIRCUMFLEX ARTERY: Angiographically normal RIGHT CORONARY ARTERY: Angiographically normal COMPLICATIONS No Complications PROCEDURE MEDICATIONS Fentanyl 50 mcg IV Versed 1 mg IV Aspirin (325mg) 1 Tabs PO @ 05/22/2025 08:12:54 Heparin given IA 05/22/2025 09:04:48 Verapamil 2.5mg, Ntg 100mcgs, 3000 units of Heparin given IA 05/22/2025 09:04:48 SUMMARY OF HEMODYNAMIC DATA Time AIR REST ECG 08:15:43 RA 05/03 (3) SV 09:09:27 RV 33/-2, 8 09:09:45 PA 31/8 (16) PA 09:10:09 PW (8) PV 09:10:21 PA 33/8 (18) 09:17:24 RV 35/0, 8 09:17:41 RA 8 (5) 09:17:50 AO 152/55 (87) SA 09:19:19 LV 135/-4, 7 09:24:29 LV 138/-1, 10 09:24:35 LV 148/14, 19 09:25:27 LV 145/20, 24 09:25:33 LVp 118/25, 52 09:25:43 AOp 141/59 (97) 09:25:48 Type SV CO (l/m) CI (l/m/ HR Time AIR REST Thermal 67.80 5.56 2.97 82 08:15:43 Vel 99.70 8.17 4.36 82 08:15:43 Label % O2 Pres/Loc Time AIR REST AO 93 PV 09:20:55 PA 76 PA 09:21:01 RA 74 SV 09:21:18 Signed By Rubio Catalan MD On 05/22/2025 09:43:05 Rubio Catalan MD
== END 2025-05-22 12:15 | disposition home or self-care (01) ==
PROVIDERS: PCP Internal Medicine; Referring Provider Internal Medicine Cardiovascular Disease; Visit Provider Internal Medicine Cardiovascular Disease
DX: R07.89 Other chest pain (principal); I27.20 Pulmonary hypertension, unspecified; N18.31 Chronic kidney disease, stage 3a; R06.02 Shortness of breath; E03.9 Hypothyroidism, unspecified; R53.83 Other fatigue; R53.1 Weakness; I12.9 Hypertensive chronic kidney disease with stage 1 through stage 4 chronic kidney disease, or unspecified chronic kidney disease; R94.39 Abnormal result of other cardiovascular function study; E78.00 Pure hypercholesterolemia, unspecified
CPT/HCPCS: 82803; 93460; 99152; 99153; C1894; Q9967; C1751; C1769

== ENCOUNTER → 2025-06-15 | Outpatient (CLI) | payer MEDICARE, OTHER, SELFPAY ==
[2025-06-15 08:57] LABS: Hematocrit 34.1 % (37-47); Hemoglobin 11.5 g/dL (12.0-15.0); Immature Granulocytes Count 0.020 X10^3/uL (0.0-0.0); Mean Corp Hgb Conc 33.7 g/dL (32-36); Mean Corpuscular Volume 90.5 fL (81-99); Mean Platelet Vol. 11.2 fl (6.2-12.0); NRBC Flagged by Analyzer 0 % (0-5); Platelet Count 326 K/mm3 (150-450); RBC Distribution Width CV 13.1 % (11.6-14.6); RBC Distribution Width SD 43.2 fl (35.1-43.9); Red Blood Count 3.77 M/mm3 (4.2-5.4); White Blood Count 7.1 K/mm3 (4.4-11.0)
[2025-06-15 09:37] LABS: Albumin, Serum 4.7 g/dL (3.4-4.8); Anion Gap 15 (5-15); BUN 30 mg/dL (4-19); BUN/Creat Ratio 26.3 RATIO (10-20); Calcium,Total 10.5 mg/dL (7.6-11.0); Carbon Dioxide 24.7 mmol/L (21.0-32.0); Chloride 100 mmol/L (98-108); Glucose 96 mg/dL (70-99); Potassium 3.9 mmol/L (3.3-5.1)
== END | disposition home or self-care (01) ==
PROVIDERS: PCP Internal Medicine; Referring Provider Specialist; Visit Provider Specialist
DX: Z01.818 Encounter for other preprocedural examination (principal); M17.11 Unilateral primary osteoarthritis, right knee
CPT/HCPCS: 36415; 80048; 82040; 85025

== ENCOUNTER → 2025-06-20 | Outpatient (CLI) | payer MEDICARE, OTHER, SELFPAY ==
--- NOTE | 2025-06-20 18:20 | CT_ITS ---
PROCEDURE: EXTREMITY LOWER WITHOUT CONTRA 06/20/2025 REASON FOR EXAM: RIGHT KNEE JORDAN TECHNIQUE: Procedure Code: CTELWO Modality: CT Procedure: EXTREMITY LOWER WITHOUT CONTRA Coronal and Sagittal reconstruction series were provided. CONTRAST: None. One or more dose reduction techniques were used (e.g., Automated exposure control, adjustment of the mA and/or kV according to patient size, use of iterative reconstruction technique). RADIATION DOSE SUMMARY: CTDlvol: 60 mGy DLP: 1502 mGycm COMPARISON: Similar exam January 2025 FINDINGS: Bones: Slight superior joint space narrowing right hip with marginal osteophyte formation. No avascular necrosis or fracture. Remainder of the right hip and imaged pelvis negative. Right femur negative. Right knee moderate medial joint and lateral joint space narrowing and osteophyte formation. Degenerative changes patellofemoral joint. Small joint effusion. Remainder of the imaged knee negative. Imaged right calf negative. Right ankle mild degenerative changes of the midfoot and ankle. No fractures. Joints: Mild degenerative changes of the right hip. [id number] degenerative changes in the right knee. Age-appropriate degenerative changes of the right ankle. Soft Tissues: Musculature intact. Adjacent structures negative. Imaged soft tissue pelvis negative. CT/Extremity Lower without Contra IMPRESSION: Degenerative changes in the right hip, ankle and knee as above. Reading Location: [id number]
--- OUTSIDE RECORDS SUMMARY | 2025-06-20 18:23 | XMS RPT_ITS | CCD ---
Author Organization [facility] CliniSymd Care Team Providers Care Mail Delivery Supervisor Name Role Phone Garrett SACK KEEPER, Brandon Unavailable Garrett SACK KEEPER, Brandon Unavailable Josh Marissa Unavailable Unavailable KATHLEEN SACK KEEPER, AMBER Unavailable Problem Manager, System Unavailable Unavailable Marine Johsnon LPN Unavailable Unavailable Unavailable Unavailable Holger Infante Unavailable Garrett SACK KEEPER, Brandon Attending Unavailable Garrett SACK KEEPER, Brandon Consulting Unavailable GARRETT DIRECTOR OF RESPIRATORY THERAPY-SACK KEEPER, BRANDON Primary Care Physician Amanda BURTON, Vanita Unavailable Unavailable NARESH GRIMM, DR HOLGER Gonzalez Attending Unavailab le GARRETT DIRECTOR OF RESPIRATORY THERAPY-SACK KEEPER, BRANDON Primary Care Unavail piper INFANTE MD, DR HOLGER Gonzalez Attending Unavailab le GARRETT DIRECTOR OF RESPIRATORY THERAPY-SACK KEEPER, [facility] Primary Care Unavail able NARESH GRIMM, DR HOLGER Gonzalez Attending Unavailab le GARRETT DIRECTOR OF RESPIRATORY THERAPY-SACK KEEPER, BRANDON Primary Care Unavail Dr. Holger Cabrera MD Attending Provider [phone] Dr. Holger Infante MD Referring Provider Garrett SOFTWARE VALIDATION ENGINEER-C, Brandon Primary Care Provider Dr. Robert Hagen MD Attending Provider Dr. Ana Hernández MD Attending Provider Dr. Ana Hernández MD Referring Provider Dr. Luis M Geller DO Emergency Provider [phone] Luis M Geller DO Attending Provider Dr. Shahbaz Bender MD Attending Provider Garrett SOFTWARE VALIDATION ENGINEER-C, Brandon Attending Provider Garrett SOFTWARE VALIDATION ENGINEER-C, Brandon Referring Provider [phone] Karsten DO, Dr. Matson Primary Care Provider [phone] Fast DO, Dr. Matson Referring Provider [phone] Hiue GRIMM, Dr. Jones Referring Provider Fast DO, Dr. Matson Attending Provider [phone] Hossein GRIMM, Dr. Bergeron Attending Provider [phone] Hossein GRIMM, Dr. Bergeron Referring Provider [phone] Fast, Huyen Primary Care Unavailable Robert Hagen Attending Unavailable Fast, Huyen Referring Unavailable Holger Infante Referring Unavailable Naresh, Holger Attending Unavailable Fast, Huyen Primary Care Unavailable Garrett, Brandon Primary Care Unavailable Bonezzi, Ana Attending Unavailable Fast, Huyen Attending Unavailable Garrett, Brandon Primary Care Unavailable Fast, Huyen Referring Unavailable Garrett, Brandon Referring Unavailable Garrett, Brandon Attending Unavailable Garrett, Brandon Primary Care Unavailable Garrett, Brandon Primary Care Unavailable Bonezzi, Ana Referring Unavailable Bonezzi, Ana Attending Unavailable Fast, Huyen Primary Care Unavailable Hossein, Rubio Referring Unavailable Hossein, Rubio Attending Unavailable Garrett, Brandon Primary Care Unavailable NareshHolger cortez Referring Unavailable Robert Hagen Attending Unavailable Garrett, Brandon Primary Care Unavailable Shahbaz Bender Attending Unavailable Garrett, Brandon Primary Care Unavailable Garrett, Brandon Referring Unavailable Robert Hagen Attending Unavailable Fast, Huyen Primary Care Unavailable Robert Hagen Referring Unavailable Robert Hagen Attending Unavailable Fast, Huyen Attending Unavailable Fast, Huyen Primary Care Unavailable Fast, Huyen Referring Unavailable Garrett, Brandon Primary Care Unavailable Luis M Geller Attending Unavailable Garrett, Brandon Primary Care Unavailable Naresh, Holger Attending Unavailable Holger Infante Referring Unavailable Allergies Allergy Classification Reported Allergen(s) Allergy Type Date of Onset Reaction(s) Facility (10 sources) Sulfamethoxazole Drug Allergy 04-08-20 21 Upset Stomach [facility] (10 sources) Trimethoprim Drug Allergy 04-08-20 21 Upset Stomach [facility] (14 sources) Poison Patria Allergy to [...] Clavulanate; Translations: [amoxicillin-clavul anate] Drug Allergy Diarrhea [facility] (3 sources) Sulfamethoxazole / Trimethoprim; Translations: [sulfamethoxazole-t rimethoprim] Drug Allergy [facility] (7 sources) Amoxicillin Drug Allergy 03-10-20 Diarrhea [facility] (7 sources) Clavulanate Drug Allergy 03-10-20 Diarrhea [facility] (1 source) Amoxicillin Drug Allergy 05-03-20 [facility] (1 source) Clavulanate Drug Allergy 05-03-20 [facility] (1 source) Sulfamethoxazole Drug Allergy 05-03-20 [facility] (1 source) Trimethoprim Drug Allergy 05-03-20 [facility] Medications Current Medications Medication Drug Class(es) Dates Sig (Normalized) Sig (Original) V[employer] Greens and Superfoods (4 sources) Start: 05-03-2025 Vogel Greens and Superfoods Active PO DAILY May 03, 2025 12:00am chlorthalidone 25 mg oral tablet (4 sources) Thiazide-like Diuretic Start: 04-28-2025 take 1 tablet by mouth once daily Chlorthalidone 25 mg tablet Active 25 mg PO daily April 28, 2025 12:00am cholecalciferol 0.025 mg oral capsule (4 sources) Vitamin D Start: 04-28-2025 take 1 capsule by mouth once daily Cholecalciferol (Vitamin D3) 25 mcg (1,000 unit) capsule Active 25 ug PO daily April 28, 2025 12:00am clindamycin 300 mg oral capsule (4 sources) Lincosamide Antibacterial Start: 05-03-2025 take 2 capsules by mouth once Clindamycin Hcl 300 mg capsule Active 600 mg PO ONCE May 03, 2025 12:00am levothyroxine sodium 0.05 mg oral tablet (20 sources) l-Thyroxine Start: 08-01-2025 take 1 tablet by mouth once daily Levothyroxine (Synthroid) 50 mcg tablet Active 50 ug PO daily April 28, 2025 12:00am Start: 12-12-2022 End: 12-12-2022 take 1 tablet [...] 0 Refill(s) Start Date: 07/09/20 Status: Ordered lisinopril 40 mg oral tablet (4 sources) Angiotensin Converting Enzyme Inhibitor Start: 04-28-2025 take 1 tablet by mouth once daily Lisinopril 40 mg tablet Active 40 mg PO daily April 28, 2025 12:00am magnesium glycinate 100 mg oral tablet (4 sources) Start: 04-28-2025 take 1 tablet by mouth once daily Magnesium Glycinate 100 mg tablet Active 100 mg PO daily April 28, 2025 12:00am mecobalamin (4 sources) Start: 05-03-2025 take 1 tablet by mouth once daily Mecobalamin (Vitamin B12) 5,000 mcg tablet,chewable Active 5000 ug PO daily May 03, 2025 12:00am Ninja red (4 sources) Start: 04-28-2025 Ninja red Acti ve PO DAILY April 28, 2025 12:00am Vitamin D3 (3 sources) Start: 03-02-2023 Vitamin D3 Dos e : 100 mcg = 1 tab(s), Oral, Daily, # 90 tab(s), 0 Refill(s) Start Date: 03/02/23 Status: Ordered [facility] Sulfurzyme (4 sources) Start: 05-03-2025 [facility] Sulfurzyme Active PO as needed May 03, 2025 12:00am [facility] Super B (4 sources) Start: 05-03-2025 [facility] S uper B Active PO DAILY May 03, 2025 12:00am Completed/Discontinued Medications Medication Drug Class(es) Dates Sig (Normalized) Sig (Original) Amino soto (4 sources) Start: 04-28-2025 End: 05-03-2025 Amino soto Discontinued PO DAILY April 28, 2025 12:00am May 03, 2025 8:29am amoxicillin 875 mg / clavulanate 125 mg oral tablet (14 sources) Penicillin-class Antibacterial Start: 11-02-2006 End: 04-06-2009 take 1 tablet by mouth twice daily AUGMENTIN, 875-125MG (Oral Tablet) 1 Tablet BID for 10 days Quantity: 20 {Tablet} Refills: 0 Ordered: 02-Nov-2006 AMBER WANG CNP Start : 02-Nov-2006 End : 06-Apr-2009 Inactive calcium ascorbate 500 mg oral tablet (4 sources) Start: 04-28-2025 End: 05-03-2025 take 1 tablet by mouth once daily Ascorbate Calcium (Vitamin C) 500 mg tablet Discontinued 500 mg PO daily April 28, 2025 12:00am May 03, 2025 8:28am diazePAM 5 mg oral tablet (10 sources) Benzodiazepine Start: 03-20-2021 End: 05-03-2025 take 1 tablet by mouth at bedtime as needed for anxiety Diazepam (Valium) 5 mg tablet Discontinued 5 mg PO AT BEDTIME as needed for anxiety 1 0 March 20, 2021 12:00am May 03, 2025 8:29am hydroCHLOROthiazide 25 mg / lisinopril 20 mg oral tablet (15 sources) Thiazide Diuretic, Angiotensin Converting Enzyme Inhibitor Start: 06-10-2023 take 1 tablet by mouth once daily lisinopriL-hydro chlorothiazide 20-25 mg oral tablet 1 (one) tablet daily for 0 days Quantity: 30 {Tablet} Refills: 1 Ordered: 10-Jun-2023 Brandon Tucker CNP Start : 10-Jun-2023 Active Start: 04-08-2023 take 1 tablet by soyna th once daily lisinopriL-hydrochlorothiazide 20-25 mg oral tablet 1 (one) tablet daily for 0 days Quantity: 30 {Tablet} Refills: 1 Ordered: 08-Apr-2023 Brandon Tucker CNP Start : 08-Apr-2023 Active Start: 01-12-2023 take 1 tablet by sonya th once daily lisinopriL-hydrochlorothiazide 20-25 mg oral tablet 1 (one) tablet daily for 0 days Quantity: 30 {Tablet} Refills: 1 Ordered: 12-Jan-2023 Garrett ANDRES Brandon Start : 12-Jan-2023 Active Start: 12-23-2022 take 1 tablet by sonya th once daily lisinopriL-hydrochlorothiazide 20-25 mg oral tablet 1 (one) tablet daily for 0 days Quantity: 30 {Tablet} Refills: 1 Ordered: 23-Dec-2022 Apple Tucker CNPyn Start : 23-Dec-2022 Active Start: 12-12-2022 take 1 tablet by sonya th twice daily lisinopriL-hydrochlorothiazide 20-12.5 m g oral tablet 1 (one) tablet two times daily for 0 days Quantity: 180 {Tablet} Refills: 0 Ordered: 12-Dec-2022 Garrett Brandon CAMPOS Start : 12-Dec-2022 Active Start: 12-12-2022 take 1 tablet by sonya th twice daily lisinopriL-hydrochlorothiazide 20-25 mg oral tablet 1 (one) tablet two times daily for 0 days Quantity: 60 {Tablet} Refills: 1 Ordered: 12-Dec-2022 Garrett Brandon CAMPOS Start : 12-Dec-2022 Active Start: 07-09-2020 take [...] Chronic Comment on above: stable Cardiac dysrhythmias (11 sources) Sinus bradycardia; Translations: [Sinus bradycardia] Onset: 025 03-09-2023 Episodic Comment on above: EKG 11/2022, hr 51. a symptomatic Cataract (20 sources) Bilateral cataracts; Translations: [Cataracts, bilateral] 12-12-2022 Chronic Chronic kidney disease (7 sources) Chronic kidney disease; Translations: [Chronic kidney disease, unspecified] 04-28-2025 Chronic Deficiency and other anemia (4 sources) Anemia; Translations: [Anemia, unspecified] 04-28-2025 Episodic Disorders of lipid metabolism (20 sources) Hypercholesterolemia; [...] HR 51, asymptomatic.-increased hctz/lisinopril 11/2022, effective/significant improvement Nonspecific chest pain (13 sources) Atypical chest pain; Translations: [Other chest pain] Onset: 025 04-28-2025 Episodic Osteoarthritis (20 sources) Osteoarthritis; Translations: [Unspecified osteoarthritis, unspecified site] 12-12-2022 Chronic Comment on above: wants injections. de clines therapy Osteoporosis (10 sources) Osteoporosis; Translations: [Age-related osteoporosis without current [...] for a year and went away Other lower respiratory disease (4 sources) Dyspnea; Translations: [Shortness of breath] 04-28-2025 Episodic Other lower respiratory disease (1 source) Shortness of breath; Translations: [Shortness of breath] Onset: Episodic Other nervous system disorders (20 sources) Syringomyelia; [...] ordered the MRI, then sent to Dr. White (neurosurgery) who recommended repeat MRI with contrast [...] metabolic disorders (5 sources) Hypercalcemia; Translations: [Hypercalcemia] 10-18-2023 Chronic Other screening for suspected conditions (not mental disorders or infectious disease) (18 sources) Raised cardiac enzyme or marker; Translations: [Other specified abnormal findings of blood chemistry] Onset: 025 03-10-2025 Episodic Otitis media and related conditions (20 sources) Dysfunction of eustachian tube; Translations: [Eustachian tube dysfunction] Resolve d: 009 07-03-2015 Episodic Pulmonary heart disease (9 sources) Pulmonary hypertension; Translations: [Pulmonary hypertension, unspecified] Onset: 025 05-03-2025 Chronic Residual codes; unclassified (20 sources) Non-smoker; Translations: [...] Test Name Value Interpretation Reference Range Facility Albumin, Serumon 06-15-2025 Albumin [Mass/Vol] 4.7 g/dL Normal 3.4-4.8 [facility] Comment on above: Performed By: #### L [id number] #### [facility] [address] [place], [place], [id number] Basic Metabolic Profile (BMP )on 06-15-2025 BUN/CRE 26.3 RATIO High 07-17 [facility] Comment on above: Performed By: #### L [id number] #### [facility] [address] [place], [address] Calcium [Mass/Vol] 10.5 mg/dL Normal 7.6-11.0 [facility] Comment on above: Performed By: #### L [id number] #### [facility] [address] [place], [address] Chloride [Moles/Vol] 100 mmol/L Normal 98-108 [facility] Comment on above: Performed By: #### L [id number] #### [facility] [address] [place], [address] CO2 [Moles/Vol] 24.7 mmol/L Normal 21.0-32.0 [facility] Comment on above: Performed By: #### L [id number] #### [facility] [address] [place], [address] Creatinine [Mass/Vol] 1.13 mg/dL Normal 0.70-1.20 [facility] Comment on above: Performed By: #### L [id number] #### [facility] [address] [place], [address] GAP 15 Normal 5-15 [facility] Comment on above: Performed By: #### L [id number] #### [facility] [address] [place], [address] GFR/1.73 sq M.predicted among non-blacks MDRD (S/P/Bld) [Vol rate/Area] 51 mL/min/{1.73_m2} Low >60 [facility] Comment on above: Result Comment: mL/m in/1.73m2 CKD-EPI Creatinine Equation (2020) Performed By: #### L [id number] #### [facility] [address] [place], [address] Glucose [Mass/Vol] 96 mg/dL Normal 70-99 [facility] Comment on above: Performed By: #### L [id number] #### [facility] [address] [place], [address] Potassium [Moles/Vol] 3.9 mmol/L Normal 3.3-5.1 [facility] Comment on above: Performed By: #### L [id number] #### [facility] [address] [place], [address] Sodium [Moles/Vol] 139 mmol/L Normal 133-145 [facility] Comment on above: Performed By: #### L [id number] #### [facility] [address] [place], [address] Urea nitrogen [Mass/Vol] 30 mg/dL High 4-19 [facility] Comment on above: Performed By: #### L [id number] #### [facility] [address] [place], [address] CBC W/Diff, Automatedon 05-29-2024 Absolute Lymph 2.44 X10 3/uL Normal 0.83-4.51 [facility] Comment on above: Performed By: #### L [id number] #### [facility] [address] [place], [address] Absolute Neut 3.5 X10 3/uL Normal 2.0-7.7 [facility] Comment on above: Performed By: #### L [id number] #### [facility] [address] [place], [address] Basophils/100 WBC (Bld) 1.8 % High 0-1 [facility] Comment on above: Performed By: #### L [id number] #### [facility] [address] [place], [address] Eosinophils/100 WBC (Bld) 5.9 % High 0-5 [facility] Comment on above: Performed By: #### L [id number] #### [facility] [address] [place], [address] Erythrocyte distribution width (RBC) [Ratio] 13.1 % Normal 11.6-14.6 [facility] Comment on above: Performed By: #### L [id number] #### [facility] [address] [place], [address] Hematocrit (Bld) [Volume fraction] 34.1 % Low 37-47 [facility] Comment on above: Performed By: #### L [id number] #### [facility] [address] [place], [address] Hemoglobin (Bld) [Mass/Vol] 11.5 g/dL Low 12.0-15.0 [facility] Comment on above: Performed By: #### L [id number] #### [facility] [address] [place], [address] IG% 0.300 Normal 0.0-0.9 [facility] Comment on above: Result Comment: IG% - Immature Granulocytes (promyelocytes, myelocytes and metamyelocytes) > 1% indicates that a LEFT SHIFT is Present. Performed By: #### L [id number] #### [facility] [address] [place], [address] Lymphocytes/100 WBC (Bld) 34.4 % Normal 19-41 [facility] Comment on above: Performed By: #### L [id number] #### [facility] [address] [place], [address] MCH (RBC) [Entitic mass] 30.5 pg Normal 27.0-32.0 [facility] Comment on above: Performed By: #### L [id number] #### [facility] [address] [place], [address] MCHC (RBC) [Mass/Vol] 33.7 g/dL Normal 32-36 [facility] Comment on above: Performed By: #### L [id number] #### [facility] [address] [place], [address] MCV (RBC) [Entitic vol] 90.5 fL Normal 81-99 [facility] Comment on above: Performed By: #### L [id number] #### [facility] [address] [place], [address] Monocytes/100 WBC (Bld) 7.9 % Normal 0-10 [facility] Comment on above: Performed By: #### L [id number] #### [facility] [address] [place], [address] Neutrophils/100 WBC (Bld) 49.7 % Normal 47-70 [facility] Comment on above: Performed By: #### L [id number] #### [facility] [address] [place], [address] Nucleated RBC (Bld) [#/Vol] 0 10*3/uL Normal 0-5 [facility] Comment on above: Performed By: #### L [id number] #### [facility] [address] [place], [address] Platelet mean volume (Bld) [Entitic vol] 11.2 fL Normal 6.2-12.0 [facility] Comment on above: Performed By: #### L [id number] #### [facility] [address] [place], [address] Platelets (Bld) [#/Vol] 326 10*3/uL Normal 150-450 [facility] Comment on above: Performed By: #### L [id number] #### [facility] [address] [place], [address] RBC (Bld) [#/Vol] 3.77 10*6/uL Low 4.2-5.4 [facility] Comment on above: Performed By: #### L [id number] #### [facility] [address] [place], [address] RDW SD 43.2 fl Normal 35.1-43.9 [facility] Comment on above: Performed By: #### L [id number] #### [facility] [address] [place], [address] WBC (Bld) [#/Vol] 7.1 10*3/uL Normal 4.4-11.0 [facility] Comment on above: Performed By: #### L [id number] #### [facility] [address] [place], [address] Blood Gases by [facility] 025 Base excess Calc (Bld) [Moles/Vol] 5 mmol/L High -2 to +2 [facility] Comment on above: Performed By: #### L 9000.0800 #### [facility] [address] [place], [address] Blood Gas Type ART [facility] Comment on above: Performed By: #### L 9000.0800 #### [facility] [address] [place], [address] CO2 [Moles/Vol] 30 mmol/L Normal [facility] Comment on above: Performed By: #### L 9000.0800 #### [facility] [address] [place], [address] HCO3 (Bld) [Moles/Vol] 28.8 mmol/L High 22-26 [facility] Comment on above: Performed By: #### L 9000.0800 #### [facility] [address] [place], [address] Mode Not entered Normal [facility] Comment on above: Performed By: #### L 9000.0800 #### [facility] [address] [place], [address] O2 Delivery Dev Not entered Normal [facility] Comment on above: Performed By: #### L 9000.0800 #### [facility] [address] [place], [address] pCO2 40.2 mmHg Normal 35-45 [facility] Comment on above: Performed By: #### L 9000.0800 #### [facility] [address] [place], [address] pH (Bld) 7.46 [pH] High 7.35-7.45 [facility] Comment on above: Performed By: #### L 9000.0800 #### [facility] [address] [place], [address] PO2 62 mmHG Low 75-100 [facility] Comment on above: Performed By: #### L 9000.0800 #### [facility] [address] [place], [address] SITE Not entered [facility] Comment on above: Performed By: #### L 9000.0800 #### [facility] [address] [place], [address] SO2 93 Low 95-99 [facility] Comment on above: Performed By: #### L 9000.0800 #### [facility] [address] [place], [address] Blood base excess determinat ionOrdered By: Rubio Catalan on 05-22-2025 Base excess Calc (BldV) [Moles/Vol] 5 mmol/L High -2-2 [facility] Blood bicarbonate measuremen tOrdered By: [place] Catalan on 05-22-2025 HCO3 (Bld) [Moles/Vol] 28.8 mmol/L High 22-26 [facility] CO2 (BldV) [Moles/Vol]Ordere d By: Rubio Catalan on 05-22-2025 CO2 [Moles/Vol] 32 mmol/L 23-33 [facility] Cardiac Cath [facility] Cardiac Cath Diagnostic [facility] [address] [place] [address] Cardiac Cath Diagnostic MR#: [id number] Acct: [id number] Name: VAISHALI CHÁVEZ Rep #: [id number] : 1950 74 From: Rubio Catalan MD PCP: Dr. Huyen Shelley, DO Status:REG NCC Patient Name: VAISHALI CHÁVEZ Study Date: 05/22/2025 Performing: Rubio Catalan MD Ht: 65 inches 165.1 cm : 1950 Wt: 176 lbs 79.83 kg Age: 74 Gender: female BSA: 1.87 PROCEDURE(S) PERFORMED DC05-(92592)RHC/LHC/C OR/LV CLINICAL PROFILE AND INDICATIONS Indications: Other Heart Failure: None Stress/Imaging Stress Echocardiogram: Yes Result: Positive Intermediate RiskStress Echocardiogram: Positive Intermediate Risk CAD Presentations: Other: SOB CONCLUSIONS Normal coronary arteries Normal LV size, wall motion,and systolic function RECOMMENDATIONS Will consider normal coronary arteries, normal left ventricular function, normal LVEDP, and upper normal pulmonary pressures. Medical therapy DESCRIPTION OF PROCEDURE The patient arrived to the procedure lab. The risks and benefits of the procedure as well as a full description of our services here and current unavailability of surgical backup were fully explained to the patient and/or their significant other prior to the catheterization. The Timeout was completed, verifying the correct patient and procedure. The patient's procedural site was prepped and draped in the usual fashion. Local anesthetic was given subcutaneously to right radial region with Lidocaine 2%. Using a modified Seldinger technique, arterial access was obtained via the right radial artery, a 6Fr sheath was inserted. Venous access was obtained via the right brachiocephalic vein, a 7Fr sheath was inserted. A 7Fr thermal dilution catheter was inserted and right heart pressures were recorded, it was then advanced to PA position for cardiac outputs. O2 saturations were then obtained. The Thermal dilution catheter was then removed. Left Coronary Artery selective angiography was performed in multiple views using a 6 Fr. 4.0 [facility] [place] catheter. Right Coronary Artery selective angiography was then performed in multiple views using a 5 Fr. 4.0 [facility] [place] catheter. Left Ventriculography was performed in TYSON projection using a 5 Fr. Pigtail catheter. LV to AO pullback pressures were then recorded.The arterial sheath was pulled and a TR Band was applied for hemostasis w/ 9ml air. The venous sheath was then pulled and manual compression applied until hemostasis achieved CORONARY ANGIOGRAPHY DOMINANCE: Co- Dominant LEFT HEART ASSESSMENT Left Ventricular Ejection Fraction: by LV Gram 65 % Normal LV wall motion Normal Left Ventricular systolic function RIGHT HEART ASSESSMENT Thermal CO: 5.56 Thermal CI: 2.97 Vel CO: 8.17 Vel CI: 4.36 PW: 15 8 PA: /8 16 RV: 33/-2 8 RA: 05/03 3 PVR: 115 SVR: 1209 Right Heart pressures - normal LEFT MAIN: Angiographically normal LEFT ANTERIOR DESCENDING ARTERY: Angiographically normal CIRCUMFLEX ARTERY: Angiographically normal RIGHT CORONARY ARTERY: Angiographically normal COMPLICATIONS No Complications PROCEDURE MEDICATIONS Fentanyl 50 mcg IV Versed 1 mg IV Aspirin (325mg) 1 Tabs PO @ 05/22/2025 08:12:54 Heparin given IA 05/22/2025 09:04:48 Verapamil 2.5mg, Ntg 100mcgs, 3000 units of Heparin given IA 05/22/2025 09:04:48 SUMMARY OF HEMODYNAMIC DATA Time AIR REST ECG 08:15:43 RA 05/03 (3) SV 09:09:27 RV 33/-2, 8 09:09:45 PA 31/8 (16) PA 09:10:09 PW (8) PV 09:10:21 PA 33/8 (18) 09:17:24 RV 35/0, 8 09:17:41 RA 05/05 (5) 09:17:50 AO 152/55 (87) SA 09:19:19 LV 135/-4, 7 09:24:29 LV 138/-1, 10 09:24:35 LV 148/14, 19 09:25:27 LV 145/20, 24 09:25:33 LVp 118/25, 52 09:25:43 AOp 141/59 (97) 09:25:48 Type SV CO (l/m) CI (l/m/ HR Time AIR REST Thermal 67.80 5.56 2.97 82 08:15:43 Vel 99.70 8.17 4.36 82 08:15:43 Label % O2 Pres/Loc Time AIR REST AO 93 PV 09:20:55 PA 76 PA 09:21:01 RA 74 SV 09:21:18 Signed By Rubio Catalan MD On 05/22/2025 09:43:05 Rubio Catalan MD 05/22/25 0944 Date Rubio Catalan MD Cosigner Signature: Date (if indicated) CC: Dr. Rubio Catalan MD; Dr. Huyen Shelley, Date Dictated: 05/22/25857 Date Transcribed: 05/22/25942 [employer] Vice President: [place] Signed Normal [facility] Cardiac catheterization repo rtOrdered By: Rubio Catalan on 05-22-2025 Cardiac catheterization study [facility] [address] [place] [id number] Cardiac Cath Diagnostic MR#: [id number] Acct: [id number] Name: VAISHALI CHÁVEZ Rep #:[id number] : 1950 74 From: Rubio Catalan MD PCP: Dr. Huyen Shelley, DO Status:[facility] [place] Patient Name: VAISHALI CHÁVEZ Study Date: 05/22/2025 Performing: Rubio Catalan MD Ht: 65 inches 165.1 cm : 1950 Wt: 176 lbs 79.83 kg Age: 74 Gender: female BSA: 1.87 PROCEDURE(S) PERFORMED DC05-(77531)RHC/LHC/C OR/LV CLINICAL PROFILE AND INDICATIONS Indications: Other Heart Failure: None Stress/Imaging Stress Echocardiogram: Yes Result: Positive Intermediate RiskStress Echocardiogram: Positive Intermediate Risk CAD Presentations: Other: SOB CONCLUSIONS Normal coronary arteries Normal LV size, wall motion,and systolic function RECOMMENDATIONS Will consider normal coronary arteries, normal left ventricular function, normal LVEDP, and upper normal pulmonary pressures. Medical therapy DESCRIPTION OF PROCEDURE The patient arrived to the procedure lab. The risks and benefits of the procedure as well as a full description of our services here and current unavailability of surgical backup were fully explained to the patient and/or their significant other prior to the catheterization. The Timeout was completed, verifying the correct patient and procedure. The patient's procedural site was prepped and draped in the usual fashion. Local anesthetic was given subcutaneously to right radial region with Lidocaine 2%. Using a modified Seldinger technique, arterial access was obtained via the right radial artery, a 6Fr sheath was inserted. Venous access was obtained via the right brachiocephalic vein, a 7Fr sheath was inserted. A 7Fr thermal dilution catheter was inserted and right heart pressures were recorded, it was then advanced to PA position for cardiac outputs. O2 saturations were then obtained. The Thermal dilution catheter was then removed. Left Coronary Artery selective angiography was performed in multiple views using a 6 Fr. 4.0 [facility] [place] catheter. Right Coronary Artery selective angiography was then performed in multiple views using a 5 Fr. 4.0 [facility] [place] catheter. Left Ventriculography was performed in TYSON projection using a 5 Fr. Pigtail catheter. LV to AO pullback pressures were then recorded.The arterial sheath was pulled and a TR Band was applied for hemostasis w/ 9ml air. The venous sheath was then pulled and manual compression applied until hemostasis achieved CORONARY ANGIOGRAPHY DOMINANCE: Co- Dominant LEFT HEART ASSESSMENT Left Ventricular Ejection Fraction: by LV Gram 65 % Normal LV wall motion Normal Left Ventricular systolic function RIGHT HEART ASSESSMENT Thermal CO: 5.56 Thermal CI: 2.97 Vel CO: 8.17 Vel CI: 4.36 PW: 14/15 8 PA: 31/8 16 RV: 33/-2 8 RA: 8/6 3 PVR: 115 SVR: 1209 Right Heart pressures - normal LEFT MAIN: Angiographically normal LEFT ANTERIOR DESCENDING ARTERY: Angiographically normal CIRCUMFLEX ARTERY: Angiographically normal RIGHT CORONARY ARTERY: Angiographically normal COMPLICATIONS No Complications PROCEDURE MEDICATIONS Fentanyl 50 mcg IV Versed 1 mg IV Aspirin (325mg) 1 Tabs PO @ 05/22/2025 08:12:54 Heparin given IA 05/22/2025 09:04:48 Verapamil 2.5mg, Ntg 100mcgs, 3000 units of Heparin given IA 05/22/2025 09:04:48 SUMMARY OF HEMODYNAMIC DATA Time AIR REST ECG 08:15:43 RA 8/6 (3) SV 09:09:27 RV 33/-2, 8 09:09:45 PA 31/8 (16) PA 09:10:09 PW 14/15 (8) PV 09:10:21 PA 33/8 (18) 09:17:24 RV 35/0, 8 09:17:41 RA 8/8 (5) 09:17:50 AO 152/55 (87) SA 09:19:19 LV 135/-4, 7 09:24:29 LV 138/-1, 10 09:24:35 LV 148/14, 19 09:25:27 LV 145/20, 24 09:25:33 LVp 118/25, 52 09:25:43 AOp 141/59 (97) 09:25:48 Type SV CO (l/m) CI (l/m/ HR Time AIR REST Thermal 67.80 5.56 2.97 82 08:15:43 Vel 99.70 8.17 4.36 82 08:15:43 Label % O2 Pres/Loc Time AIR REST AO 93 PV 09:20:55 PA 76 PA 09:21:01 RA 74 SV 09:21:18 Signed By Rubio Catalan MD On 05/22/2025 09:43:05 Rubio Catalan MD 05/22/25 0944 Date _ Rubio Catalan MD Cosigner Signature: Date (if indicated) CC: Dr. Rubio Catalan MD; Dr. Huyen Shelley DO ~ Date Dictated: 05/22/25857 Date Transcribed: 05/22/25942 [employer] Vice President: [place] Signed [facility] Work Phone: Measurement, pHOrdered By: Anel Catalan on 05-22-2025 pH (Unsp spec) 7.46 [pH] High 7.35-7.45 [facility] No Panel InformationOrdered By: Rubio Catalan on 05-22-2025 Blood Gas Sample Site Not entered [facility] Blood Gas Specimen Type ART [facility] Blood Gas Vent Mode Not entered [facility] Oxygen Delivery Device Not entered [facility] Total carbon dioxide measure mentOrdered By: Rubio Catalan on 05-22-2025 CO2 [Moles/Vol] 30 mmol/L [facility] Venous Blood Gason Blood Gas Type GLADIS Normal [facility] Comment on above: Performed By: #### L 9000.0810 #### [facility] [address] [place], [address] CO2 [Moles/Vol] 30 mmol/L Normal 23-33 [facility] Comment on above: Performed By: #### L 9000.0810 #### [facility] [address] [place], [address] CO2 [Moles/Vol] 32 mmol/L Normal 23-33 [facility] Comment on above: Performed By: #### L 9000.0810 #### [facility] [address] [place], [address] HCO3 (Bld) [Moles/Vol] 29 mmol/L High 22-26 [facility] Comment on above: Performed By: #### L 9000.0810 #### [facility] [address] [place], [address] HCO3 (Bld) [Moles/Vol] 30 mmol/L High 22-26 [facility] Comment on above: Performed By: #### L 9000.0810 #### [facility] [address] [place], [address] O2 Delivery Dev Not entered Normal [facility] Comment on above: Performed By: #### L 9000.0810 #### [facility] [address] [place], [address] SITE Not entered Normal [facility] Comment on above: Performed By: #### L 9000.0810 #### [facility] [address] [place], [address] VBG BE 5 mmol/L High -1.0-3.5 [facility] Comment on above: Performed By: #### L 9000.0810 #### [facility] [address] [place], [address] VBG BE 7 mmol/L High -1.0-3.5 [facility] Comment on above: Performed By: #### L 9000.0810 #### [facility] [address] [place], [address] VBG pCO2 40.0 mmHg Low 41-51 [facility] Comment on above: Performed By: #### L 9000.0810 #### [facility] [address] [place], [address] VBG pCO2 41.9 mmHg Normal 41-51 [facility] Comment on above: Performed By: #### L 9000.0810 #### [facility] [address] [place], [address] VBG pH 7.46 High 7.32-7.42 [facility] Comment on above: Performed By: #### L 9000.0810 #### [facility] [address] [place], [address] VBG pH 7.47 High 7.32-7.42 [facility] Comment on above: Performed By: #### L 9000.0810 #### [facility] [address] [place], [address] VBG PO2 37 mmHg Normal 25-40 [facility] Comment on above: Performed By: #### L 9000.0810 #### [facility] [address] [place], [address] VBG PO2 39 mmHg Normal 25-40 [facility] Comment on above: Performed By: #### L 9000.0810 #### [facility] [address] [place], [address] VBG SO2 75 High 50-70 [facility] Comment on above: Performed By: #### L 9000.0810 #### [facility] [address] [place], [address] VBG SO2 76 High 50-70 [facility] Comment on above: Performed By: #### L 9000.0810 #### [facility] [address] [place], [address] Venous blood base excess duong surementOrdered By: [place] Hossein on 05-22-2025 Base excess Calc (BldV) [Moles/Vol] 7 mmol/L High -1.0-3.5 [facility] Venous blood bicarbonate duong surementOrdered By: Rubio Hossein on 05-22-2025 HCO3 (Bld) [Moles/Vol] 30 mmol/L High 22-26 [facility] Venous blood oxygen saturati on measurementOrdered By: Rubio Hossein on 05-22-2025 Oxygen saturation in Blood 76 % High 50-70 [facility] Venous blood pH measurementO rdered By: [place] Hossein on 05-22-2025 pH (BldV) 7.47 [pH] High 7.32-7.42 [facility] Venous blood partial pressur e of carbon dioxide measurementOrdered By: [place] Hossein on 05-22-2025 CO2 (BldV) [Partial pressure] 41.9 mm[Hg] 41-51 [facility] Venous blood partial pressur e of oxygen measurementOrdered By: [place] Hossein on 05-22-2025 Oxygen (BldV) [Partial pressure] 39 mm[Hg] 25-40 [facility] Immunofixation Urineon 05-18 WILFREDO Urine Comment Normal . [facility] Comment on above: Result Comment: No m onoclonality detected. Performed at: [address] [id number] [employer]: Frederick Tran PhD, Phone: [phone] Performed By: #### L 300.8000, L300.3900 #### [facility] [address] [place], [address] Immunofixation, Serumon - WILFREDO RESULT,S Comment Normal . [facility] Comment on above: Result Comment: No m onoclonality detected. Performed By: #### L 300.8000, L300.3900 #### [facility] [address] [place], [address] IMMUNOGLOB A QN 184 mg/dL Normal 64-422 [facility] Comment on above: Performed By: #### L 300.8000, L300.3900 #### [facility] [address] [place], [address] IMMUNOGLOB G QN 1226 mg/dL Normal 586-1602 [facility] Comment on above: Performed By: #### L 300.8000, L300.3900 #### [facility] [address] [place], [address] IMMUNOGLOB M QN 123 mg/dL Normal 26-217 [facility] Comment on above: Performed By: #### L 300.8000, L300.3900 #### [facility] [address] [place], [address] [place] [employer] Chainson 05-18-2025 FR KAPPA LT CHN 18.8 mg/L Normal 3.3-19.4 [facility] Comment on above: Performed By: #### L 300.8000, L300.3900 #### [facility] [address] [place], [address] FR LAMBDA LT CH 17.3 mg/L Normal 5.7-26.3 [facility] Comment on above: Performed By: #### L 300.8000, L300.3900 #### [facility] [address] [place], [address] KAPPA/LAMBDA % 1.09 Normal 0.26-1.65 [facility] Comment on above: Performed By: #### L 300.8000, L300.3900 #### [facility] [address] [place], [address] Anion gap in Serum or Plasma Ordered By: Huyen Fast on 05-16-2025 Anion gap [Moles/Vol] 14 mmol/L 5-15 [facility] BUN/creatinine ratioOrdered By: Huyen Fast on 05-16-2025 Urea nitrogen/Creatinine [Mass ratio] 24.3 mg/mg High 10-20 [facility] Bilirubin, totalOrdered By: Huyen Fast on 05-16-2025 Bilirubin [Mass/Vol] 0.74 mg/dL 0.00-1.30 [facility] CRPon 05-16-2025 C-REACTIVE PROT < 3.00 Normal 0.0-3.0 [facility] Comment on above: Performed By: #### L 300.8000, L300.3900 #### [facility] [address] [place], [address] Carbon dioxide, total [Moles /volume] in Central venous bloodOrdered By: Huyen Fast on 05-16-2025 CO2 [Moles/Vol] 25.7 mmol/L 21.0-32.0 [facility] Chloride assayOrdered By: De bra Fast on 05-16-2025 Chloride [Moles/Vol] 92 mmol/L Low 98-108 [facility] Comprehensive Metabolic Prof ilon 05-16-2025 Albumin [Mass/Vol] 4.7 g/dL Normal 3.4-4.8 [facility] Comment on above: Performed By: #### L 501.6710, L3600.4030, L3130.0010, L500.4050, L3200.1275 #### [facility] [address] [place], [address] Albumin/Globulin [Mass ratio] 1.4 {ratio} Normal 0.9-2.4 [facility] Comment on above: Performed By: #### L 501.6710, L3600.4030, L3130.0010, L500.4050, L3200.1275 #### [facility] [address] [place], [address] ALK PHOS 83 U/L Normal 35-104 [facility] Comment on above: Performed By: #### L 501.6710, L3600.4030, L3130.0010, L500.4050, L3200.1275 #### [facility] [address] [place], [address] ALT [Catalytic activity/Vol] 24 U/L Normal <=34 [facility] Comment on above: Performed By: #### L 501.6710, L3600.4030, L3130.0010, L500.4050, L3200.1275 #### [facility] [address] [place], [address] AST [Catalytic activity/Vol] 27 U/L Normal <=31 [facility] Comment on above: Performed By: #### L 501.6710, L3600.4030, L3130.0010, L500.4050, L3200.1275 #### [facility] [address] [place], [address] Bilirubin [Mass/Vol] 0.74 mg/dL Normal 0.00-1.30 [facility] Comment on above: Performed By: #### L 501.6710, L3600.4030, L3130.0010, L500.4050, L3200.1275 #### [facility] [address] [place], [address] BUN/CRE 24.3 RATIO High 10-20 [facility] Comment on above: Performed By: #### L 501.6710, L3600.4030, L3130.0010, L500.4050, L3200.1275 #### [facility] [address] [place], [address] Calcium [Mass/Vol] 10.7 mg/dL Normal 7.6-11.0 [facility] Comment on above: Performed By: #### L 501.6710, L3600.4030, L3130.0010, L500.4050, L3200.1275 #### [facility] [address] [place], [address] Chloride [Moles/Vol] 92 mmol/L Low 98-108 [facility] Comment on above: Performed By: #### L 501.6710, L3600.4030, L3130.0010, L500.4050, L3200.1275 #### [facility] [address] [place], [address] CO2 [Moles/Vol] 25.7 mmol/L Normal 21.0-32.0 [facility] Comment on above: Performed By: #### L 501.6710, L3600.4030, L3130.0010, L500.4050, L3200.1275 #### [facility] [address] [place], [address] Creatinine [Mass/Vol] 1.07 mg/dL Normal 0.70-1.20 [facility] Comment on above: Performed By: #### L 501.6710, L3600.4030, L3130.0010, L500.4050, L3200.1275 #### [facility] [address] [place], [address] GAP 14 Normal 5-15 [facility] Comment on above: Performed By: #### L 501.6710, L3600.4030, L3130.0010, L500.4050, L3200.1275 #### [facility] [address] [place], [address] GFR/1.73 sq M.predicted among non-blacks MDRD (S/P/Bld) [Vol rate/Area] 55 mL/min/{1.73_m2} Low >60 [facility] Comment on above: Result Comment: mL/m in/1.73m2 CKD-EPI Creatinine Equation (2020) Performed By: #### L 501.6710, L3600.4030, L3130.0010, L500.4050, L3200.1275 #### [facility] [address] [place], [address] Globulin (S) [Mass/Vol] 3.5 g/dL Normal 2.2-4.2 [facility] Comment on above: Performed By: #### L 501.6710, L3600.4030, L3130.0010, L500.4050, L3200.1275 #### [facility] [address] [place], [address] Glucose [Mass/Vol] 103 mg/dL High 70-99 [facility] Comment on above: Performed By: #### L 501.6710, L3600.4030, L3130.0010, L500.4050, L3200.1275 #### [facility] [address] [place], [address] Potassium [Moles/Vol] 3.8 mmol/L Normal 3.3-5.1 [facility] Comment on above: Performed By: #### L 501.6710, L3600.4030, L3130.0010, L500.4050, L3200.1275 #### [facility] [address] [place], [address] Sodium [Moles/Vol] 132 mmol/L Low 133-145 [facility] Comment on above: Performed By: #### L 501.6710, L3600.4030, L3130.0010, L500.4050, L3200.1275 #### [facility] [address] [place], [address] T PROT 8.2 g/dL Normal 5.9-8.4 [facility] Comment on above: Performed By: #### L 501.6710, L3600.4030, L3130.0010, L500.4050, L3200.1275 #### [facility] [address] [place], [address] Urea nitrogen [Mass/Vol] 26 mg/dL High -19 [facility] Comment on above: Performed By: #### L 501.6710, L3600.4030, L3130.0010, L500.4050, L3200.1275 #### [facility] [address] [place], [address] Glomerular filtration rate ( GFR) estimation/1.73 sq m using serum, plasma, or whole bOrdered By: Huyen Fast on 05-16-2025 GFR/1.73 sq M.predicted among non-blacks MDRD (S/P/Bld) [Vol rate/Area] 55 mL/min/{1.73_m2} Low >60 [facility] Comment on above: mL/min/1.73m2 CKD-EP I Creatinine Equation (2020) Laboratory - Chemistry and C hemistry - challengeOrdered By: Huyen Fast on 05-16-2025 AST [Catalytic activity/Vol] 27 U/L <32 [facility] Potassium measurement (mass/ volume)Ordered By: on 05-16-2025 Potassium (Unsp spec) [Mass/Vol] 3.8 mmol/L 3.3-5.1 [facility] Serum creatinine measurement (mass/volume)Ordered By: on 05-16-2025 Creatinine [Mass/Vol] 1.07 mg/dL 0.70-1.20 [facility] Serum globulin measurementOr dered By: 05-16-2025 Globulin (S) [Mass/Vol] 3.5 g/dL 2.2-4.2 [facility] Serum glucose measurement (m ass/volume)Ordered By: 05-16-2025 Glucose [Mass/Vol] 103 mg/dL High 70-99 [facility] Serum immunoglobulin kappa l ight chains/immunoglobulin lambda light chains mass ratioOrdered By: 05-16-2025 Immunoglobulin light chains.kappa/Immunoglo bulin light chains.lambda (S) [Mass ratio] 1.09 0.26-1.65 [facility] Serum or plasma C reactive p rotein measurement (mass/volume)Ordered By: 05-16-2025 CRP [Mass/Vol] mg/L 0.0-3.0 [facility] Serum or plasma IgA measurem ent (mass/volume)Ordered By: 05-16-2025 IgA [Mass/Vol] 184 mg/dL 64-422 [facility] Serum or plasma IgG measurem ent (mass/volume)Ordered By: 05-16-2025 IgG [Mass/Vol] 1226 mg/dL 586-1602 [facility] Serum or plasma alanine aguirre otransferase (ALT) measurementOrdered By: 05-16-2025 ALT [Catalytic activity/Vol] 24 U/L <35 [facility] Serum or plasma albumin elie urement (mass/volume)Ordered By: 05-16-2025 Albumin [Mass/Vol] 4.7 g/dL 3.4-4.8 [facility] Serum or plasma albumin/glob ulin mass ratioOrdered By: 05-16-2025 Albumin/Globulin [Mass ratio] 1.4 {ratio} 0.9-2.4 [facility] Serum or plasma alkaline shahrzad sphatase measurementOrdered By: Huyen on 05-16-2025 ALP [Catalytic activity/Vol] 83 U/L 35-104 [facility] Serum or plasma calcium elie urement (mass/volume)Ordered By: on 05-16-2025 Calcium [Mass/Vol] 10.7 mg/dL 7.6-11.0 [facility] Serum or plasma immunoglobul in kappa light chains measurement (mass/volume)Ordered By: on 05-16-2025 Immunoglobulin light chains.kappa [Mass/Vol] 18.8 mg/L 3.3-19.4 [facility] Serum or plasma urea nitroge n measurement (mass/volume)Ordered By: on 05-16-2025 Urea nitrogen [Mass/Vol] 26 mg/dL High 4-19 [facility] Sodium levelOrdered By: a on 05-16-2025 Sodium [Moles/Vol] 132 mmol/L Low 133-145 [facility] Total proteinOrdered By: Joan ra on 05-16-2025 Protein [Mass/Vol] 8.2 g/dL 5.9-8.4 [facility] Absolute lymphocyte countOrd ered By: Robert Hagen on 05-03-2025 Lymphocytes Auto (Unsp spec) [#/Vol] 1.44 10*3/uL 0.83-4.51 [facility] Absolute neutrophil countOrd ered By: Robert Hagen on 05-03-2025 Neutrophils (Bld) [#/Vol] 3.5 10*3/uL 2.0-7.7 [facility] Anion gap in Serum or Plasma Ordered By: Robert Hagen on 05-03-2025 Anion gap [Moles/Vol] 15 mmol/L 5-15 [facility] Automated lymphocyte count a s percentage of total leukocytesOrdered By: Robert Hagen on 05-03-2025 Lymphocytes/100 WBC Auto (Unsp spec) 25.5 % 19-41 [facility] BUN/creatinine ratioOrdered By: Robert Hagen on 05-03-2025 Urea nitrogen/Creatinine [Mass ratio] 22.9 mg/mg High 10-20 [facility] Basic Metabolic Profile (BMP )on 05-03-2025 BUN/CRE 22.9 RATIO High 10-20 [facility] Comment on above: Performed By: #### L 300.3900, L500.2500, L100.0100 #### [facility] [address] [place], [address] Calcium [Mass/Vol] 10.6 mg/dL Normal 7.6-11.0 [facility] Comment on above: Performed By: #### L 300.3900, L500.2500, L100.0100 #### [facility] [address] [place], [address] Chloride [Moles/Vol] 96 mmol/L Low 98-108 [facility] Comment on above: Performed By: #### L 300.3900, L500.2500, L100.0100 #### [facility] [address] [place], [address] CO2 [Moles/Vol] 24.9 mmol/L Normal 21.0-32.0 [facility] Comment on above: Performed By: #### L 300.3900, L500.2500, L100.0100 #### [facility] [address] [place], [address] Creatinine [Mass/Vol] 1.21 mg/dL High 0.70-1.20 [facility] Comment on above: Performed By: #### L 300.3900, L500.2500, L100.0100 #### [facility] [address] [place], [address] GAP 15 Normal 5-15 [facility] Comment on above: Performed By: #### L 300.3900, L500.2500, L100.0100 #### [facility] [address] [place], [address] GFR/1.73 sq M.predicted among non-blacks MDRD (S/P/Bld) [Vol rate/Area] 47 mL/min/{1.73_m2} Low >60 [facility] Comment on above: Result Comment: mL/m in/1.73m2 CKD-EPI Creatinine Equation (2020) Performed By: #### L 300.3900, L500.2500, L100.0100 #### [facility] [address] [place], [address] Glucose [Mass/Vol] 100 mg/dL High 70-99 [facility] Comment on above: Performed By: #### L 300.3900, L500.2500, L100.0100 #### [facility] [address] [place], [address] Potassium [Moles/Vol] 3.6 mmol/L Normal 3.3-5.1 [facility] Comment on above: Performed By: #### L 300.3900, L500.2500, L100.0100 #### [facility] [address] [place], [address] Sodium [Moles/Vol] 136 mmol/L Normal 133-145 [facility] Comment on above: Performed By: #### L 300.3900, L500.2500, L100.0100 #### [facility] [address] [place], [address] Urea nitrogen [Mass/Vol] 28 mg/dL High 4-19 [facility] Comment on above: Performed By: #### L 300.3900, L500.2500, L100.0100 #### [facility] [address] [place], [address] Basophil percentageOrdered B y: Robert Hagen on 05-03-2025 Basophils/100 WBC (Bld) 1.6 % High 0-1 [facility] CBC W/Diff, Automatedon Absolute Lymph 1.44 X10 3/uL Normal 0.83-4.51 [facility] Comment on above: Performed By: #### L 300.3900, L500.2500, L100.0100 #### [facility] [address] [place], [address] Absolute Neut 3.5 X10 3/uL Normal 2.0-7.7 [facility] Comment on above: Performed By: #### L 300.3900, L500.2500, L100.0100 #### [facility] [address] [place], [address] Basophils/100 WBC (Bld) 1.6 % High 0-1 [facility] Comment on above: Performed By: #### L 300.3900, L500.2500, L100.0100 #### [facility] [address] [place], [address] Eosinophils/100 WBC (Bld) 3.4 % Normal 0-5 [facility] Comment on above: Performed By: #### L 300.3900, L500.2500, L100.0100 #### [facility] [address] [place], [address] Erythrocyte distribution width (RBC) [Ratio] 13.0 % Normal 11.6-14.6 [facility] Comment on above: Performed By: #### L 300.3900, L500.2500, L100.0100 #### [facility] [address] [place], [address] Hematocrit (Bld) [Volume fraction] 34.8 % Low 37-47 [facility] Comment on above: Performed By: #### L 300.3900, L500.2500, L100.0100 #### [facility] [address] [place], [address] Hemoglobin (Bld) [Mass/Vol] 11.8 g/dL Low 12.0-15.0 [facility] Comment on above: Performed By: #### L 300.3900, L500.2500, L100.0100 #### [facility] [address] [place], [address] IG% 0.200 Normal 0.0-0.9 [facility] Comment on above: Result Comment: IG% - Immature Granulocytes (promyelocytes, myelocytes and metamyelocytes) > 1% indicates that a LEFT SHIFT is Present. Performed By: #### L 300.3900, L500.2500, L100.0100 #### [facility] [address] [place], [address] Lymphocytes/100 WBC (Bld) 25.5 % Normal 19-41 [facility] Comment on above: Performed By: #### L 300.3900, L500.2500, L100.0100 #### [facility] [address] [place], [address] MCH (RBC) [Entitic mass] 30.4 pg Normal 27.0-32.0 [facility] Comment on above: Performed By: #### L 300.3900, L500.2500, L100.0100 #### [facility] [address] [place], [address] MCHC (RBC) [Mass/Vol] 33.9 g/dL Normal 32-36 [facility] Comment on above: Performed By: #### L 300.3900, L500.2500, L100.0100 #### [facility] [address] [place], [address] MCV (RBC) [Entitic vol] 89.7 fL Normal 81-99 [facility] Comment on above: Performed By: #### L 300.3900, L500.2500, L100.0100 #### [facility] [address] [place], [address] Monocytes/100 WBC (Bld) 7.8 % Normal 0-10 [facility] Comment on above: Performed By: #### L 300.3900, L500.2500, L100.0100 #### [facility] [address] [place], [address] Neutrophils/100 WBC (Bld) 61.5 % Normal 47-70 [facility] Comment on above: Performed By: #### L 300.3900, L500.2500, L100.0100 #### [facility] [address] [place], [address] Nucleated RBC (Bld) [#/Vol] 0 10*3/uL Normal 0-5 [facility] Comment on above: Performed By: #### L 300.3900, L500.2500, L100.0100 #### [facility] [address] [place], [address] Platelet mean volume (Bld) [Entitic vol] 10.4 fL Normal 6.2-12.0 [facility] Comment on above: Performed By: #### L 300.3900, L500.2500, L100.0100 #### [facility] [address] [place], [address] Platelets (Bld) [#/Vol] 342 10*3/uL Normal 150-450 [facility] Comment on above: Performed By: #### L 300.3900, L500.2500, L100.0100 #### [facility] [address] [place], [address] RBC (Bld) [#/Vol] 3.88 10*6/uL Low 4.2-5.4 [facility] Comment on above: Performed By: #### L 300.3900, L500.2500, L100.0100 #### [facility] [address] [place], [address] RDW SD 42.4 fl Normal 35.1-43.9 [facility] Comment on above: Performed By: #### L 300.3900, L500.2500, L100.0100 #### [facility] [address] [place], [address] WBC (Bld) [#/Vol] 5.6 10*3/uL Normal 4.4-11.0 [facility] Comment on above: Performed By: #### L 300.3900, L500.2500, L100.0100 #### [facility] [address] [place], [address] Carbon dioxide, total [Moles /volume] in Central venous bloodOrdered By: Robert Hagen on 05-03-2025 CO2 [Moles/Vol] 24.9 mmol/L 21.0-32.0 [facility] Cardiology Visit Reporton Cardiology Visit Report [facility] [address] [place], [place] [address] OFFICE VISIT Date of Service: 05/03/25 MR#: [id number] Acct: [id number] Name: VAISHALI CHÁVEZ Rep #: [id number] : 1950 Provider: Dr. Robert farley MD Age/Sex: 74/F Location: [facility] Status: Signed HPI HPI History of Present Illness Details: Patient is a very pleasant 74-year-old white female that comes in today for new patient visit. She is accompanied by her [id number]. Patient carries a history of palpitations for several years but over the past 5 months these have become much more prominent. 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 This occurs episodically is not always predictable. The patient does have a remote history of some atypical chest symptoms but these are definitely different. She had a stress test performed April 12, 2025 she went to 97% of age-predicted heart rate she had inferolateral ST depressions as were exaggerated at peak exercise and in recovery. The echocardiogram portion suggested reversible ischemia in the inferior wall and a previous posterior infarct. She has no prior history of any type of cardiac event. She was noted to have 2+ tricuspid insufficiency severe pulmonary heart hypertension with a right ventricular systolic pressure estimated 84. She had mild 1+ aortic valve insufficiency and mild mitral regurgitation. The patient has no previous pulmonary history she has never smoked she does not have emphysema or any type of restrictive lung disease that she is aware of. She denies any history of pulmonary emboli she denies any rheumatologic issues. The patient also denies any significant dyspnea on exertion or shortness of breath her O2 saturation is 98% on room air in the office today. The patient is able to do her actives of daily living and light housework without restrictions. She has been given nitroglycerin sublingual but has not utilized it. I went over the use of it in detail with her. The patient does note some occasional lower extremity edema when she does not take her chlorthalidone. She denies any PND orthopnea denies any syncope or near syncope. The patient does report these palpitations she had she wore a 48-hour Holter monitor April 12, 2025. During that 48 hours she really had no symptoms questionable light episode a couple of times there was no significant ectopy documented. There were isolated supraventricular ectopic beats there were 3 atrial runs the longest was 5 beats no atrial fibrillation was documented there were 29 ventricular runs consisting of apparent beats the fastest was 15 beats. She did have an episode of idioventricular rhythm but does not remember exactly what was going on at the time and had no syncope or near syncope lightheadedness or dizziness. The patient's cardiac risk factors include a history of hypertension and hyperlipidemia as noted she has never smoked she is not diabetic and has no significant family history. 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 Accompanied by: [id number] Is patient in pain?: No Allergies sulfamethoxazole (From Bactrim) Adverse Reaction (Mild, Verified 05/03/25 08:25) Upset Stomach trimethoprim (From Bactrim) Adverse Reaction (Mild, Verified 05/03/25 08:25) Upset Stomach amoxicillin (From Augmentin) Adverse Reaction (Verified 05/03/25 08:25) Diarrhea clavulanic acid (From Augmentin) Adverse Reaction (Verified 05/03/25 08:25) Diarrhea Medications ???Medication ???Instructions ???Recorded ???Confirmed ???Type Angelaja red PO DAILY 04/28/25 05/03/25 History chlorthalidone 25 mg tablet 25 mg PO QDAY 04/28/25 05/03/25 Hi story cholecalciferol (vitamin D3) 25 25 mcg PO QDAY 04/28/25 05/03/25 H istory mcg (1,000 unit) capsule levothyroxine 50 mcg tablet 50 mcg PO QDAY 04/28/25 05/03/25 H istory (Synthroid) lisinopril 40 mg tablet 40 mg PO QDAY 04/28/25 05/03/25 Hi story magnesium glycinate 100 mg (as 100 mg PO QDAY 04/28/25 05/03/25 H istory glycinate) tablet Vogel Greens and Superfoods PO DAILY 05/03/25 05/03/25 History [facility] Sulfurzyme PO PRN 05/03/25 05/03/25 History [facility] Super B PO DAILY 05/03/25 05/03/25 History clindamycin HCl 300 mg capsule 600 mg PO ONCE 05/03/25 05/03/25 H istory mecobalamin (vitamin B12) 5,000 5,000 mcg PO QDAY 05/03/25 5 History mcg chewable tablet Have you fallen in the pas (more content not included)... Normal [facility] Chest PA and Lateralon 05-03 Chest PA and Lateral [facility] [address] [place] [address] Chest PA and Lateral MR#: [id number] Acct: [id number] Name: VAISHALI CHÁVEZ ALISSON Rep #: [id number] : 1950 F 74 From: Otto Boss PCP: Dr. Huyen Shellye, DO Status: REG CLI Study: Chest PA and Lateral Date of Exam: 05/03/25 Exam# [id number] Ordering Dr: Robert Hagen MD PROCEDURE: CHEST PA AND LATERAL 05/03/2025 REASON FOR EXAM: PREOP CATH TECHNIQUE: CHEST PA AND LATERAL COMPARISON: PA and lateral chest of 03/10/2025. RAD/Chest PA and Lateral IMPRESSION: Stable degenerative changes of the spine and thoracolumbar dextroscoliosis noted. Lungs appear clear of acute disease. No pleural effusion or pneumothorax is noted. The cardiomediastinal silhouette is stable, without evidence of cardiomegaly. No evidence of acute cardiopulmonary disease. Reading Location: [place] [address] CC: Dr. Huyen Shelley DO; Dr. Robert Hagen MD [employer] Vice President: Signed Normal [facility] Chloride assayOrdered By: Sona Hagen on 05-03-2025 Chloride [Moles/Vol] 96 mmol/L Low 98-108 [facility] Eosinophil percentageOrdered By: Robert Hagen on 05-03-2025 Eosinophils/100 WBC (Bld) 3.4 % 0-5 [facility] Erythrocyte distribution wid th ratioOrdered By: Robert Hagen on 05-03-2025 Erythrocyte distribution width (RBC) [Ratio] 13.0 % 11.6-14.6 [facility] Erythrocyte distribution wid th standard deviationOrdered By: Robert Hagen on 05-03-2025 Erythrocyte distribution width (RBC) [Ratio] 42.4 fl 35.1-43.9 [facility] Glomerular filtration rate ( GFR) estimation/1.73 sq m using serum, plasma, or whole bOrdered By: Robert Hagen on 05-03-2025 GFR/1.73 sq M.predicted among non-blacks MDRD (S/P/Bld) [Vol rate/Area] 47 mL/min/{1.73_m2} Low >60 [facility] Comment on above: mL/min/1.73m2 CKD-EP I Creatinine Equation (2020) Hematocrit Auto (Bld) [Volum e fraction]Ordered By: Robert Hagen on 05-03-2025 Hematocrit (Bld) [Volume fraction] 34.8 % Low 37-47 [facility] Hemoglobin measurementOrdere d By: Robert Hagen on 05-03-2025 Hemoglobin (Bld) [Mass/Vol] 11.8 g/dL Low 12.0-15.0 [facility] Immature granulocytes/100 WB C Auto (Bld)Ordered By: Robert Hagen on 05-03-2025 Immature granulocytes/100 WBC (Bld) 0.200 % 0.0-0.9 [facility] Comment on above: IG% - Immature Granu locytes (promyelocytes, myelocytes and metamyelocytes) > 1% indicates that a LEFT SHIFT is Present. International normalized rat io (INR) calculationOrdered By: Robert Hagen on 05-03-2025 INR Coag (Bld) [Relative time] 1.0 {INR} [facility] MCV (mean corpuscular volume ) determinationOrdered By: Robert Hagen on 05-03-2025 MCV (RBC) [Entitic vol] 89.7 fL 81-99 [facility] Mean corpuscular hemoglobin (MCH) determinationOrdered By: Robert Hagen on 05-03-2025 MCH (RBC) [Entitic mass] 30.4 pg 27.0-32.0 [facility] Mean corpuscular hemoglobin concentration (MCHC) determinationOrdered By: Robert Hagen on 05-03-2025 MCHC (RBC) [Mass/Vol] 33.9 g/dL 32-36 [facility] Mean platelet volume determi nationOrdered By: Robert Hagen on 05-03-2025 Platelet mean volume (Bld) [Entitic vol] 10.4 fL 6.2-12.0 [facility] Monocyte percentageOrdered B y: Robert Hagen on 05-03-2025 Monocytes/100 WBC (Bld) 7.8 % 0-10 [facility] Neutrophil percentageOrdered By: Robert Hagen on 05-03-2025 Neutrophils/100 WBC (Bld) 61.5 % 47-70 [facility] Nucleated red blood cell per centageOrdered By: Robert Hagen on 05-03-2025 Nucleated RBC/100 WBC (Bld) [Ratio] 0 % 0-5 [facility] Platelet countOrdered By: Sona Hagen on 05-03-2025 Platelets (Bld) [#/Vol] 342 10*3/uL 150-450 [facility] Potassium measurement (mass/ volume)Ordered By: Robert Hagen on 05-03-2025 Potassium (Unsp spec) [Mass/Vol] 3.6 mmol/L 3.3-5.1 [facility] Prothrombin Time w/INRon INR Coag (PPP) [Relative time] 1.0 {INR} Normal [facility] Comment on above: Performed By: #### L 300.3900, L500.2500, L100.0100 #### [facility] [address] [place], [address] PT Coag (PPP) [Time] 13.4 s Normal 11.7-14.9 [facility] Comment on above: Performed By: #### L 300.3900, L500.2500, L100.0100 #### [facility] [address] [place], [address] Prothrombin timeOrdered By: Robert Hagen on 05-03-2025 PT Coag (PPP) [Time] 13.4 s 11.7-14.9 [facility] RBC Auto (Bld) [#/Vol]Ordere d By: Robert Hagen on 05-03-2025 RBC (Bld) [#/Vol] 3.88 10*6/uL Low 4.2-5.4 [facility] Serum creatinine measurement (mass/volume)Ordered By: Robert Hagen on 05-03-2025 Creatinine [Mass/Vol] 1.21 mg/dL High 0.70-1.20 [facility] Serum glucose measurement (m ass/volume)Ordered By: Robert Hagen on 05-03-2025 Glucose [Mass/Vol] 100 mg/dL High 70-99 [facility] Serum or plasma calcium elie urement (mass/volume)Ordered By: Robert Hagen on 05-03-2025 Calcium [Mass/Vol] 10.6 mg/dL 7.6-11.0 [facility] Serum or plasma urea nitroge n measurement (mass/volume)Ordered By: Robert Hagen on 05-03-2025 Urea nitrogen [Mass/Vol] 28 mg/dL High 4-19 [facility] Sodium levelOrdered By: Prateek Hagen on 05-03-2025 Sodium [Moles/Vol] 136 mmol/L 133-145 [facility] White blood cell (WBC) count Ordered By: Robert Hagen on 08-06-2025 WBC (Bld) [#/Vol] 5.6 10*3/uL 4.4-11.0 [facility] Stress Test Echo W/Contrasto n 04-12-2025 Stress Test Echo W/Contrast [facility] [address] [place] [address] Stress Test Echo W/Contrast MR#: [id number] Acct: [id number] Name: VAISHALI CHÁVEZ Rep #: [id number] : 1950 74 From: Shahbaz Bender MD Primary Care: MIRIAN Lundberg Status: REG CLI Ordering Dr: Brandon Tucker 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 EKG, Pre-op Stress Results Protocol: Jesus Protocol WITH DEFINITY Maximum Predicted HR: 147 bpm Target HR: 125 bpm % Maximum Predicted HR: 95 % DurationHeart Rate Stage (mm:ss) (bpm) BP Comment Baseline 53 168/72 Stage 1- Jesus Protocol 3:00 139 178/74 Recovery 68 142/783cc Definity Stress Duration: 3:00 mm:ss Maximum Stress HR: 139 bpm Baseline Echocardiogram Findings Normal systolic function. Mild (1+) mitral valve insufficiency. Moderate (2+) tricuspid valve insufficiency. Right ventricular systolic pressure estimated to be 84 mmHg. Mild (1+) aortic valve insufficiency. Trisinus/trileaflet aortic valve. Stress Echo Wall motion Data Resting WM Intermediate WM Stress WM Resting Wall Motion Wall Motion Stress Estimated LVEF 55%. Posterior Posterior wall remained hypokinetic. hypokinesis. Inferior wall hypokinesis poststress suggestive of ischemia. Time Measurements MV dec time: 0.14 sec Doppler Measurements Calculations MV E max comfort: 80.4 cm/sec MV dec slope: 574.5 cm/sec2 PA V2 max: 117.1 cm/sec MV A max comfort: 73.3 cm/sec PA V2 mean: 85.2 cm/sec MV E/A: 1.1 TR max comfort: 443.9 cm/sec TR max P.8 mmHg ECHO/Stress Test Echo W/Contrast Interpretation Summary Technically adequate stress test. 97% of maximum predicted heart rate achieved. No chest pain reported. Baseline ECG with inferolateral ST depressions. Exaggerated at peak exercise and in recovery. Suggestive of ischemia however baseline abnormality reduced specificity. 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 Moderate (2+) tricuspid valve insufficiency. Severe pulmonary hypertension. Right ventricular systolic pressure estimated to be 84 mmHg. Mild (1+) aortic valve insufficiency. Mild mitral valve regurgitation. Ordering Physician: Brandon Tucker Referring Physician: Brandon Tucker Performed By: Rashard Bernabe RCS 04/12/25 1433 Date Shahbaz Bender MD CC: SOFTWARE VALIDATION ENGINEER-C Brandon Tucker Date Dictated: 04/12/254 Date Transcribed: 04/12/25 143 [employer] Vice President: Signed Normal [facility] Stress echocardiogram study reportOrdered By: Shahbaz Bender on 04-12-2025 Stress cardiac echo study report [facility] [address] [place] [address] Stress Test Echo W/Contrast MR#: [id number] Acct: [id number] Name: VAISHALI CHÁVEZ ALISSON Rep #: [id number] : 1950 74 From: Shahbaz Bender MD Primary Care: MIRIAN Lundberg Status : REG CLI Ordering Dr: Brandon Tucker Sex: F C Reason For Study Reason For Study: Abn. EKG, Pre-op Stress Results Protocol: Jesus Protocol WITH DEFINITY Maximum Predicted HR: 147 bpm Target HR: 125 bpm % Maximum Predicted HR: 95 % DurationHeart Rate Stage (mm:ss) (bpm) BP Comment Baseline 53 168/72 Stage 1- Jesus Protocol 3:00 139 178/74 Recovery 68 142/783ccDefinity Stress Duration: 3:00 mm:ss Maximum Stress HR: 139 bpm Baseline Echocardiogram Findings Normal systolic function. Mild (1+) mitral valve insufficiency. Moderate (2+) tricuspid valve insufficiency. Right ventricular systolic pressure estimated to be 84 mmHg. Mild (1+) aortic valve insufficiency. Trisinus/trileaflet aortic valve. Stress Echo Wall motion Data Resting WM Intermediate WM Stress WM Resting Wall Motion Wall Motion Stress Estimated LVEF 55%. Posterior Posterior wall remained hypokinetic. hypokinesis. Inferior wall hypokinesis poststress suggestive of ischemia. Time Measurements MV dec time: 0.14 sec Doppler Measurements & Calculations MV E max comfort: 80.4 cm/sec MV dec slope: 574.5 cm/sec2 PA V2 max: 117.1 cm/sec MV A max comfort: 73.3 cm/sec PA V2 mean: 85.2 cm/sec MV E/A: 1.1 TR max comfort: 443.9 cm/sec TR max P.8 mmHg ECHO/Stress Test Echo W/Contrast Interpretation Summary Technically adequate stress test. 97% of maximum predicted heart rate achieved. No chest pain reported. Baseline ECG with inferolateral ST depressions. Exaggerated at peak exercise andin recovery. Suggestive of ischemia however baseline abnormality reduced specificity. 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 Moderate (2+) tricuspid valve insufficiency. Severe pulmonary hypertension. Right ventricular systolic pressure estimated to be 84 mmHg. Mild (1+) aortic valve insufficiency. Mild mitral valve regurgitation. Ordering Physician: Brandon Tucker Referring Physician: Brandon Tucker Performed By: Rashard Bernabe RCS 04/12/25 1433 Date _ Shahbaz Bender MD CC: SOFTWARE VALIDATION ENGINEER-C Brandon Tucker ~ Date Dictated: 04/12/25103 Date Transcribed: 04/12/251432 [employer] Vice President: Signed [facility] Work Phone: Absolute lymphocyte countOrd ered By: Gertrude Carver on 03-10-2025 Lymphocytes Auto (Unsp spec) [#/Vol] 2.61 10*3/uL 0.83-4.51 [facility] Absolute neutrophil countOrd ered By: Gertrude Carver on 03-10-2025 Neutrophils (Bld) [#/Vol] 4.2 10*3/uL 2.0-7.7 [facility] Anion gap in Serum or Plasma Ordered By: Gertrude Carver on 03-10-2025 Anion gap [Moles/Vol] 14 mmol/L 5-15 [facility] Automated lymphocyte count a s percentage of total leukocytesOrdered By: Gertrude Carver on 03-10-2025 Lymphocytes/100 WBC Auto (Unsp spec) 32.2 % -41 [facility] BUN/creatinine ratioOrdered By: Gertrude Carver on 03-10-2025 Urea nitrogen/Creatinine [Mass ratio] 24.9 mg/mg High 10-20 [facility] Basic Metabolic Profile (BMP )on 03-10-2025 BUN/CRE 24.9 RATIO High 10-20 [facility] Comment on above: Performed By: #### L 300.8000, L300.3900 #### [facility] [address] [place], [address] Calcium [Mass/Vol] 10.2 mg/dL Normal 7.6-11.0 [facility] Comment on above: Performed By: #### L 300.8000, L300.3900 #### [facility] [address] [place], [address] Chloride [Moles/Vol] 98 mmol/L Normal 98-108 [facility] Comment on above: Performed By: #### L 300.8000, L300.3900 #### [facility] [address] [place], [address] CO2 [Moles/Vol] 24.0 mmol/L Normal 21.0-32.0 [facility] Comment on above: Performed By: #### L 300.8000, L300.3900 #### [facility] [address] [place], [address] Creatinine [Mass/Vol] 1.13 mg/dL Normal 0.70-1.20 [facility] Comment on above: Performed By: #### L 300.8000, L300.3900 #### [facility] [address] [place], [address] ECRCL 47.02 ml/min Low 50-250 [facility] Comment on above: Performed By: #### L 300.8000, L300.3900 #### [facility] [address] [place], [address] GAP 14 Normal 5-15 [facility] Comment on above: Performed By: #### L 300.8000, L300.3900 #### [facility] [address] [place], [address] GFR/1.73 sq M.predicted among non-blacks MDRD (S/P/Bld) [Vol rate/Area] 51 mL/min/{1.73_m2} Low >60 [facility] Comment on above: Result Comment: mL/m in/1.73m2 CKD-EPI Creatinine Equation (2020) Performed By: #### L 300.8000, L300.3900 #### [facility] [address] [place], [address] Glucose [Mass/Vol] 99 mg/dL Normal 70-99 [facility] Comment on above: Performed By: #### L 300.8000, L300.3900 #### [facility] [address] [place], [address] Potassium [Moles/Vol] 3.7 mmol/L Normal 3.3-5.1 [facility] Comment on above: Performed By: #### L 300.8000, L300.3900 #### [facility] [address] [place], [address] Sodium [Moles/Vol] 136 mmol/L Normal 133-145 [facility] Comment on above: Performed By: #### L 300.8000, L300.3900 #### [facility] [address] [place], [address] Urea nitrogen [Mass/Vol] 28 mg/dL High 4-19 [facility] Comment on above: Performed By: #### L 300.8000, L300.3900 #### [facility] [address] [place], [address] Basophil percentageOrdered B y: Gertrude Carver on 03-10-2025 Basophils/100 WBC (Bld) 1.6 % High 0-1 [facility] CBC W/Diff, Automatedon 02-26 Absolute Lymph 2.61 X10 3/uL Normal 0.83-4.51 [facility] Comment on above: Performed By: #### L 300.8000, L300.3900 #### [facility] [address] [place], [address] Absolute Neut 4.2 X10 3/uL Normal 2.0-7.7 [facility] Comment on above: Performed By: #### L 300.8000, L300.3900 #### [facility] [address] [place], [address] Basophils/100 WBC (Bld) 1.6 % High 0-1 [facility] Comment on above: Performed By: #### L 300.8000, L300.3900 #### [facility] [address] [place], [address] Eosinophils/100 WBC (Bld) 5.2 % High 0-5 [facility] Comment on above: Performed By: #### L 300.8000, L300.3900 #### [facility] [address] [place], [address] Erythrocyte distribution width (RBC) [Ratio] 12.8 % Normal 11.6-14.6 [facility] Comment on above: Performed By: #### L 300.8000, L300.3900 #### [facility] [address] [place], [address] Hematocrit (Bld) [Volume fraction] 33.2 % Low 37-47 [facility] Comment on above: Performed By: #### L 300.8000, L300.3900 #### [facility] [address] [place], [address] Hemoglobin (Bld) [Mass/Vol] 11.3 g/dL Low 12.0-15.0 [facility] Comment on above: Performed By: #### L 300.8000, L300.3900 #### [facility] [address] [place], [address] IG% 0.200 Normal 0.0-0.9 [facility] Comment on above: Result Comment: IG% - Immature Granulocytes (promyelocytes, myelocytes and metamyelocytes) > 1% indicates that a LEFT SHIFT is Present. Performed By: #### L 300.8000, L300.3900 #### [facility] [address] [place], [address] Lymphocytes/100 WBC (Bld) 32.2 % Normal 19-41 [facility] Comment on above: Performed By: #### L 300.8000, L300.3900 #### [facility] [address] [place], [address] MCH (RBC) [Entitic mass] 30.7 pg Normal 27.0-32.0 [facility] Comment on above: Performed By: #### L 300.8000, L300.3900 #### [facility] [address] [place], [address] MCHC (RBC) [Mass/Vol] 34.0 g/dL Normal 32-36 [facility] Comment on above: Performed By: #### L 300.8000, L300.3900 #### [facility] [address] [place], [address] MCV (RBC) [Entitic vol] 90.2 fL Normal 81-99 [facility] Comment on above: Performed By: #### L 300.8000, L300.3900 #### [facility] [address] [place], [address] Monocytes/100 WBC (Bld) 8.8 % Normal 0-10 [facility] Comment on above: Performed By: #### L 300.8000, L300.3900 #### [facility] [address] [place], [address] Neutrophils/100 WBC (Bld) 52.0 % Normal 47-70 [facility] Comment on above: Performed By: #### L 300.8000, L300.3900 #### [facility] [address] [place], [address] Nucleated RBC (Bld) [#/Vol] 0 10*3/uL Normal 0-5 [facility] Comment on above: Performed By: #### L 300.8000, L300.3900 #### [facility] [address] [place], [address] Platelet mean volume (Bld) [Entitic vol] 11.5 fL Normal 6.2-12.0 [facility] Comment on above: Performed By: #### L 300.8000, L300.3900 #### [facility] [address] [place], [address] Platelets (Bld) [#/Vol] 322 10*3/uL Normal 150-450 [facility] Comment on above: Performed By: #### L 300.8000, L300.3900 #### [facility] [address] [place], [address] RBC (Bld) [#/Vol] 3.68 10*6/uL Low 4.2-5.4 [facility] Comment on above: Performed By: #### L 300.8000, L300.3900 #### [facility] [address] [place], [address] RDW SD 42.2 fl Normal 35.1-43.9 [facility] Comment on above: Performed By: #### L 300.8000, L300.3900 #### [facility] [address] [place], [address] WBC (Bld) [#/Vol] 8.1 10*3/uL Normal 4.4-11.0 [facility] Comment on above: Performed By: #### L 300.8000, L300.3900 #### [facility] [address] [place], [address] Carbon dioxide, total [Moles /volume] in Central venous bloodOrdered By: Gertrude Carver on 03-10-2025 CO2 [Moles/Vol] 24.0 mmol/L 21.0-32.0 [facility] Chest PA and Lateralon 03-10 Chest PA and Lateral [facility] [address] [place] [address] Chest PA and Lateral MR#: [id number] Acct: [id number] Name: VAISHALI CHÁVEZ Rep #: [id number] : 1950 F 74 From: Jeniffer Olsen nd, MD PCP: MIRIAN Lundberg Status: REG ER Study: Chest PA and Lateral Date of Exam: 03/10/25 Exam# [id number] Ordering Dr: Gertrude Carver PROCEDURE: CHEST PA [...] and Lateral IMPRESSION: NEGATIVE CHEST Reading [facility] CC: SOHAILC Brandon Tucker; KWESI Simon [employer] Vice President: Signed Normal [facility] Chloride assayOrdered By: Johanne Carver on 03-10-2025 Chloride [Moles/Vol] 98 mmol/L 98-108 [facility] D-Dimer Quantitative (DVT/PE )on 03-10-2025 D-DIMER QUANT 0.48 FEU/ug/m Normal 0.27-0.49 [facility] Comment on above: Result Comment: NORM AL D-Dimer level (<0.50) indicates no DVT or PE. Performed By: #### L 300.8000, L300.3900 #### [facility] [address] [place], [address] Emergency Department Summary on 03-10-2025 Emergency Department Summary [facility] Medical Records Department [address] [place] [address] Emergency Department Summary 03/10/25 MR#: [id number] Acct: [id number] Name: VAISHALI CHÁVEZ Rep #: [id number] : 1950 74 From: Gertrude OROSCO PCP: [...] repeated toda (more content not included)... Normal [facility] Eosinophil percentageOrdered By: Gertrude Carver on 03-10-2025 Eosinophils/100 WBC (Bld) 5.2 % High 0-5 [facility] Erythrocyte distribution wid th ratioOrdered By: Gertrude Carver on 03-10-2025 Erythrocyte distribution width (RBC) [Ratio] 12.8 % 11.6-14.6 [facility] Erythrocyte distribution wid th standard deviationOrdered By: Gertrude Carver on 03-10-2025 Erythrocyte distribution width (RBC) [Ratio] 42.2 fl 35.1-43.9 [facility] Glomerular filtration rate ( GFR) estimation/1.73 sq m using serum, plasma, or whole bOrdered By: Gertrude Carver on 03-10-2025 GFR/1.73 sq M.predicted among non-blacks MDRD (S/P/Bld) [Vol rate/Area] 51 mL/min/{1.73_m2} Low >60 [facility] Comment on above: mL/min/1.73m2 CKD-EP I Creatinine Equation (2020) Hematocrit Auto (Bld) [Volum e fraction]Ordered By: Gertrude Carver on 03-10-2025 Hematocrit (Bld) [Volume fraction] 33.2 % Low 37-47 [facility] Hemoglobin measurementOrdere d By: Gertrude Carver on 03-10-2025 Hemoglobin (Bld) [Mass/Vol] 11.3 g/dL Low 12.0-15.0 [facility] Immature granulocytes/100 WB C Auto (Bld)Ordered By: Gertrude Carver on 03-10-2025 Immature granulocytes/100 WBC (Bld) 0.200 % 0.0-0.9 [facility] Comment on above: IG% - Immature Granu locytes (promyelocytes, myelocytes and metamyelocytes) > 1% indicates that a LEFT SHIFT is Present. International normalized rat io (INR) calculationOrdered By: Gertrude Carver on 03-10-2025 INR Coag (Bld) [Relative time] 0.9 {INR} [facility] L499.0042on 03-10-2025 Trop T High Sen 25 ng/L High <=14 [facility] Comment on above: Performed By: #### L 300.8000, L300.3900 #### [facility] [address] [place], [address] L501.4021on 03-10-2025 Trop T High Sen 20 ng/L High <=14 [facility] Comment on above: Performed By: #### L 501.4021 #### [facility] [address] [place], [address] Trop T High Sen 21 ng/L High <=14 [facility] Comment on above: Performed By: #### L 300.8000, L300.3900 #### [facility] [address] [place], [address] MCV (mean corpuscular volume ) determinationOrdered By: Gertrude Carver on 03-10-2025 MCV (RBC) [Entitic vol] 90.2 fL 81-99 [facility] Mean corpuscular hemoglobin (MCH) determinationOrdered By: Gertrude Carver on 03-10-2025 MCH (RBC) [Entitic mass] 30.7 pg 27.0-32.0 [facility] Mean corpuscular hemoglobin concentration (MCHC) determinationOrdered By: Gertrude Carver on 03-10-2025 MCHC (RBC) [Mass/Vol] 34.0 g/dL 32-36 [facility] Mean platelet volume determi nationOrdered By: Gertrude Carver on 03-10-2025 Platelet mean volume (Bld) [Entitic vol] 11.5 fL 6.2-12.0 [facility] Monocyte percentageOrdered B y: Gertrude Carver on 03-10-2025 Monocytes/100 WBC (Bld) 8.8 % 0-10 [facility] Neutrophil percentageOrdered By: Gertrude Carver on 03-10-2025 Neutrophils/100 WBC (Bld) 52.0 % 47-70 [facility] Nucleated red blood cell per centageOrdered By: Gertrude Carver on 03-10-2025 Nucleated RBC/100 WBC (Bld) [Ratio] 0 % 0-5 [facility] Platelet countOrdered By: Johanne Carver on 03-10-2025 Platelets (Bld) [#/Vol] 322 10*3/uL 150-450 [facility] Potassium measurement (mass/ volume)Ordered By: Gertrude Carver on 03-10-2025 Potassium (Unsp spec) [Mass/Vol] 3.7 mmol/L 3.3-5.1 [facility] Prothrombin Time w/INRon INR Coag (PPP) [Relative time] 0.9 {INR} Normal [facility] Comment on above: Performed By: #### L 300.8000, L300.3900 #### [facility] [address] [place], [address] PT Coag (PPP) [Time] 12.7 s Normal 11.7-14.9 [facility] Comment on above: Performed By: #### L 300.8000, L300.3900 #### [facility] [address] [place], [address] Prothrombin timeOrdered By: Gertrude Carver on 03-10-2025 PT Coag (PPP) [Time] 12.7 s 11.7-14.9 [facility] RBC Auto (Bld) [#/Vol]Ordere d By: Gertrude Carver on 03-10-2025 RBC (Bld) [#/Vol] 3.68 10*6/uL Low 4.2-5.4 [facility] Serum creatinine measurement (mass/volume)Ordered By: Gertrude Carver on 03-10-2025 Creatinine [Mass/Vol] 1.13 mg/dL 0.70-1.20 [facility] Serum glucose measurement (m ass/volume)Ordered By: Gertrude Carver on 03-10-2025 Glucose [Mass/Vol] 99 mg/dL 70-99 [facility] Serum or plasma calcium elie urement (mass/volume)Ordered By: Gertrude Carver on 03-10-2025 Calcium [Mass/Vol] 10.2 mg/dL 7.6-11.0 [facility] Serum or plasma urea nitroge n measurement (mass/volume)Ordered By: Gertrude Carver on 03-10-2025 Urea nitrogen [Mass/Vol] 28 mg/dL High 4-19 [facility] Sodium levelOrdered By: Delbert Carver on 03-10-2025 Sodium [Moles/Vol] 136 mmol/L 133-145 [facility] Troponin T.cardiac [Mass/vol ume] in Serum or Plasma by High sensitivity methodOrdered By: Gertrude Carver on 03-10-2025 Troponin T.cardiac High sensitivity method [Mass/Vol] 25 ng/L High <14 [facility] Troponin T.cardiac High sensitivity method [Mass/Vol] 20 ng/L High <14 [facility] Troponin T.cardiac [Mass/vol ume] in Serum or Plasma by High sensitivity methodOrdered By: Ana Hernández on 03-10-2025 Troponin T.cardiac High sensitivity method [Mass/Vol] 21 ng/L High <14 [facility] White blood cell (WBC) count Ordered By: Gertrude Carver on 03-10-2025 WBC (Bld) [#/Vol] 8.1 10*3/uL 4.4-11.0 [facility] Electrocardiogram reportOrde red By: Robert Hagen on 02-27-2025 EKG study [facility] [address] [place] [address] 12 Lead EKG 02/23/25 1232 MR#: [id number] Acct: [id number] Name: VAISHALI CHÁVEZ ALISSON Rep #:[id number] : 1950 74 From: Robert farley MD [...] ischemia Abnormal ECG Confirmed by Robert Hagen ([id number]), pictures editor DOROTA CLARK ([id number]) on 02/27/2025 11:31:10 AM Referred By: Holger Infante Confirmed By: Robert Hagen 02/27/25 1131 Date _ Robert Hagen MD CC: SOFTWARE VALIDATION ENGINEER-C Brandon Tucker; Dr. Holger Infante MD ~ Signed [facility] Other MRSA/SAID NASAL SCREENon MRSA+SAID SCRN Negative Normal [facility] Comment on above: Performed By: #### L 501.4021 #### [facility] [address] [place], [address] 12 Lead EKGon 02-23-2025 12 Lead EKG [facility] [address] [place] [address] 12 Lead EKG 02/23/25 1232 MR#: [id number] Acct: [id number] Name: VAISHALI CHÁVEZ ALISSON Rep #: [id number] : 1950 74 From: Robert Hagen MD [...] ischemia Abnormal ECG Confirmed by Robert Hagen ([id number]), pictures editor DOROTA CLARK ([id number]) on 02/27/2025 11:31:10 AM Referred By: Holger Infante Confirmed By: Robert Hagen 02/27/25 1131 Date Robert Hagen MD CC: SOFTWARE VALIDATION ENGINEER-Anel Tucker; Dr. Holger Infante MD Signed Normal [facility] Absolute lymphocyte countOrd ered By: Holger Infante on 02-23-2025 Lymphocytes Auto (Unsp spec) [#/Vol] 2.18 10*3/uL 0.83-4.51 [facility] Absolute neutrophil countOrd ered By: Holger Infante on 02-23-2025 Neutrophils (Bld) [#/Vol] 4.0 10*3/uL 2.0-7.7 [facility] Albumin, Serumon 02-23-2025 Albumin [Mass/Vol] 4.9 g/dL High 3.4-4.8 [facility] Comment on above: Performed By: #### L 501.4021 #### [facility] [address] [place], [place], [address] Anion gap in Serum or Plasma Ordered By: Holger Infante on 02-23-2025 Anion gap [Moles/Vol] 14 mmol/L 5-15 [facility] Automated lymphocyte count a s percentage of total leukocytesOrdered By: Holger Infante on 02-23-2025 Lymphocytes/100 WBC Auto (Unsp spec) 30.9 % 19-41 [facility] BUN/creatinine ratioOrdered By: Holger Infante on 02-23-2025 Urea nitrogen/Creatinine [Mass ratio] 29.2 mg/mg High - [facility] Basic Metabolic Profile (BMP )on 02-23-2025 BUN/CRE 29.2 RATIO High 07-17 [facility] Comment on above: Performed By: #### L 300.8000, L300.3900 #### [facility] [address] [place], [address] Calcium [Mass/Vol] 10.3 mg/dL Normal 7.6-11.0 [facility] Comment on above: Performed By: #### L 300.8000, L300.3900 #### [facility] [address] [place], [address] Chloride [Moles/Vol] 100 mmol/L Normal 98-108 [facility] Comment on above: Performed By: #### L 300.8000, L300.3900 #### [facility] [address] [place], [address] CO2 [Moles/Vol] 24.3 mmol/L Normal 21.0-32.0 [facility] Comment on above: Performed By: #### L 300.8000, L300.3900 #### [facility] [address] [place], [address] Creatinine [Mass/Vol] 1.26 mg/dL High 0.70-1.20 [facility] Comment on above: Performed By: #### L 300.8000, L300.3900 #### [facility] [address] [place], [address] GAP 14 Normal 5-15 [facility] Comment on above: Performed By: #### L 300.8000, L300.3900 #### [facility] [address] [place], [address] GFR/1.73 sq M.predicted among non-blacks MDRD (S/P/Bld) [Vol rate/Area] 45 mL/min/{1.73_m2} Low >60 [facility] Comment on above: Result Comment: mL/m in/1.73m2 CKD-EPI Creatinine Equation (2020) Performed By: #### L 300.8000, L300.3900 #### [facility] [address] [place], [address] Glucose [Mass/Vol] 100 mg/dL High 70-99 [facility] Comment on above: Performed By: #### L 300.8000, L300.3900 #### [facility] [address] [place], [address] Potassium [Moles/Vol] 3.8 mmol/L Normal 3.3-5.1 [facility] Comment on above: Performed By: #### L 300.8000, L300.3900 #### [facility] [address] [place], [address] Sodium [Moles/Vol] 138 mmol/L Normal 133-145 [facility] Comment on above: Performed By: #### L 300.8000, L300.3900 #### [facility] [address] [place], [address] Urea nitrogen [Mass/Vol] 37 mg/dL High 4-19 [facility] Comment on above: Performed By: #### L 300.8000, L300.3900 #### [facility] [address] [place], [address] Basophil percentageOrdered B y: Holger Infante on 02-23-2025 Basophils/100 WBC (Bld) 1.7 % High 0-1 [facility] CBC W/Diff, Automatedon 01-27 Absolute Lymph 2.18 X10 3/uL Normal 0.83-4.51 [facility] Comment on above: Performed By: #### L 300.8000, L300.3900 #### [facility] [address] [place], [address] Absolute Neut 4.0 X10 3/uL Normal 2.0-7.7 [facility] Comment on above: Performed By: #### L 300.8000, L300.3900 #### [facility] [address] [place], [address] Basophils/100 WBC (Bld) 1.7 % High 0-1 [facility] Comment on above: Performed By: #### L 300.8000, L300.3900 #### [facility] [address] [place], [address] Eosinophils/100 WBC (Bld) 2.8 % Normal 0-5 [facility] Comment on above: Performed By: #### L 300.8000, L300.3900 #### [facility] [address] [place], [address] Erythrocyte distribution width (RBC) [Ratio] 13.3 % Normal 11.6-14.6 [facility] Comment on above: Performed By: #### L 300.8000, L300.3900 #### [facility] [address] [place], [address] Hematocrit (Bld) [Volume fraction] 35.2 % Low 37-47 [facility] Comment on above: Performed By: #### L 300.8000, L300.3900 #### [facility] [address] [place], [address] Hemoglobin (Bld) [Mass/Vol] 12.0 g/dL Normal 12.0-15.0 [facility] Comment on above: Performed By: #### L 300.8000, L300.3900 #### [facility] [address] [place], [address] IG% 0.300 Normal 0.0-0.9 [facility] Comment on above: Result Comment: IG% - Immature Granulocytes (promyelocytes, myelocytes and metamyelocytes) > 1% indicates that a LEFT SHIFT is Present. Performed By: #### L 300.8000, L300.3900 #### [facility] [address] [place], [address] Lymphocytes/100 WBC (Bld) 30.9 % Normal 19-41 [facility] Comment on above: Performed By: #### L 300.8000, L300.3900 #### [facility] [address] [place], [address] MCH (RBC) [Entitic mass] 30.8 pg Normal 27.0-32.0 [facility] Comment on above: Performed By: #### L 300.8000, L300.3900 #### [facility] [address] [place], [address] MCHC (RBC) [Mass/Vol] 34.1 g/dL Normal 32-36 [facility] Comment on above: Performed By: #### L 300.8000, L300.3900 #### [facility] [address] [place], [address] MCV (RBC) [Entitic vol] 90.5 fL Normal 81-99 [facility] Comment on above: Performed By: #### L 300.8000, L300.3900 #### [facility] [address] [place], [address] Monocytes/100 WBC (Bld) 7.6 % Normal 0-10 [facility] Comment on above: Performed By: #### L 300.8000, L300.3900 #### [facility] [address] [place], [address] Neutrophils/100 WBC (Bld) 56.7 % Normal 47-70 [facility] Comment on above: Performed By: #### L 300.8000, L300.3900 #### [facility] [address] [place], [address] Nucleated RBC (Bld) [#/Vol] 0 10*3/uL Normal 0-5 [facility] Comment on above: Performed By: #### L 300.8000, L300.3900 #### [facility] [address] [place], [address] Platelet mean volume (Bld) [Entitic vol] 11.1 fL Normal 6.2-12.0 [facility] Comment on above: Performed By: #### L 300.8000, L300.3900 #### [facility] [address] [place], [address] Platelets (Bld) [#/Vol] 346 10*3/uL Normal 150-450 [facility] Comment on above: Performed By: #### L 300.8000, L300.3900 #### [facility] [address] [place], [address] RBC (Bld) [#/Vol] 3.89 10*6/uL Low 4.2-5.4 [facility] Comment on above: Performed By: #### L 300.8000, L300.3900 #### [facility] [address] [place], [address] RDW SD 44.1 fl High 35.1-43.9 [facility] Comment on above: Performed By: #### L 300.8000, L300.3900 #### [facility] [address] [place], [address] WBC (Bld) [#/Vol] 7.1 10*3/uL Normal 4.4-11.0 [facility] Comment on above: Performed By: #### L 300.8000, L300.3900 #### [facility] [address] [place], [address] Carbon dioxide, total [Moles /volume] in Central venous bloodOrdered By: Holger Infante on 02-23-2025 CO2 [Moles/Vol] 24.3 mmol/L 21.0-32.0 [facility] Chloride assayOrdered By: St bernard Infante on 02-23-2025 Chloride [Moles/Vol] 100 mmol/L 98-108 [facility] Eosinophil percentageOrdered By: Holger Infante on 02-23-2025 Eosinophils/100 WBC (Bld) 2.8 % 0-5 [facility] Erythrocyte distribution wid th ratioOrdered By: Holger Montanamer on 02-23-2025 Erythrocyte distribution width (RBC) [Ratio] 13.3 % 11.6-14.6 [facility] Erythrocyte distribution wid th standard deviationOrdered By: Holger Naresh on 02-23-2025 Erythrocyte distribution width (RBC) [Ratio] 44.1 fl High 35.1-43.9 [facility] Extremity Lower without Cont raon 02-23-2025 Extremity Lower without Contra [facility] [address] [place], [place] [address] Extremity Lower without Contra MR#: [id number] Acct: [id number] Name: VAISHALI CHÁVEZ Rep #: [id number] : 1950 F 74 From: Alberto womack MD PCP: Brandon Tucker NP-C Status: REG CLI Study: Extremity Lower without Contra Date of Exam: 0 02/23/25 Exam# [id number] Ordering Dr: Holger Infante MD PROCEDURE: EXTREMITY [...] compartment. Small knee joint effusion. Reading Location: [place] [address] CC: MIRIAN Tucker; Dr. Holger Infante MD [employer] Vice President: Signed Normal [facility] Glomerular filtration rate ( GFR) estimation/1.73 sq m using serum, plasma, or whole bOrdered By: Holger Infante on 02-23-2025 GFR/1.73 sq M.predicted among non-blacks MDRD (S/P/Bld) [Vol rate/Area] 45 mL/min/{1.73_m2} Low >60 [facility] Comment on above: mL/min/1.73m2 CKD-EP I Creatinine Equation (2020) Hematocrit Auto (Bld) [Volum e fraction]Ordered By: Holger Infante on 02-23-2025 Hematocrit (Bld) [Volume fraction] 35.2 % Low 37-47 [facility] Hemoglobin measurementOrdere d By: Holger Infante on 02-23-2025 Hemoglobin (Bld) [Mass/Vol] 12.0 g/dL 12.0-15.0 [facility] Immature granulocytes/100 WB C Auto (Bld)Ordered By: Holger Infante on 02-23-2025 Immature granulocytes/100 WBC (Bld) 0.300 % 0.0-0.9 [facility] Comment on above: IG% - Immature Granu locytes (promyelocytes, myelocytes and metamyelocytes) > 1% indicates that a LEFT SHIFT is Present. MCV (mean corpuscular volume ) determinationOrdered By: Holger Infante on 02-23-2025 MCV (RBC) [Entitic vol] 90.5 fL 81-99 [facility] MRSA screenOrdered By: Flornecio Infante on 02-23-2025 MRSA DNA TOMI+probe Ql (Unsp spec) [facility] Mean corpuscular hemoglobin (MCH) determinationOrdered By: Holger Infante on 02-23-2025 MCH (RBC) [Entitic mass] 30.8 pg 27.0-32.0 [facility] Mean corpuscular hemoglobin concentration (MCHC) determinationOrdered By: Holger Infante on 02-23-2025 MCHC (RBC) [Mass/Vol] 34.1 g/dL 32-36 [facility] Mean platelet volume determi nationOrdered By: Holger Infante on 02-23-2025 Platelet mean volume (Bld) [Entitic vol] 11.1 fL 6.2-12.0 [facility] Monocyte percentageOrdered B y: Holger Infante on 02-23-2025 Monocytes/100 WBC (Bld) 7.6 % 0-10 [facility] Neutrophil percentageOrdered By: Holger Infante on 02-23-2025 Neutrophils/100 WBC (Bld) 56.7 % 47-70 [facility] Nucleated red blood cell per centageOrdered By: Holger Infante on 02-23-2025 Nucleated RBC/100 WBC (Bld) [Ratio] 0 % 0-5 [facility] Platelet countOrdered By: St bernard Infante on 02-23-2025 Platelets (Bld) [#/Vol] 346 10*3/uL 150-450 [facility] Potassium measurement (mass/ volume)Ordered By: Holger Infante on 02-23-2025 Potassium (Unsp spec) [Mass/Vol] 3.8 mmol/L 3.3-5.1 [facility] RBC Auto (Bld) [#/Vol]Ordere d By: Holger Infante on 02-23-2025 RBC (Bld) [#/Vol] 3.89 10*6/uL Low 4.2-5.4 [facility] Serum creatinine measurement (mass/volume)Ordered By: Hloger Infante on 02-23-2025 Creatinine [Mass/Vol] 1.26 mg/dL High 0.70-1.20 [facility] Serum glucose measurement (m ass/volume)Ordered By: Holger Infante on 02-23-2025 Glucose [Mass/Vol] 100 mg/dL High 70-99 [facility] Serum or plasma albumin elie urement (mass/volume)Ordered By: Holger Infante on 02-23-2025 Albumin [Mass/Vol] 4.9 g/dL High 3.4-4.8 [facility] Serum or plasma calcium elie urement (mass/volume)Ordered By: Holger Infante on 02-23-2025 Calcium [Mass/Vol] 10.3 mg/dL 7.6-11.0 [facility] Serum or plasma urea nitroge n measurement (mass/volume)Ordered By: Holger Infatne on 02-23-2025 Urea nitrogen [Mass/Vol] 37 mg/dL High 4-19 [facility] Sodium levelOrdered By: Melchor Infante on 02-23-2025 Sodium [Moles/Vol] 138 mmol/L 133-145 [facility] White blood cell (WBC) count Ordered By: Holger Infante on 02-23-2025 WBC (Bld) [#/Vol] 7.1 10*3/uL 4.4-11.0 [facility] CALCIUM, IONIZED ([id number])Orde red By: Delivery Merchandiser on 07-15-2023 Calcium.ionized ISE [Mass/Vol] 5.2 mg/dL Normal 4.5-5.6 [facility] Work Phone: Comment on above: PATIENT WAS FASTINGP ERFORMED BY: KENNEDY [id number] [facility] [id number] CBC, PLATELETS & AUT DIFF ([id number])Ordered By: Delivery Merchandiser on 07-15-2023 Basophils (Bld) [#/Vol] 0.1 10*3/uL Normal 0.0-0.2 [facility]; [facility] Work Phone: Comment on above: PATIENT WAS FASTINGP ERFORMED BY: MUJIN [id number] [facility] [id number] Basophils/100 WBC (Bld) 1 % Normal [facility]; [facility] Work Phone: Comment on above: PATIENT WAS FASTINGP ERFORMED BY: MUJIN LabTakeacoder Hbyfto1145 [address] [facility] [id number] Eosinophils (Bld) [#/Vol] 0.3 10*3/uL Normal 0.0-0.4 [facility]; [facility] Work Phone: Comment on above: PATIENT WAS FASTINGP ERFORMED BY: MUJIN LabTakeacoder Rgjqai0831 [address] [facility] [id number] Eosinophils/100 WBC (Bld) 4 % Normal [facility]; [facility] Work Phone: Comment on above: PATIENT WAS FASTINGP ERFORMED BY: KENNEDY Labcoserina ShaverRimmjs4415 [address] [facility] [id number] Erythrocyte distribution width (RBC) [Ratio] 12.7 % Normal 11.7-15.4 [facility]; [facility] Work Phone: Comment on above: PATIENT WAS FASTINGP ERFORMED BY: CB [facility] Epxeao9332 [address] [facility] [id number] Hematocrit (Bld) [Volume fraction] 38.4 % Normal 34.0-46.6 [facility]; [facility] Work Phone: Comment on above: PATIENT WAS FASTINGP ERFORMED BY: Labco Rflyon6171 [address] [facility] [id number] Hemoglobin (Bld) [Mass/Vol] 12.7 g/dL Normal 11.1-15.9 [facility]; [facility] Work Phone: Comment on above: PATIENT WAS FASTINGP ERFORMED BY: Labco Bkzpsm0596 [address] [facility]Person [facility]in [place] [id number] Immature granulocytes (Bld) [#/Vol] 0.0 10*3/uL Normal 0.0-0.1 [facility]; [facility] Work Phone: Comment on above: PATIENT WAS FASTINGP ERFORMED BY: Labco Rivhdq6597 [address] [facility] [place] [id number] Immature granulocytes/100 WBC (Bld) 0 % Normal [facility]; [facility] Work Phone: Comment on above: PATIENT WAS FASTINGP ERFORMED BY: Labco Mofmdw7182 [address] [facility] [place] [id number] Lymphocytes (Bld) [#/Vol] 2.0 10*3/uL Normal 0.7-3.1 [facility]; [facility] Work Phone: Comment on above: PATIENT WAS FASTINGP ERFORMED BY: Labco Oxyecy0426 [facility] [id number] Lymphocytes/100 WBC (Bld) 31 % Normal [facility]; [facility] Work Phone: Comment on above: PATIENT WAS FASTINGP ERFORMED BY: KENNEDY Emileevijaya Mykpit9936 [facility] [id number] MCH (RBC) [Entitic mass] 30.0 pg Normal 26.6-33.0 [facility]; [facility] Work Phone: Comment on above: PATIENT WAS FASTINGP ERFORMED BY: KENNEDY Emileevijaya MendezVjeicr9005 [facility] [id number] MCHC (RBC) [Mass/Vol] 33.1 g/dL Normal 31.5-35.7 [facility] prehensive Internal Medicine; [facility] Work Phone: Comment on above: PATIENT WAS FASTINGP ERFORMED BY: KENNEDY Mendezlin6370 [facility] [id number] MCV (RBC) [Entitic vol] 91 fL Normal 79-97 [facility]; [facility] Work Phone: Comment on above: PATIENT WAS FASTINGP ERFORMED BY: KENNEDY Mendezlin6370 [facility] [id number] Monocytes (Bld) [#/Vol] 0.5 10*3/uL Normal 0.1-0.9 [facility]; [facility] Work Phone: Comment on above: PATIENT WAS FASTINGP ERFORMED BY: KENNEDY Mendezlin6370 [facility] [id number] Monocytes/100 WBC (Bld) 7 % Normal [facility]; [facility] Work Phone: Comment on above: PATIENT WAS FASTINGP ERFORMED BY: KENNEDY Emileevijaya MendezHpdayt4716 [facility] [id number] Neutrophils (Bld) [#/Vol] 3.6 10*3/uL Normal 1.4-7.0 [facility]; [facility] Work Phone: Comment on above: PATIENT WAS FASTINGP ERFORMED BY: KENNEDY Mendezlin6370 [address] RoadDublin [place] [id number] Neutrophils/100 WBC (Bld) 57 % Normal [facility]; [facility] Work Phone: Comment on above: PATIENT WAS FASTINGP ERFORMED BY: KENNEDY Labvijaya Shaver6370 [address] RoadDublin [place] [id number] Platelets (Bld) [#/Vol] 328 10*3/uL Normal 150-450 [facility]; [facility] Work Phone: Comment on above: PATIENT WAS FASTINGP ERFORMED BY: KENNEDY [facility] Xuxnza4809 [address] RoadDublin [place] [id number] RBC (Bld) [#/Vol] 4.23 10*6/uL Normal 3.77-5.28 [facility]; [facility] Work Phone: Comment on above: PATIENT WAS FASTINGP ERFORMED BY: KENNEDY Labcoserina Mqfbut1226 [address] RoadDublin [place] [id number] WBC (Bld) [#/Vol] 6.5 10*3/uL Normal 3.4-10.8 [facility] Internal Medicine; [facility] Work Phone: Comment on above: PATIENT WAS FASTINGP ERFORMED BY: KENNEDY Labbrennaserina Oxmnxk5105 [address] [facility] [place] [id number] LIPID PANEL (03644)Ordered B y: Delivery Merchandiser on 07-15-2023 Cholesterol [Mass/Vol] 278 mg/dL Abnormal 100-199 [facility] Internal Medicine; [facility] Work Phone: Comment on above: PATIENT WAS FASTINGP ERFORMED BY: KENNEDY [facility] Qgvwth3490 [address] RoadDublin [place] [id number] Cholesterol in HDL [Mass/Vol] 63 mg/dL Normal [facility]; [facility] Work Phone: Comment on above: PATIENT WAS FASTINGP ERFORMED BY: KENNEDY [facility] Jqzjor8739 [address] RoadDublin [place] [id number] Triglyceride [Mass/Vol] 166 mg/dL Abnormal 0-149 [facility]; [facility] Work Phone: Comment on above: PATIENT WAS FASTINGP ERFORMED BY: KENNEDY Labcoserina Tdvwpb5075 [address] RoadDublin [place] [id number] LIPID PANEL (79101) 30 mg/dL Normal 5-40 [facility] Internal Medicine; [facility] Work Phone: Comment on above: PATIENT WAS FASTINGP ERFORMED BY: KENNEDY [facility] Qxqxxh2810 [address] RoadDublin [place] [id number] LIPID PANEL (30975) 185 mg/dL Abnormal 0-99 [facility] Internal Medicine; [facility] Work Phone: Comment on above: PATIENT WAS FASTINGP ERFORMED BY: KENNEDY Labcoserina Edgliq8712 [address] RoadDublin [place] [id number] LIPID PANEL (87065) 2.9 {ratio} Normal 0.0-3.2 [facility] Internal Medicine; [facility] Work Phone: Comment on above: LDL/HDL Ratio Men Wo men 1/2 Avg.Risk 1.0 1.5 Avg.Risk 3.6 3.2 2X Avg.Risk 6.2 5.0 3X Avg.Risk 8.0 6.1 PATIENT WAS FASTINGP ERFORMED BY: KENNEDY Labvijaya Dskhwk0040 [address] RoadDublin [place] [id number] METABOLIC PANEL, COMPREHENSI VE (95780)Ordered By: Delivery Merchandiser on 07-15-2023 Albumin [Mass/Vol] 4.9 g/dL Abnormal 3.8-4.8 [facility] Internal Medicine; [facility] Work Phone: Comment on above: PATIENT WAS FASTINGP ERFORMED BY: KENNEDY [facility] Mldkkz9976 [address] RoadDublin [place] [id number] Albumin/Globulin [Mass ratio] 1.7 {ratio} Normal 1.2-2.2 [facility] Internal Medicine; [facility] Work Phone: Comment on above: PATIENT WAS FASTINGP ERFORMED BY: KENNEDY [facility] Kgemvm5144 [address] RoadDublin [place] [id number] ALP [Catalytic activity/Vol] 93 U/L Normal 44-121 [facility]; [facility] Work Phone: Comment on above: PATIENT WAS FASTINGP ERFORMED BY: CB [facility] Smafka0441 [address] RoadDublin [place] [id number] ALT [Catalytic activity/Vol] 17 U/L Normal 0-32 [facility]; [facility] Work Phone: Comment on above: PATIENT WAS FASTINGP ERFORMED BY: CB [facility] Slxjnv8855 [address] RoadDublin [place] [id number] AST [Catalytic activity/Vol] 20 U/L Normal 0-40 [facility]; [facility] Work Phone: Comment on above: PATIENT WAS FASTINGP ERFORMED BY: CB [facility] Zzsfae2722 [address] RoadDublin [place] [id number] Bilirubin [Mass/Vol] 0.7 mg/dL Normal 0.0-1.2 Comp rehensive Internal Medicine; [facility] Work Phone: Comment on above: PATIENT WAS FASTINGP ERFORMED BY: CB [facility] Nhamno9977 [address] RoadDublin [place] [id number] Calcium [Mass/Vol] 10.6 mg/dL Abnormal 8.7-10.3 [facility] Internal [facility]; [facility] Work Phone: Comment on above: PATIENT WAS FASTINGP ERFORMED BY: CB [facility] Xaddwu2069 [address] RoadDublin [place] [id number] Chloride [Moles/Vol] 97 mmol/L Normal 96-106 Comp rehensive Internal Medicine; [facility] Work Phone: Comment on above: PATIENT WAS FASTINGP ERFORMED BY: CB [facility] Smenuq3517 [address] RoadDublin [place] [id number] CO2 [Moles/Vol] 25 mmol/L Normal 20-29 Comprehen [facility] Internal Medicine; [facility] Work Phone: Comment on above: PATIENT WAS FASTINGP ERFORMED BY: CB [facility] Rjicto1386 [address] RoadDublin [place] [id number] Creatinine [Mass/Vol] 0.99 mg/dL Normal 0.57-1.00 Com prehensive Internal Medicine; [facility] Work Phone: Comment on above: PATIENT WAS FASTINGP ERFORMED BY: KENNEDY [facility]co Klenmi0889 [address] [facility] [place] [id number] GFR/1.73 sq M.predicted among non-blacks MDRD (S/P/Bld) [Vol rate/Area] 61 mL/min/{1.73_m2} Normal Comprehensiv e Internal Medicine; [facility] Work Phone: Comment on above: PATIENT WAS FASTINGP ERFORMED BY: KENNEDY Labco Eicksr6779 [address] RoadPerson Memorial Hospitalin [place] [id number] Globulin (S) [Mass/Vol] 2.9 g/dL Normal 1.5-4.5 [facility]; [facility] Work Phone: Comment on above: PATIENT WAS FASTINGP ERFORMED BY: KENNEDY [facility] Anajbu3558 [address] [facility] [place] [id number] Glucose [Mass/Vol] 92 mg/dL Normal 70-99 [facility]; [facility] Work Phone: Comment on above: PATIENT WAS FASTINGP ERFORMED BY: KENNEDY [facility] Lwyvuo2702 [address] [facility] [place] [id number] Potassium [Moles/Vol] 3.7 mmol/L Normal 3.5-5.2 [facility] prehensive Internal Medicine; [facility] Work Phone: Comment on above: PATIENT WAS FASTINGP ERFORMED BY: KENNEDY [facility] Sqpaia8659 [address] [facility] [place] [id number] Protein [Mass/Vol] 7.8 g/dL Normal 6.0-8.5 [facility] Internal Medicine; [facility] Work Phone: Comment on above: PATIENT WAS FASTINGP ERFORMED BY: KENNEDY [facility] Bpcrdv8659 [address] [facility] [place] [id number] Sodium [Moles/Vol] 137 mmol/L Normal 134-144 [facility]; [facility] Work Phone: Comment on above: PATIENT WAS FASTINGP ERFORMED BY: KENNEDY Mcgowan Xyrycy9177 [address] RoadDublin [place] [id number] Urea nitrogen [Mass/Vol] 21 mg/dL Normal 8-27 [facility]; [facility] Work Phone: Comment on above: PATIENT WAS FASTINGP ERFORMED BY: KENNEDY Juan Mserina MendezUtodsi2238 [address] RoadDublin [place] [id number] Urea nitrogen/Creatinine [Mass ratio] 21 mg/mg Normal 12-28 [facility]; [facility] Work Phone: Comment on above: PATIENT WAS FASTINGP ERFORMED BY: KENNEDY Labbrenna Whthwe9808 [address] RoadDublin [place] [id number] TSH (THYROID STIMULATING HOR TONIA) ([id number])Ordered By: Delivery Merchandiser on 07-15-2023 TSH Qn 1.740 {uIU/mL} Normal 0.450-4.500 Comprehen [facility] Internal [facility]; [facility] Work Phone: Comment on above: PATIENT WAS FASTINGP ERFORMED BY: KENNEDY Mcgowan Qjxfdm5870 [address] RoadDublin [place] [id number] URINALYSIS ([id number])Ordered By : Delivery Merchandiser on 07-15-2023 Appearance (U) Clear Normal Comprehens fco Internal Medicine; [facility] Work Phone: Comment on above: PATIENT WAS FASTINGP ERFORMED BY: KENNEDY Shaver6370 [address] RoadDublin [place] [id number] Bilirubin Ql (U) Negative Normal Comprehe nsive Internal Medicine; [facility] Work Phone: Comment on above: PATIENT WAS FASTINGP ERFORMED BY: KENNEDY Labbrenna Evqhjn0586 [address] RoadDublin [place] [id number] Color (U) Yellow Normal [facility]; [facility] Work Phone: Comment on above: PATIENT WAS FASTINGP ERFORMED BY: KENNEDY Labvijaya MendezGeonkf4026 [address] RoadDublin [place] [id number] Glucose Ql (U) Negative Normal Comprehens fco Internal Medicine; [facility] Work Phone: Comment on above: PATIENT WAS FASTINGP ERFORMED BY: CB [facility] Gytqiv3985 [address] RoadDublin [place] [id number] Hemoglobin Ql (U) Negative Normal Compreh ensive Internal Medicine; [facility] Work Phone: Comment on above: PATIENT WAS FASTINGP ERFORMED BY: KENNEDY Labvijaya MendezKjwlus6961 [address] RoadDublin [place] [id number] Ketones Ql (U) Negative Normal Comprehens fco Internal Medicine; [facility] Work Phone: Comment on above: PATIENT WAS FASTINGP ERFORMED BY: [facility] Fvphgh5889 [address] RoadDublin [place] [id number] Leukocyte esterase Test strip Ql (U) Negative Normal [facility]; [facility] Work Phone: Comment on above: PATIENT WAS FASTINGP ERFORMED BY: KENNEDY Labco Amawvt2971 [address] RoadDublin [place] [id number] Microscopic observation LM Nom (Urine sed) MICNIP Normal [facility]; [facility] Work Phone: Comment on above: Microscopic not matthew cated and not performed. PATIENT WAS FASTINGP ERFORMED BY: KENNEDY [facility] Nlfgvu0961 [address] RoadDublin [place] [id number] Nitrite Ql (U) Negative Normal Comprehens fco Internal Medicine; [facility] Work Phone: Comment on above: PATIENT WAS FASTINGP ERFORMED BY: [facility] Iyfzvi7509 [address] RoadDublin [place] [id number] pH (U) 7.0 [pH] Normal 5.0-7.5 [facility]; [facility] Work Phone: Comment on above: PATIENT WAS FASTINGP ERFORMED BY: [facility] Navfpt1330 [address] RoadDublin [place] [id number] Protein Ql (U) Negative Normal Comprehens fco Internal Medicine; [facility] Work Phone: Comment on above: PATIENT WAS FASTINGP ERFORMED BY: KENNEDY [facility] Vuaqhs7036 [address] RoadDublin [place] [id number] Specific gravity (U) [Rel density] 1.013 1 Normal 1.005-1.030 [facility]; [facility] Work Phone: Comment on above: PATIENT WAS FASTINGP ERFORMED BY: KENNEDY [facility]6370 [facility] [id number] Urobilinogen (U) [Mass/Vol] 0.2 mg/dL Normal 0.2-1.0 [facility]; [facility] Work Phone: Comment on above: PATIENT WAS FASTINGP ERFORMED BY: KENNEDY [facility]6370 [facility] [id number] Gel ABOon 03-24-2023 ABO/Rh Interp AB NEG Invalid Interpretation Code [facility] ([place]) Comment on above: Performed By: #### A ETTA, GFR, ABOG, BMP, ADIFF, ANSG, CBC, ALB #### [address] [address] Gel ABSon 03-24-2023 Antibody Screen Gel Negative Normal [facility] ([place]) Comment on above: Performed By: #### A ETTA, GFR, ABOG, BMP, ADIFF, ANSG, CBC, ALB #### [address] [address] LABORATORYOrdered By: Ca Stein on 03-24-2023 ABO/Rh [...] By: Robert Benito MD Electronically signed By Robret Benito MD Dictated Date: 03/24/2023 9:20:41 AM Prelim Date: 03/24/2023 9:21:09 AM Sign Date: 03/24/2023 9:21:09 AM Ordering Provider: HOLGER INFANTE Normal [facility] ([place]) Urinalysis, Complete W/ Micr oscopic Examination with reflex to urine culture, routine (70903)Ordered By: Delivery Merchandiser on 03-09-2023 Appearance (U) Clear Normal Comprehens fco Internal Medicine; [facility] Work Phone: Comment on above: PERFORMED BY: [employer]70 [address]Dublin [place] [id number] Bilirubin Ql (U) Negative Normal Comprehe nsive Internal Medicine; [facility] Work Phone: Comment on above: PERFORMED BY: [employer]70 [address] RoadUbersenseblin [place] [id number] Color (U) Yellow Normal [facility]; [facility] Work Phone: Comment on above: PERFORMED BY: [employer] [address] RoadUbersenseblin [place] [id number] Glucose Ql (U) Negative Normal Comprehens fco Internal Medicine; [facility] Work Phone: Comment on above: PERFORMED BY: [employer] 7fgameblin [place] [id number] Ketones Ql (U) Trace Abnormal Comprehens fco Internal Medicine; [facility] Work Phone: Comment on above: PERFORMED BY: [employer] 7fgamein [place] [id number] pH (U) 7.5 [pH] Normal 5.0-7.5 [facility]; [facility] Work Phone: Comment on above: PERFORMED BY: [employer] 7fgameblin [place] [id number] Protein Ql (U) Negative Normal Comprehens fco Internal Medicine; [facility] Work Phone: Comment on above: PERFORMED BY: [employer] [place] [id number] Specific gravity (U) [Rel density] 1.014 1 Normal 1.005-1.030 [facility]; [facility] Work Phone: Comment on above: PERFORMED BY: [employer] - innovate | mentor | invest [facility] [id number] Urinalysis, Complete W/ Microscopic Examination with reflex to urine culture, routine (30877) Negative Normal [facility]; [facility] Work Phone: Comment on above: PERFORMED BY: [employer]70 [employer] [facility] [id number] Urinalysis, Complete W/ Microscopic Examination with reflex to urine culture, routine (24566) 0.2 mg/dL Normal 0.2-1.0 [facility]; [facility] Work Phone: Comment on above: PERFORMED BY: [facility]Angel [facility] [id number] Urinalysis, Complete W/ Microscopic Examination with reflex to urine culture, routine (12132) MICRON Normal [facility]; [facility] Work Phone: Comment on above: Microscopic follows if indicated. PERFORMED BY: BABL MedialinNanoPowers [facility] [id number] Urinalysis, Complete W/ Microscopic Examination with reflex to urine culture, routine (63101) See below: Normal [facility]; [facility] Work Phone: Comment on above: Microscopic was matthew cated and was performed. PERFORMED BY: BABL MedialinNanoPowers [facility] [id number] Urinalysis, Complete W/ Microscopic Examination with reflex to urine culture, routine (63162) NOFLEX Normal [facility]; [facility] Work Phone: Comment on above: This specimen will n ot reflex to a Urine Culture. PERFORMED BY: BABL Medialin[address] [place] [address] [id number] .Auto Diffon 03-02-2023 Basophil, Absolute 0.1 10 3/mcL Normal 0.0-0.2 [facility] ([place]) Comment on above: Performed By: #### A ETTA, GFR, ABOG, BMP, ADIFF, ANSG, CBC, ALB #### [address] [address] Basophils/100 WBC (Bld) 2.0 % Normal 0.0-2.5 [facility] ([place]) Comment on above: Performed By: #### A ETTA, GFR, ABOG, BMP, ADIFF, ANSG, CBC, ALB #### [address] [address] Eosinophil, Absolute 0.3 10 3/mcL Normal 0.0-0.4 [facility] ([place]) Comment on above: Performed By: #### A ETTA, GFR, ABOG, BMP, ADIFF, ANSG, CBC, ALB #### [address] [address] Eosinophils/100 WBC (Bld) 3.8 % Normal 0.0-7.0 [facility] ([place]) Comment on above: Performed By: #### A ETTA, GFR, ABOG, BMP, ADIFF, ANSG, CBC, ALB #### [address] [address] Lymphocyte, Absolute 1.9 10 3/mcL Normal 0.8-3.9 [facility] ([place]) Comment on above: Performed By: #### A ETTA, GFR, ABOG, BMP, ADIFF, ANSG, CBC, ALB #### [address] [address] Lymphocytes/100 WBC (Bld) 27.5 % Normal 10.0-50.0 [facility] ([place]) Comment on above: Performed By: #### A ETTA, GFR, ABOG, BMP, ADIFF, ANSG, CBC, ALB #### [address] [address] Monocyte, Absolute 0.5 10 3/mcL Normal 0.2-1.0 [facility] ([place]) Comment on above: Performed By: #### A ETTA, GFR, ABOG, BMP, ADIFF, ANSG, CBC, ALB #### [address] [address] Monocytes/100 WBC (Bld) 6.9 % Normal 1.7-13.0 [facility] ([place]) Comment on above: Performed By: #### A ETTA, GFR, ABOG, BMP, ADIFF, ANSG, CBC, ALB #### [address] [address] Neutrophils/100 WBC (Bld) 59.8 % Normal 37.0-80.0 [facility] ([place]) Comment on above: Performed By: #### A ETTA, GFR, ABOG, BMP, ADIFF, ANSG, CBC, ALB #### [address] [address] .GFRon 03-02-2023 GFR 70 ml/min/1.73sqm Normal [facility] ([place]) Comment on above: Result Comment: GFR Population [...] ABOG, BMP, ADIFF, ANSG, CBC, ALB #### [address] [address] GFR Non- 58 ml/min/1.73sqm Normal [facility] ([place]) Comment on above: Result Comment: GFR Population [...] ABOG, BMP, ADIFF, ANSG, CBC, ALB #### [address] [address] .NEUABSon 03-02-2023 Neutrophil, Absolute 4.2 10 3/mcL Normal 2.9-6.2 [facility] ([place]) Comment on above: Performed By: #### A ETTA, GFR, ABOG, BMP, ADIFF, ANSG, CBC, ALB #### [address] [address] ALBon 03-02-2023 Albumin Level 4.9 G/dL High 3.4-4.8 [facility] ([place]) Comment on above: Performed By: #### A ETTA, GFR, ABOG, BMP, ADIFF, ANSG, CBC, ALB #### [address] [address] BMPon 03-02-2023 BUN/Creatinine Ratio 28 ratio High 7-27 [facility] ([place]) Comment on above: Performed By: #### A ETTA, GFR, ABOG, BMP, ADIFF, ANSG, CBC, ALB #### [address] [address] Calcium [Mass/Vol] 10.4 mg/dL High 8.4-10.2 [facility] ([place]) Comment on above: Performed By: #### A ETTA, GFR, ABOG, BMP, ADIFF, ANSG, CBC, ALB #### [address] [address] Chloride [Moles/Vol] 97 mmol/L Low 98-107 [facility] ([place]) Comment on above: Performed By: #### A ETTA, GFR, ABOG, BMP, ADIFF, ANSG, CBC, ALB #### [address] [address] CO2 [Moles/Vol] 28 mmol/L Normal 23-31 [facility] ([place]) Comment on above: Performed By: #### A ETTA, GFR, ABOG, BMP, ADIFF, ANSG, CBC, ALB #### [address] [address] Creatinine [Mass/Vol] 0.95 mg/dL Normal 0.55-1.02 [facility] ([place]) Comment on above: Performed By: #### A ETTA, GFR, ABOG, BMP, ADIFF, ANSG, CBC, ALB #### [address] [address] Electrolyte Balance 11.0 mEq/L Normal 4.0-15.0 [facility] ([place]) Comment on above: Performed By: #### A ETTA, GFR, ABOG, BMP, ADIFF, ANSG, CBC, ALB #### [address] [address] Glucose [Mass/Vol] 97 mg/dL Normal 83-110 [facility] ([place]) Comment on above: Performed By: #### A ETTA, GFR, ABOG, BMP, ADIFF, ANSG, CBC, ALB #### [address] [address] Potassium [Moles/Vol] 3.5 mmol/L Normal 3.5-5.1 [facility] ([place]) Comment on above: Performed By: #### A ETTA, GFR, ABOG, BMP, ADIFF, ANSG, CBC, ALB #### [address] [address] Sodium [Moles/Vol] 136 mmol/L Normal 136-145 [facility] ([place]) Comment on above: Performed By: #### A ETTA, GFR, ABOG, BMP, ADIFF, ANSG, CBC, ALB #### [address] [address] Urea nitrogen [Mass/Vol] 27 mg/dL High 7-18 [facility] ([place]) Comment on above: Performed By: #### A ETTA, GFR, ABOG, BMP, ADIFF, ANSG, CBC, ALB #### [address] [address] CBCon 03-02-2023 Erythrocyte distribution width (RBC) [Ratio] 12.8 % Normal 11.5-14.5 [facility] ([place]) Comment on above: Order Comment: Pre-A dmission Testing Performed By: #### A ETTA, GFR, ABOG, BMP, ADIFF, ANSG, CBC, ALB #### [address] [address] Hematocrit (Bld) [Volume fraction] 38.3 % Normal 37.0-47.0 [facility] ([place]) Comment on above: Order Comment: Pre-A dmission Testing Performed By: #### A ETTA, GFR, ABOG, BMP, ADIFF, ANSG, CBC, ALB #### [address] [address] Hgb 12.9 G/dL Normal 12.0-16.0 [facility] ([place]) Comment on above: Order Comment: Pre-A dmission Testing Performed By: #### A ETTA, GFR, ABOG, BMP, ADIFF, ANSG, CBC, ALB #### [address] [address] MCH (RBC) [Entitic mass] 30.4 pg Normal 27.0-31.2 [facility] ([place]) Comment on above: Order Comment: Pre-A dmission Testing Performed By: #### A ETTA, GFR, ABOG, BMP, ADIFF, ANSG, CBC, ALB #### [address] [address] MCHC 33.7 G/dL Normal 33.0-37.0 [facility] ([place] Comment on above: Order Comment: Pre-A dmission Testing Performed By: #### A ETTA, GFR, ABOG, BMP, ADIFF, ANSG, CBC, ALB #### [address] [address] MCV (RBC) [Entitic vol] 90.3 fL Normal 80.0-94.0 [facility] ([place] Comment on above: Order Comment: Pre-A dmission Testing Performed By: #### A ETTA, GFR, ABOG, BMP, ADIFF, ANSG, CBC, ALB #### [address] [address] Platelet 323 10 3/mcL Normal 130-400 [facility] ([place]) Comment on above: Order Comment: Pre-A dmission Testing Performed By: #### A ETTA, GFR, ABOG, BMP, ADIFF, ANSG, CBC, ALB #### [address] [address] Platelet mean volume (Bld) [Entitic vol] 9.6 fL Normal 7.4-10.4 [facility] ([place]) Comment on above: Order Comment: Pre-A dmission Testing Performed By: #### A ETTA, GFR, ABOG, BMP, ADIFF, ANSG, CBC, ALB #### [address] [address] RBC 4.24 10 6/mcL Normal 4.20-5.40 [facility] ([place]) Comment on above: Order Comment: Pre-A dmission Testing Performed By: #### A ETTA, GFR, ABOG, BMP, ADIFF, ANSG, CBC, ALB #### [address] [address] WBC 7.0 10 3/mcL Normal 4.6-10.8 [facility] ([place]) Comment on above: Order Comment: Pre-A dmission Testing Performed By: #### A ETTA, GFR, ABOG, BMP, ADIFF, ANSG, CBC, ALB #### [address] [address] [address] KNEE W/O CONTRAST LEFTon 03-02-2023 CT [...] 4:15:17 PM Ordering Provider: HOLGER Roblero [facility] ([place]) Gel ABOon 03-02-2023 ABO/Rh Interp AB NEG Invalid Interpretation Code [facility] ([place]) Comment on above: Order Comment: SURG JUAN ANTONIO 03/24 -AC Performed By: #### A ETTA, GFR, ABOG, BMP, ADIFF, ANSG, CBC, ALB #### [id number] [place], [place] [address] Gel ABSon 03-02-2023 Antibody Screen Gel Negative Normal [facility] ([place]) Comment on above: Order Comment: SURG JUAN ANTONIO 03/24 -AC Performed By: #### A ETTA, GFR, ABOG, BMP, ADIFF, ANSG, CBC, ALB #### [id number] [place], [place] [address] LABORATORYOrdered By: Frida Robbins on 03-02-2023 ABO/Rh Interp AB NEG Invalid Interpretation Code AO BB SS Antibody Screen Gel Negative ABSC (03/02/23 2:10 PM) Invalid Interpretation Code AO BB SS LABORATORYOrdered By: 139shop SYSTEM on 03-02-2023 Albumin BCP dye [Mass/Vol] [...] 2:10 PM) Invalid Interpretation Code Not Detected AH Auto Viro/Sero SS Comment on above: Result Comment: Note s [...] may not be reproducible. Invalid Interpretation Code Auto Viro/Sero SS MRSAPCRon 03-02-2023 MRSA (PCR) Not detected Normal Not Detected [facility] ([place]) Comment on above: Result Comment: Note s Performed By: #### M RSAPCR #### [address] [address] MRSA PCR Int Normal [facility] ([place]) Comment on above: Result Comment: MRSA DNA [...] Below Performed By: #### M RSAPCR #### [address] [address] CBC, PLATELETS & AUT DIFF ([id number])Ordered By: Delivery Merchandiser on 04-04-2023 Basophils (Bld) [#/Vol] 0.1 10*3/uL Normal 0.0-0.2 [facility] Work Phone: Comment on above: PATIENT WAS FASTINGP ERFORMED BY: KENNEDY Labcoser[facility] Vsgxfg9787 [address]Dublin [place] [id number] Basophils/100 WBC (Bld) 2 % Normal [facility]; [facility] Work Phone: Comment on above: PATIENT WAS FASTINGP ERFORMED BY: CB [facility] [id number] [address] RoadDublin [place] [id number] Eosinophils (Bld) [#/Vol] 0.3 10*3/uL Normal 0.0-0.4 [facility]; [facility] Work Phone: Comment on above: PATIENT WAS FASTINGP ERFORMED BY: KENENDY [facility] [id number] [address]Dublin [place] [id number] Eosinophils/100 WBC (Bld) 5 % Normal [facility]; [facility] Work Phone: Comment on above: PATIENT WAS FASTINGP ERFORMED BY: KENNEDY [facility] Dibple6802 [address] RoadDublin [place] [id number] Erythrocyte distribution width (RBC) [Ratio] 12.4 % Normal 11.7-15.4 [facility]; [facility] Work Phone: Comment on above: PATIENT WAS FASTINGP ERFORMED BY: [facility] Syrmhv9670 [address]Dublin [place] [id number] Hematocrit (Bld) [Volume fraction] 37.0 % Normal 34.0-46.6 [facility]; [facility] Work Phone: Comment on above: PATIENT WAS FASTINGP ERFORMED BY: [facility] Nlgneb7988 [address]Dublin [place] [id number] Hemoglobin (Bld) [Mass/Vol] 12.6 g/dL Normal 11.1-15.9 [facility]; [facility] Work Phone: Comment on above: PATIENT WAS FASTINGP ERFORMED BY: [facility] Tvpvrp5177 [address]Dublin [place] [id number] Immature granulocytes (Bld) [#/Vol] 0.0 10*3/uL Normal 0.0-0.1 [facility]; [facility] Work Phone: Comment on above: PATIENT WAS FASTINGP ERFORMED BY: KENNEDY Emileebrenna Ykqacg1132 [address]Dublin [place] [id number] Immature granulocytes/100 WBC (Bld) 0 % Normal [facility]; [facility] Work Phone: Comment on above: PATIENT WAS FASTINGP ERFORMED BY: KENNEDY LabCarla [id number] [facility] [place] [id number] Lymphocytes (Bld) [#/Vol] 2.2 10*3/uL Normal 0.7-3.1 [facility]; [facility] Work Phone: Comment on above: PATIENT WAS FASTINGP ERFORMED BY: KENNEDY [facility] Dkkquz[address] [facility] [id number] Lymphocytes/100 WBC (Bld) 35 % Normal [facility]; [facility] Work Phone: Comment on above: PATIENT WAS FASTINGP ERFORMED BY: KENNEDY [facility] [id number] [facility] [id number] MCH (RBC) [Entitic mass] 30.3 pg Normal 26.6-33.0 [facility]; [facility] Work Phone: Comment on above: PATIENT WAS FASTINGP ERFORMED BY: LabCarla V[place] [id number] [facility] [id number] MCHC (RBC) [Mass/Vol] 34.1 g/dL Normal 31.5-35.7 [facility] prehensive Internal Medicine; [facility] Work Phone: Comment on above: PATIENT WAS FASTINGP ERFORMED BY: KENNEDY LabC[facility] [facility] [id number] MCV (RBC) [Entitic vol] 89 fL Normal 79-97 [facility]; [facility] Work Phone: Comment on above: PATIENT WAS FASTINGP ERFORMED BY: LabC.[facility]. [facility]6[address] [facility]blin [place] [id number] Monocytes (Bld) [#/Vol] 0.5 10*3/uL Normal 0.1-0.9 [facility]; [facility] Work Phone: Comment on above: PATIENT WAS FASTINGP ERFORMED BY: KENNEDY Emileecoserina ShaverWveyzb6888 [address]blin [place] [id number] Monocytes/100 WBC (Bld) 8 % Normal [facility]; [facility] Work Phone: Comment on above: PATIENT WAS FASTINGP ERFORMED BY: KENNEDY [facility] Hlgjky9629 [address] Roadblin [place] [id number] Neutrophils (Bld) [#/Vol] 3.1 10*3/uL Normal 1.4-7.0 [facility]; [facility] Work Phone: Comment on above: PATIENT WAS FASTINGP ERFORMED BY: KENNEDY Labcoser[facility] Yubnmd[address] [facility] [place] [id number] Neutrophils/100 WBC (Bld) 50 % Normal [facility]; [facility] Work Phone: Comment on above: PATIENT WAS FASTINGP ERFORMED BY: KENNEDY Labcoserina ShaverYhccmu1317 [address]blin [place] [id number] Platelets (Bld) [#/Vol] 284 10*3/uL Normal 150-450 [facility]; [facility] Work Phone: Comment on above: PATIENT WAS FASTINGP ERFORMED BY: KENNEDY [facility] Uacmss[address] [facility] [place] [id number] RBC (Bld) [#/Vol] 4.16 10*6/uL Normal 3.77-5.28 Compr ehensive Internal Medicine; [facility] Work Phone: Comment on above: PATIENT WAS FASTINGP ERFORMED BY: KENNEDY [facility] Rxdcoo[address] [facility]bl[facility] [place] [id number] WBC (Bld) [#/Vol] 6.3 10*3/uL Normal 3.4-10.8 Compre hensive [facility]; [facility] Work Phone: Comment on above: PATIENT WAS FASTINGP ERFORMED BY: KENNEDY [facility] Obmxyw2849 [address]Dublin [place] [id number] LIPID PANEL ([id number])Ordered B y: Delivery Merchandiser on 12-30-2022 Cholesterol [Mass/Vol] 243 mg/dL Abnormal 100-199 [facility]; [facility] Work Phone: Comment on above: PATIENT WAS FASTINGP ERFORMED BY: CB [facility] Rqdxqt2270 [address]Dublin [place] [id number] Cholesterol in HDL [Mass/Vol] 60 mg/dL Normal [facility]; [facility] Work Phone: Comment on above: PATIENT WAS FASTINGP ERFORMED BY: KENNEDY [facility] Oydwtz7390 [address]Dublin [place] [id number] Triglyceride [Mass/Vol] 143 mg/dL Normal 0-149 [facility]; [facility] Work Phone: Comment on above: PATIENT WAS FASTINGP ERFORMED BY: KENNEDY [facility] Cwzzde4408 [address]Dublin [place] [id number] LIPID PANEL (21239) 26 mg/dL Normal 5-40 Compr ensive [facility]; [facility] Work Phone: Comment on above: PATIENT WAS FASTINGP ERFORMED BY: KENNEDY [facility] Enlsgy8594 [address]Dublin [place] [id number] LIPID PANEL (65351) 157 mg/dL Abnormal 0-99 Compr ensive [facility]; [facility] Work Phone: Comment on above: PATIENT WAS FASTINGP ERFORMED BY: CB [facility] Opljnl1773 [address]Dublin [place] [id number] LIPID PANEL (01172) 2.6 {ratio} Normal 0.0-3.2 [facility]; [facility] Work Phone: Comment on above: LDL/HDL Ratio Men Wo men 1/2 Avg.Risk 1.0 1.5 Avg.Risk 3.6 3.2 2X Avg.Risk 6.2 5.0 3X Avg.Risk 8.0 6.1 PATIENT WAS FASTINGP ERFORMED BY: CB [facility] Jyuiqo0998 [address]Dublin [place] [id number] METABOLIC PANEL, COMPREHENSI VE ([id number])Ordered By: Delivery Merchandiser on 12-30-2022 Albumin [Mass/Vol] 4.8 g/dL Abnormal 3.7-4.7 [facility]; [facility] Work Phone: Comment on above: PATIENT WAS FASTINGP ERFORMED BY: CB [facility] Fotflb8138 [address]Dublin [place] [id number] Albumin/Globulin [Mass ratio] 2.0 {ratio} Normal 1.2-2.2 [facility]; [facility] Work Phone: Comment on above: PATIENT WAS FASTINGP ERFORMED BY: [facility] Xbtvbz1855 [address]Dublin [place] [id number] ALP [Catalytic activity/Vol] 64 U/L Normal 44-121 [facility]; [facility] Work Phone: Comment on above: PATIENT WAS FASTINGP ERFORMED BY: [facility] Xoatij2752 [address]Dublin [place] [id number] ALT [Catalytic activity/Vol] 22 U/L Normal 0-32 [facility]; [facility] Work Phone: Comment on above: PATIENT WAS FASTINGP ERFORMED BY: [facility] Iazmsy3832 [address]Dublin [place] [id number] AST [Catalytic activity/Vol] 22 U/L Normal 0-40 [facility]; [facility] Work Phone: Comment on above: PATIENT WAS FASTINGP ERFORMED BY: [facility] Amgnpk2306 [address]Dublin [place] [id number] Bilirubin [Mass/Vol] 0.7 mg/dL Normal 0.0-1.2 [facility]; [facility] Work Phone: Comment on above: PATIENT WAS FASTINGP ERFORMED BY: CB [facility] Jjelgh2612 [address]Dublin [place] [id number] Calcium [Mass/Vol] 10.5 mg/dL Abnormal 8.7-10.3 Compre hensive [facility] Medicine; [facility] Work Phone: Comment on above: PATIENT WAS FASTINGP ERFORMED BY: KENNEDY [facility] Ozpchu0779 [address]Dublin [place] [id number] Chloride [Moles/Vol] 98 mmol/L Normal 96-106 [facility] rehensive Internal Medicine; [facility] Work Phone: Comment on above: PATIENT WAS FASTINGP ERFORMED BY: CB [facility] Qargkv0696 [address]Dublin [place] [id number] CO2 [Moles/Vol] 26 mmol/L Normal 20-29 [facility]; [facility] Work Phone: Comment on above: PATIENT WAS FASTINGP ERFORMED BY: KENNEDY [facility] Cxheez4253 [address]Dublin [place] [id number] Creatinine [Mass/Vol] 0.96 mg/dL Normal 0.57-1.00 [facility]eren[facility]; [facility] Work Phone: Comment on above: PATIENT WAS FASTINGP ERFORMED BY: KENNEDY [facility] Dpjrbc6458 [address]Dublin [place] [id number] GFR/1.73 sq M.predicted among non-blacks MDRD (S/P/Bld) [Vol rate/Area] 63 mL/min/{1.73_m2} Normal Comprehensiv e Internal [facility]; [facility] Work Phone: Comment on above: PATIENT WAS FASTINGP ERFORMED BY: KENNEDY [facility] Wnnsel8046 [address]Duin [place] [id number] Globulin (S) [Mass/Vol] 2.4 g/dL Normal 1.5-4.5 [facility]; [facility] Work Phone: Comment on above: PATIENT WAS FASTINGP ERFORMED BY: CB [facility] Humfyw3616 [address]Dublin [place] [id number] Glucose [Mass/Vol] 93 mg/dL Normal 70-99 [facility]; [facility] Work Phone: Comment on above: PATIENT WAS FASTINGP ERFORMED BY: [facility] Ekrnsd6574 [address]Dublin [place] [id number] Potassium [Moles/Vol] 4.1 mmol/L Normal 3.5-5.2 [facility]; [facility] Work Phone: Comment on above: PATIENT WAS FASTINGP ERFORMED BY: KENNEDY [facility] Ixiiuh7947 [facility] [id number] Protein [Mass/Vol] 7.2 g/dL Normal 6.0-8.5 [facility]; [facility] Work Phone: Comment on above: PATIENT WAS FASTINGP ERFORMED BY: KENNEDY [facility] Vlrpja[address] [facility] [id number] Sodium [Moles/Vol] 137 mmol/L Normal 134-144 [facility]; [facility] Work Phone: Comment on above: PATIENT WAS FASTINGP ERFORMED BY: KENNEDY [facility] Rhundm0060 [facility] [id number] Urea nitrogen [Mass/Vol] 17 mg/dL Normal 8-27 [facility]; [facility] Work Phone: Comment on above: PATIENT WAS FASTINGP ERFORMED BY: KENNEDY [facility] Edayea4329 [facility] [id number] Urea nitrogen/Creatinine [Mass ratio] 18 mg/mg Normal 12-28 [facility] Internal [facility]; [facility] Work Phone: Comment on above: PATIENT WAS FASTINGP ERFORMED BY: [facility]the [facility] Akbpvq8411 [facility] [id number] TSH (THYROID STIMULATING HOR TONIA) ([id number])Ordered By: Delivery Merchandiser on 12-30-2022 TSH Qn 1.700 {uIU/mL} Normal 0.450-4.500 [facility]; [facility] Work Phone: Comment on above: PATIENT WAS FASTINGP ERFORMED BY: KENNEDY [facility] Ihbyip6689 [facility] [id number] Absolute lymphocyte counton 06-24-2022 Lymphocytes Auto (Unsp spec) [#/Vol] 2.26 10*3/uL 0.83-4.51 [facility] Work Phone: Basophil percentageon 2021 Basophils/100 WBC (Bld) 2.1 % 0-1 [facility] Work Phone: Bilirubin [Mass/Vol] 0.70 mg/dL 0.20-1.00 [facility] Work Phone: Comment on above: For patients on eltr ombopag therapy, use of Dimension [place] TBIL is not recommended. Chloride [Moles/Vol] 105 mmol/L 98-107 [facility] Work Phone: Cholesterol [Mass/Vol] 241 mg/dL <200 [facility] Work Phone: Comment on above: <200 mg/dL Desirable 200-240 mg/dL Borderline >240 mg/dL High Risk Eosinophils/100 WBC (Bld) 5.2 % 0-5 [facility] Work Phone: Glucose [Mass/Vol] 90 mg/dL 74-106 [facility] Work Phone: Neutrophils (Bld) [#/Vol] 2.6 10*3/uL 2.0-7.7 [facility] Work Phone: Neutrophils/100 WBC (Bld) 45.7 % 47-70 [facility] Work Phone: Potassium [Moles/Vol] 3.6 mmol/L 3.5-5.1 [facility] Work Phone: Protein [Mass/Vol] 7.9 g/dL 6.4-8.2 [facility] Work Phone: Sodium [Moles/Vol] 141 mmol/L 136-145 [facility] Work Phone: Triglyceride [Mass/Vol] 138 mg/dL <199 [facility] Work Phone: Comment on above: The drugs N-Acetylcy steine and Metamizole may falsely depress this assay.Serum Triglycerides Reference Interval Normal <150 mg/dL Borderline high 150 - 199 mg/dL High 200 - 499 mg/dL Very High > or = 500 mg/dL WBC (Bld) [#/Vol] 5.8 10*3/uL 4.4-11.0 [facility] Work Phone: Blood erythrocytes count (nu mber/volume)on 06-24-2022 RBC (Bld) [#/Vol] 4.01 10*6/uL 4.2-5.4 [facility] Work Phone: Blood hemoglobin measurement (mass/volume)on 06-24-2022 Hemoglobin (Bld) [Mass/Vol] 12.1 g/dL 12.0-15.0 [facility] Work Phone: Blood lymphocytes/100 leukoc yteson 06-24-2022 Lymphocytes/100 WBC (Bld) 39.2 % 19-41 [facility] Work Phone: Blood monocytes/100 leukocyt eson 06-24-2022 Monocytes/100 WBC (Bld) 7.8 % 0-10 [facility] Work Phone: Blood platelet mean volumeon 06-24-2022 Platelet mean volume (Bld) [Entitic vol] 11.4 fL 6.2-12.0 [facility] Work Phone: Determination of erythrocyte mean corpuscular volume (MCV)on 06-24-2022 MCV (RBC) [Entitic vol] 93.3 fL 81-99 [facility] Work Phone: Hematocrit Auto (Bld) [Volum e fraction]on 06-24-2022 Hematocrit (Bld) [Volume fraction] 37.4 % 37-47 [facility] Work Phone: Laboratory - Chemistry and C hemistry - challengeon 06-24-2022 ALP [Catalytic activity/Vol] 62 U/L 45-117 [facility] Work Phone: ALT [Catalytic activity/Vol] 27 U/L 13-56 [facility] Work Phone: CO2 [Moles/Vol] 27.0 mmol/L 21.0-32.0 [facility] Work Phone: Globulin (S) [Mass/Vol] 4.0 g/dL 2.2-4.2 [facility] Work Phone: Urea nitrogen/Creatinine [Mass ratio] 19.2 mg/mg 10-20 [facility] Work Phone: Laboratory - Hematology and Cell countson 06-24-2022 Erythrocyte distribution width (RBC) [Entitic vol] 45.5 fL 35.1-43.9 [facility] Work Phone: Erythrocyte distribution width (RBC) [Ratio] 13.3 % 11.6-14.6 [facility] Work Phone: Immature granulocytes/100 WBC (Bld) 0.000 % 0.0-0.9 [facility] Work Phone: Comment on above: IG% - Immature Granu locytes (promyelocytes, myelocytes and metamyelocytes) > 1% indicates that a LEFT SHIFT is Present. MCH (RBC) [Entitic mass] 30.2 pg 27.0-32.0 [facility] Work Phone: Nucleated RBC/100 WBC (Bld) [Ratio] 0 % 0-5 [facility] Work Phone: MCHC Auto (RBC) [Mass/Vol]on 06-24-2022 MCHC (RBC) [Mass/Vol] 32.4 g/dL 32-36 [facility] Work Phone: No Panel Informationon 06-24 Estimated GFR (MDRD) Amer 67 mL/min >60 [facility] Work Phone: Comment on above: GFR Calc Estimated GFR (MDRD) Non-Af Amer 56 mL/min >60 [facility] Work Phone: Comment on above: Non- GFR Calc Thyroid Stimulating Hormone (TSH) 2.10 uIU/mL 0.358-3.74 [facility] Work Phone: Vitamin D 25-Hydroxy 57.3 ng/mL [facility] Work Phone: Comment on above: Vitamin D 25(OH) Sta tus Range Deficiency <20 ng/mL (50nmol/L) Insufficiency 20 - 30 ng/mL (50 - 75 nmol/L) Sufficiency 30 - 100 ng/mL (75 - 250 nmol/L) Toxicity >100 ng/mL (>250 nmol/L) Platelets bldon 06-24-2022 Platelets (Bld) [#/Vol] 295 10*3/uL 150-450 [facility] Work Phone: Serum or plasma albumin elie urement (mass/volume)on 06-24-2022 Albumin [Mass/Vol] 3.9 g/dL 3.2-5.0 [facility] Work Phone: Serum or plasma albumin/glob ulin mass ratioon 06-24-2022 Albumin/Globulin [Mass ratio] 1.0 {ratio} 0.9-2.4 [facility] Work Phone: Serum or plasma calcium elie urement (mass/volume)on 06-24-2022 Calcium [Mass/Vol] 9.7 mg/dL 8.5-10.1 [facility] Work Phone: Serum or plasma cholesterol in HDL measurement (mass/volume)on 06-24-2022 Cholesterol in HDL [Mass/Vol] 62 mg/dL >40 [facility] Work Phone: Comment on above: The drugs N-Acetylcy steine and Metamizole may falsely depress this assay. Reference Range HDL <40 mg/dL Low HDL Cholesterol HDL >or= 60 mg/dL High HDL Cholesterol Serum or plasma cholesterol in VLDL measurement (mass/volume)on 06-24-2022 Cholesterol in VLDL [Mass/Vol] 28 mg/dL 5-40 [facility] Work Phone: Serum or plasma creatinine m easurement (mass/volume)on 06-24-2022 Creatinine [Mass/Vol] 1.04 mg/dL 0.55-1.02 [facility] Work Phone: Comment on above: The validity of the calculated GFR & GFRAA in patients over 70 years has not been determined. Clinical correlation is essential. Serum or plasma low density lipoprotein (LDL) cholesterol measurement (mass/volume)on 06-24-2022 Cholesterol in LDL [Mass/Vol] 151 mg/dL 0-130 [facility] Work Phone: Serum or plasma urea nitroge n measurement (mass/volume)on 06-24-2022 Urea nitrogen [Mass/Vol] 20 mg/dL 7-18 [facility] Work Phone: Thin prep Papanicolaou smear with manual screeningon 06-24-2022 Thin prep Papanicolaou smear with manual screening 18 U/L 15-37 [facility] Work Phone: Thin prep Papanicolaou smear with manual screening 9 5-15 [facility] Work Phone: Laboratory - Microbiology an d Antimicrobial susceptibilityon 10-15-2021 SARS-CoV-2 (COVID-19) RNA TOMI+probe Ql (Unsp spec) Detected Not Detect [facility] Work Phone: Comment on above: Normal Reference Ran ge: Not DetectedMethod:(RT-PCR) real-time reverse transcriptase PCRLuminex FL3XX Instrument*The Food and Drug Administration (FDA) has issued an Emergency Use Authorization (EAU) for the FL3XX SARS-CoV-2 Assay for the rapid detection of [...] recent exposure. CNOVon 05-07-2021 CNOV Office Visit (BRIK ) VAISHALI CHÁVEZ ([id number]) 1950 F Date Time Provider Department 05/07/21 9:45 AM KYLER WHITE During your visit today, we recorded the following information about you: Temperature Pulse Respiration Blood pressure 97.9 degrees 58/minute 16/minute 171/79 Weight Height 86.2 kg 1.676 m Kyler White MD 05/07/2021 10:19 AM Addendum NEUROSURGERY CONSULT NOTE Kyler White MD Date of visit: May 07, 2021 Patient Name: Ms.Karen Elio Chávez Date of : 1950 Current Age: [age] year old Sex: female MRN/E# [id number] Chief Complaint: No chief complaint on file. HISTORY OF PRESENT ILLNESS : The patient is a 70 year old, right handed female with a past medical history of hypothyroidism, hypercholesteremia, and hypertension who is referred by Dr. Arellano for neurosurgical evaluation. Ms. Chávez presents to the office as a new [...] APPENDECTOMY 1971 - COLONOSCOP W/ OR W/O [facility] SPEC 11/15/07 - LIGATE FALLOPIAN TUBE [...] allergies and (more content not included)... Normal [facility] MR-Spine Thoracic (Routine) IMPORTon 03-29-2021 MR-Spine Thoracic (Routine) IMPORT Images were obtained outside of [facility] [id number] N Normal [facility] OT-Spine Thoracic (Routine) IMPORTon 03-29-2021 OT-Spine Thoracic (Routine) IMPORT Images were obtained outside of [facility] [id number] N Normal [facility] Vital Signs Date Time Vital Sign Value Performing Clinician Facility 05-22-2025 08:12-0400 Body height 165.[address] Holger Infante MD Work Phone: [facility] 05-22-2025 08:12-0400 Body weight 79.[address] Holger Infante MD Work Phone: [facility] 05-19-2025 08:37-0400 Body mass index (BMI) [Ratio] 29.2 kg/m2 Dr. Holger Infante MD Work Phone: [facility] 05-03-2025 08:24-0400 Body height 165.[address] Holger Infante MD Work Phone: [facility] 05-03-2025 08:24-0400 Body mass index (BMI) [Ratio] 29.2 kg/m2 Dr. Holger Infante MD Work Phone: [facility] 05-03-2025 08:24-0400 Body weight 79.[address] Holger Infante MD Work Phone: [facility] 05-03-2025 08:24-0400 Diastolic blood pressure 88 mm[Hg] Dr. Holger Infante MD Work Phone: 4(522)972-523223 [place] [address] 05-03-2025 08:24-0400 Heart rate 67 /min Dr. Holger Infante MD Work Phone: [facility] 05-03-2025 08:24-0400 Respiratory rate 18 /min Dr. Holger Infante MD Work Phone: 5(583)586-883935 [place] [address] 05-03-2025 08:24-0400 SaO2% (BldA) [Mass fraction] 98 % Dr. Holger Infante MD Work Phone: 1(183)316-789735 [place] [address] 05-03-2025 08:24-0400 Systolic blood pressure 166 mm[Hg] Dr. Holger Infante MD Work Phone: 2(264)329-074735 [place] [address] 03-10-2025 18:23-0400 Body temperature 98.3 [degF] Dr. Holger Infante MD Work Phone: 3(437)149-799535 [place] [address] 03-10-2025 18:23-0400 Diastolic blood pressure 78 mm[Hg] Dr. Holger Infante MD Work Phone: 9(521)952-907435 [place] [address] 03-10-2025 18:23-0400 Heart rate 73 /min Dr. Holger Infante MD Work Phone: 7(798)179-748435 [place] [address] 03-10-2025 18:23-0400 Respiratory rate 18 /min Dr. Holger Infante MD Work Phone: 7(777)131-197835 [place] [address] 03-10-2025 18:23-0400 SaO2% (BldA) [Mass fraction] 100 % Dr. Holger Infante MD Work Phone: 7(029)323-645435 [place] [address] 03-10-2025 18:23-0400 Systolic blood pressure 132 mm[Hg] Dr. Holger Infante MD Work Phone: 8(872)471-645235 [place] [address] 03-10-2025 14:16-0400 Body height 165.[address] Holger Infante MD Work Phone: 5(428)921-277435 [place] [address] 03-10-2025 14:16-0400 Body mass index (BMI) [Ratio] 30.2 kg/m2 Dr. Holger Infante MD Work Phone: [facility] 03-10-2025 14:16-0400 Body weight 82.[address] Holger Infante MD Work Phone: [facility] 07-15-2023 10:33-0400 Body height 162.56 cm Marine Slarb [employer] [facility] Work Phone: 07-15-2023 10:33-0400 Body mass index (BMI) [Ratio] 30.55 kg/m2 Marine Slarb [employer] [facility] Work Phone: 07-15-2023 10:33-0400 Body surface area Derived from formula 1.86 m2 Marine Slarb [employer] [facility] Work Phone: 07-15-2023 10:33-0400 Body temperature 97.3 [degF] Marine Slarb [employer] [facility] Work Phone: Comment on above: Method: Temporal 07-15-2023 10:33-0400 Body weight 80.74 kg Marine Slarb [employer] [facility] Work Phone: 07-15-2023 10:33-0400 Diastolic blood pressure 72 mm[Hg] Marine Slarb [employer] [facility] Work Phone: Comment on above: Patient Position: Sitting; Cuff Location : Left Arm; Cuff Size: Standard 07-15-2023 10:33-0400 Heart rate 51 /min Marine Slarb [employer] [facility] Work Phone: Comment on above: Pattern: Regular 07-15-2023 10:33-0400 Respiratory rate 16 /min Marine Slarb [employer] [facility] Work Phone: Comment on above: Pattern: Unlabored 07-15-2023 10:33-0400 SaO2% (BldA) [Mass fraction] 99 % Marine Adamsteodoro [employer] [facility] Work Phone: Comment on above: Room air 07-15-2023 10:33-0400 Systolic blood pressure 124 mm[Hg] Marine Johnson NATHANAEL [facility] Work Phone: Comment on above: Patient Position: Sitting; Cuff Location : Left Arm; Cuff Size: Standard 03-24-2023 11:56-0400 Diastolic Blood Pressure Non-Invasive [address] HOLGER INFANTE MD [facility] 03-24-2023 11:56-0400 Heart rate 50 /min DR HOLGER INFANTE MD [facility] 03-24-2023 11:56-0400 Respiratory rate 18 /min DR HOLGER INFANTE MD [facility] 03-24-2023 11:56-0400 Systolic Blood Pressure Non-Invasive [address] HOLGER INFANTE MD [facility] 03-24-2023 09:46-0400 Diastolic Blood Pressure Non-Invasive [address] HOLGER INFANTE MD [facility] 03-24-2023 09:46-0400 Heart rate 48 /min DR HOLGER INFANTE MD [facility] 03-24-2023 09:46-0400 Respiratory rate 17 /min DR HOLGER INFANTE MD [facility] 03-24-2023 09:46-0400 Systolic Blood Pressure Non-Invasive [address] HOLGER INFANTE MD [facility] 03-24-2023 09:35-0400 Heart rate 49 /min DR HOLGER INFANTE MD [facility] 03-24-2023 09:35-0400 Respiratory rate 17 /min DR HOLGER INFANTE MD [facility] 03-24-2023 09:30-0400 Diastolic Blood Pressure Non-Invasive [address] HOLGER INFANTE MD [facility] 03-24-2023 09:30-0400 Systolic Blood Pressure Non-Invasive [address] HOLGER INFANTE MD [facility] 03-24-2023 08:40-0400 Body temperature 96.98 [degF] DR HOLGER INFANTE MD [facility] 03-24-2023 08:35-0400 Respiratory Rate - Anes 24 br/min DR HOLGER INFANTE MD [facility] 03-24-2023 08:30-0400 Respiratory Rate - Anes 24 br/min DR HOLGER INFANTE MD [facility] 03-24-2023 08:25-0400 Body temperature 96.01 [degF] DR HOLGER INFANTE MD [facility] 03-24-2023 08:25-0400 Respiratory Rate - Anes 28 br/min DR HOLGER INFANTE MD [facility] 03-24-2023 08:20-0400 Body temperature 96.04 [degF] DR HOLGER INFANTE MD [facility] 03-24-2023 08:15-0400 Body temperature 96.08 [degF] DR HOLGER INFANTE MD [facility] 03-24-2023 06:08-0400 Body height 165.[address] HOLGER INFANTE MD [facility] 03-24-2023 06:08-04[address] Body weight [address] HOLGER INFANTE MD [facility] 03-24-2023 06:08-0400 Heart rate 56 /min DR HOLGER INFANTE MD [facility] 03-09-2023 10:31-0400 Body height 162.56 cm [facility] Work Phone: 03-09-2023 10:31-0400 Body mass index (BMI) [Ratio] 31.97 kg/m2 Vanita Patel [facility] Work Phone: 03-09-2023 10:31-0400 Body surface area Derived from formula 1.9 m2 Vanita Patel [facility] Work Phone: 03-09-2023 10:31-0400 Body temperature 98.2 [degF] Vanita Patel [facility] Work Phone: Comment on above: Method: Thermal Scan 03-09-2023 10:31-0400 Body weight 84.48 kg Vanita Patel [facility] Work Phone: 03-09-2023 10:31-0400 Diastolic blood pressure 72 mm[Hg] Vanita Patel [facility] Work Phone: Comment on above: Patient Position: Sitting; Cuff Location : Left Arm; Cuff Size: Standard 03-09-2023 10:31-0400 Heart rate 56 /min Vanita Patel [facility] Work Phone: Comment on above: Pattern: Regular 03-09-2023 10:31-0400 Respiratory rate 16 /min Vanita Patel [facility] Work Phone: Comment on above: Pattern: Unlabored 03-09-2023 10:31-0400 SaO2% (BldA) [Mass fraction] 98 % Vanita Patel [facility] Work Phone: Comment on above: Room air 03-09-2023 10:31-0400 Systolic blood pressure 116 mm[Hg] Vanita Patel [facility] Work Phone: Comment on above: Patient Position: Sitting; Cuff Location : Left Arm; Cuff Size: Standard 03-02-2023 13:35-[address] HOLGER INFANTE MD [facility] 03-02-2023 13:35-[address] HOLGER INFANTE MD [facility] 03-02-2023 13:35-0400 Body height 165.[address] HOLGER INFANTE MD [facility] 03-02-2023 13:35-04[address] Body [address] HOLGER INFANTE MD [facility] 03-02-2023 13:35-0400 Body weight 30.82 kg/m2 DR HOLGER INFANTE MD [facility] 03-02-2023 13:35-0400 Diastolic Blood Pressure Non-Invasive [address] HOLGER INFANTE MD [facility] 03-02-2023 13:35-0400 Heart rate 68 /min DR HOLGER INFANTE MD [facility] 03-02-2023 13:35-0400 Respiratory rate 18 /min DR HOLGER INFANTE MD [facility] 03-02-2023 13:35-0400 Systolic Blood Pressure Non-Invasive [address] HOLGER INFANTE MD [facility] 01-12-2023 10:31-0400 Body height 162.56 cm Marine Slarb [employer] [facility] Work Phone: 01-12-2023 10:31-0400 Body mass index (BMI) [Ratio] 32.83 kg/m2 Marine Slarb [employer] [facility] Work Phone: 01-12-2023 10:31-0400 Body surface area Derived from formula 1.92 m2 Marine Slarb [employer] [facility] Work Phone: 01-12-2023 10:31-0400 Body temperature 96.4 [degF] Marine Slarb [employer] [facility] Work Phone: Comment on above: Method: Temporal 01-12-2023 10:31-0400 Body weight 86.75 kg Marine Slarb [employer] [facility] Work Phone: 01-12-2023 10:31-0400 Diastolic blood pressure 90 mm[Hg] Marine Slarb [employer] [facility] Work Phone: Comment on above: Patient Position: Sitting; Cuff Location : Left Arm; Cuff Size: Standard 01-12-2023 10:31-0400 Heart rate 57 /min Marine Slarb [employer] [facility] Work Phone: Comment on above: Pattern: Regular 01-12-2023 10:31-0400 Respiratory rate 15 /min Marine Slarb [employer] [facility] Work Phone: Comment on above: Pattern: Unlabored 01-12-2023 10:31-0400 SaO2% (BldA) [Mass fraction] 98 % Marine Slarb [employer] [facility] Work Phone: Comment on above: Room air 01-12-2023 10:31-0400 Systolic blood pressure 132 mm[Hg] Marine Slarb [employer] [facility] Work Phone: Comment on above: Patient Position: Sitting; Cuff Location : Left Arm; Cuff Size: Standard 12-12-2022 11:08-0400 Body height 162.56 cm Marine Slarb [employer] [facility] Work Phone: 12-12-2022 11:08-0400 Body mass index (BMI) [Ratio] 33.13 kg/m2 Marine Slarb [employer] [facility] Work Phone: 12-12-2022 11:08-0400 Body surface area Derived from formula 1.93 m2 Marine Slarb [employer] [facility] Work Phone: 12-12-2022 11:08-0400 Body temperature 98 [degF] Marine Slarb [employer] [facility] Work Phone: Comment on above: Method: Temporal 12-12-2022 11:08-0400 Body weight 87.54 kg Marine Slarb [employer] [facility] Work Phone: 12-12-2022 11:08-0400 Diastolic blood pressure 90 mm[Hg] Marine Slarb [employer] [facility] Work Phone: Comment on above: Patient Position: Sitting; Cuff Location : Left Arm; Cuff Size: Standard 12-12-2022 11:08-0400 Heart rate 52 /min Marine Slarb [employer] [facility] Work Phone: Comment on above: Pattern: Regular 12-12-2022 11:08-0400 Respiratory rate 15 /min Marine Slarb [employer] [facility] Work Phone: Comment on above: Pattern: Unlabored 12-12-2022 11:08-0400 SaO2% (BldA) [Mass fraction] 99 % Marine Slarb [employer] [facility] Work Phone: Comment on above: Room air 12-12-2022 11:08-0400 Systolic blood pressure 170 mm[Hg] Marine Slarb [employer] [facility] Work Phone: Comment on above: Patient Position: Sitting; Cuff Location : Left Arm; Cuff Size: Standard 11-02-2006 13:01-0500 Body height 167.64 cm Brandon Tucker CNP Work Phone: [facility] Work Phone: 11-02-2006 13:01-0500 Body mass index (BMI) [Ratio] 30.84 kg/m2 Brandon Tucker CNP Work Phone: [facility] Work Phone: 11-02-2006 13:01-0500 Body surface area Derived from formula 1.96 m2 Brandon Tucker CNP Work Phone: [facility] Work Phone: 11-02-2006 13:01-0500 Body temperature 98.2 [degF] Brandon Tucker CNP Work Phone: [facility] Work Phone: Comment on above: Method: Oral 11-02-2006 13:01-0500 Body weight 86.67 kg Brandon Tucker CNP Work Phone: [facility] Work Phone: 11-02-2006 13:01-0500 Diastolic blood pressure 78 mm[Hg] Brandon Tucker CNP Work Phone: [facility] Work Phone: Comment on above: Patient Position: Sitting; Cuff Location : Left Arm; Cuff Size: Standard 11-02-2006 13:01-0500 Head Occipital-frontal circumference 0 cm Brandon Tucker CNP Work Phone: [facility] Work Phone: 11-02-2006 13:01-0500 Heart rate 54 /min Brandon Tucker CNP Work Phone: [facility] Work Phone: Comment on above: Pattern: Regular 11-02-2006 13:01-0500 Respiratory rate 15 /min Brandon Tucker [employer] Work Phone: [facility] Work Phone: Comment on above: Pattern: Unlabored 11-02-2006 13:01-0500 Systolic blood pressure 124 mm[Hg] Brandon Tucker [employer] K[employer] Work Phone: [facility] Work Phone: Comment on above: Patient Position: Sitting; Cuff Location : Left Arm; Cuff Size: Standard Encounters Encounter Date Encounter Type Care Provider Facility Start: 06-15-2025 Encounter for other preprocedural examination [facility] Start: 06-15-2025 [facility] Start: 05-22-2025 End: 05-22-2025 Admission to same day surgery center Dr. Rubio Catalan MD -[employer] [facility]/Special Procedures Work Phone: Start: 05-22-2025 End: 05-22-[address] Holger Infante MD Work Phone: -[facility]/Special Procedures Start: 05-16-2025 End: 05-16-[address] Holger Infante MD Work Phone: -Laboratory Start: 05-16-2025 End: 05-16-[address] Huyen Shelley DO -Laboratory Work Phone: Start: 05-16-2025 End: 05-16-2025 ambulatory Huyen Shelley Facility:[facility] Start: 05-03-2025 End: 05-03-[address] Holger Infante MD Work Phone: -Laboratory Start: 05-03-2025 End: 05-03-[address] Robert Hagen MD -Laboratory Work Phone: Start: 05-03-2025 End: 05-03-[address] Robert Hagen MD -[facility] Work Phone: Start: 05-03-2025 End: 05-03-[address] Holger Infante MD Work Phone: -[facility] Start: 05-03-2025 End: 05-03-2025 ambulatory [facility] Facility:[facility] Start: 04-20-2025 ambulatory [facility] Facility:[facility] Start: 04-12-2025 ambulatory Brandon Alkol Facility :[facility] Start: 04-12-2025 Non-patient / Non-visit Dr. Sona Hagen MD -[facility] Work Phone: Start: 04-12-2025 End: 04-12-[address] Holger Infante MD Work Phone: -Cardiovascular Services Start: 04-12-2025 End: 04-12-2025 Patient encounter procedure Brandon Tucker NP-C -Cardiovascular Services Work Phone: Start: 04-12-2025 Non-patient / Non-visit Dr. Shahbaz baxter MD -[facility] Start: 04-12-2025 End: 04-12-2025 ambulatory [facility] Facility:[facility] Start: 03-10-2025 End: 03-10-2025 Emergency department patient visit Dr. Holger Infante MD Work Phone: -Emergency Department Work Phone: Start: 03-10-2025 End: 03-10-[address] Holger Infante MD Work Phone: [facility] Work Phone: Start: 03-10-2025 End: 03-10-[address] Ana Hernández MD -Laboratory Specimen Work Phone: Start: 03-10-2025 End: 03-10-2025 ambulatory [facility] Facility:[facility] Start: 02-28-2025 Encounter for other preprocedural examination Holger Infante [facility] Start: 02-23-2025 End: 02-23-2025 Non-patient / Non-visit Dr. Robert Hagen MD -[facility] Work Phone: Start: 02-23-2025 End: 02-23-[address] Holger Infante MD Work Phone: [facility] Work Phone: Start: 02-23-2025 End: 02-23-[address] Holger Infante MD -Cat Scan [facility] Work Phone: Start: 02-23-2025 End: 02-23-2025 ambulatory Brandon Tucker Facility:[facility] Start: 07-22-2023 End: 07-22-2023 Historical Summary Brandon Careyam [employer] Work Phone: [facility] Start: 07-15-2023 End: 07-15-2023 Office outpatient visit 15 minutes Brandon Careyam [employer] Work Phone: [facility] Start: 07-15-2023 Review Brandon Careyam [employer] K[employer] Work Phone: [facility] Start: 03-24-2023 End: 03-24-[address] HOLGER INFANTE MD Facility:[facility] Start: 03-24-2023 End: 03-24-[address] HOLGER INFANTE MD [facility] Start: 03-09-2023 End: 03-10-2023 Office consultation new/estab patient 40 min Brandon Careyam [employer] K[employer] Work Phone: [facility] Start: 03-09-2023 End: 03-10-2023 Preprocedural examination done Vanita Patel [facility] Work Phone: Start: 03-02-2023 End: 03-03-[address] HOLGER INFANTE MD Facility:[facility] Start: 03-02-2023 End: 03-03-[address] HOLGER INFANTE MD Facility:[facility] Start: 03-02-2023 End: 03-02-[address] HOLGER INFANTE MD [facility] Start: 03-02-2023 End: 03-02-[address] HOLGER INFANTE MD [facility] Start: 02-06-2023 ambulatory Brandon Tucker CNP [facility] Start: 01-12-2023 End: 01-12-2023 Office outpatient visit 15 minutes Brandon Tucker CNP Work Phone: [facility] Start: 12-12-2022 End: 12-19-2022 Office outpatient new 45 minutes Brandon Tucker CNP Work Phone: [facility] Start: 12-12-2022 Review Brandon Tucker CNP Work Phone: [facility] Start: 06-24-2022 End: 06-24-2022 ambulatory [facility] Work Phone: Start: 06-24-2022 End: 06-24-2022 Patient encounter procedure [facility], [place] Start: 10-15-2021 End: 10-15-2021 Patient encounter procedure [facility]-Laboratory, Specimen Start: 11-02-2006 End: 11-02-2006 Office outpatient visit 15 minutes Brandon Tucker CNP Work Phone: [facility] Start: 09-04-2006 End: 09-04-2006 Phone Encounter Brandon Tucker CNP Work Phone: [facility] Preprocedural examination done Marien Johnson LPN [facility] Work Phone: Procedures Date Procedure Procedure Detail Performing Clinician Start: 05-22-2025 Carbon dioxide measurement, partial pressure Dr. Holger Infante MD Work Phone: Start: 05-22-2025 Gases blood o2 saturation only direct elie Dr. Holger Infante MD Work Phone: Start: 05-22-2025 Measurement of parti al pressure of oxygen in blood Dr. Holger Infante MD Work Phone: Start: 05-16-[address] Holger Infante MD Work Phone: Start: 05-16-[address] Itzel Infante MD Work Phone: Comment on above: No monoclonality det ected. Start: 05-16-[address] Itzel Infante MD Work Phone: Comment on above: No monoclonality det ected.Performed at: [place] [id number] Director: Frederick Tran PhD, Phone: [phone] Start: 05-16-2025 Urine lambda light c hilary measurement Dr. Holger Infante MD Work Phone: Start: 05-03-2025 X-ray of chest, PA a nd lateral views Dr. Holger Infante MD Work Phone: Start: 03-10-2025 X-ray of chest, PA a [...] and Lateral Procedure Note: See Note; NOTES: [facility] [address] [place] [address] Chest PA and Lateral MR#: [id number] Acct: [id number] Name: VAISHALI CHÁVEZ Rep #: [id number] : [id number] F 72 From: Idris Oreilly MD PCP: Dr. Stephanie Norton MD Status: DEP AMB Study: Chest PA and Lateral Date of Exam: 03/09/23 Exam# [id number] Ordering Dr: Brandon Tucker EXAM: XR CHEST, 2 VIEWS CLINICAL INDICATION: [...] MD at 1:01 EDT , CC: MIRIAN Tucker; Dr. Stephanie Norton MD [employer] Vice President: Signed Brandon Tucker [employer] KEEPER Work Phone: Start: 12-12-2022 End: 12-12-2022 Knee 4 or More Views Procedure Note: See Note; NOTES: [facility] [address] [place] [address] Knee 4 or More Views MR#: [id number] Acct: [id number] Name: VAISHALI CHÁVEZ Rep #: [id number] : [id number] F 72 From: Mauricio Cabrales MD PCP: Dr. Stephanie Norton MD Status: DEP AMB Study: Knee 4 or More Views Date of Exam: 12/12/22 Exam# [id number] Ordering Dr: Brandon Tucker STUDY: X-RAY - LEFT KNEE REASON FOR [...] MD at 12:52 EDT , CC: MIRIAN Tucker; Dr. Stephanie Norton MD Global Consumer Sector Vice President: Signed Brandon Tucker [facility] Work Phone: Colonoscopy [facility] N Comment on above: 2019 [facility] Colonoscopy [facility] Comment on above: 2019 [facility] Colonoscopy Vanita Manchak SAWMILLING OPERATOR Comment on above: 2019 [facility] Colonoscopy [facility] N Comment on above: 2019 [facility] Excision of cyst of ovary DR HOLGER INFANTE MD Foot repair DR HOLGER Rosas MD Comment on above: RIGHT H/O: surgery Tonsillectomy AMBER KATHLEEN SACK KEEPER Work Phone: H/O: surgery Tonsillectomy [facility] H/O: surgery Tonsillectomy [facility] PN H/O: surgery Tonsillectomy Vanita Magdaleno k SAWMILLING OPERATOR H/O: surgery Tonsillectomy [facility] PN Hand repair DR HOLGER Rosas MD Comment on above: RIGHT History of appendectomy Appendectomy JESSICA NNE KATHLEEN SACK KEEPER Work Phone: History of appendectomy Appendectomy Rosemary la Slarb COLLEGE TUTOR History of appendectomy Appendectomy Rosemary la Slarb COLLEGE TUTOR History of appendectomy Appendectomy Kimberly sea Manchak SAWMILLING OPERATOR History of appendectomy Appendectomy Rosemary la Slarb COLLEGE TUTOR Ligation of fallopia n tube DR HOLGER INFANTE MD Ovarian Cyst removed Marine Sl[facility] COLLEGE TUTOR Ovarian Cyst removed Marine [facility] COLLEGE TUTOR Ovarian Cyst removed Vanita Manchak SAWMILLING OPERATOR Ovarian Cyst removed Marine [facility] COLLEGE TUTOR Replacement of total knee joint Marine Sl[facility] COLLEGE TUTOR Comment on above: 03/20 Dr. Infante Tonsillectomy [facility] Tonsillectomy [facility] PN Tonsillectomy DR HOLGER CALLAHAN MD Tonsillectomy Vanita puckett SAWMILLING OPERATOR Tonsillectomy [facility] Plan of Treatment Date Care Activity Detail Author Start: 05-22-2025 Patient discharge [facility] Start: 03-10-2025 [facility] Start: 03-10-2025 [facility] Start: 07-22-2023 Assay of nephelometry each analyte jere Serum Free Light Chains (08041) [facility] Work Phone: Start: 07-22-2023 Protein total xcpt refractometry urine UPEP (96860) [facility] Work Phone: Start: 07-22-2023 Protein electrophoretic fractj&quantj serum SPEP (65114) [facility] Work Phone: Start: 07-22-2023 Calcium ionized CALCIUM, IONIZED (88503) [facility]; [facility] Work Phone: Start: 07-22-2023 Chemiluminescent assay Parathyroid Hormone-related Peptide (PTH-rP) (07716) [facility] Work Phone: Start: 07-22-2023 1 25 dihydroxy includes fractions if performed VITAMIN D, 1, 25-DIHYDROXY (74651) [facility] Work Phone: Start: 07-22-2023 Comprehensive metabolic panel METABOLIC PANEL, COMPREHENSIVE (84025) [facility] Work Phone: Start: 07-15-2023 Procedure Education Eprescribed prescriptions (G8553) [facility] Work Phone: Start: 07-15-2023 Provider Instructions for Treatment Follow up in 6 months [facility] Work Phone: Start: 07-15-2023 Calcium ionized CALCIUM, IONIZED (44160) [facility]; [facility] Work Phone: Start: 07-15-2023 Lipid panel LIPID PANEL (56628) [facility] Work Phone: Start: 07-15-2023 Assay of thyroid stimulating hormone tsh TSH (THYROID STIMULATING HORMONE) (54468) [facility]; [facility] Work Phone: Start: 07-15-2023 Blood count complete auto&auto difrntl wbc CBC, PLATELETS & AUT DIFF (94336) [facility]; [facility] Work Phone: Start: 07-15-2023 Comprehensive metabolic panel METABOLIC PANEL, COMPREHENSIVE (71755) [facility]; [facility] Work Phone: Start: 07-15-2023 Urinalysis qual/semiquant except immunoassays URINALYSIS (24799) [facility] Work [...] stimulating hormone tsh TSH (THYROID STIMULATING HORMONE) (43460) [facility]; [facility] Work Phone: Start: 12-12-2022 Blood count complete auto&auto difrntl wbc CBC, PLATELETS & AUT DIFF (22538) [facility]; [facility] Work Phone: Start: 12-12-2022 Lipid panel LIPID PANEL (77965) [facility] Work Phone: Start: 12-12-2022 Patient Education Hypertension [facility] Work Phone: Start: 12-12-2022 Procedure Education Eprescribed prescriptions (G8553) [facility]; [facility] Work Phone: Start: 12-12-2022 Provider Instructions for Treatment Follow up in 1 month for hypertension [facility] Work Phone: Start: 12-12-2022 Comprehensive metabolic panel METABOLIC PANEL, COMPREHENSIVE (92450) [facility] Work Phone: Start: 11-02-2006 Provider Instructions for Treatment Antibiotic Usage Education - Female [facility] Work Phone: Basic metabolic 2008 panel with ionized calcium - Serum or Plasma [facility] Catheterization of l eft heart [facility] CBC W Auto Different ial panel - Blood [facility] Evaluation of diagno stic study results [facility] Patient Education ED Chest Pain, Uncertain Cause [facility] Work Phone: Patient referral [facility] Work Phone: Prothrombin time [facility] XR Chest PA and Lateral [facility] Work Phone: [facility] Work Phone: [facility] Work Phone: Immunizations Immunization Date Immunization Notes Care Provider Abdullahi roche 05-18-2018 pneumococcal polysaccharide vaccine, 23 valent Brandon Tucker SACK KEEPER Work Phone: [facility] Work Phone: 06-28-2014 tetanus toxoid, redu jaydon diphtheria toxoid, and acellular pertussis vaccine, adsorbed Brandon Tucker SACK KEEPER Work Phone: [facility] Work Phone: Payers Date Payer Category Payer Self-pay [id number] 2024 Unknown [id number] 2022 Medicare [id number] 2022 Private Health Insurance [id number] 2004 Unknown [id number] 1950 Unknown [id number] 2.16.84 [id number] 1950 Unknown [id number] 2.16.8 40.1.472647.3.579.2.627 1950 Unknown [id number] 2.16.8 40.1.895950.3.579.2.627 1950 Unknown [id number] 2.16.8 40.1.675930.3.579.2.627 Unknown [id number] Unknown [id number] Unknown [id number] 2.16.8 40.1.912677.3.579.2.462 Unknown [id number] 2.16.8 40.1.620470.3.579.2.462 Unknown [id number] 2.16.8 40.1.583626.3.579.2.462 Unknown [id number] 2.16.8 40.1.965579.3.579.2.462 Unknown [id number] 2.16.8 40.1.436287.3.579.2.462 Unknown [id number] 2.16.8 40.1.160780.3.579.2.462 Unknown [id number] 2.16.8 40.1.717167.3.579.2.462 Unknown [id number] 2.16.8 40.1.831589.3.579.2.462 Unknown [id number] 2.16.8 40.1.590957.3.579.2.462 Unknown [id number] 2.16.8 40.1.138838.3.579.2.462 Unknown [id number] 2.16.8 40.1.779466.3.579.2.462 Unknown [id number] 2.16.8 40.1.327673.3.579.2.462 Unknown [id number] 2.16.8 40.1.223734.3.579.2.462 Unknown [id number] 2.16.8 40.1.418647.3.579.2.462 Unknown [id number] 2.16.8 40.1.069397.3.579.2.462 Social History Date Type Detail Facility Start: 04-08-2021 Tobacco smoking status ILIS Unknown if ever smoked [facility] Work Phone: Start: 1950 Sex Assigned At Female A [facility] Caffeine Use Caffeine Use [facility] Work Phone: Comment on above: 3 cups per day 2 cups per day Tobacco Use: Tobacco Use: [facility] Work Phone: Start: 07-09-2020 End: 05-22-2025 Tobacco smoking status Never smoked tobacco (finding) [facility] Functional Status Date Assessment Result Facility 03-24-2023 Functional Status Ambulating in room, Awake [facility] 03-24-2023 Functional Status Supervised [facility] 03-24-2023 Functional Status ice on [facility] 03-24-2023 Functional Status Maintained [facility] Mental Status Date Assessment Result Facility 03-10-2025 Cognitive function Level Of Cons ciousness Awake;Alert;Appropriate;Follow s Commands [facility] Work Phone: 03-24-2023 Mental Status Orientation Oriented x 4 [facility] 03-24-2023 Mental Status [facility] 03-24-2023 Mental Status [facility] Clinical Notes 05-07-2021 to 05-03-2025 Note Date & Type Note Facility 05-03-2025 Radiology Diagnostic study note [facility] [address] [place] [address] Chest PA and Lateral MR#: [id number] Acct: [id number] Name: VAISHALI CHÁVEZ Rep #: [id number] : 1950 F 74 From: Deep Crandall MD PCP: Dr. Huyen Shelley DO Status: REG CLI Study:Chest PA and Lateral Date of Exam: 05/03/25 Exam# [id number] Ordering Dr: Bolivar Hagen MD PROCEDURE: CHEST PA AND LATERAL 05/03/2025 REASON FOR EXAM: PREOP CATH TECHNIQUE: CHEST PA AND LATERAL COMPARISON: PA and lateral chest of 03/10/2025. RAD/Chest PA and Lateral IMPRESSION: Stable degenerative changes of the spine and thoracolumbar dextroscoliosis noted. Lungs appear clear of acute disease. No pleural effusion or pneumothorax is noted. The cardiomediastinal silhouette is stable, without evidence of cardiomegaly. No evidence of acute cardiopulmonary disease. Reading Location: [facility] CC: Dr. Huyen Shelley DO; Dr. Robert Hagen MD ~ Global Consumer Sector Vice President: Signed [facility] 05-03-2025 Evaluation note Diagnosis Onset Date Resolution Chest pressure acute April 8:16am Hyperlipidemia acute April 8:16am Pulmonary hypertension acute Au 2024 8:16am Chronic kidney disease (CKD) chronic May 03, 2025 8:16am Essential (primary) hypertension chronic May 03, 2025 8:16am [facility] Work Phone: 1(177) 198-605406-13-2025 Radiology Diagnostic study note [facility] [address], [place] [address] Chest PA and Lateral MR#: [id number] Acct: [id number] Name: VAISHALI CHÁVEZ ALISSON Rep #: [id number] : 1950 F 74 From: Karma Bardales MD PCP: Brandon Tucker SOFTWARE VALIDATION ENGINEER-C Status: REG E R Study:Chest PA and Lateral Date of Exam: 03/10/25 Exam# [id number] Ordering Dr: Gertrude Martin PROCEDURE: CHEST PA [...] and Lateral IMPRESSION: NEGATIVE CHEST [facility] CC: SOFTWARE VALIDATION ENGINEER-C Brandon Tucker; KWESI Simon ~ Global Consumer Sector Vice President: Signed [facility]05-30-2025 Radiology Diagnostic study note [facility] [address], [place] [address] Extremity Lower without Contra MR#: [id number] Acct: [id number] Name: VAISHALI CHÁVEZ ALISSON Rep #: [id number] : 1950 F 74 From: Cade Soares MD PCP: Brandon Tucker, SOFTWARE VALIDATION ENGINEER-C Status: REG C LI Study:Extremity Lower without Contra Date of Exam: 02/23/25 Exam# [id number] Ordering Dr: Ramy Infante MD PROCEDURE: EXTREMITY [...] Marked degree of joint space narrowing involving themedial compartment of the knee joint as well [...] compartment. Small knee joint effusion. Reading Location: [place] [address] CC: MIRIAN Tucker; Dr. Holger Infante MD ~ Global Consumer Sector Vice President: Signed [facility]06-27-2023 Hospital Discharge instructions Patient Education 03/24/2023 09:29:36 Total Knee Replacement, Care After, Cveq-zm-Wpqz Total Knee Replacement, Care After This sheet [...] Follow these instructions at home: Medicines Take azkb-nfb-knzecyc and prescription medicines only as told by [...] keep your pee (urine) pale yellow. ?Take jsdy-hac-owrccio or prescription medicines. ?Eat foods that are [...] cannot use soap and water, use hand sports physiotherapist. ?Change your bandage as told by your [...] contain nicotine or tobacco, such as cigarettes, e- cigarettes, and chewing tobacco. These can delay healing. [...] 12/06/2012 Document Revised: 01/23/2020 Document Reviewed: 04/28/2019 [employer] Interactive Patient Education 2020 [employer]. 03/24/2023 09:28:35 Nausea and Vomiting, Adult, Txfu-mz-Ppcj Nausea and Vomiting, Adult Nausea is feeling [...] doctor about them. Follow these instructions to carefor yourself at home. Eating and drinking Take an ORS (oral rehydration solution). This is a drink that is sold at pharmacies and stores. Drink clear fluids in small amounts as you are able, such as: ?Water. ?Ice chips. ?Fruit juice that has water added (diluted fruit juice). ?Low-calorie sports drinks. Eat bland, onzn-pe-wwiqxi foods in small amounts as you are able, such as: ?Bananas. ?Applesauce. ?Rice. ?Low-fat (lean) meats. ?Ducor. ?Crackers. Avoid drinking fluids that have a lot of sugar or caffeine in them. This includes energy drinks, sports drinks, and soda. Avoid alcohol. Avoid spicy or fatty foods. General instructions Take hfnz-kxh-tnxquxd and prescription medicines only as told by your doctor. Drink enough fluid to keep your pee (urine) pale yellow. Wash your hands often with soap and water. If you cannot use soap and water, use hand sports physiotherapist. Make sure that all people in your [...] too much water in your body. Take gzxa-olo-rsvpexh and prescription medicines only as told by [...] 03/02/2009 Document Revised: 01/06/2020 Document Reviewed: 02/22/2019 [employer] Interactive Patient Education 2020 [employer]. 03/24/2023 09:28:33 General Anesthesia, Adult, Care After [...] have someone help care for you until youare awake and alert. Rest as needed. Do [...] what activities are safe for you. Take vjeq-bxy-kpzejqm and prescription medicines only as told by [...] 12/21/2001 Document Revised: 09/17/2018 Document Reviewed: 04/30/2018 [employer] Interactive Patient Education 2020 [employer] Follow Up Care 02/09/2023 12:39:42 With:HOLGER INFANTE Address: [address] [facility] [place] [address]- [phone] Business (1) When: Unknown [facility] 06-27-2023 Note Discharge Instructions Thank you for allowing [facility] to assist you with your healthcare needs. The following is importantdischarge information regarding your hospital visit. Your Care Team BRANDON TUCKER dr Your Diagnosis LEFT KNEE ARTHROPLASTY What to do next Follow Up Appointments Follow Up with HOLGER INFANTE When Where: [address] [place] [address] [address] [facility] [place], [place] [address]- [phone] Business (1) Allergies Augmentin (Diarrhea) Bactrim Medications Please ask your primary doctor or pharmacist before taking any other medication not listed, including over the counter drugs, herbal medications, vitamins and or supplements as they may interact withyour home medications. What How Much When Instructions [...] Follow these instructions at home: Medicines Take cpug-nlc-vlponto and prescription medicines only as told by [...] your pee (urine) pale yellow. ? Take rbbp-cvn-lwxcymf or prescription medicines. ? Eat foods that [...] cannot use soap and water, use hand sports physiotherapist. ? Change your bandage as told by your doctor. ? Leave stitches (sutures), skin glue, or skin tape (adhesive) strips in place. They may need to stayin place for 2 weeks or longer. If tape strips get loose and curl up, you may trim the loose edges.Do not remove tape strips completely unless your [...] contain nicotine or tobacco, such as cigarettes, e- cigarettes, and chewing tobacco. These can delay healing. [...] 12/06/2012 Document Revised: 01/23/2020 Document Reviewed: 04/28/2019 [employer] Interactive Patient Education 2020 [employer]. Nausea and Vomiting, Adult Nausea is feeling [...] doctor about them. Follow these instructions to carefor yourself at home. Eating and drinking Take an ORS (oral rehydration solution). This is a drink that is sold at pharmacies and stores. Drink clear fluids in small amounts as you are able, such as: ? Water. ? Ice chips. ? Fruit juice that has water added (diluted fruit juice). ? Low-calorie sports drinks. Eat bland, glbj-kn-nsfwfg foods in small amounts as you are able, such as: ? Bananas. ? Applesauce. ? Rice. ? Low-fat (lean) meats. ? Ducor. ? Crackers. Avoid drinking fluids that have a lot of sugar or caffeine in them. This includes energy drinks, sports drinks, and soda. Avoid alcohol. Avoid spicy or fatty foods. General instructions Take bgtn-day-jvnrplx and prescription medicines only as told by your doctor. Drink enough fluid to keep your pee (urine) pale yellow. Wash your hands often with soap and water. If you cannot use soap and water, use hand sports physiotherapist. Make sure that all people in your [...] too much water in your body. Take ypdq-nya-bmxlbjs and prescription medicines only as told by [...] 03/02/2009 Document Revised: 01/06/2020 Document Reviewed: 02/22/2019 K[employer] Interactive Patient Education 2020 [employer] Museum. General Anesthesia, Adult, Care After This sheet [...] have someone help care for you until youare awake and alert. Rest as needed. Do [...] what activities are safe for you. Take cgsm-kdf-fykeong and prescription medicines only as told by [...] 12/21/2001 Document Revised: 09/17/2018 Document Reviewed: 04/30/2018 [employer] Patient Education 2020 [employer]. Additional Information VACCINATE! IT SAVES LIVES! Members of the community who have not yet received the COVID-19 vaccine and would like to receive it can visit one of [facility] vaccine clinics. There are many vaccine clinic locations within the [facility]. For locations and available times, please visit [email or web address].coronavirus.[place].gov/. It is important to note that some COVID mobile vaccine clinics are held outdoors and may be canceled in rainy or stormy conditions. To learn more about pediatric vaccinations (ages 5-11), we invite you to visit the [facility] webpage. https://www.[facility].org/pages/9003-Trsgk-Rypalgiecfl-Zaflxaldxz-Mscgh-Mwg stions.htmlTo learn more about the COVID-19 vaccine, we invite you to visit the CDC website for a list of frequently asked questions.https://www.cdc.gov/coronavirus/2019-ncov/vaccines/faq.html [facility] Patient Portal Access Instructions: Stay connected with your healthcare team and access your personal medical information anytime with the [facility] Patient Portal. Please follow the directions below to create your [facility] account: 1.Access the email account you provided upon registration to the hospital/physician office.2.Look for an invitation email from [facility].3.Open the email and access the invitation link: AcceptInvitation to [facility].4.Fill in the required hamilton to create your account. To access your account, visit [employer]. Click the blue button labeled Access Patient Portal and then log in with the username and password that you created in the steps above. You will be able to view your test results, lab results, a summary of your visits, upcoming appointments and more. There is also a convenient messaging option where you can send secure messages to your p rovider. In addition, you will have the ability to download any documents or summaries to your computer and/or send the information securely to a physician. Remember that your healthcare information is confidential, so carefully consider who you will allowto register on the [facility] Patient Portal for access to your information. You can also access the [facility] Patient Portal on the [facility] bisi. Simply click on Patient Portal and then log into your account. If you would like to receive a full copy of your medical records, please contact the [facility] Medical Records Department by calling [phone], Thursday through Thursday between 8 a.m. and 4:30 p.m. HOW TO SAFELY DISPOSE OF PRESCRIPTION MEDICATIONS Please use one of the following methods to safely dispose of your unused medications. 1.Use a drug disposal kit: the drug disposal pouch allows you to safely discard your old and unuseddrugs. Ask your nurse to give you one when you are discharged.2.Visit a local take-back location: Many local pharmacies and police departments have programs that collect old and unwanted prescriptiondrugs. Call your local pharmacy or go to http://RMI.Posiba/5U9Og8t to find one close to you.3.Make use of household items: Use cat litter or old coffee grounds to dispose medications if other options arenot available. Mix your drugs with these household products, seal them in an airtight container andthrow it into the garbage. Call [facility]: [phone] to be sure your drugs can be [...] Education Materials Total Knee Replacement, Care After, Uvfy-tv-Rgdn Nausea and Vomiting, Adult, Jqzm-sl-Goyw General Anesthesia, Adult, Care After Medication Leaflets My discharge plan and instructions have been reviewed and explained to me and I,VAISHALI CHÁVEZ understand my current condition and have read and understand these discharge instructions. I have received a written copy of the plan/instructions. If I have questions, I am aware that I should contact my doctor. Patient/Jewelry Model Maker Signature: Date/Time: Relationship to Patient: Witness Name/Signature: Date/Time: [facility]06-27-2023 Note ORIGINAL EXAMINATION: TWO XRAY VIEWS OF [...] 03/24/2023 9:21:09 AM Ordering Provider: HOLGER INFANTE [facility]06-27-2023 Note ORIGINAL EXAMINATION: TWO XRAY VIEWS OF [...] Sign Date: 03/24/2023 9:21:09 AM Ordering Provider: [facility]06-27-2023 Anesthesiology Consult note Patient: VAISHALI CHÁVEZ Age: 72 years Sex: Female : 1950 Associated Diagnoses: None Author: BELL MARION APRN-ROBERTO Preoperative Information Time of last food or [...] 2.5 mg 25 mg 5 mL, Other, [facility] ropivacaine 25 mg + ketorolac 15 mg + epinephrine 0.3 mg + morphine 2.5 mg 25 mg 5 mL, Other, [facility] tranexamic acid PMX 1 gram(s) 100 mL, [...] Mitral valve disorder Brother Procedure history: Tonsillectomy ([id number]). Hand repair ([id number]). Comments: 07/09/2020 7:47 Byron Green RN RIGHT Foot repair ([id number]). Comments: 07/09/2020 7:47 Byron Green RN RIGHT Tubal ligation ([id number]). Ovarian cystectomy ([id number]). Social History Social & Psychosocial Habits Alcohol [...] Signs(last 24 hrs) Last Charted Heart Rate Mcrpmzqrr79 bpm (MAR 24 07:30) Resp Rate 14 br/min (MAR 24 06:08) SBP78 mmHg (MAR 24 07:25) DBP41 mmHg (MAR 24 07:25) Measurements from flowsheet : Measurements 03/24/2023 6:08 EDT Height 165.1 cm Admission Weight 84 kg [place]da Body Weight 57.00 kg 03/24/2023 6:06 EDT [...] Lab results 03/24/2023 7:39 EDT SN - AZ - Route of Administration Local SN - AZ - Route of Administration Local 03/24/2023 7:36 EDT SN - Irl - Irrigant Normal Saline SN - Irl - Irrigant Sterile Water SN - Irl - Irrigant Normal Saline SN - IrI - Volume In 450 mL SN - IrI - Volume In 500 mL SN - Irl - Additive IRRIGATION CHG 0.05% IRRISEPT 12/CA [id number] SN - Irl - Additive BETADINE SN [...] Provider #1 Bedside Time Out BELL MARION APRN-SERVICE TRANSFORMER REPAIR SUPERVISOR Provider #2 Bedside Time Out Anastasia Mg [...] Surgeon SN - CAt - Role Performed SERVICE TRANSFORMER REPAIR SUPERVISOR SN - CAt - Role Performed Dairy Management Specialist 1 SN - CAt - Role Performed Scrub 1 SN - CAt - Role Performed Car Changer 1 SN - CAt - Role Performed Physician Serology Technician SN - CAt - Role Performed [employer] 03/24/2023 6:39 EDT Primary Pain Intensity 0 celecoxib 400 mg mg oxyCODONE 10 mg mg 03/24/2023 6:08 EDT Height 165.1 cm Admission Weight 84 kg [place] Body Weight 57.00 kg Apical Heart Rate [...] no difficulties Skin Temperature Warm Skin Description [place], Normal for ethnicity, Dry Skin Integrity Intact [...] copy (Modified) Safety Brochure Information Reviewed Yes Bud Bowers Video Viewed No Teaching Evaluation No further teaching needed Eat Poorly Due to Decreased Appetite No Total MST Score 0 Admission Note-Nursing Same Day Patient History (Modified) . ECG interpretation Documentation reviewed Assessment and Plan [place] [employer] (ASA) physical status classification: [...] by BELL MARION on 03/24/2023 07:42 AM [facility]2023 Note ORIGINAL EXAMINATION: CT OF THE LEFT [...] 03/02/2023 4:15:17 PM Ordering Provider: HOLGER NARESH [facility]2023 Note ORIGINAL EXAMINATION: CT OF THE LEFT [...] Sign Date: 03/02/2023 4:15:17 PM Ordering Provider: [facility]08-10-2021 Note HNO ID: [id number] Author: Kyler White MD Service: ? Author Type: Physician Type: Progress Notes Filed: 05/17/2021 11:58 AM Note Text: NEUROSURGERY CONSULT NOTE Kyler White MD Date of visit: May 07, 2021 Patient Name: Ms.Karen Elio Chávez Date of : 1950 Current Age: [age] year old Sex: female MRN/E# [id number] Chief Complaint: No chief complaint on file. HISTORY OF PRESENT ILLNESS : The patient is a 70 year old, right handed female with a past medical history of hypothyroidism, hypercholesteremia, and hypertension who is referred by Dr. Arellano for neurosurgical evaluation. Ms. Chávez presents to the office as a new [...] APPENDECTOMY 1971 - COLONOSCOP W/ OR W/O [facility] SPEC 11/15/07 - LIGATE FALLOPIAN TUBE [...] Temp 97.9 Resp 16 (more content not included)...[facility] Evaluation noteNo assessment information available [facility] Work Phone: Evaluation note* Diagnosis Onset Date Resolution Status Admit Date Chest pressure acute April 8:16am Pulmonary hypertension acute 2024 8:16am [facility] Work Phone: Hospital course Narrative No data available for this section [facility] Hospital Discharge instructions No data available for this section [facility] Hospital Discharge instructions Additional Instructions Please follow-up with cardiology, return for any concerning or worsening symptoms. Please return for any chest pain, shortness of breath, or any other concerning symptoms. [facility] Work Phone: Instructions* Name Dates Details Patient Instructions Indication:Nonsmoker Start:12-Dec-2022 Instruction Type:Provider Instructions for Treatment How to Access Health Informa tion Online using Patient Portal and [employer]rd [employer] Apps Indication:Nonsmoker Start:12-Dec-2022 Instruction Type:Patient Education [facility] Work Phone: instructions* Name Dates Details Patient Instructions Indication:Nonsmoker Start:12-Dec-2022 Instruction Type:Provider Instructions for Treatment How to Access Health Informa tion Online using Patient Portal and [employer]rd [employer] Apps Indication:Nonsmoker Start:12-Dec-2022 Instruction Type:Patient Education [facility] Work Phone: instructions* Name Dates Details Patient Instructions Indication:Hypertension Start:12-Jan-2023 Instruction Type:Provider Instructions for Treatment How to Access Health Informa tion Online using Patient Portal and [employer]rd [employer] Apps Indication:Hypertension Start:12-Jan-2023 Instruction Type:Patient Education Patient Instructions Indication:Nonsmoker Start:12-Dec-2022 Instruction Type:Provider Instructions for Treatment How to Access Health Informa tion Online using Patient Portal and [employer] Apps Indication:Nonsmoker Start:12-Dec-2022 Instruction Type:Patient Education [facility] Work Phone: instructions* Name Dates Details Patient Instructions Indication:Preop examination (Renamed from Encounter for pre-operative examination) Start:09-Mar-2023 Instruction Type:Provider Instructions for Treatment How to Access Health Informa tion Online using Patient Portal and [employer] Apps Indication:Preop examination (Renamed from Encounter for pre-operative examination) Start:09-Mar-2023 Instruction Type:Patient Education Patient Instructions Indication:Hypertension Start:12-Jan-2023 Instruction Type:Provider Instructions for Treatment How to Access Health Informa tion Online using Patient Portal and [employer]rd [employer] Apps Indication:Hypertension Start:12-Jan-2023 Instruction Type:Patient Education Patient Instructions Indication:Nonsmoker Start:12-Dec-2022 Instruction Type:Provider Instructions for Treatment How to Access Health Informa tion Online using Patient Portal and [employer]rd [employer] Apps Indication:Nonsmoker Start:12-Dec-2022 Instruction Type:Patient Education [facility]; [facility] Work Phone: instructions* Name Dates Details Patient Instructions Indication:Preop examination (Renamed from Encounter for pre-operative examination) Start:09-Mar-2023 Instruction Type:Provider Instructions for Treatment How to Access Health Informa tion Online using Patient Portal and [employer]rd [employer] Apps Indication:Preop examination (Renamed from Encounter for pre-operative examination) Start:09-Mar-2023 Instruction Type:Patient Education Patient Instructions Indication:Hypertension Start:12-Jan-2023 Instruction Type:Provider Instructions for Treatment How to Access Health Informa tion Online using Patient Portal and [employer]rd [employer] Apps Indication:Hypertension Start:12-Jan-2023 Instruction Type:Patient Education Patient Instructions Indication:Nonsmoker Start:12-Dec-2022 Instruction Type:Provider Instructions for Treatment How to Access Health Informa tion Online using Patient Portal and [employer] Apps Indication:Nonsmoker Start:12-Dec-2022 Instruction Type:Patient Education [facility] Work Phone: [email or web address]* Name Dates Details Patient Instructions Indication:Nonsmoker Start:15-Jul-2023 Instruction Type:Provider Instructions for Treatment How to Access Health Informa tion Online using Patient Portal and [employer] Apps Indication:Nonsmoker Start:15-Jul-2023 Instruction Type:Patient Education Patient Instructions Indication:Preop examination (Renamed from Encounter for pre-operative examination) Start:09-Mar-2023 Instruction Type:Provider Instructions for Treatment How to Access Health Informa tion Online using Patient Portal and [employer] Apps Indication:Preop examination (Renamed from Encounter for pre-operative examination) Start:09-Mar-2023 Instruction Type:Patient Education Patient Instructions Indication:Hypertension Start:12-Jan-2023 Instruction Type:Provider Instructions for Treatment How to Access Health Informa tion Online using Patient Portal and [employer] Apps Indication:Hypertension Start:12-Jan-2023 Instruction Type:Patient Education Patient Instructions Indication:Nonsmoker Start:12-Dec-2022 Instruction Type:Provider Instructions for Treatment How to Access Health Informa tion Online using Patient Portal and [employer] Apps Indication:Nonsmoker Start:12-Dec-2022 Instruction Type:Patient Education [facility]; [facility] Work Phone: instructions* Name Dates Details Patient Instructions Indication:Nonsmoker Start:15-Jul-2023 Instruction Type:Provider Instructions for Treatment How to Access Health Informa tion Online using Patient Portal and [employer] Apps Indication:Nonsmoker Start:15-Jul-2023 Instruction Type:Patient Education Patient Instructions Indication:Preop examination (Renamed from Encounter for pre-operative examination) Start:09-Mar-2023 Instruction Type:Provider Instructions for Treatment How to Access Health Informa tion Online using Patient Portal and [employer] Apps Indication:Preop examination (Renamed from Encounter for pre-operative examination) Start:09-Mar-2023 Instruction Type:Patient Education Patient Instructions Indication:Hypertension Start:12-Jan-2023 Instruction Type:Provider Instructions for Treatment How to Access Health Informa tion Online using Patient Portal and [employer] Apps Indication:Hypertension Start:12-Jan-2023 Instruction Type:Patient Education Patient Instructions Indication:Nonsmoker Start:12-Dec-2022 Instruction Type:Provider Instructions for Treatment How to Access Health Informa tion Online using Patient Portal and [employer] Apps Indication:Nonsmoker Start:12-Dec-2022 Instruction Type:Patient Education [facility]; [facility] Work Phone: progress note No data available for this section [facility] Reason for referral (narrative)No reason for [facility] Summary Purpose Family History No Family History Records FoundUnknown Family Member Name Dates Details Father Comments:[place] Status:Active Mother Comments:Arthritis, Ovarian cancer Status:Active Paternal Grandmother Comments:Thyroid issues Status:Active Unknown Family Member Name Dates Details Father Comments:[place] Status:Active Mother Comments:Arthritis, Ovarian cancer, ETOH Status:Active Paternal Grandmother Comments:Thyroid issues Status:Active Unknown Family Member Name Dates Details Father Comments:[place] Status:Active Mother Comments:Arthritis, Ovarian cancer, ETOH Status:Active Paternal Grandmother Comments:Thyroid issues Status:Active Unknown Family Member Name Dates Details CHF (congestive heart failur e)(I50.9, 428.0) Comments:Brother. Status:Active Father Comments:[place] Status:Active Mother Comments:Arthritis, Ovarian cancer, ETOH Status:Active Paternal Grandmother Comments:Thyroid issues Status:Active Unknown Family Member Name Dates Details CHF (congestive heart failur e)(I50.9, 428.0) Comments:Brother. Status:Active Father Comments:[place] Status:Active Mother Comments:Arthritis, Ovarian cancer, ETOH Status:Active Paternal Grandmother Comments:Thyroid issues Status:Active Unknown Family Member Name Dates Details Father Comments:[place] at 71 Status:Active Heart Valve Insufficiency Comments:Brother. Status:Active Mother Comments:Arthritis, Ovarian cancer, ETOH Status:Active Paternal Grandmother Comments:Thyroid issues Status:Active Unknown Family Member Name Dates Details Father Comments:[place] at 71 Status:Active Heart Valve Insufficiency Comments:Brother. Status:Active Mother Comments:Arthritis, Ovarian cancer, ETOH Status:Active Paternal Grandmother Comments:Thyroid issues Status:Active Unknown Family Member Name Dates Details Father Comments:[place] at 71 Status:Active Heart Valve Insufficiency Comments:Brother. Status:Active Mother Comments:Arthritis, Ovarian cancer, ETOH Status:Active Paternal Grandmother Comments:Thyroid issues Status:Active Unknown Family Member Name Dates Details Father Comments:[place] at 71 Status:Active Heart Valve Insufficiency Comments:Brother. Status:Active Mother Comments:Arthritis, Ovarian cancer, ETOH Status:Active Paternal Grandmother Comments:Thyroid issues Status:Active Relationship Condition Age at Onset Recorded Date/T dimas grandmother Disorder of thyroid Unknown mother Malignant neoplasm Unknown Alcohol abuse Unknown brother Heart valve regurgitation Unknown father Myocardial infarction Unknown Advance Directives No Advanced Directives Records Found Advance Directive Response Recorded Date/ Time Do you have a Healthcare Power of Coal Screener? Yes March 10, 2025 2:37pm Name of Medical Power of Coal Screener Сергей March 10, 2025 2:37pm Advance Directive Response Recorded Date/ Time Do you have a Healthcare Power of Coal Screener? Yes March 10, 2025 2:37pm Name of Medical Power of Coal Screener Сергей March 10, 2025 2:37pm Advance Directives on File No Augus 2024 8:12am Living Will Yes May 22 8:12am Do you have a Healthcare Power of Coal Screener? Yes May 22, 2025 8:12am Name of Medical Power of Coal Screener Krys abdi May 22, 2025 8:12am Advance Directives No May 22, 2025 8:12am Chief Complaint and Reason for Visit Chief Complaint Admit Date PREOP February 23, 2025 12:18 pm Chief Complaint Admit Date PREOP February 23, 2025 12:18 pm PREOP February 23, 2025 12:32 pm abnormal labs March 10, 2025 2:15 pm Chief Complaint Admit Date PREOP February 23, 2025 12:18 pm PREOP February 23, 2025 12:32 pm abnormal labs March 10, 2025 2:15 pm ABN EKG April 12, 2025 12:2 7pm Chief Complaint Admit Date PREOP February 23, 2025 12:18 pm PREOP February 23, 2025 12:32 pm abnormal labs March 10, 2025 2:15 pm ABN EKG April 12, 2025 12:2 7pm CP April 12, 2025 1:46 pm Elevated Troponin/ABN EKG (Bonezzi) Apru 2024 8:16am Reason for Visit Admit Date Chest pressure May 03, 2025 8:1 6am Pulmonary hypertension May 03, 2025 8:16am Chief Complaint Admit Date PREOP February 23, 2025 12:18 pm PREOP February 23, 2025 12:32 pm abnormal labs March 10, 2025 2:15 pm ABN EKG April 12, 2025 12:2 7pm CP April 12, 2025 1:46 pm Elevated Troponin/ABN EKG (Bonezzi) Apru 2024 8:16am E-ORDER, FOR CATH PROCEDURE COMING UP NO T May 03, 2025 9:36am Reason for Visit Admit Date Chest pressure May 03, 2025 8:1 6am Hyperlipidemia May 03, 2025 8:1 6am Pulmonary hypertension May 03, 2025 8:16am Chronic kidney disease (CKD) May 03, 2025 8:16am Essential (primary) hypertension May 03, 2025 8:16am Chief Complaint Admit Date PREOP February 23, 2025 12:18 pm PREOP February 23, 2025 12:32 pm abnormal labs March 10, 2025 2:15 pm ABN EKG April 12, 2025 12:2 7pm CP April 12, 2025 1:46 pm Elevated Troponin/ABN EKG (Bonezzi) Augu 2024 8:16am E-ORDER, FOR CATH PROCEDURE COMING UP NO T May 03, 2025 9:36am NEED ORDER May 16, 2025 7: 47am CHEST PRESSURE May 22, 2025 7: 47am Additional Source Comments INFORMATION SOURCE (unrecogn ized section and content) DATE CREATED AUTHOR 05/19/2021 [facility] DATE CREATED AUTHOR AUTHOR'S ORGANIZ ATION 10/20/2021 [facility] DATE CREATED AUTHOR AUTHOR'S ORGANIZ ATION 02/07/2023 [facility] DATE CREATED AUTHOR AUTHOR'S ORGANIZ ATION 03/26/2023 [facility] ([place] DATE CREATED AUTHOR AUTHOR'S ORGANIZ ATION 06/16/2025 [facility] Goals (unrecognized section and [...] Team Status: Active Member Role Status Dates MIRIAN Lundberg Primary Care Provider Active Team Status: Inactive Member Role Status Dates Dr. Holger Infante MD Attending Provider Active Start: February 23, 2025 End: February 23, 2025 Dr. Holger Infante MD Referring Provider Active Start: February 23, 2025 End: February 23, 2025 MIRIAN Lundberg Primary Care Provider Active Start: February 23, 2025 End: February 23, 2025 Team Status: Active Member Role Status Dates MIRIAN Lundberg Primary Care Provider Active Start: February 23, 2025 End: February 23, 2025 Dr. Robert Hagen MD Attending Provider Active Start: February 23, 2025 End: February 23, 2025 Dr. Holger Infante MD Referring Provider Active Start: February 23, 2025 End: February 23, 2025 Team Status: Active Member Role Status Dates MIRIAN Lundberg Primary Care Provider Active Start: March 10, 2025 Dr. Ana Hernández MD Attending Provider Active Start: March 10, 2025 Dr. Ana Hernández MD Referring Provider Active Start: March 10, 2025 Team Status: Inactive Member Role Status Dates Brandon Tucker , SOFTWARE VALIDATION ENGINEER-C Primary Care Provider Active Start: March 10, 2025 End: March 10, 2025 Dr. Luis M Geller DO Emergency Provider Active Start : March 10, 2025 End: March 10, 2025 Team Status: Inactive Member Role Status Dates Brandon Tucker , SOFTWARE VALIDATION ENGINEER-C Primary Care Provider Active Start: March 10, 2025 End: March 10, 2025 Dr. Ana Hernández MD Attending Provider Active Start: March 10, 2025 End: March 10, 2025 Dr. Ana Hernández MD Referring Provider Active Start: March 10, 2025 End: March 10, 2025 Team Status: Inactive Member Role Status Dates Brandon Tucker SOFTWARE VALIDATION ENGINEER-C Primary Care Provider Active Start: March 10, 2025 End: March 10, 2025 Dr. Luis M Geller DO Attending Provider Active Start : March 10, 2025 End: March 10, 2025 Dr. Luis M Geller DO Emergency Provider Active Start : March 10, 2025 End: March 10, 2025 Team Status: Active Member Role/Relationship Status Dates Brandon Tucker , SOFTWARE VALIDATION ENGINEER-C Primary Care Provider Active Team Status: Inactive Member Role/Relationship Status Dates Dr. Holger Infante MD Attending Provider Active Start: February 23, 2025 End: February 23, 2025 Dr. Holger Infante MD Referring Provider Active Start: February 23, 2025 End: February 23, 2025 Brandon Tucker , SOFTWARE VALIDATION ENGINEER-C Primary Care Provider Active Start: February 23, 2025 End: February 23, 2025 Team Status: Active Member Role/Relationship Status Dates Brandon Tucker SOFTWARE VALIDATION ENGINEER-C Primary Care Provider Active Start: February 23, 2025 End: February 23, 2025 Dr. Robert Hagen MD Attending Provider Active Start: February 23, 2025 End: February 23, 2025 Dr. Holger Infatne MD Referring Provider Active Start: February 23, 2025 End: February 23, 2025 Team Status: Inactive Member Role/Relationship Status Dates Brandon Tucker , SOFTWARE VALIDATION ENGINEER-C Primary Care Provider Active Start: March 10, 2025 End: March 10, 2025 Dr. Ana Hernández MD Attending Provider Active Start: March 10, 2025 End: March 10, 2025 Dr. Ana Hernández MD Referring Provider Active Start: March 10, 2025 End: March 10, 2025 Team Status: Inactive Member Role/Relationship Status Dates Brandon Tucker , SOFTWARE VALIDATION ENGINEER-C Primary Care Provider Active Start: March 10, 2025 End: March 10, 2025 Dr. Luis M Geller DO Attending Provider Active Start : March 10, 2025 End: March 10, 2025 Dr. Luis M Geller DO Emergency Provider Active Start : March 10, 2025 End: March 10, 2025 Team Status: Active Member Role/Relationship Status Dates Brandon Tucker , SOFTWARE VALIDATION ENGINEER-C Primary Care Provider Active Start: April 12, 2025 Dr. Shahbaz Bender MD Attending Provider Active Start: April 12, 2025 Team Status: Inactive Member Role/Relationship Status Dates Brandonraheel Tucker , SOFTWARE VALIDATION ENGINEER-C Primary Care Provider Active Start: April 12, 2025 End: April 12, 2025 Brandon Tucker , SOFTWARE VALIDATION ENGINEER-C Attending Provider Active Start: April 12, 2025 End: April 12, 2025 Brandon Tucker , SOFTWARE VALIDATION ENGINEER-C Referring Provider Active Start: April 12, 2025 End: April 12, 2025 Team Status: Active Member Role/Relationship Status Dates Dr. Huyen Shelley DO Primary Care Provider Active Team Status: Active Member Role/Relationship Status Dates Brandonraheel Tucker , SOFTWARE VALIDATION ENGINEER-C Primary Care Provider Active Start: April 12, 2025 Brandon Tucker , SOFTWARE VALIDATION ENGINEER-C Referring Provider Active Start: April 12, 2025 Dr. Robert Hagen MD Attending Provider Active Start: April 12, 2025 Team Status: Inactive Member Role/Relationship Status Dates Dr. Robert Hagen MD Attending Provider Active Start: May 03, 2025 End: May 03, 2025 Dr. Huyen Shelley DO Primary Care Provider Active Start: May 03, 2025 End: May 03, 2025 Dr. Huyen Shelley DO Referring Provider Active St art: May 03, 2025 End: May 03, 2025 Team Status: Inactive Member Role/Relationship Status Dates Dr. Huyen Shelley DO Primary Care Provider Active Start: May 03, 2025 End: May 03, 2025 Dr. Robert Hagen MD Attending Provider Active Start: May 03, 2025 End: May 03, 2025 Dr. Robert Hagen MD Referring Provider Active Start: May 03, 2025 End: May 03, 2025 Team Status: Inactive Member Role/Relationship Status Dates Dr. Huyen Shelley DO Primary Care Provider Active Start: May 16, 2025 End: May 16, 2025 Dr. Huyen Shelley DO Attending Provider Active St art: May 16, 2025 End: May 16, 2025 Dr. Huyen Shelley DO Referring Provider Active St art: May 16, 2025 End: May 16, 2025 Team Status: Active Member Role/Relationship Status Dates Dr. Huyen Shelley DO Primary Care Provider Active Start: May 22, 2025 Dr. Rubio Catalan MD Attending Provider Active S tart: May 22, 2025 Dr. Rubio Catalan MD Referring Provider Active S tart: May 22, 2025 Team Status: Inactive Member Role/Relationship Status Dates Dr. Huyen Shelley DO Primary Care Provider Active Start: May 22, 2025 End: May 22, 2025 Dr. Rubio Catalan MD Attending Provider Active S tart: May 22, 2025 End: May 22, 2025 Dr. Rubio Catalan MD Referring Provider Active S tart: May 22, 2025 End: May 22, 2025 FOR RECORDS PERTAINING TO PATIENTS WHO [...] BE BASED ON THE PRIMARY CLINICAL RECORDS. [email or web address] [facility]. provides no warranty or guarantee of the accuracy or completeness of information in this document."
== END | disposition home or self-care (01) ==
LOC: CT 18:19
PROVIDERS: PCP Internal Medicine; Visit Provider Specialist
DX: M17.11 Unilateral primary osteoarthritis, right knee (principal); M21.161 Varus deformity, not elsewhere classified, right knee
CPT/HCPCS: 73700